=== PATIENT | male | born 1955 | race Caucasian/White ===

== ENCOUNTER 2023-12-23 12:11 | Inpatient (IN) | payer MEDICARE, OTHER ==
--- NOTE | 2023-12-23 12:40 | ED ---
Fall HPI - General Chief Complaint: Fall Stated Complaint: R hip pain Time Seen by Provider: 12/23/23 12:17 Source: patient, EMS, RN notes reviewed, old records reviewed Mode of arrival: EMS Limitations: no limitations - History of Present Illness Initial Comments: This is a 68-year-old male to the ER of a recent fall which what he states resulted in a hip fracture although this patient is very unaware of where the hip fracture was. 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: no Place Fall Occurred: home Loss of Consciousness: none Prolonged Down Time?: no Symptoms Prior to Fall: none Location: pelvis Severity: moderate Severity scale (1-10): 3 Context: tripped/slipped Associated Symptoms: denies - Related Data Home Medications Medication Instructions Recorded Confirmed Cetirizine HCl [Zyrtec] 10 mg PO DAILY PRN 12/23/23 12/23/23 Furosemide [Lasix] 40 mg PO DAILY 12/23/23 12/23/23 Isosorbide Mononitrate ER [Imdur] 120 mg PO DAILY 12/23/23 12/23/23 Metoprolol Tartrate [Lopressor] 50 mg PO BID 12/23/23 12/23/23 Pantoprazole [Protonix] 40 mg PO DAILY 12/23/23 12/23/23 Ranolazine [Ranexa] 1,000 mg PO Q12HR 12/23/23 12/23/23 amLODIPine [Norvasc] 5 mg PO DAILY 12/23/23 12/23/23 Allergies Allergy/AdvReac Type Severity Reaction Status Date / Time No Known Allergies Allergy Verified 12/23/23 13:59 Review of Systems ROS Statement: Those systems with pertinent positive or pertinent negative responses have been documented in the HPI. ROS Other: All systems not noted in ROS Statement are negative. Past Medical History Past Medical History: Coronary Artery Disease (CAD), Chest Pain / Angina, COPD, Hypertension, Myocardial Infarction ([place]), Osteoarthritis (OA) Past Surgical History: Back Surgery, Heart Catheterization With Stent, Prostate Surgery Smoking Status: Current every day smoker Past Alcohol Use History: Daily Past Drug Use History: None Reported General Exam General appearance: alert, in no apparent distress Head exam: Present: atraumatic, normocephalic, normal inspection Eye exam: Present: normal appearance, PERRL, EOMI. Absent: scleral icterus, conjunctival injection, periorbital swelling ENT exam: Present: normal exam, mucous membranes moist Neck exam: Present: normal inspection. Absent: tenderness, meningismus, ly mphadenopathy Respiratory exam: Present: normal lung sounds bilaterally. Absent: respiratory distress, wheezes, rales, rhonchi, stridor Cardiovascular Exam: Present: regular rate, normal rhythm, normal heart sounds. Absent: systolic murmur, diastolic murmur, rubs, gallop, clicks GI/Abdominal exam: Present: soft, normal bowel sounds. Absent: distended, tenderness, guarding, rebound, rigid Extremities exam: Present: normal inspection, full ROM, normal capillary refill. Absent: tenderness, pedal edema, joint swelling, calf tenderness Back exam: Present: normal inspection Neurological exam: Present: alert, oriented X3, CN II-XII intact Psychiatric exam: Present: normal affect, normal mood Skin exam: Present: warm, dry, intact, normal color. Absent: rash Course Vital Signs 12/23/23 12:14 Temperature 97.8 F Pulse Rate 99 Respiratory 18 Rate Blood Pressure 118/71 O2 Sat by Pulse 92 L Oximetry - Reevaluation(s) Reevaluation #1: 12/23/23 14:18 Medical record is reviewed Reevaluation #2: 12/23/23 16:05 Patient symptoms improved Reevaluation #3: 12/23/23 16:05 Patient informed of results and questions answered Reevaluation #4: Was pt. sent in by a medical professional or institution (, PA, ANALYSIS MGR, urgent care, hospital, or [facility]...) When possible be specific @ -no Did you speak to anyone other than the patient for history (EMS, parent, family, police, friend...)? What history was obtained from this source @ -no Did you review nursing and triage notes (agree or disagree)? Why? @ -agree Are old charts reviewed (outside hosp., previous admission, EMS record, old EKG, old radiological studies, urgent care reports/EKG's, [facility] records)? Report findings @ -yes Differential Diagnosis (chest pain, altered mental status, abdominal pain women, abdominal pain men, vaginal bleeding, weakness, fever, dyspnea, syncope, headache, dizziness, GI bleed, back pain, seizure, CVA, palpatations, mental health, musculoskeletal)? @ -prior EKG interpreted by me (3pts min.). @ -yes X-rays interpreted by me (1pt min.). @ -yes negative for acute disease CT interpreted by me (1pt min.). @ -no U/S interpreted by me (1pt. min.). @ -no What testing was considered but not performed or refused? (CT, X-rays, U/S, labs)? Why? @ -none What meds were considered but not given or refused? Why? @ -none Did you discuss the management of the patient with other professionals (professionals i.e. , PA, ANALYSIS MGR, lab, RT, psych nurse, high school social studies teacher, candle making supervisor, teacher, corporation officer, case management rn)? Give summary @ -no Was smoking cessation discussed for >3mins.? @ -no Was critical care preformed (if so, how long)? @ -no Were there social determinants of health that impacted care today? How? (Homelessness, low income, unemployed, alcoholism, drug addiction, transportation, low edu. Level, literacy, decrease access to med. care, usp, rehab)? @ -none Was there de-escalation of care discussed even if they declined (Discuss DNR or withdrawal of care, Hospice)? DNR status @ -no What co-morbidities impacted this encounter? (DM, HTN, Smoking, COPD, CAD, Cancer, CVA, ARF, Chemo, Hep., AIDS, mental health diagnosis, sleep apnea, morbid obesity)? @ -none Was patient admitted / discharged? Hospital course, mention meds given and route, prescriptions, significant lab abnormalities, going to OR and other pertinent info. @ - Undiagnosed new problem with uncertain prognosis? @ -no Drug Therapy requiring intensive monitoring for toxicity (Heparin, Nitro, Insulin, Cardizem)? @ -no Were any procedures done? @ -no Diagnosis/symptom? @ - Acute, or Chronic, or Acute on Chronic? @ -Acute Uncomplicated (without systemic symptoms) or Complicated (systemic symptoms)? @ -Complicated Side effects of treatment? @ -no Exacerbation, Progression, or Severe Exacerbation? @ -exacerbation Poses a threat to life or bodily function? How? (Chest pain, [place], [place], pneumonia, PE, COPD, DKA, ARF, appy, cholecystitis, CVA, Diverticulitis, Homicidal, Suicidal, threat to staff... and all critical care pts) @ -yes Reevaluation #5: Differential Weakness: Hypoglycemia, shock, sepsis, hyponatremia, anemia, infection, [place], ETOH, adverse medicine reaction, overdose, stroke, this is not meant to be an all-inclusive list. - Consultations Consultation #1: Spoke with Dr. Sanchez who agrees to admit this patient Medical Decision Making - Medical Decision Making 68 male to the ER for evaluation patient falls with fracture patient had a fall greater than a week ago coming in with bilateral hip pain persistent bilateral hip pain and states he currently wants surgical evaluation patient is found to have significant electrolyte abnormalities will be admitted for electrolyte r eplacement - Lab Data Result diagrams: 12/23/23 13:31 12/23/23 13:31 Lab Results 12/23/23 12/23/23 12/23/23 Range/Units 13:31 13:31 13:31 WBC 7.1 (3.8-10.6) k/uL RBC 3.15 L (4.30-5.90) m/uL Hgb 11.3 L (13.0-17.5) gm/dL Hct 33.5 L (39.0-53.0) % MCV 106.3 H (80.0-100.0) fL MCH 35.8 H (25.0-35.0) pg MCHC 33.7 (31.0-37.0) g/dL RDW 15.4 (11.5-15.5) % Plt Count 201 (150-450) k/uL MPV 7.5 Neutrophils % 68 % Lymphocytes % 23 % Monocytes % 5 % Eosinophils % 2 % Basophils % 0 % Neutrophils # 4.8 (1.3-7.7) k/uL Lymphocytes # 1.6 (1.0-4.8) k/uL Monocytes # 0.3 (0-1.0) k/uL Eosinophils # 0.2 (0-0.7) k/uL Basophils # 0.0 (0-0.2) k/uL Macrocytosis Moderate PT 10.1 (10.0-12.5) sec INR 0.9 (<1.2) APTT 25.7 (22.0-30.0) sec Sodium 129 L (137-145) mmol/L Potassium 3.7 (3.5-5.1) mmol/L Chloride 97 L (98-107) mmol/L Carbon Dioxide 24 (22-30) mmol/L Anion Gap 8 mmol/L BUN 3 L (9-20) mg/dL Creatinine 0.47 L (0.66-1.25) mg/dL Est GFR (CKD-EPI)AfAm >90 (>60 ml/min/1.73 sqM) Est GFR (CKD-EPI)NonAf >90 (>60 ml/min/1.73 sqM) Glucose 101 H (74-99) mg/dL Plasma Lactic Acid Jair (0.7-2.0) mmol/L Calcium 8.6 (8.4-10.2) mg/dL Phosphorus 4.7 H (2.5-4.5) mg/dL Magnesium 1.3 L (1.6-2.3) mg/dL Total Bilirubin 1.1 (0.2-1.3) mg/dL AST 39 (17-59) U/L ALT 22 (4-49) U/L Alkaline Phosphatase 97 (38-126) U/L Troponin I (0.000-0.034) ng/mL Total Protein 6.5 (6.3-8.2) g/dL Albumin 3.9 (3.5-5.0) g/dL 12/23/23 12/23/23 Range/Units 13:31 13:31 WBC (3.8-10.6) k/uL RBC (4.30-5.90) m/uL Hgb (13.0-17.5) gm/dL Hct (39.0-53.0) % MCV (80.0-100.0) fL MCH (25.0-35.0) pg MCHC (31.0-37.0) g/dL RDW (11.5-15.5) % Plt Count (150-450) k/uL MPV Neutrophils % % Lymphocytes % % Monocytes % % Eosinophils % % Basophils % % Neutrophils # (1.3-7.7) k/uL Lymphocytes # (1.0-4.8) k/uL Monocytes # (0-1.0) k/uL Eosinophils # (0-0.7) k/uL Basophils # (0-0.2) k/uL Macrocytosis PT (10.0-12.5) sec INR (<1.2) APTT (22.0-30.0) sec Sodium (137-145) mmol/L Potassium (3.5-5.1) mmol/L Chloride (98-107) mmol/L Carbon Dioxide (22-30) mmol/L Anion Gap mmol/L BUN (9-20) mg/dL Creatinine (0.66-1.25) mg/dL Est GFR (CKD-EPI)AfAm (>60 ml/min/1.73 sqM) Est GFR (CKD-EPI)NonAf (>60 ml/min/1.73 sqM) Glucose (74-99) mg/dL Plasma Lactic Acid Jair 1.3 (0.7-2.0) mmol/L Calcium (8.4-10.2) mg/dL Phosphorus (2.5-4.5) mg/dL Magnesium (1.6-2.3) mg/dL Total Bilirubin (0.2-1.3) mg/dL AST (17-59) U/L ALT (4-49) U/L Alkaline Phosphatase (38-126) U/L Troponin I <0.012 (0.000-0.034) ng/mL Total Protein (6.3-8.2) g/dL Albumin (3.5-5.0) g/dL - Radiology Data Radiology results: report reviewed (Chest x-ray pelvis x-ray x-ray of bilateral hip and CT scan of the hip shows bilateral greater trochanteric fracture), image reviewed Disposition Clinical Impression: Bilateral hip pain, Fracture of greater trochanter of left femur, Fracture of greater trochanter of right femur Disposition: ADMITTED IP TO THIS HOSP Condition: Fair Is patient prescribed a controlled substance at d/c from ED?: No Referrals: Nonstaff,Physician [Primary Care Provider] - 1-2 days Time of Disposition: 16:00
[2023-12-23] MEDS: SODIUM CHLORIDE 0.9% 1,000 ML IV STA (13:47)
[2023-12-23 13:50] LABS: Basophils % (A) 0 %; Eosinophils # (A) 0.2 k/uL (0-0.7); Eosinophils % (A) 2 %; HCT 33.5 % (39.0-53.0); HGB 11.3 gm/dL (13.0-17.5); Lymphocytes # (A) 1.6 k/uL (1.0-4.8); Lymphocytes % (A) 23 %; MCH 35.8 pg (25.0-35.0); MCHC 33.7 g/dL (31.0-37.0); MCV 106.3 fL (80.0-100.0); Macrocytosis Moderate; Mean Platelet Volume 7.5; Monocytes # (A) 0.3 k/uL (0-1.0); Monocytes % (A) 5 %; Neutrophils # (A) 4.8 k/uL (1.3-7.7); Neutrophils % (A) 68 %; Platelet Count 201 k/uL (150-450); RBC 3.15 m/uL (4.30-5.90); RDW 15.4 % (11.5-15.5); WBC 7.1 k/uL (3.8-10.6)
[2023-12-23 14:08] LABS: INR 0.9 (<1.2); Partial Thromboplastin Time 25.7 sec (22.0-30.0); Prothrombin Time 10.1 sec (10.0-12.5)
[2023-12-23] MEDS: MORPHINE SULFATE 4 MG/ML SYRINGE IVP STA (14:09)
[2023-12-23 14:13] LABS: ALT 22 U/L (4-49); AST 39 U/L (17-59); African American GFR (CKD) >90 (>60 ml/min/1.73 sqM); Albumin 3.9 g/dL (3.5-5.0); Alkaline Phosphatase 97 U/L (38-126); Anion Gap 8 mmol/L; Blood Urea Nitrogen 3 mg/dL (9-20); Calcium 8.6 mg/dL (8.4-10.2); Carbon Dioxide 24 mmol/L (22-30); Chloride 97 mmol/L (98-107); Glucose 101 mg/dL (74-99); Magnesium 1.3 mg/dL (1.6-2.3); Non-African American GFR(CKD) >90 (>60 ml/min/1.73 sqM); Phosphorus 4.7 mg/dL (2.5-4.5); Potassium 3.7 mmol/L (3.5-5.1); Sodium 129 mmol/L (137-145); Total Bilirubin 1.1 mg/dL (0.2-1.3); Total Protein 6.5 g/dL (6.3-8.2)
--- NOTE | 2023-12-23 14:56 | XR ---
EXAMINATION TYPE: XR chest 1V DATE OF EXAM: 12/23/2023 COMPARISON: NONE HISTORY: Pain TECHNIQUE: Single frontal view of the chest is obtained. FINDINGS: There is no focal air space opacity, pleural effusion, or pneumothorax seen. The cardiac silhouette size is within normal limits. The osseous structures are intact. Emphysematous changes. Diffuse osteopenia. Atherosclerotic change aorta. IMPRESSION: No acute process. [facility], , 12/23/2023 1:37 PM
--- NOTE | 2023-12-23 14:56 | XR ---
EXAMINATION TYPE: XR Hip Bilateral and AP pelvis DATE OF EXAM: 12/23/2023 COMPARISON: NONE HISTORY: 18 TECHNIQUE: A single AP view of the pelvis is obtained. Two views of the bilateral hip are obtained. FINDINGS: There is a acute fracture of the greater trochanter of the left hip. Mild hypertrophic hip arthropathy. Mild generalized demineralization. Findings are suspicious for deformity of the greater trochanter of the right hip. Pubic rami are intact. Sclerotic density overlying the right iliac bone. Vascular ivan cifications and degenerative change of the spine. IMPRESSION: 1. CT scan of the pelvis to include bilateral hip recommended to assess for mildly displaced acute fr actures of the greater trochanter bilateral hip.. [facility], , 12/23/2023 1:39 PM
--- NOTE | 2023-12-23 14:59 | CT ---
EXAMINATION TYPE: CT pelvis wo con CT DLP: 242.9 mGycm, Automated exposure control for dose reduction was used. DATE OF EXAM: 12/23/2023 2:42 PM COMPARISON: Bilateral hip radiographs of the same date. CLINICAL INDICATION:Male, 68 years old with history of pain; hip pain, recent falls TECHNIQUE: Standard CT of the pelvis without IV or oral contrast. Lack of IV or oral contrast limit s evaluation of solid and hollow organ viscera. Coronal and sagittal reformats were performed. 3-D re formats of the osseous structures are created and a separate workstation. FINDINGS: BLADDER: Significantly distended. No wall thickening or surrounding inflammatory changes identified. REPRODUCTIVE: Prominent prostate gland measuring 4.8 cm in transverse dimension. BOWEL: No focal bowel wall thickening or surrounding inflammatory changes. No evidence of bowel obstr uction. PERITONEUM: No evidence of pneumoperitoneum or free fluid. VASCULATURE: Moderate atherosclerotic calcifications are present throughout the abdominal aorta and i ts branches. No distal abdominal aortic aneurysm. MUSCULOSKELETAL: Sclerotic appearance involving the medial aspect of the right iliac bone adjacent to the SI joint. Degenerative disease at L5-S1 with bilateral facet arthropathy of the lower lumbar sp ine. No dislocation. Acute comminuted mildly displaced fracture of the left proximal femur extending from the greater trochanteric to near the lesser trochanter. Acute right mildly displaced comminuted fracture involving the greater trochanter of the right proximal femur. No extension through the femor al neck. LYMPH NODES: No gross evidence for lymphadenopathy. SOFT TISSUE/ABDOMINAL WALL: Unremarkable IMPRESSION: 1. Acute comminuted mildly displaced fracture involving the greater trochanter with extension near t he lesser trochanter of the left proximal femur. 2. Acute comminuted mildly displaced fracture involving the greater trochanter of the right proximal femur. 3. Nonspecific sclerotic appearance of the medial aspect of the right iliac bone adjacent SI joint. Could relate to Paget's disease versus postsurgical intervention versus other etiologies. 4. Significantly distended urinary bladder. Consider Cabrera catheter placement if patient cannot urin ate. [facility], , 12/23/2023 2:56 PM
[2023-12-23] MEDS ORDERED: NALOXONE 0.4 MG/ML 1 ML VIAL IV PRN (16:01)
[2023-12-23] MEDS ORDERED: ONDANSETRON 4 MG/2 ML VIAL IVP PRN (16:01)
[2023-12-23] MEDS: POTASSIUM BICARBONATE/CIT AC 20 MEQ TABLET.EFF PO ONE ×2 (17:22→18:43)
[2023-12-23] MEDS: MAGNESIUM OXIDE 400 MG TAB PO STA ×2 (17:22)
[2023-12-23] MEDS: SODIUM CHLORIDE 0.9% 1,000 ML IV SCH (18:42)
[2023-12-23] MEDS: MAGNESIUM SULFATE-D5W PMX 1 GM in DEXTROSE/WATER 1 100ML.BAG IVPB ONE (18:42)
[2023-12-23] MEDS: MORPHINE SULFATE 4 MG/ML SYRINGE IV PRN (18:57)
--- NOTE | 2023-12-23 19:22 | P.CNOR ---
History of Present Illness - [facility] Consult date: 12/23/23 Consult reason: fracture History of present illness: Patient reports that he is a walker/cane ambulator at baseline and has had several falls recently in his home most recently he had several falls earlier today where he landed primarily onto his left side he states he had weakness after the fall and difficulty ambulating currently he notes pain to the left hip he denies any numbness or tingling to the bilateral legs patient does have a cardiac history and recalls having stents placed roughly 6 to 7 years ago he denies currently being on any blood thinning medications pain to his left hip is worse with direct contact to the lateral aspect of the hip he is able to move the hip in bed without significant pain Review of Systems Cardiovascular: Denies edema, Denies leg edema Musculoskeletal: Reports as per HPI Musculoskeletal: bilateral: hip pain Integumentary: Reports wounds Neurological: Reports weakness Psychiatric: Denies confusion Past Medical History Past Medical History: Coronary Artery Disease (CAD), Chest Pain / Angina, COPD, Hypertension, Myocardial Infarction ([place]), Osteoarthritis (OA) Past Surgical History: Back Surgery, Heart Catheterization With Stent, Prostate Surgery Smoking Status: Current every day smoker Past Alcohol Use History: Daily Past Drug Use History: None Reported Medications and Allergies Home Medications Medication Instructions Recorded Confirmed Type Cetirizine HCl [Zyrtec] 10 mg PO DAILY PRN 12/23/23 12/23/23 History Furosemide [Lasix] 40 mg PO DAILY 12/23/23 12/23/23 History Isosorbide Mononitrate ER [Imdur] 120 mg PO DAILY 12/23/23 12/23/23 History Metoprolol Tartrate [Lopressor] 50 mg PO BID 12/23/23 12/23/23 History Pantoprazole [Protonix] 40 mg PO DAILY 12/23/23 12/23/23 History Ranolazine [Ranexa] 1,000 mg PO Q12HR 12/23/23 12/23/23 History amLODIPine [Norvasc] 5 mg PO DAILY 12/23/23 12/23/23 History Allergies Allergy/AdvReac Type Severity Reaction Status Date / Time No Known Allergies Allergy Verified 12/23/23 13:59 Physical Examination - Hip bilateral Tenderness with palpation: greater trochanter (Bilateral) Pain with motion: no internal rotation and hip flexion (Patient is able to tolerate logroll bilaterally), no internal rotation and hip extension Crepitus with motion: No Strength: flexion: 4/5 Strength: abduction: 4/5 Strength: adduction: 4/5 Strength: internal rotation: 4/5 Strength: external rotation: 4/5 Results - Labs Labs: Abnormal Lab Results - Last 24 Hours (Table) 12/23/23 12/23/23 Range/Units 13:31 13:31 RBC 3.15 L (4.30-5.90) m/uL Hgb 11.3 L (13.0-17.5) gm/dL Hct 33.5 L (39.0-53.0) % MCV 106.3 H (80.0-100.0) fL MCH 35.8 H (25.0-35.0) pg Sodium 129 L (137-145) mmol/L Chloride 97 L (98-107) mmol/L BUN 3 L (9-20) mg/dL Creatinine 0.47 L (0.66-1.25) mg/dL Glucose 101 H (74-99) mg/dL Phosphorus 4.7 H (2.5-4.5) mg/dL Magnesium 1.3 L (1.6-2.3) mg/dL H & H 12/23/23 Range/Units 13:31 Hgb 11.3 L (13.0-17.5) gm/dL Hct 33.5 L (39.0-53.0) % Coagulation 12/23/23 Range/Units 13:31 INR 0.9 (<1.2) Result Diagrams: 12/23/23 13:31 12/23/23 13:31 - Diagnostic results Hip x-ray: report reviewed, image reviewed Hip CT: report reviewed, image reviewed (All images reviewed plain films and CT scans demonstrate bilateral greater trochanteric fractures neither shows involvement of the femoral neck however the left side does show some distal propagation of the fracture however this seems to be limited to the posterior aspect of the greater trochanter) Assessment and Plan (1) Bilateral hip pain Current Visit: Yes Status: Acute Code(s): M25.551 - PAIN IN RIGHT HIP; M25.552 - PAIN IN LEFT HIP SNOMED Code(s): 88976702 (2) Fracture of greater trochanter of left femur Current Visit: Yes Status: Acute Priority: High Code(s): S72.112A - DISP FX OF GREATER TROCHANTER OF LEFT FEMUR, INIT SNOMED Code(s): 446755228 (3) Fracture of greater trochanter of right femur Current Visit: Yes Status: Acute Priority: High Code(s): S72.111A - DISP FX OF GREATER TROCHANTER OF RIGHT FEMUR, INIT SNOMED Code(s): 890613324 Plan: At this time we will need to further evaluate the fractures of the greater trochanters and assess there potential to extend further distally and involve t he intertrochanteric and or weightbearing portions of the femoral neck. Urgent MRI orders of the bilateral hips have been entered these will be reviewed upon their completion discussed with the patient that depending on these findings this would determine the need for surgical intervention or not in anticipation of the potential need for surgery we would ask that the medicine team evaluate the patient for preoperative assessment as well as keeping the patient n.p.o. beginning at midnight tonight if potential operative intervention needs to be undertaken. For now patient should remain nonweightbearing to the bilateral lower extremities ice to the affected areas to help with pain recommend SCD to the bilateral legs as well as appropriate DVT prophylaxis.
[2023-12-23] MEDS: RANOLAZINE 500 MG TAB.ER.12H PO SCH (21:28)
[2023-12-23] MEDS: METOPROLOL TARTRATE 50 MG TAB PO SCH (21:28)
[2023-12-23] MEDS: NICOTINE 21MG/24HR PATCH TRANSDERM SCH (21:29)
[2023-12-23] MEDS ORDERED: LORazepam 2 MG/ML INJ IV PRN ×3 (22:58)
--- NOTE | 2023-12-24 01:44 | HP ---
HISTORY AND PHYSICAL Benedict [employer] came in drink a day, alcoholic. He apparently tripped and fell down the stairs. He broke his hip. He is in for hip surgery. He has history of cardiac stents, multiple, which are unable to cardiac clearance for surgery femur smoker. MEDICATIONS: 1. Nicotine 21 mg daily. 2. Protonix 40 daily. 3. Ranexa 1000 b.i.d. 4. Norvasc 5 mg daily. 5. Lasix 40 daily. 6. Imdur 120 mg daily. 7. Claritin 10 mg daily. 8. DuoNeb q.i.d. 9. Lasix 40 a day. 10.Ranexa 1000 q.12 hours. 11.Zofran 4 mg q.6 p.r.n. ASSESSMENT: 1. Femur fracture. 2. Alcoholism, CIWA protocol. 3. Coronary artery disease, history of multiple stents. We will get cardiology clearance prior to surgery medications have been reordered. MMODL / IJN: [id number] /
[2023-12-24] MEDS: IPRATROPIUM-ALBUTEROL 3 ML NEB INHALATION SCH (09:12)
[2023-12-24] MEDS: amLODIPine 5 MG TAB PO SCH (09:15)
[2023-12-24] MEDS: PANTOPRAZOLE 40 MG TABLET PO SCH (09:23)
[2023-12-24] MEDS: ISOSORBIDE MONONITRATE ER 60 MG TAB.ER.24H PO SCH (09:23)
[2023-12-24] MEDS: FUROSEMIDE 40 MG TAB PO SCH (09:23)
--- NOTE | 2023-12-24 09:31 | P.PN ---
Subjective Progress Note Date: 12/24/23 Principal diagnosis: Bilateral hip pain due to bilateral greater anterior fractures No acute events overnight. Spoke with nursing staff and patient is doing well. Patient denies pain while resting in bed, endorses pain with movements of bilateral lower extremities. Patient was getting a breathing treatment while examined today at bedside. Objective - Vital Signs Vital signs: Vital Signs Temp 97.8 F 12/24/23 07:28 Pulse 72 12/24/23 09:24 Resp 16 12/24/23 07:28 BP 94/61 12/24/23 07:28 Pulse Ox 93 L 12/24/23 07:28 FiO2 Intake & Output 12/23/23 12/24/23 12/24/23 18:59 06:59 18:59 Output Total 600 750 Balance -600 -750 Weight 56.699 kg 56.699 kg Output: Urine 600 750 Other: Voiding Method Urinal - Exam Was examined at bedside this morning. Patient was awake alert and able to answer questions. Patient was currently getting a breathing treatment at time of exam. Patient was resting sitting up in bed. On inspection there was no scars or lesions over the anterior and lateral aspect of bilateral hips. Patient's bilateral femoral nerve function was grossly intact. Patient was able to plantarflex and dorsiflex the bilateral ankles and toes. Patient's bilateral feet appear well-perfused with brisk capillary refill. - Labs CBC & Chem 7: 12/23/23 13:31 12/23/23 13:31 Labs: Abnormal Lab Results - Last 24 Hours (Table) 12/23/23 12/23/23 Range/Units 13:31 13:31 RBC 3.15 L (4.30-5.90) m/uL Hgb 11.3 L (13.0-17.5) gm/dL Hct 33.5 L (39.0-53.0) % MCV 106.3 H (80.0-100.0) fL MCH 35.8 H (25.0-35.0) pg Sodium 129 L (137-145) mmol/L Chloride 97 L (98-107) mmol/L BUN 3 L (9-20) mg/dL Creatinine 0.47 L (0.66-1.25) mg/dL Glucose 101 H (74-99) mg/dL Phosphorus 4.7 H (2.5-4.5) mg/dL Magnesium 1.3 L (1.6-2.3) mg/dL Assessment and Plan Assessment: Bilateral hip pain Left greater trochanter fracture Right greater trochanter fracture Plan: Patient is scheduled for MRI at 1515 this afternoon. Patient has been n.p.o. since midnight. Surgical intervention planning will be made after bilateral hip MRI is completed this afternoon by Dr. Tex Pruitt. We would ask that the medicine team evaluate the patient for preoperative assessment as well as keeping the patient n.p.o. For now patient should remain nonweightbearing to the bilateral lower extremities, ice to the affected areas to help with pain recommend SCD to the bilateral legs as well as appropriate DVT prophylaxis.
[2023-12-24 10:16] LABS: Basophils # (A) 0.03 X 10*3/uL (0.00-0.10); Basophils % (A) 0.5 %; Eosinophils # (A) 0.34 X 10*3/uL (0.04-0.35); Eosinophils % (A) 5.6 %; HCT 25.4 % (39.6-50.0); HGB 8.9 g/dL (13.0-17.0); Lymphocytes # (A) 1.75 X 10*3/uL (0.90-5.00); Lymphocytes % (A) 28.8 %; MCH 36.3 pg (27.0-32.0); MCV 103.7 FL (80.0-97.0); Mean Platelet Volume 10.5 FL (9.5-12.2); Monocytes # (A) 0.63 X 10*3/uL (0.20-1.00); Monocytes % (A) 10.4 %; NRBC Per 100 WBC 0 X 10*3/uL (0.00-0.01); Neutrophils # (A) 3.31 X 10*3/uL (1.80-7.70); Neutrophils % (A) 54.4 %; Platelet Count 138 X 10*3/uL (140-440); RBC 2.45 X 10*6/uL (4.40-5.60); RDW 16.3 % (11.5-14.5); WBC 6.08 X 10*3/uL (4.50-10.00)
[2023-12-24 10:52] LABS: ALT 14 U/L (10-49); AST 25 U/L (14-35); Albumin 3.1 g/dL (3.8-4.9); Albumin/Globulin Ratio 1.63 Ratio (1.60-3.17); Alkaline Phosphatase 90 U/L (41-126); BUN/Creat Ratio 9.83 Ratio (12.00-20.00); Blood Urea Nitrogen 5.9 mg/dL (9.0-27.0); Calcium 7.9 mg/dL (8.7-10.3); Carbon Dioxide 24.8 mmol/L (21.6-31.8); Chloride 96 mmol/L (96-109); Globulin 1.9 g/dL (1.6-3.3); Glucose 100 mg/dL (70-110); Magnesium 1.6 mg/dL (1.5-2.4); Phosphorus 3.6 mg/dL (2.4-5.1); Sodium 130 mmol/L (135-145); Total Bilirubin 0.4 mg/dL (0.3-1.2)
--- NOTE | 2023-12-24 12:34 | P.PN ---
Subjective 68-year-old male admitted for bilateral fractures. Patient does have history of coronary disease does not have any chest pain had a cardia catheterization stents in the past cardiology is evaluating for preoperative clearance. Patient does not have any history of congestive heart failure but still on Lasix here. Patient is also getting IV fluids patient is hyponatremic we will discontinue Lasix. Patient on CIWA protocol but not having any withdrawals CIWA protocol will be discontinued as well. Patient is hypotensive amlodipine will be disco ntinued REVIEW OF SYSTEMS: All other systems are negative except those mentioned in the HPI PHYSICAL EXAMINATION: GENERAL: The patient is alert and oriented x3, not in any acute distress. Well developed, well nourished. HEENT: Pupils are round and equally reacting to light. EOMI. No scleral icterus. No conjunctival pallor. Normocephalic, atraumatic. No pharyngeal erythema. No thyromegaly. CARDIOVASCULAR: S1 and S2 present. No murmurs, rubs, or gallops. PULMONARY: Chest is clear to auscultation, no wheezing or crackles. ABDOMEN: Soft, nontender, nondistended, normoactive bowel sounds. No palpable organomegaly. MUSCULOSKELETAL: No joint swelling or deformity. EXTREMITIES: No cyanosis, clubbing, or pedal edema. NEUROLOGICAL: Gross neurological examination did not reveal any focal deficits. SKIN: No rashes. Assessment and plan -Preoperative clearance patient is low operative risk but patient blood pressure is low, will discontinue antihypertensive medications and Lasix at this time continue with IV fluids. His risk factors include active smoking and coronary artery disease -Coronary disease patient presently does not have any chest pain cardiology is evaluating the patient as well continue with his ranolazine patient will also need antiplatelet therapy since cardiology is evaluating early with addition to them. Patient will continue on metoprolol as well -Hypertension patient is presently hypotensive, hold off Norvasc Hyponatremia secondary to Lasix which will be discontinued -COPD without any acute exacerbation at this time DVT prophylaxis: As per primary service Objective - Vital Signs Vital signs: Vital Signs Temp 97.8 F 12/24/23 07:28 Pulse 72 12/24/23 09:24 Resp 16 12/24/23 07:28 BP 94/61 12/24/23 07:28 Pulse Ox 93 L 12/24/23 07:28 FiO2 Intake & Output 1012/24/23 12/24/23 18:59 06:59 18:59 Output Total 600 750 740 Balance -600 750 -740 Weight 56.699 kg 56.699 kg Output: Urine 600 750 740 Other: Voiding Method Urinal - Labs CBC & Chem 7: 12/24/23 03:24 12/24/23 03:24 Labs: Abnormal Lab Results - Last 24 Hours (Table) 12/23/23 12/23/23 12/24/23 Range/Units 13:31 13:31 03:24 RBC 3.15 L 2.45 L (4.30-5.90) m/uL Hgb 11.3 L 8.9 L (13.0-17.5) gm/dL Hct 33.5 L 25.4 L (39.0-53.0) % MCV 106.3 H 103.7 H (80.0-100.0) fL MCH 35.8 H 36.3 H (25.0-35.0) pg RDW 16.3 H (11.5-14.5) % Plt Count 138 L (140-440) X 10*3/uL Sodium 129 L (137-145) mmol/L Chloride 97 L (98-107) mmol/L BUN 3 L (9-20) mg/dL Creatinine 0.47 L (0.66-1.25) mg/dL BUN/Creatinine Ratio (12.00-20.00) Ratio Glucose 101 H (74-99) mg/dL Calcium (8.7-10.3) mg/dL Phosphorus 4.7 H (2.5-4.5) mg/dL Magnesium 1.3 L (1.6-2.3) mg/dL Total Protein (6.2-8.2) g/dL Albumin (3.8-4.9) g/dL 12/24/23 Range/Units 03:24 RBC (4.30-5.90) m/uL Hgb (13.0-17.5) gm/dL Hct (39.0-53.0) % MCV (80.0-100.0) fL MCH (25.0-35.0) pg RDW (11.5-14.5) % Plt Count (140-440) X 10*3/uL Sodium 130 L (137-145) mmol/L Chloride (98-107) mmol/L BUN 5.9 L (9-20) mg/dL Creatinine (0.66-1.25) mg/dL BUN/Creatinine Ratio 9.83 L (12.00-20.00) Ratio Glucose (74-99) mg/dL Calcium 7.9 L (8.7-10.3) mg/dL Phosphorus (2.5-4.5) mg/dL Magnesium (1.6-2.3) mg/dL Total Protein 5.0 L (6.2-8.2) g/dL Albumin 3.1 L (3.8-4.9) g/dL
--- NOTE | 2023-12-24 12:55 | P.CRDCN ---
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 We have been asked to evaluate the patient for surgical clearance. Patient apparently had several falls recently. He complained of left hip pain. Patient was found to have bilateral greater trochanteric fractures. Orthopedic surgery has ordered urgent MRI with plan for surgical intervention later today which would be a bilateral fixation of the hips with IM device. Patient has been started on the CIWA protocol. Patient gives history that he had a fall on the stairs when his foot gave out and it slipped out from under him. Then in the living room he had 2 more falls. He denies having any chest pain, pressure, tightness. No fever or chills. He states he has a chronic cough due to his smoking. He did have an episode of sweating since the last fall but no chest pain. He denies any black or tarry stools. He states he has had weight loss of 40 pounds over the past year and is just not eating very well. Patient was noted and continued to have low blood pressure readings since arrival. This could be due to less requirement for antihypertensive with weight loss. Blood pressure 95/57, heart rate 77, pulse ox 92% on room air. Patient is an active smoker of 1 pack/day. EKG: Sinus rhythm with no acute ST-T wave changes. Chest x-ray: No acute process Laboratory studies: WBC 7.1, hemoglobin 1.3, platelet count 201. Sodium 129, potassium 3.7, BUN 3 and creatinine 0.47. Phosphorus 4.7, magnesium 1.3. Liver function test are normal. Troponin negative x 1. Home cardiac medications: Amlodipine 5 mg daily, Lasix 40 mg daily, Imdur 120 mg daily, Lopressor 50 mg twice daily, Ranexa 1000 mg every 12 hours. Limited echocardiogram performed at [facility] 12/11/2021 revealed EF of 55 to 60%, trivial pericardial effusion. Lexiscan stress test performed at [facility] 07/11/2018 revealed abnormal Lexiscan myocardial perfusion imaging study with evidence of stress-induced reversible perfusion defects involving the inferior wall and left ventricle apex. These findings are suggestive of ischemia. Gated wall motion appears to reveal normal left ventricular wall motion without any regional abnormalities. EF 72%. Cardiac catheterization performed 07/25/2018 at [facility] revealed 3 tandem lesions of 80% stenosis within the moderate caliber inferior branch of the bifurcating moderate to large circumflex. Patent RCA stent, normal left ventricular EF with normal left ventricular end-diastolic pressure. Plan was for medical management. Review Of Systems: At the time of my exam: CONSTITUTIONAL: Denies fever or chills. HEENT: Denies blurred vision, vision changes, or eye pain. Denies hemoptysis CARDIOVASCULAR: Denies chest pain. Denies orthopnea. Denies PND. Denies palpitations RESPIRATORY: Denies shortness of breath. GASTROINTESTINAL: Denies abdominal pain. Denies nausea or vomiting. HEMATOLOGIC: Denies bleeding disorders. GENITOURINARY: Denies any blood in urine. SKIN: Denies puritis. Denies rash. Physical examination: Gen: This is a thin 68-year-old male appears to be in no acute distress VS: reviewed HEENT: Head is atraumatic, normocephalic. Pupils equal, round. Sclerae is anicte reema. NECK: Supple. No JVD. LUNGS: Clear to auscultation. No wheezes or rhonchi. No intercostal re tractions. HEART: Regular rate and rhythm. Systolic murmur. ABDOMEN: Soft No tenderness. EXTREMITIES: No pedal edema. No calf tenderness. NEUROLOGICAL: Patient is awake, alert and oriented x3. Assessment: Bilateral greater trochanteric fractures Multiple falls with initial fall mechanical Sweating episode x 1 since the initial fall of unclear etiology Hypertension Coronary artery disease status post stenting of the RCA in 2016 COPD Active tobacco use and dependence Weight loss of 40 pounds Plan: Resume patient's home cardiac medications with the following exceptions: Discontinue amlodipine and Lasix Patient is at moderate risk for complications during the perioperative time. No absolute contraindications for surgery planned. Further recommendations to follow based upon clinical course Thank you kindly for this consultation. Nurse practitioner note has been reviewed, I agree with documented findings and plan of care. Patient was seen and examined. Past Medical History Past Medical History: Coronary Artery Disease (CAD), Chest Pain / Angina, COPD, Hypertension, Myocardial Infarction ([place]), Osteoarthritis (OA) Last Myocardial Infarction Date:: 12/2023? unconfirmed History of Any Multi-Drug Resistant Organisms: None Reported Past Surgical History: Back Surgery, Heart Catheterization With Stent, Prostate Surgery Past Anesthesia/Blood Transfusion Reactions: No Reported Reaction Date of Last Stent Placement:: 2017 Smoking Status: Current every day smoker Past Alcohol Use History: Daily Past Drug Use History: None Reported Medications and Allergies Home Medications Medication Instructions Recorded Confirmed Type Cetirizine HCl [Zyrtec] 10 mg PO DAILY PRN 12/23/23 12/23/23 History Furosemide [Lasix] 40 mg PO DAILY 12/23/23 12/23/23 History Isosorbide Mononitrate ER [Imdur] 120 mg PO DAILY 12/23/23 12/23/23 History Metoprolol Tartrate [Lopressor] 50 mg PO BID 12/23/23 12/23/23 History Pantoprazole [Protonix] 40 mg PO DAILY 12/23/23 12/23/23 History Ranolazine [Ranexa] 1,000 mg PO Q12HR 12/23/23 12/23/23 History amLODIPine [Norvasc] 5 mg PO DAILY 12/23/23 12/23/23 History Allergies Allergy/AdvReac Type Severity Reaction Status Date / Time No Known Allergies Allergy Verified 12/23/23 13:59 Physical Exam Vitals: Vital Signs Temp Pulse Pulse Resp BP BP Pulse Ox 12/24/23 01:22 98.6 F 77 15 95/57 92 L 12/23/23 18:11 97.7 F 95 17 117/75 97 12/23/23 17:23 97.9 F 95 18 123/76 98 12/23/23 16:42 95 20 115/78 96 12/23/23 12:14 97.8 F 99 18 118/71 92 L Intake and Output 12/23/23 12/24/23 12/24/23 22:59 06:59 14:59 Output Total 600 750 Balance -600 -750 Output: Urine 600 750 Other: Voiding Method Urinal Weight 56.699 kg Results 12/24/23 03:24 12/24/23 03:24 Cardiac Enzymes 12/23/23 12/23/23 Range/Units 13:31 13:31 AST 39 (17-59) U/L Troponin I <0.012 (0.000-0.034) ng/mL Coagulation 12/23/23 Range/Units 13:31 PT 10.1 (10.0-12.5) sec APTT 25.7 (22.0-30.0) sec CBC 12/23/23 Range/Units 13:31 WBC 7.1 (3.8-10.6) k/uL RBC 3.15 L (4.30-5.90) m/uL Hgb 11.3 L (13.0-17.5) gm/dL Hct 33.5 L (39.0-53.0) % Plt Count 201 (150-450) k/uL Comprehensive Metabolic Panel 12/23/23 Range/Units 13:31 Sodium 129 L (137-145) mmol/L Potassium 3.7 (3.5-5.1) mmol/L Chloride 97 L (98-107) mmol/L Carbon Dioxide 24 (22-30) mmol/L BUN 3 L (9-20) mg/dL Creatinine 0.47 L (0.66-1.25) mg/dL Glucose 101 H (74-99) mg/dL Calcium 8.6 (8.4-10.2) mg/dL AST 39 (17-59) U/L ALT 22 (4-49) U/L Alkaline Phosphatase 97 (38-126) U/L Total Protein 6.5 (6.3-8.2) g/dL Albumin 3.9 (3.5-5.0) g/dL Current Medications Generic Name Dose Route Start Last Admin Trade Name Freq PRN Reason Stop Dose Admin Albuterol/Ipratropium 3 ml 12/24/23 08:00 Ipratropium-Albuterol 3 Ml Neb INHALATION RT-QID CATIE Amlodipine Besylate 5 mg 12/24/23 09:00 Amlodipine 5 Mg Tab PO DAILY CATIE Furosemide 40 mg 12/24/23 09:00 Furosemide 40 Mg Tab PO DAILY CATIE Sodium Chloride 1,000 mls @ 75 mls/hr 12/23/23 16:15 12/24/23 04:19 Saline 0.9% IV 75 mls/hr .[id number] CATIE Administration Isosorbide Mononitrate 120 mg 12/24/23 09:00 Isosorbide Mononitrate Er 60 Mg Tab.Er.24h PO DAILY CATIE Loratadine 10 mg 12/23/23 19:51 Loratadine 10 Mg Tab PO DAILY PRN Allergy Symptoms Lorazepam 1 mg 12/23/23 22:58 Lorazepam 2 Mg/Ml Inj IV Q1HR PRN CIWA 10 to 15 Lorazepam 1 mg 12/23/23 22:58 Lorazepam 2 Mg/Ml Inj IV Q2HR PRN CIWA 8 or 9 Lorazepam 2 mg 12/23/23 22:58 Lorazepam 2 Mg/Ml Inj IV 12/25/23 22:58 Q10M PRN CIWA 16 or higher Metoprolol Tartrate 50 mg 12/23/23 21:00 12/23/23 21:28 Metoprolol Tartrate 50 Mg Tab PO 50 mg BID CATIE Administration Morphine Sulfate 4 mg 12/23/23 16:01 12/24/23 04:18 Morphine Sulfate 4 Mg/Ml Syringe IV 4 mg Q4HR PRN Administration Severe Pain (Scale 7 to 10) Naloxone HCl 0.2 mg 12/23/23 16:01 Naloxone 0.4 Mg/Ml 1 Ml Vial IV Q2M PRN Opioid Reversal Nicotine 1 patch 12/23/23 20:00 12/23/23 21:29 Nicotine 21mg/24hr Patch TRANSDERM 1 patch DAILY CATIE Administration Ondansetron HCl 4 mg 12/23/23 16:01 Ondansetron 4 Mg/2 Ml Vial IVP Q8HR PRN Nausea And Vomiting Pantoprazole Sodium 40 mg 12/24/23 09:00 Pantoprazole 40 Mg Tablet PO DAILY CATIE Ranolazine 1,000 mg 12/23/23 21:00 12/23/23 21:28 Ranolazine 500 Mg Tab.Er.12h PO 1,000 mg Q12HR CATIE Administration Intake and Output 12/23/23 12/24/23 12/24/23 22:59 06:59 14:59 Output Total 600 750 Balance -600 -750 Output: Urine 600 750 Other: Voiding Method Urinal Weight 56.699 kg 12/23/23 13:31 12/23/23 13:31
--- NOTE | 2023-12-24 19:15 | P.PN ---
Progress Note - Text Progress Note Date: 12/24/23 Discussed the MRI findings with the patient this evening the MRI shows bilateral greater trochanteric fractures with extension into the intertrochanteric region this is more significant on the left side but on the right side it crosses the midline. We discussed the concern about not fixing the right side and if the patient favors weightbearing on that right side he is at significant risk for causing a worse fracture of that right hip. We discussed the benefits of being able to fix both hips under 1 anesthetic event and the reduction in risk that that affords patient is in agreement with proceeding with bilateral intramedullary fixation of the hips tomorrow morning patient will be n.p.o. at midnight tonight in preparation for the OR tomorrow.
--- NOTE | 2023-12-24 21:53 | MR ---
EXAMINATION TYPE: MR hips BILAT wo con DATE OF EXAM: 12/24/2023 COMPARISON: CT pelvis 1 day earlier HISTORY: Evaluate extension ob bilateral hip fx Standard multiplanar, multisequence MRI departmental protocol Multiplanar, multisequence images of the pelvis focusing on the bilateral hips were acquired without contrast. FINDINGS: Moderate axial joint space loss in both hips is redemonstrated. Persistent displaced fractu res involving the superior aspect of the greater trochanters bilaterally. In addition on MRI there is serpiginous diminished T1 signal extending through the femoral necks bilaterally. Findings more prom inent in the left hip were there is additional heterogeneous increased T2 signal in the intertrochant maryana region extending to the subtrochanteric region. Mild to moderate diffuse subcutaneous edema is n ow present bilaterally along lateral aspects. Femoral head shapes are maintained bilaterally. Symmetr ic small hip joint effusions are seen. Muscle bulk is symmetric and maintained. Mildly distended bladder is noted. Small amount of free flui d in the pelvis is seen on current study. No abnormal bowel dilatation. IMPRESSION: Seen on MRI not as well-seen on CT there are bilateral acute nondisplaced intertrochanter ic fractures of the bilateral hips. Left hip fracture is larger with more prominent surrounding osseo us edema extending inferiorly. [facility], , 12/24/2023 9:51 PM
[2023-12-25 10:31] LABS: BUN/Creat Ratio 10.17 Ratio (12.00-20.00); Blood Urea Nitrogen 6.1 mg/dL (9.0-27.0); Calcium 7.7 mg/dL (8.7-10.3); Carbon Dioxide 23.4 mmol/L (21.6-31.8); Chloride 97 mmol/L (96-109); Glucose 98 mg/dL (70-110); Potassium 4.2 mmol/L (3.5-5.5); Sodium 129 mmol/L (135-145)
[2023-12-25] MEDS ORDERED: ePHEDrine 50 MG/ML 1 ML VIAL ONE (11:22)
[2023-12-25] MEDS ORDERED: GLYCOPYRROLATE 0.2 MG/ML 2 ML VIAL ONE (11:22)
[2023-12-25] MEDS ORDERED: TRANEXAMIC 1,000 MG/100ML-NACL PREMIX BAG ONE (11:22)
[2023-12-25] MEDS ORDERED: PROPOFOL 10 MG/ML 20 ML VIAL IV ONE (11:22)
[2023-12-25] MEDS ORDERED: PHENYLEPHRINE 10 MG/ML VIAL ONE (11:22)
[2023-12-25] MEDS ORDERED: fentaNYL (PF) 50 MCG/ML 2 ML AMP ONE (11:22)
[2023-12-25] MEDS: IV FLUID CONTINUATION 200 ML IV ONE (11:22)
[2023-12-25] MEDS ORDERED: ROCURONIUM 10 MG/ML (5 ML VIAL) IV ONE (11:22)
[2023-12-25] MEDS ORDERED: SUCCINYLCHOLINE CHLORIDE 200 MG/10 ML VIAL IV ONE (11:22)
[2023-12-25] MEDS ORDERED: NEOSTIGMINE 1 MG/ML 10 ML VIAL ONE (11:22)
[2023-12-25] MEDS ORDERED: LIDOCAINE 1% INJ 10MG/ML (20 ML MDV) ONE (11:22)
[2023-12-25] MEDS: IV FLUID CONTINUATION 1,000 ML IV ONE (11:22)
[2023-12-25] MEDS: SODIUM CHLORIDE 0.9% 50 ML with ceFAZolin 1,000 MG IV ONE (11:47)
[2023-12-25] MEDS: LIDOCAINE 2%-EPI 1:100,000 20 ML VIAL SQ ONE (11:51)
[2023-12-25] MEDS: LACTATED RINGERS 1,000 ML IV ONE (13:48)
--- NOTE | 2023-12-25 14:08 | XR ---
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 Total fluoroscopy time: 1 min 51 seconds Total submitted images to PACS: 9 DAP: 5.3522 mGym2 Gycm2 uGym2 cGycm2 or equivalent. FINDINGS: Fluoroscopic images during internal fixation/arthroplasty demonstrate fixation hardware in appropriat e position. Hardware appears intact. No immediate complication identified. IMPRESSION: 1. No evidence for intraoperative complication. 2. Please see the operative/procedural note for further details. [facility], , 12/25/2023 2:06 PM
[2023-12-25] MEDS ORDERED: NALOXONE 0.4 MG/ML 1 ML VIAL IV PRN (14:15)
--- NOTE | 2023-12-25 14:15 | P.OP ---
Date of Procedure: 12/25/23 Preoperative Diagnosis: Bilateral greater trochanteric fractures with extension into the intertrochanteric region Postoperative Diagnosis: Same Procedure(s) Performed: Bilateral intramedullary fixation of hip fracture Implants: Right and left sided short Synthes TFNA Anesthesia: LACI Surgeon: Tex Pruitt Pathology: none sent Indications for Procedure: Bilateral greater trochanteric fractures with extension into the intertrochanteric region as seen on MRI Operative Findings: Mildly displaced greater trochanteric fractures the fracture lines noted on MRI are unable to be appreciated on fluoroscopy Description of Procedure: The patient was brought to the operating room, and after induction of general anesthesia the patient was placed supine on the Rosetta table. The left hip fracture was found to be in anatomic alignment aside from the mildly displaced greater trochanteric fracture and so no additional traction or rotation was performed. The left hip was then prepped and draped in a normal fashion. A standard timeout was performed again confirming the appropriate patient and operative sites. the appropriate starting point on the greater trochanter was initially identified with fluoroscopy, the incision just proximal to the greater trochanter in line with the femur was marked out, 20 cc of lidocaine with epinephrine was then injected to help with hemostasis the incision was carried down through the skin and through the overlying fascia in order to palpate the greater trochanter. a 3.2 mm guidepin was utilized to get the initial starting point for the opening reamer the opening reamer was then placed over the guidepin to open up the proximal aspect of the femur 12.5 mm reamer was then over a guidewire which was exchanged for the initial guidepin in order to adequately open the distal aspect of the canal to allow for ease of nail insertion the Synthes short 11mm femoral nail was then gently inserted into a proper depth for the femoral neck screw the trocar sleeve for the lag screw was then inserted after injecting 20 cc of lidocaine with epinephrine at the incision site to aid in hemostasis the incision was carried down through the skin and overlying fascia and the trocar was placed on the bone. an additional pin was placed through the aiming jig in order to properly estimate the trajectory of the head screw on the lateral image. Position was confirmed on AP and lateral films the guidepin for the head screw was then placed in appropriate position again confirmed with imaging screw was then predrilled drilled and an appropriate sized screw length selected and placed manual compression was then performed to further reduce the fracture the head screw was then locked in place attention was then placed to the distal interlocking screw the triple trocar was inserted and appropriate position confirmed with imaging the cortex was drilled and an appropriate size screw was placed and imaging confirmed once again on fluoroscopy guide was removed and final images demonstrated appropriate fracture reduction and position of the implants the wounds were copiously irrigated with normal saline and the wounds closed with absorbable sutures sterile dressings were then applied tolerated the procedure well and was transported to the PACU in stable condition. The room was then repositioned the right hip was prepped and draped in the standard fashion and the above was performed in the same manner for the right hip. Patient will be weightbearing as tolerated to the bilateral lower extremities Aspirin 81 mg twice daily for DVT prophylaxis for 30 days postoperatively Ice to the surgical site to help with pain and swelling PT and OT will be ordered for mobilization beginning postop day 1 Patient will be seen in our office 2 weeks postoperatively for wound evaluation and updated x-rays
--- NOTE | 2023-12-25 14:38 | P.PN ---
Subjective Progress Note Date: 12/25/23 68-year-old male admitted for bilateral fractures. Patient does have history of coronary disease does not have any chest pain had a cardia catheterization stents in the past cardiology is evaluating for preoperative clearance. Patient does not have any history of congestive heart failure but still on Lasix here. Patient is also getting IV fluids patient is hyponatremic we will discontinue Lasix. Patient on CIWA protocol but not having any withdrawals CIWA protocol will be discontinued as well. Patient is hypotensive amlodipine will be discontinued 12/25/2023 Patient is evaluated today going down for bilateral IM nailing secondary to the bilateral intratrochanteric fractures. Lasix and amlodipine have been on hold secondary to decreased blood pressures. Patient has been continued on IV fluids at this time we will recommend to stop them the sodium went down to 129 after the initiation of IV fluids. Will do a chest x-ray once patient is back from surgery. Review of Systems Constitutional: Denied any fatigue denied any fever. Cardio vascular: denied any chest pain, palpitations Gastrointestinal: denied any nausea, vomiting, diarrhea Pulmonary: Denied any shortness of breath cough Neurologic denied any new focal deficits All inpatient medications were reviewed and appropriate changes in these medications as dictated in the interval history and assessment and plan. PHYSICAL EXAMINATION: GENERAL: The patient is alert and oriented x3, not in any acute distress. Well developed, well nourished. HEENT: Pupils are round and equally reacting to light. EOMI. No scleral icterus. No conjunctival pallor. Normocephalic, atraumatic. No pharyngeal erythema. No thyromegaly. CARDIOVASCULAR: S1 and S2 present. No murmurs, rubs, or gallops. PULMONARY: Chest is clear to auscultation, no wheezing or crackles. ABDOMEN: Soft, nontender, nondistended, normoactive bowel sounds. No palpable organomegaly. MUSCULOSKELETAL: No joint swelling or deformity. EXTREMITIES: No cyanosis, clubbing, or pedal edema. NEUROLOGICAL: Gross neurological examination did not reveal any focal deficits. SKIN: No rashes. Assessment and plan -Multiple falls with initial fall mechanical now with bilateral greater trochanteric fractures -Preoperative clearance patient is low operative risk but patient blood pressure is low. His risk factors include active smoking and coronary artery disease -Coronary disease patient prior cardiac stenting on dual antiplatelet therapy -Hypertension patient is presently hypotensive, hold off Norvasc, blood pressures are significantly better postoperative -Hyponatremia secondary to Lasix which will be discontinued -COPD without any acute exacerbation at this time -Chronic nicotine use -Weight loss DVT prophylaxis: As per primary service The impression and plan of care has been dictated by Kimmy Garcia, Nurse Practitioner as directed. Dr. Romulo MD I have performed a history and physical examination and medical decision making of this patient, discussed the same with the dictator, and agree with the dictators assessment and plan as written, documented as a scribe. Based on total visit time, I have performed more than 50% of this visit. Objective - Vital Signs Vital signs: Vital Signs Temp 97.8 F 12/25/23 07:10 Pulse 80 12/25/23 08:29 Resp 17 12/25/23 08:20 BP 110/68 12/25/23 07:10 Pulse Ox 90 L 12/25/23 07:10 FiO2 Intake & Output 12/24/23 12/25/23 12/25/23 18:59 06:59 18:59 Output Total 1340 250 Balance -1340 -250 Output: Urine 1340 250 Other: Voiding Method Urinal Urinal Urinal # Voids 1 # Bowel Movements 1 - Labs CBC & Chem 7: 12/24/23 03:24 12/25/23 03:23 Labs: Abnormal Lab Results - Last 24 Hours (Table) 12/24/23 Range/Units 03:24 Sodium 130 L (135-145) mmol/L BUN 5.9 L (9.0-27.0) mg/dL BUN/Creatinine Ratio 9.83 L (12.00-20.00) Ratio Calcium 7.9 L (8.7-10.3) mg/dL Total Protein 5.0 L (6.2-8.2) g/dL Albumin 3.1 L (3.8-4.9) g/dL Assessment and Plan Time with Patient: Less than 30
[2023-12-25 15:08] LABS: Basophils % (A) 0 %; Eosinophils # (A) 0.1 k/uL (0-0.7); Eosinophils % (A) 3 %; HCT 27.8 % (39.0-53.0); Hypochromasia Slight; Lymphocytes # (A) 1.5 k/uL (1.0-4.8); Lymphocytes % (A) 32 %; MCH 35.5 pg (25.0-35.0); Macrocytosis Marked; Mean Platelet Volume 10.4; Monocytes # (A) 0.4 k/uL (0-1.0); Monocytes % (A) 8 %; Neutrophils # (A) 2.6 k/uL (1.3-7.7); Neutrophils % (A) 55 %; Platelet Count 152 k/uL (150-450); RBC 2.51 m/uL (4.30-5.90); RDW 15.7 % (11.5-15.5); WBC 4.7 k/uL (3.8-10.6)
[2023-12-25 15:11] LABS: HGB 8.9 gm/dL (13.0-17.5)
--- NOTE | 2023-12-25 15:29 | XR ---
EXAMINATION TYPE: XR chest 1V portable DATE OF EXAM: 12/25/2023 2:58 PM CLINICAL INDICATION: Male, 68 years old with history of postop radiograph COMPARISON: Chest radiographs from 12/23/2023 TECHNIQUE: XR chest 1V portable Frontal view of the chest. FINDINGS: Lungs/Pleura: There is no evidence of pleural effusion, focal consolidation, or pneumothorax. Pulmonary vascularity: Unremarkable. Heart/mediastinum: Cardiomediastinal silhouette is unremarkable. Musculoskeletal: No acute osseous pathology. Other findings: None IMPRESSION: Low lung volumes with Scattered interstitial prominence possibly due to atelectasis. [facility], , 12/25/2023 3:27 PM
[2023-12-26] MEDS: TAMSULOSIN 0.4 MG CAP.ER.24H PO SCH (08:27)
--- NOTE | 2023-12-26 08:52 | P.PN ---
Subjective Progress Note Date: 12/26/23 Principal diagnosis: Bilateral hip pain due to bilateral greater trochanter fractures No acute events overnight. Spoke with nursing staff and patient is doing well. Patient has had to be straight cath for urinary retention. Patient states pain is well-controlled after taking pain medication and has a 3 out of 10 pain in bilateral hips. Patient states they have been up and ambulated to the door with walker and back to bed very well. Objective - Vital Signs Vital signs: Vital Signs Temp 98.0 F 12/26/23 07:18 Pulse 76 12/26/23 08:39 Resp 17 12/26/23 08:30 BP 120/70 12/26/23 07:18 Pulse Ox 93 L 12/26/23 07:18 FiO2 Intake & Output 12/25/23 12/26/23 12/26/23 18:59 06:59 18:59 Intake Total 2075 Output Total 175 3700 Balance 1900 -3700 Intake: IV 2074 Output: Urine 3700 Straight 2450 Estimated Blood Loss 175 Other: Voiding Method Urinal Toilet Urinal # Voids 1 - Exam Patient was examined at bedside this morning. Patient was sitting up in bed eating breakfast. Patient was awake alert and able to answer questions. Inspection of the proximal left surgical dressing over the hip has a mild amount of strikethrough, but it is clean, dry, and intact without any drainage. Inspection of the right surgical dressings are clean, dry, intact, without strikethrough or drainage. Patient's femoral nerve functions are grossly intact bilaterally. Patient is able to plantarflex and dorsiflex the bilateral ankles and toes. Patient's bilateral feet appear well-perfused with brisk capillary refill under 2 seconds. - Labs CBC & Chem 7: 12/25/23 03:23 12/25/23 03:23 Labs: Abnormal Lab Results - Last 24 Hours (Table) 12/25/23 12/25/23 Range/Units 03:23 03:23 RBC 2.51 L (4.30-5.90) m/uL Hgb 8.9 L D (13.0-17.5) gm/dL Hct 27.8 L (39.0-53.0) % MCV 111.0 H (80.0-100.0) fL MCH 35.5 H (25.0-35.0) pg RDW 15.7 H (11.5-15.5) % Macrocytosis Marked A Sodium 129 L (135-145) mmol/L BUN 6.1 L (9.0-27.0) mg/dL BUN/Creatinine Ratio 10.17 L (12.00-20.00) Ratio Calcium 7.7 L (8.7-10.3) mg/dL Assessment and Plan Assessment: Status post bilateral intramedullary fixation of hip fractures for Bilateral greater trochanteric fractures on 12/25/[address] Tex Pruitt Plan: Leave surgical dressings in place. Patient will be weightbearing as tolerated to the bilateral lower extremities Aspirin 81 mg twice daily for DVT prophylaxis for 30 days postoperatively Ice to the surgical site to help with pain and swelling PT and OT will be ordered for mobilization beginning postop day 1 Patient will be seen in our office 2 weeks postoperatively for wound evaluation and updated x-rays. Dispo: Patient will work with physical therapy tomorrow and anticipate being able to discharge home once able to urinate.
[2023-12-26 10:48] LABS: BUN/Creat Ratio 9.25 Ratio (12.00-20.00); Blood Urea Nitrogen 3.7 mg/dL (9.0-27.0); Calcium 7.9 mg/dL (8.7-10.3); Carbon Dioxide 20.1 mmol/L (21.6-31.8); Chloride 94 mmol/L (96-109); Glucose 108 mg/dL (70-110); Potassium 3.7 mmol/L (3.5-5.5); Sodium 126 mmol/L (135-145)
[2023-12-26] MEDS: SODIUM CHLORIDE 0.9% 1,000 ML IV SCH (13:08)
--- NOTE | 2023-12-27 05:49 | P.PN ---
Subjective Progress Note Date: 12/26/23 68-year-old male admitted for bilateral fractures. Patient does have history of coronary disease does not have any chest pain had a cardia catheterization stents in the past cardiology is evaluating for preoperative clearance. Patient does not have any history of congestive heart failure but still on Lasix here. Patient is also getting IV fluids patient is hyponatremic we will discontinue Lasix. Patient on CIWA protocol but not having any withdrawals CIWA protocol will be discontinued as well. Patient is hypotensive amlodipine will be discontinued 12/25/2023 Patient is evaluated today going down for bilateral IM nailing secondary to the bilateral intratrochanteric fractures. Lasix and amlodipine have been on hold secondary to decreased blood pressures. Patient has been continued on IV fluids at this time we will recommend to stop them the sodium went down to 129 after the initiation of IV fluids. Will do a chest x-ray once patient is back from surgery. 12/26/2023 Patient is seen and evaluated in follow-up today with no acute overnight issues noted other than patient having some urinary retention. Patient was straight cathed x 2 and started on Flomax. If patient continues to retain, would recommend indwelling Cabrera catheter and possible urology evaluation. Patient sodium worsened and does appear slightly dehydrated on exam would recommend low- dose fluids and follow-up with repeat labs. Patient denies any shortness of breath or chest pain. Patient is afebrile with no reports of nausea or vomiting. Patient is currently wearing oxygen and reports he does not in the outpatient setting I recommend incentive spirometer use at least 10 times every hour while awake Review of Systems Constitutional: Denied any fatigue denied any fever. Cardio vascular: denied any chest pain, palpitations Gastrointestinal: denied any nausea, vomiting, diarrhea Pulmonary: Denied any shortness of breath cough Neurologic denied any new focal deficits, diffusely weak All inpatient medications were reviewed and appropriate changes in these medications as dictated in the interval history and assessment and plan. PHYSICAL EXAMINATION: GENERAL: The patient is alert and oriented x3, not in any acute distress. Well developed, well nourished. Elderly appearing HEENT: Pupils are round and equally reacting to light. EOMI. No scleral icterus. No conjunctival pallor. Normocephalic, atraumatic. No pharyngeal erythema. No thyromegaly. CARDIOVASCULAR: S1 and S2 present. No murmurs, rubs, or gallops. PULMONARY: Chest is clear to auscultation, no wheezing or crackles. ABDOMEN: Soft, nontender, nondistended, normoactive bowel sounds. No palpable organomegaly. MUSCULOSKELETAL: No joint swelling or deformity. EXTREMITIES: No cyanosis, clubbing, or pedal edema. NEUROLOGICAL: Gross neurological examination did not reveal any focal deficits. Diffusely weak SKIN: No rashes. Assessment and plan -Multiple falls with initial fall mechanical now with bilateral greater trochan teric fractures, status post intramedullary nailing bilaterally -Preoperative clearance patient is low operative risk but patient blood pressure is low. His risk factors include active smoking and coronary artery disease -urinary retention requiring indwelling Cabrera catheter -Coronary disease patient prior cardiac stenting on dual antiplatelet therapy -Hypertension patient is presently hypotensive, hold off Norvasc, blood pressures are significantly better postoperative -Hyponatremia secondary to Lasix which will be discontinued -COPD without any acute exacerbation at this time -Chronic nicotine use -Weight loss DVT prophylaxis: As per primary service The impression and plan of care has been dictated by Odette Smith, Nurse Practitioner as directed. Dr. Romulo MD I have performed a history and physical examination and medical decision making of this patient, discussed the same with the dictator, and agree with the dictators assessment and plan as written, documented as a scribe. Based on total visit time, I have performed more than 50% of this visit. Patient is seen in follow-up today with orthopedics following status post surgical intervention for bilateral Objective - Vital Signs Vital signs: Vital Signs Temp 98.0 F 12/26/23 07:18 Pulse 76 12/26/23 08:39 Resp 17 12/26/23 08:30 BP 120/70 12/26/23 07:18 Pulse Ox 93 L 12/26/23 07:18 FiO2 Intake & Output 12/25/23 12/26/23 12/26/23 18:59 06:59 18:59 Intake Total 2074 Output Total 175 3700 Balance 1900 -3700 Intake: IV 2074 Output: Urine 3700 Straight 2450 Estimated Blood Loss 175 Other: Voiding Method Urinal Toilet Urinal # Voids 1 - Labs CBC & Chem 7: 12/25/23 03:23 12/26/23 02:49 Labs: Abnormal Lab Results - Last 24 Hours (Table) 12/25/23 12/25/23 Range/Units 03:23 03:23 RBC 2.51 L (4.30-5.90) m/uL Hgb 8.9 L D (13.0-17.5) gm/dL Hct 27.8 L (39.0-53.0) % MCV 111.0 H (80.0-100.0) fL MCH 35.5 H (25.0-35.0) pg RDW 15.7 H (11.5-15.5) % Macrocytosis Marked A Sodium 129 L (135-145) mmol/L BUN 6.1 L (9.0-27.0) mg/dL BUN/Creatinine Ratio 10.17 L (12.00-20.00) Ratio Calcium 7.7 L (8.7-10.3) mg/dL
--- NOTE | 2023-12-27 07:14 | P.PN ---
Subjective Progress Note Date: 12/27/23 Principal diagnosis: Bilateral hip pain due to bilateral greater trochanter fractures Patient is seen and evaluated in follow-up today with no acute overnight issues noted other than patient having some urinary retention requiring a Cabrera catheter and was started on Flomax. Patient states he is doing well. Patient states pain is well-controlled after taking pain medication and has a 3 out of 10 pain in bilateral hips. Patient states they have been up and ambulated to the door with walker and back to bed very well. Objective - Vital Signs Vital signs: Vital Signs Temp 98.4 F 12/27/23 01:33 Pulse 84 12/27/23 01:33 Resp 17 12/27/23 01:33 BP 97/47 12/27/23 01:33 Pulse Ox 95 12/27/23 01:33 FiO2 Intake & Output 12/26/23 12/27/23 12/27/23 18:59 06:59 18:59 Output Total 950 Balance -950 Output: Urine 950 Uretheral (Cabrera) 550 Other: Voiding Method Toilet Indwelling Catheter Urinal - Exam Patient was examined at bedside this morning. Patient was sitting up in bed. Patient was awake alert and able to answer questions. Inspection of the proximal left surgical dressing over the hip has a mild amount of strikethrough, but it is clean, dry, and intact without any drainage. Inspection of the right surgical dressings are clean, dry, intact, without strikethrough or drainage. Patient's femoral nerve functions are grossly intact bilaterally. Patient is able to plantarflex and dorsiflex the bilateral ankles and toes. Patient's bilateral feet appear well-perfused with brisk capillary refill under 2 seconds. - Labs CBC & Chem 7: 12/25/23 03:23 12/26/23 02:49 Labs: Abnormal Lab Results - Last 24 Hours (Table) 12/26/23 Range/Units 02:49 Sodium 126 L (135-145) mmol/L Chloride 94 L (96-109) mmol/L Carbon Dioxide 20.1 L (21.6-31.8) mmol/L BUN 3.7 L (9.0-27.0) mg/dL Creatinine 0.4 L (0.6-1.5) mg/dL BUN/Creatinine Ratio 9.25 L (12.00-20.00) Ratio Calcium 7.9 L (8.7-10.3) mg/dL Assessment and Plan Assessment: Status post bilateral intramedullary fixation for Bilateral greater trochanteric fractures on 12/25/[address] Tex Pruitt Plan: Leave surgical dressings in place. Patient will be weightbearing as tolerated to the bilateral lower extremities Aspirin 81 mg twice daily for DVT prophylaxis for 30 days postoperatively Ice to the surgical site to help with pain and swelling Patient will be seen in our office 2 weeks postoperatively for wound evaluation and updated x-rays. Dispo: Patient will work with physical therapy, if patient passes physical therapy to be discharged home, patient is cleared to discharge from an orthopedic standpoint when cleared by medicine for urinary retention and other medical conditions.
[2023-12-27 08:35] LABS: Basophils # (A) 0.02 X 10*3/uL (0.00-0.10); Basophils % (A) 0.4 %; Eosinophils # (A) 0.17 X 10*3/uL (0.04-0.35); Eosinophils % (A) 3.3 %; HCT 21.6 % (39.6-50.0); HGB 7.7 g/dL (13.0-17.0); Lymphocytes # (A) 0.88 X 10*3/uL (0.90-5.00); Lymphocytes % (A) 17.1 %; MCH 35.2 pg (27.0-32.0); MCHC 35.6 g/dL (32.0-37.0); MCV 98.6 FL (80.0-97.0); Mean Platelet Volume 10.2 FL (9.5-12.2); Monocytes # (A) 0.84 X 10*3/uL (0.20-1.00); Monocytes % (A) 16.3 %; NRBC Per 100 WBC 0 X 10*3/uL (0.00-0.01); Neutrophils # (A) 3.24 X 10*3/uL (1.80-7.70); Neutrophils % (A) 62.7 %; Platelet Count 143 X 10*3/uL (140-440); RBC 2.19 X 10*6/uL (4.40-5.60); RDW 15.7 % (11.5-14.5); WBC 5.16 X 10*3/uL (4.50-10.00)
[2023-12-27 08:50] LABS: Magnesium 1.4 mg/dL (1.5-2.4)
[2023-12-27 09:34] LABS: ALT 11 U/L (10-49); AST 30 U/L (14-35); Albumin 2.6 g/dL (3.8-4.9); Albumin/Globulin Ratio 1.73 Ratio (1.60-3.17); Alkaline Phosphatase 74 U/L (41-126); Blood Urea Nitrogen 6.5 mg/dL (9.0-27.0); Calcium 7.4 mg/dL (8.7-10.3); Carbon Dioxide 19.1 mmol/L (21.6-31.8); Chloride 95 mmol/L (96-109); Globulin 1.5 g/dL (1.6-3.3); Glucose 108 mg/dL (70-110); Potassium 3.6 mmol/L (3.5-5.5); Sodium 125 mmol/L (135-145); Total Bilirubin 0.4 mg/dL (0.3-1.2); Total Protein 4.1 g/dL (6.2-8.2)
[2023-12-27 14:02] LABS: Basophils % (A) 0 %; Eosinophils # (A) 0.1 k/uL (0-0.7); Eosinophils % (A) 2 %; HCT 24.5 % (39.0-53.0); HGB 7.9 gm/dL (13.0-17.5); Lymphocytes # (A) 0.8 k/uL (1.0-4.8); Lymphocytes % (A) 14 %; MCH 34.8 pg (25.0-35.0); MCHC 32.2 g/dL (31.0-37.0); MCV 107.9 fL (80.0-100.0); Macrocytosis Marked; Mean Platelet Volume 8.9; Monocytes # (A) 0.5 k/uL (0-1.0); Monocytes % (A) 10 %; Neutrophils # (A) 4.1 k/uL (1.3-7.7); Neutrophils % (A) 72 %; Platelet Count 166 k/uL (150-450); RBC 2.27 m/uL (4.30-5.90); RDW 15.2 % (11.5-15.5); WBC 5.7 k/uL (3.8-10.6)
[2023-12-27] MEDS: MIDODRINE 5 MG TAB PO SCH (14:58)
[2023-12-27] MEDS: ACETAMINOPHEN TAB 500 MG TAB PO PRN (20:46)
--- NOTE | 2023-12-28 00:49 | PN ---
PROGRESS NOTE SUBJECTIVE: A 68-year-old, remains on DuoNeb, Imdur, Lopressor, midodrine for orthostatic hypotension today with a Habitrol patch, Protonix for GERD, Ranexa 1000 q.12, Flomax 0.4 daily. OBJECTIVE: VITAL SIGNS: Temperature 98.8, pulse 78, blood pressure is low 80s to 90s systolic over 40s to 50s, O2 of 93% on room air. ASSESSMENT: He had a hip MRI for severe pain, moderate joint space loss of both hips, displaced fractures greater trochanters bilaterally. Left hip fracture is larger than the right one. We will get orthopedic consult. We will see what they are going to do with these hips. Prognosis guarded. Continue current treatment. Please see further orders. MMODL / IJN: [id number] /
--- NOTE | 2023-12-28 08:25 | CT ---
EXAMINATION TYPE: CT chest wo con DATE OF EXAM: 12/28/2023 COMPARISON: 05/08/2015 HISTORY: COPD CT DLP: 257.[address] of the chest was performed with lung and mediastinal window settings submitted. The la ck of contrast limits evaluation of the vascular, mediastinal and parenchymal structures including th e upper abdomen. LUNGS: Small bilateral pleural effusions with basilar compressive atelectasis. Hyperinflation compati ble with COPD. No pulmonary nodule or mass is detected. No pleural effusion. No CT evidence of inte rstitial lung disease. MEDIASTINUM/PALOMO: Thoracic aorta is of normal caliber with limited evaluation given lack of contrast . The heart is not enlarged. Small pericardial effusion noted. No evidence for mediastinal mass. N o lymph nodes greater than 1cm. UPPER ABDOMEN: No significant abnormality is seen. OTHER: No significant other abnormality. IMPRESSION: 1. Small bilateral pleural effusions with basilar compressive atelectasis. Hyperinflation compatible with COPD. [facility], , 12/28/2023 8:23 AM
[2023-12-28 08:37] LABS: Basophils # (A) 0.02 X 10*3/uL (0.00-0.10); Basophils % (A) 0.4 %; Eosinophils # (A) 0.19 X 10*3/uL (0.04-0.35); HCT 22.6 % (39.6-50.0); HGB 7.9 g/dL (13.0-17.0); Lymphocytes # (A) 1.02 X 10*3/uL (0.90-5.00); Lymphocytes % (A) 21.7 %; MCH 35.1 pg (27.0-32.0); MCV 100.4 FL (80.0-97.0); Mean Platelet Volume 10.3 FL (9.5-12.2); Monocytes # (A) 0.67 X 10*3/uL (0.20-1.00); Monocytes % (A) 14.2 %; NRBC Per 100 WBC 0 X 10*3/uL (0.00-0.01); Neutrophils % (A) 59.5 %; Platelet Count 164 X 10*3/uL (140-440); RBC 2.25 X 10*6/uL (4.40-5.60); RDW 15.6 % (11.5-14.5); WBC 4.71 X 10*3/uL (4.50-10.00)
[2023-12-28] MEDS: LORATADINE 10 MG TAB PO PRN (11:18)
[2023-12-28 11:35] LABS: Blood Urea Nitrogen 6.2 mg/dL (9.0-27.0); Carbon Dioxide 21.4 mmol/L (21.6-31.8); Chloride 95 mmol/L (96-109); Glucose 108 mg/dL (70-110); Potassium 3.3 mmol/L (3.5-5.5); Sodium 127 mmol/L (135-145)
[2023-12-28 11:36] LABS: ALT 12 U/L (10-49); AST 28 U/L (14-35); Albumin 2.6 g/dL (3.8-4.9); Albumin/Globulin Ratio 1.53 Ratio (1.60-3.17); Alkaline Phosphatase 75 U/L (41-126); Calcium 7.5 mg/dL (8.7-10.3); Globulin 1.7 g/dL (1.6-3.3); Total Bilirubin 0.4 mg/dL (0.3-1.2); Total Protein 4.3 g/dL (6.2-8.2)
[2023-12-28] MEDS: POTASSIUM CHLORIDE ER 10 MEQ TAB.ER.PRT PO SCH (12:46)
[2023-12-28] MEDS ORDERED: POTASSIUM CHLORIDE ER 20 MEQ TAB.ER PO SCH (13:00)
[2023-12-29 10:48] LABS: Basophils % (A) 0 %; Eosinophils # (A) 0.1 k/uL (0-0.7); Eosinophils % (A) 3 %; HCT 26.3 % (39.0-53.0); Lymphocytes # (A) 0.8 k/uL (1.0-4.8); Lymphocytes % (A) 17 %; MCH 35.8 pg (25.0-35.0); MCHC 34.2 g/dL (31.0-37.0); MCV 104.6 fL (80.0-100.0); Macrocytosis Moderate; Mean Platelet Volume 8.7; Monocytes # (A) 0.5 k/uL (0-1.0); Monocytes % (A) 10 %; Neutrophils % (A) 66 %; Platelet Count 200 k/uL (150-450); RBC 2.51 m/uL (4.30-5.90); RDW 15.6 % (11.5-15.5); WBC 4.4 k/uL (3.8-10.6)
--- NOTE | 2023-12-29 10:59 | PN ---
PROGRESS NOTE SUBJECTIVE: 68-year-old white male who is admitted. He has bilateral hip surgeries. He is on breathing treatments. Chest CT shows small bilateral pleural effusions with compressive atelectasis and COPD, started him on breathing treatments. Continues to have better control of his pain in his hips. He is probably going to go to rehab soon for rehab. The patient's hemoglobin is stable at 7.9, post sodium is 127, potassium 3.9. We will have to recheck his labs tomorrow. Continues to improve his strength. He is going slowly, might need a rehab placement up somewhere he says. We will try to set this up and get him going. Monitor sodium as well as hemoglobin status post surgery, possible give him some iron infusions. Please see further orders. PROGNOSIS: Guarded. MMODL / IJN: [id number] /
[2023-12-29 11:00] LABS: ALT 13 U/L (4-49); AST 29 U/L (17-59); African American GFR (CKD) >90 (>60 ml/min/1.73 sqM); Albumin 2.2 g/dL (3.5-5.0); Anion Gap 7 mmol/L; Blood Urea Nitrogen 3 mg/dL (9-20); Calcium 7.8 mg/dL (8.4-10.2); Carbon Dioxide 23 mmol/L (22-30); Chloride 97 mmol/L (98-107); Globulin 2.3 g/dL; Glucose 104 mg/dL (74-99); Non-African American GFR(CKD) >90 (>60 ml/min/1.73 sqM); Potassium 3.5 mmol/L (3.5-5.1); Sodium 127 mmol/L (137-145); Total Bilirubin 0.4 mg/dL (0.2-1.3); Total Protein 4.5 g/dL (6.3-8.2)
[2023-12-29 11:01] LABS: Alkaline Phosphatase 68 U/L (38-126)
[2023-12-29] MEDS: SODIUM FERRIC GLUCONAT-SUCROSE 125 MG in SODIUM CHLORIDE 0.9% 100 ML IVPB SCH (12:12)
--- NOTE | 2023-12-30 02:41 | PN ---
PROGRESS NOTE SUBJECTIVE: Benedict Power has bilateral pleural perfusions. He had hip surgery. OBJECTIVE: CARDIOVASCULAR: S1, S2. LUNGS: Transmitted upper sounds. HEMATOLOGY: Negative Homans. PSYCH: Fair mood and affect. Greater trochanteric fractures, surgically corrected, acute on chronic anemia. He is going to be weightbearing, given the physical therapy, and go home in the next day or two. MMODL / IJN: [id number] /
[2023-12-30 08:22] LABS: Basophils # (A) 0.03 X 10*3/uL (0.00-0.10); Basophils % (A) 0.7 %; Eosinophils # (A) 0.31 X 10*3/uL (0.04-0.35); HCT 22.1 % (39.6-50.0); HGB 7.7 g/dL (13.0-17.0); Lymphocytes # (A) 1.41 X 10*3/uL (0.90-5.00); MCH 35.8 pg (27.0-32.0); MCHC 34.8 g/dL (32.0-37.0); MCV 102.8 FL (80.0-97.0); Mean Platelet Volume 9.8 FL (9.5-12.2); Monocytes # (A) 0.57 X 10*3/uL (0.20-1.00); Monocytes % (A) 12.9 %; NRBC Per 100 WBC 0 X 10*3/uL (0.00-0.01); Neutrophils # (A) 2.08 X 10*3/uL (1.80-7.70); Neutrophils % (A) 47.2 %; Platelet Count 198 X 10*3/uL (140-440); RBC 2.15 X 10*6/uL (4.40-5.60); RDW 15.8 % (11.5-14.5); WBC 4.41 X 10*3/uL (4.50-10.00)
[2023-12-30 08:28] VITALS: BP 130/77; PULSE 84; RESP 17; TEMP 98.3
[2023-12-30 08:56] LABS: Blood Urea Nitrogen 4.8 mg/dL (9.0-27.0); Carbon Dioxide 21.9 mmol/L (21.6-31.8); Chloride 99 mmol/L (96-109); Glucose 98 mg/dL (70-110); Potassium 3.6 mmol/L (3.5-5.5); Sodium 130 mmol/L (135-145)
[2023-12-30 08:57] LABS: ALT 11 U/L (10-49); AST 26 U/L (14-35); Albumin 2.6 g/dL (3.8-4.9); Albumin/Globulin Ratio 1.53 Ratio (1.60-3.17); Alkaline Phosphatase 70 U/L (41-126); Calcium 7.9 mg/dL (8.7-10.3); Globulin 1.7 g/dL (1.6-3.3); Total Bilirubin 0.4 mg/dL (0.3-1.2); Total Protein 4.3 g/dL (6.2-8.2)
[2023-12-30 09:57] VITALS: BMI 19.0
--- NOTE | 2023-12-30 13:23 | DS ---
DISCHARGE SUMMARY DISCHARGE MEDICATIONS: 1. DuoNeb q.i.d. 2. Aspirin 81 mg daily. 3. Tramadol 50 q.4 hours p.r.n. 4. Flomax 0.4 mg daily. 5. Senokot daily. 6. Nicotine patch 21 mg daily. 7. Primatene 5 mg before meals 3 times a day for orthostatic hypotension. 8. Zyrtec 10 mg at bedtime. 9. Ranexa 1000 q.12. 10.Protonix 40 daily. 11.Lopressor 50 b.i.d. 12.Imdur 120 mg daily. CONDITION: Stable. PROGNOSIS: Guarded. Ambulate as tolerated with physical therapy. He is status post bilateral hip trochanteric fractures healed with surgery, greater trochanter, left and right femur, status post surgery, COPD, BPH, nicotine addiction, orthostatic hypotension. The patient came in with hip pain bilaterally. He had surgery with Orthopedics, put pins in both legs. He is going to go to physical therapy, was found to have COPD, started on breathing treatments. To continue those long-term. He had orthostatic hypotension, Lasix discontinued and midodrine was given. His blood pressure improved. He will be stable in the snf. Continue on breathing treatments. Prognosis guarded. Ambulate as tolerated. Call for any concerns. Diet as tolerated. KING / CHARAN: [id number] /
== END 2023-12-30 14:04 | DRG 480 ==
LOC: EC 12:11 → 4SSUR 16:02
PROVIDERS: ADMIT Family Medicine; ATTEND Family Medicine
PROC: 0QS636Z Reposition Right Upper Femur with Intramedullary Internal Fixation Device, Percutaneous Approach (ICD-10-PCS; 2023-12-25)
PROC: 0QS736Z Reposition Left Upper Femur with Intramedullary Internal Fixation Device, Percutaneous Approach (ICD-10-PCS; principal; 2023-12-25 09:00)
DX: S72.111A Displaced fracture of greater trochanter of right femur, initial encounter for closed fracture (principal); S72.112A Displaced fracture of greater trochanter of left femur, initial encounter for closed fracture; E87.1 Hypo-osmolality and hyponatremia; J98.11 Atelectasis; F10.20 Alcohol dependence, uncomplicated; I10 Essential (primary) hypertension; I25.10 Atherosclerotic heart disease of native coronary artery without angina pectoris; J44.9 Chronic obstructive pulmonary disease, unspecified; E86.0 Dehydration; I25.82 Chronic total occlusion of coronary artery; I95.1 Orthostatic hypotension; K21.9 Gastro-esophageal reflux disease without esophagitis; E78.5 Hyperlipidemia, unspecified; F17.210 Nicotine dependence, cigarettes, uncomplicated; I25.2 Old myocardial infarction; I34.0 Nonrheumatic mitral (valve) insufficiency; T50.1X5A Adverse effect of loop [high-ceiling] diuretics, initial encounter; R29.6 Repeated falls; R33.9 Retention of urine, unspecified; W10.9XXA Fall (on) (from) unspecified stairs and steps, initial encounter; Z79.899 Other long term (current) drug therapy; Z95.5 Presence of coronary angioplasty implant and graft
CPT/HCPCS: 36415; 71045; 71250; 72192; 73521; 80048; 80053; 83605; 83735; 83880; 84100; 84484; 85025; 85610; 85730; 86850; 86900; 86901; 93005; 94640; 96361; 96374; 99285

== ENCOUNTER 2024-02-12 11:43 | Inpatient (IN) | payer MEDICARE, OTHER ==
--- NOTE | 2024-02-12 12:30 | ED ---
General Adult HPI - General Chief complaint: Weakness Stated complaint: Weakness Time Seen by Provider: 02/12/24 11:46 Source: patient, EMS, RN notes reviewed Mode of arrival: EMS Limitations: no limitations - History of Present Illness Initial comments: Patient is a 68-year-old male present to the emergency department with general weakness. Patient states he is chronically weak, especially over the past 6 months. Patient states he does have frequent falls. Patient hurt his wrist again recently however did break it a while back. He states they tried to set it but it is not normal. Patient no longer has a cast on and only uses a wrap. No head injury or loss of consciousness. No isolated area of weakness. Patient would like an x-ray of his wrist as well as electrolytes checked. Patient states wrist injury was 1 month ago. Patient states he was seen up [place] and had a splint placed. Patient has not seen orthopedics yet. - Related Data Home Medications Medication Instructions Recorded Confirmed Cetirizine HCl [Zyrtec] 10 mg PO DAILY PRN 12/23/23 12/23/23 Isosorbide Mononitrate ER [Imdur] 120 mg PO DAILY 12/23/23 12/23/23 Metoprolol Tartrate [Lopressor] 50 mg PO BID 12/23/23 12/23/23 Pantoprazole [Protonix] 40 mg PO DAILY 12/23/23 12/23/23 Ranolazine [Ranexa] 1,000 mg PO Q12HR 12/23/23 12/23/23 Previous Rx's Medication Instructions Recorded Aspirin 81 mg PO BID #60 tab 12/26/23 Acetaminophen Tab [Tylenol] 1,000 mg PO Q8HR PRN tab 12/30/23 Ipratropium-Albuterol Nebulize 3 ml INHALATION RT-QID each 12/30/23 [Duoneb 0.5 mg-3 mg/3 ml Soln] Midodrine [ProAmatine] 5 mg PO AC-TID tab 12/30/23 Nicotine 21Mg/24Hr Patch [Habitrol] 1 patch TRANSDERM DAILY patch 12/30/23 Sennosides-Docusate Sodium 2 tab PO DAILY #30 tablet 12/30/23 [Senokot-S] Tamsulosin [Flomax] 0.4 mg PO PC-BRKFST cap 12/30/23 traMADol HCl [Ultram] 50 mg PO Q4H PRN #28 tab 12/30/23 Allergies Allergy/AdvReac Type Severity Reaction Status Date / Time No Known Allergies Allergy Verified 12/23/23 13:59 Review of Systems ROS Statement: Those systems with pertinent positive or pertinent negative responses have been documented in the HPI. ROS Other: All systems not noted in ROS Statement are negative. Constitutional: Denies: fever Eyes: Denies: eye pain ENT: Denies: ear pain Respiratory: Denies: cough, dyspnea Musculoskeletal: Reports: as per HPI Neurological: Reports: as per HPI. Denies: headache Past Medical History Past Medical History: Coronary Artery Disease (CAD), Chest Pain / Angina, COPD, Hypertension, Myocardial Infarction ([place]), Osteoarthritis (OA) Last Myocardial Infarction Date:: 12/2023? unconfirmed History of Any Multi-Drug Resistant Organisms: None Reported Past Surgical History: Back Surgery, Heart Catheterization With Stent, Prostate Surgery Past Anesthesia/Blood Transfusion Reactions: No Reported Reaction Date of Last Stent Placement:: 2017 Past Psychological History: No Psychological Hx Reported Smoking Status: Current every day smoker Past Alcohol Use History: Daily Past Drug Use History: None Reported General Exam Limitations: no limitations General appearance: alert, in no apparent distress Head exam: Present: atraumatic, normocephalic Eye exam: Present: normal appearance, PERRL Neck exam: Present: normal inspection. Absent: tenderness Respiratory exam: Present: normal lung sounds bilaterally Cardiovascular Exam: Present: regular rate, normal rhythm GI/Abdominal exam: Present: soft. Absent: tenderness Extremities exam: Present: other (Chronic appearing deformity right wrist without significant tenderness. Mild swelling) Back exam: Present: normal inspection Neurological exam: Present: alert. Absent: motor sensory deficit Psychiatric exam: Present: normal affect, normal mood Skin exam: Present: other (Stage I sacral ulcer) Course Vital Signs 02/12/24 02/12/24 02/12/24 11:45 12:44 13:56 Temperature 98.6 F Pulse Rate 64 63 59 L Respiratory 18 18 18 Rate Blood Pressure 131/80 128/81 120/89 O2 Sat by Pulse 99 100 100 Oximetry EKG Findings - EKG Results: EKG: interpreted by ERMD, sinus rhythm, normal axis, normal QRS, normal ST/T Procedures - Orthopedic Splinting/Casting Injury #1 Side: right Upper Extremity Injury Location: short arm, wrist Upper Extremity Immobilizer: volar splint, thumb spica Medical Decision Making - Medical Decision Making Was pt. sent in by a medical professional or institution (S[employer]OTH Small, ORANGE PICKER MACHINE OPERATOR, urgent care, hospital, or shelter...) When possible be specific @ -[No] Did you speak to anyone other than the patient for history (EMS, parent, family, police, friend...)? What history was obtained from this source @ -[No] Did you review nursing and triage notes (agree or disagree)? Why? @ -[I reviewed and agree with nursing and triage notes] Were old charts reviewed (outside hosp., previous admission, EMS record, old EKG, old radiological studies, urgent care reports/EKG's, shelter records)? Report findings @ -Previous chest x-ray also without acute abnormality Differential Diagnosis (chest pain, altered mental status, abdominal pain women, abdominal pain men, vaginal bleeding, weakness, fever, dyspnea, syncope, headache, dizziness, GI bleed, back pain, seizure, CVA, palpatations, mental health, musculoskeletal)? @ -Differential Weakness: Hypoglycemia, shock, sepsis, hyponatremia, anemia, infection, MN, ETOH, adverse medicine reaction, overdose, stroke, this is not meant to be an all-inclusive list. EKG interpreted by me (3pts min.). @ -[As above] X-rays interpreted by me (1pt min.). @ -Chest x-ray shows no acute process. X-ray right wrist shows distal radius and ulnar fracture. CT interpreted by me (1pt min.). @ -[None done] U/S interpreted by me (1pt. min.). @ -[None done] What testing was considered but not performed or refused? (CT, X-rays, U/S, labs)? Why? @ -[None] What meds were considered but not given or refused? Why? @ -[None] Did you discuss the management of the patient with other professionals (professionals i.e. S[employer]OTH Small, ORANGE PICKER MACHINE OPERATOR, lab, RT, psych nurse, health care social worker, die filer, teacher, president and chief executive officer, case managers)? Give summary @ -Sound physician group who will admit covering hospital call Was smoking cessation discussed for >3mins.? @ -[No] Was critical care preformed (if so, how long)? @ -[No] Were there social determinants of health that impacted care today? How? (Homelessness, low income, unemployed, alcoholism, drug addiction, transportation, low edu. Level, literacy, decrease access to med. care, detention, rehab)? @ -[No] Was there de-escalation of care discussed even if they declined (Discuss DNR or withdrawal of care, Hospice)? DNR status @ -[No] What co-morbidities impacted this encounter? (DM, HTN, Smoking, COPD, CAD, Cancer, CVA, ARF, Chemo, Hep., AIDS, mental health diagnosis, sleep apnea, morbid obesity)? @ -[None] Was patient admitted / discharged? Hospital course, mention meds given and route, prescriptions, significant lab abnormalities, going to OR and other pertinent info. @ -Patient presents with generalized weakness and falls. Patient does have subacute distal radius ulnar fracture. Splint done. Patient is hyponatremic. Patient will be admitted with fluids and further evaluation. Potassium also replaced. Admission orders written. Undiagnosed new problem with uncertain prognosis? @ -[No] Drug Therapy requiring intensive monitoring for toxicity (Heparin, Nitro, Insulin, Cardizem)? @ -[No] Were any procedures done? @ -Splint, see above Diagnosis/symptom? @ -Hyponatremia, weakness, wrist fracture Acute, or Chronic, or Acute on Chronic? @ -Acute, acute, subacute Uncomplicated (without systemic symptoms) or Complicated (systemic symptoms)? @ -Complicated with hypokalemia and generalized weakness and wrist fracture Side effects of treatment? @ -[No] Exacerbation, Progression, or Severe Exacerbation? @ -[No] Poses a threat to life or bodily function? How? (Chest pain, [place], [place], pneumonia, PE, COPD, DKA, ARF, appy, cholecystitis, CVA, Diverticulitis, Homicidal, Nahed cidal, threat to staff... and all critical care pts) @ -Threat to musculoskeletal and electrolyte function - Lab Data Result diagrams: 02/12/24 12:09 02/12/24 12:09 Lab Results 02/12/24 02/12/24 02/12/24 Range/Units 12: 12: 12: WBC 5.0 (3.8-10.6) k/uL RBC 3.18 L (4.30-5.90) m/uL Hgb 11.4 L (13.0-17.5) gm/dL Hct 32.5 L (39.0-53.0) % MCV 102.2 H (80.0-100.0) fL MCH 35.9 H (25.0-35.0) pg MCHC 35.1 (31.0-37.0) g/dL RDW 13.9 (11.5-15.5) % Plt Count 191 (150-450) k/uL MPV 7.2 Neutrophils % 63 % Lymphocytes % 26 % Monocytes % 8 % Eosinophils % 1 % Basophils % 0 % Neutrophils # 3.2 (1.3-7.7) k/uL Lymphocytes # 1.3 (1.0-4.8) k/uL Monocytes # 0.4 (0-1.0) k/uL Eosinophils # 0.0 (0-0.7) k/uL Basophils # 0.0 (0-0.2) k/uL Macrocytosis Slight Sodium 122 L (137-145) mmol/L Potassium 3.2 L (3.5-5.1) mmol/L Chloride 90 L (98-107) mmol/L Carbon Dioxide 26 (22-30) mmol/L Anion Gap 6 mmol/L BUN 5 L (9-20) mg/dL Creatinine 0.47 L (0.66-1.25) mg/dL Est GFR (CKD-EPI)AfAm >90 (>60 ml/min/1.73 sqM) Est GFR (CKD-EPI)NonAf >90 (>60 ml/min/1.73 sqM) Glucose 130 H (74-99) mg/dL Plasma Lactic Acid Jair 1.4 (0.7-2.0) mmol/L Calcium 8.2 L (8.4-10.2) mg/dL Total Bilirubin 0.6 (0.2-1.3) mg/dL AST 56 (17-59) U/L ALT 29 (4-49) U/L Alkaline Phosphatase 101 (38-126) U/L Total Protein 5.6 L (6.3-8.2) g/dL Albumin 3.1 L (3.5-5.0) g/dL Disposition Clinical Impression: Hyponatremia Disposition: ADMITTED IP TO THIS [facility] Condition: Serious Is patient prescribed a controlled substance at d/c from ED?: No Referrals: Nonstaff,Physician [Primary Care Provider] - 1-2 days Time of Disposition: 14:14
[2024-02-12 12:37] LABS: Basophils % (A) 0 %; Eosinophils % (A) 1 %; HCT 32.5 % (39.0-53.0); HGB 11.4 gm/dL (13.0-17.5); Lymphocytes # (A) 1.3 k/uL (1.0-4.8); Lymphocytes % (A) 26 %; MCH 35.9 pg (25.0-35.0); MCHC 35.1 g/dL (31.0-37.0); MCV 102.2 fL (80.0-100.0); Macrocytosis Slight; Mean Platelet Volume 7.2; Monocytes # (A) 0.4 k/uL (0-1.0); Monocytes % (A) 8 %; Neutrophils # (A) 3.2 k/uL (1.3-7.7); Neutrophils % (A) 63 %; Platelet Count 191 k/uL (150-450); RBC 3.18 m/uL (4.30-5.90); RDW 13.9 % (11.5-15.5)
--- NOTE | 2024-02-12 12:44 | XR ---
2 view chest HISTORY: Weakness COMPARISON: 12/25/2023 TECHNIQUE: PA and lateral views chest obtained. FINDINGS: The lungs are clear of consolidative, interstitial or masslike opacity. There is no pleural effusion, pleural thickening or pneumothorax. The heart, pulmonary vasculature, mediastinum and regan are within normal limits. The osseous structures and soft tissues of the thorax are intact. IMPRESSION: No significant abnormality. No acute cardiopulmonary disease. [facility], , 02/12/2024 12:42 PM
[2024-02-12 12:46] LABS: ALT 29 U/L (4-49); AST 56 U/L (17-59); African American GFR (CKD) >90 (>60 ml/min/1.73 sqM); Albumin 3.1 g/dL (3.5-5.0); Alkaline Phosphatase 101 U/L (38-126); Anion Gap 6 mmol/L; Blood Urea Nitrogen 5 mg/dL (9-20); Calcium 8.2 mg/dL (8.4-10.2); Carbon Dioxide 26 mmol/L (22-30); Chloride 90 mmol/L (98-107); Glucose 130 mg/dL (74-99); Non-African American GFR(CKD) >90 (>60 ml/min/1.73 sqM); Potassium 3.2 mmol/L (3.5-5.1); Sodium 122 mmol/L (137-145); Total Bilirubin 0.6 mg/dL (0.2-1.3); Total Protein 5.6 g/dL (6.3-8.2)
--- NOTE | 2024-02-12 12:46 | XR ---
Right wrist HISTORY: Pain following fall. COMPARISON: None TECHNIQUE: 4 views of right wrist are obtained. FINDINGS: There is a comminuted intra-articular fracture of the distal right radius with apex volar a ngulation. There is a markedly displaced fracture of the ulnar styloid as well. There is moderate osteoarthritis of the first carpometacarpal joint. There are no carpal bone fractur es or dislocations. IMPRESSION: Intra-articular comminuted and displaced fractures of the distal right radius and ulna [facility], , 02/12/2024 12:43 PM
[2024-02-12] MEDS: traMADol 50 MG TAB PO STA (12:50)
[2024-02-12] MEDS ORDERED: NALOXONE 0.4 MG/ML 1 ML VIAL IV PRN (14:15)
[2024-02-12] MEDS: SODIUM CHLORIDE 0.9% 1,000 ML IV STA (14:23)
[2024-02-12] MEDS ORDERED: LORazepam 0.5 MG TAB PO PRN (16:35)
[2024-02-12] MEDS ORDERED: LORazepam 1 MG TAB PO PRN ×3 (16:35)
[2024-02-12] MEDS ORDERED: IPRATROPIUM-ALBUTEROL 3 ML NEB INHALATION PRN (16:40)
--- NOTE | 2024-02-12 16:41 | P.HPIM ---
History of Present Illness H&P Date: 02/12/24 68 year old M with PMH of CAD, HTN, HLD, COPD, tobacco abuse, history of bilateral intramedullary fixation of hip fracture on 12/25/23 presents to the ED for generalized weakness. Symptoms ongoing for the past 3-4 months. Patient reports a few falls during this time. He reports a fall one month ago which resulted in a right wrist injury. Now difficult to do is ADL and IADLs, lives alone. No syncopal episode. He reports occasional positional lightheadedness. He reports poor oral intake. Drinks 8 beers every day. Smokes 1 PPD. He denies any headache, lower extremity edema, nausea and vomiting, fever or chills, nausea or vomiting, chest pain, SOB, palpitations, changes in urination or bowel habits. In the ED he underwent extensive evaluation. BP 131/80, HR 64, RR 18, T 98.6F, 99% on RA. CBC, CMP significant for RBC 3.18, Hg 11.4, Hct 32.5, MCV 102.2, Na 122, KK 3.2, Cl 90, BUN 5, Cr 0.47, glu 130, Ca 8.2, total protein 5.6, alb 3.1. Lactic acid 1.4. EKG sinus rhythm. CXR no acute process. Wrist XR intra- articular comminuted and displaced fractures of the distal right radius and ulna. Patient is admitted for further workup and management. General: non toxic, no distress, appears at stated age Derm: warm, dry Head: atraumatic, normocephalic, symmetric Eyes: EOMI, no lid lag, anicteric sclera Mouth: no lip lesion, mucus membranes moist Cardiovascular: S1S2 reg, no murmur Lungs: CTA bilateral, no rhonchi, no rales , no accessory muscle use Ext: no gross muscle atrophy, no edema, no contractures Neuro: no focal neuro deficits Psych: Alert, oriented, appropriate affect Based on my assessment of this patient, this patient meets a high complexity level of care. Generalized weakness likely due to below: Obtain TSH, B12, Folate. Fall precautions. PT and OT consult. Hyponatremia: Dehydration versus beer potomania. Obtain Ana Maria, UOsm, Serum Osm. Trial of NS at 75 cc/hr. Hypokalemia: KCl 20 mg PO BID. Check Mag. Right radial + ulnar fracture: Ortho consult. Macrocytic anemia: Obtain B12 and Folate as above. Alcohol abuse: CIWA protocol with Ativan PRN. Nicotine abuse: Nicotine patch 21 mg QD. CAD: Metoprolol 50 mg PO BID. Ranolazine 1000 mg PO BID. Lipitor 80 mg PO QHS. Add ASA 81 mg PO QD. Outpatient cardiology follow up. HTN: Metoprolol as above. Amodipine 5 mg PO QD> HLD: Lipitor as above. COPD not in acute exacerbation CODE STATUS: FULL CODE DVT Prophylaxis: Eliquis. GI Prophylaxis: Designated medical POA if patient is not able to make medical decisions for them selves: I have reviewed the following business information consultant notes: ED note. I have reviewed the results of the following tests: As above. I have ordered the following tests: As above. I have discussed the care of this patient with the following independent historian: JORGE A. I have independently interpreted the following test below: EKG. I have discussed the management of this patient with the following physician: Past Medical History Past Medical History: Coronary Artery Disease (CAD), Chest Pain / Angina, COPD, Hypertension, Myocardial Infarction ([place]), Osteoarthritis (OA) Last Myocardial Infarction Date:: 12/2023? unconfirmed History of Any Multi-Drug Resistant Organisms: None Reported Past Surgical History: Back Surgery, Heart Catheterization With Stent, Prostate Surgery Past Anesthesia/Blood Transfusion Reactions: No Reported Reaction Date of Last Stent Placement:: 2017 Past Psychological History: No Psychological Hx Reported Smoking Status: Current every day smoker Past Alcohol Use History: Daily Past Drug Use History: None Reported Medications and Allergies Home Medications Medication Instructions Recorded Confirmed Type Metoprolol Tartrate [Lopressor] 50 mg PO BID 12/23/23 02/12/24 History Ranolazine [Ranexa] 1,000 mg PO BID 12/23/23 02/12/24 History Atorvastatin [Lipitor] 80 mg PO HS 02/12/24 02/12/24 History amLODIPine [Norvasc] 5 mg PO DAILY 02/12/24 02/12/24 History Allergies Allergy/AdvReac Type Severity Reaction Status Date / Time No Known Allergies Allergy Verified 02/12/24 15:04 Physical Exam Vitals: Vital Signs Temp Pulse Resp BP Pulse Ox 02/12/24 16:08 97.3 F L 61 18 153/91 100 02/12/24 15:00 64 18 144/93 100 02/12/24 13:56 59 L 18 120/89 100 02/12/24 12:44 63 18 128/81 100 02/12/24 11:45 98.6 F 64 18 131/80 99 Intake and Output 02/12/24 02/12/24 02/12/24 06:59 14:59 22:59 Other: Weight 56.699 kg Results CBC & Chem 7: 02/12/24 12:09 02/12/24 12:09 Labs: Abnormal Lab Results - Last 24 Hours (Table) 02/12/24 02/12/24 Range/Units 12: 12:09 RBC 3.18 L (4.30-5.90) m/uL Hgb 11.4 L (13.0-17.5) gm/dL Hct 32.5 L (39.0-53.0) % MCV 102.2 H (80.0-100.0) fL MCH 35.9 H (25.0-35.0) pg Sodium 122 L (137-145) mmol/L Potassium 3.2 L (3.5-5.1) mmol/L Chloride 90 L (98-107) mmol/L BUN 5 L (9-20) mg/dL Creatinine 0.47 L (0.66-1.25) mg/dL Glucose 130 H (74-99) mg/dL Calcium 8.2 L (8.4-10.2) mg/dL Total Protein 5.6 L (6.3-8.2) g/dL Albumin 3.1 L (3.5-5.0) g/dL
[2024-02-12] MEDS: traMADol 50 MG TAB PO PRN (17:14)
[2024-02-12] MEDS: NICOTINE 21MG/24HR PATCH TRANSDERM SCH (17:14)
[2024-02-12] MEDS ORDERED: Potassium Replacement Protocol 1 EACH MISC MISCELLANE PRN (21:06)
[2024-02-12] MEDS: METOPROLOL TARTRATE 50 MG TAB PO SCH (21:18)
[2024-02-12] MEDS: POTASSIUM CHLORIDE ER 20 MEQ TAB.ER PO SCH (21:18)
[2024-02-12] MEDS: ATORVASTATIN 80 MG TAB PO SCH (21:19)
[2024-02-12] MEDS: RANOLAZINE 500 MG TAB.ER.12H PO SCH (21:19)
[2024-02-12 21:35] LABS: Appearance,Urine Clear (Clear); Bilirubin,Urine Negative (Negative); Blood,Urine Negative (Negative); Color,Urine Yellow; Glucose,Urine (UA) Negative (Negative); Ketones,Urine Negative (Negative); Leukocyte Esterase,Urine Negative (Negative); Nitrite,Urine Negative (Negative); PH, Urine 6.5 (5.0-8.0); Protein,Urine Negative (Negative); Specific Gravity,Urine 1.012 (1.001-1.035); Urobilinogen,Urine <2.0 mg/dL (<2.0)
[2024-02-13] MEDS: POTASSIUM CHLORIDE ER 20 MEQ TAB.ER PO SCH (00:10)
[2024-02-13] MEDS: FOLIC ACID 1 MG TAB PO SCH (09:13)
[2024-02-13] MEDS: THIAMINE 100 MG TAB PO SCH (09:14)
[2024-02-13] MEDS: ASPIRIN 81 MG PO SCH (09:14)
[2024-02-13] MEDS: amLODIPine 5 MG TAB PO SCH (09:14)
[2024-02-13] MEDS: MULTIVITAMINS, THERA 1 EACH TAB PO SCH (09:15)
[2024-02-13 11:16] LABS: ALT 187 U/L (10-49); AST 261 U/L (14-35); Albumin 3.1 g/dL (3.8-4.9); Albumin/Globulin Ratio 1.63 Ratio (1.60-3.17); Alkaline Phosphatase 105 U/L (41-126); Blood Urea Nitrogen 5.8 mg/dL (9.0-27.0); Carbon Dioxide 24.4 mmol/L (21.6-31.8); Chloride 92 mmol/L (96-109); Globulin 1.9 g/dL (1.6-3.3); Glucose 97 mg/dL (70-110); Magnesium 1.2 mg/dL (1.5-2.4); Potassium 3.9 mmol/L (3.5-5.5); Sodium 125 mmol/L (135-145); Total Bilirubin 0.6 mg/dL (0.3-1.2)
--- NOTE | 2024-02-13 11:55 | P.NPCON ---
History of Present Illness - Reason for Consult Consult date: 02/13/24 - Chief Complaint Weakness - History of Present Illness 68 year old male presents to the ED for generalized weakness. Symptoms ongoing for the past 3-4 months. Patient reports a few falls during this time. He reports a fall one month ago which resulted in a right wrist injury. Now difficult to do is ADL and IADLs, lives alone. No syncopal episode. He reports occasional positional lightheadedness. He reports poor oral intake. Drinks 8 beers every day. General: NAD, AAOx3 Cardiovascular: S1S2 reg, no murmur Lungs: CTA bilateral, no rhonchi, no rales , no accessory muscle use Ext: No edema Neuro: no focal neuro deficits Review of Systems Constitutional: Reports as per HPI Past Medical History Past Medical History: Coronary Artery Disease (CAD), Chest Pain / Angina, COPD, Hypertension, Myocardial Infarction ([place]), Osteoarthritis (OA) Last Myocardial Infarction Date:: 12/2023? unconfirmed History of Any Multi-Drug Resistant Organisms: None Reported Past Surgical History: Back Surgery, Heart Catheterization With Stent, Prostate Surgery Past Anesthesia/Blood Transfusion Reactions: No Reported Reaction Date of Last Stent Placement:: 2017 Past Psychological History: No Psychological Hx Reported Smoking Status: Current every day smoker Past Alcohol Use History: Daily Past Drug Use History: None Reported Medications and Allergies Home Medications Medication Instructions Recorded Confirmed Type Metoprolol Tartrate [Lopressor] 50 mg PO BID 12/23/23 02/12/24 History Ranolazine [Ranexa] 1,000 mg PO BID 12/23/23 02/12/24 History Atorvastatin [Lipitor] 80 mg PO HS 02/12/24 02/12/24 History amLODIPine [Norvasc] 5 mg PO DAILY 02/12/24 02/12/24 History Allergies Allergy/AdvReac Type Severity Reaction Status Date / Time No Known Allergies Allergy Verified 02/12/24 15:04 Physical Exam Vitals: Vital Signs Temp Pulse Pulse Resp BP BP Pulse Ox 02/13/24 07:12 66 18 122/76 100 02/13/24 02:00 97.8 F 67 17 105/66 96 02/12/24 20:00 97.6 F 67 16 118/81 98 02/12/24 16:08 97.3 F L 61 18 153/91 100 02/12/24 15:00 64 18 144/93 100 02/12/24 13:56 59 L 18 120/89 100 02/12/24 12:44 63 18 128/81 100 02/12/24 11:45 98.6 F 64 18 131/80 99 Intake and Output 02/12/24 02/13/24 02/13/24 22:59 06:59 14:59 Intake Total 540 525 Output Total 1425 Balance 540 -900 Intake: Intake, IV Titration 525 Amount Sodium Chloride 0.9% 1, 525 000 ml @ 75 mls/hr IV . [id number] STA Rx#:[id number] Oral 540 Output: Urine 1425 Other: Voiding Method Urinal Weight 56.699 kg Results - Lab Results Most recent lab results Calcium 8.2 mg/dL (8.4-10.2) L 02/12/24 12:09 02/12/24 12:09 02/13/24 06:36 Assessment and Plan Assessment: 1. Hyponatremia possibly hypovoelmic vs low solute. Sodium 122 on presentation. Improved to 125 today. 2. Generalized weakness. 3. Alcohol abuse 4. Hypokalemia Plan: Continue with normal saline for now Await urine studies Repeat labs pending Fluid restriction 1.2L daily Goal 130 by 8pm
--- NOTE | 2024-02-13 12:40 | P.PN ---
Subjective Progress Note Date: 02/13/24 68 year old M with PMH of CAD, HTN, HLD, COPD, tobacco abuse, history of bilateral intramedullary fixation of hip fracture on 12/25/23 presents to the ED for generalized weakness. Symptoms ongoing for the past 3-4 months. Patient reports a few falls during this time. He reports a fall one month ago which resulted in a right wrist injury. Now difficult to do is ADL and IADLs, lives alone. No syncopal episode. He reports occasional positional lightheadedness. He reports poor oral intake. Drinks 8 beers every day. Smokes 1 PPD. He denies any headache, lower extremity edema, nausea and vomiting, fever or chills, nausea or vomiting, chest pain, SOB, palpitations, changes in urination or bowel habits. I n the ED he underwent extensive evaluation. BP 131/80, HR 64, RR 18, T 98.6F, 99% on RA. CBC, CMP significant for RBC 3.18, Hg 11.4, Hct 32.5, MCV 102.2, Na 122, KK 3.2, Cl 90, BUN 5, Cr 0.47, glu 130, Ca 8.2, total protein 5.6, alb 3.1. Lactic acid 1.4. EKG sinus rhythm. CXR no acute process. Wrist XR intra- articular comminuted and displaced fractures of the distal right radius and ulna. Patient is admitted for further workup and management. Started on IV hydration and Ortho consulted. 02/12 Patient was seen and examined. CMP shows Na 125, Cl 92, BUN 5.8, Cr 0.4, Ca 8, AST 261, ALT 187, alb 3.1. Mag 1.2. B12 666. Folate 6.6. TSH 1.32. Ana Maria < 20. General: non toxic, no distress, appears at stated age Derm: warm, dry Head: atraumatic, normocephalic, symmetric Eyes: EOMI, no lid lag, anicteric sclera Mouth: no lip lesion, mucus membranes moist Cardiovascular: S1S2 reg, no murmur Lungs: CTA bilateral, no rhonchi, no rales , no accessory muscle use Ext: no gross muscle atrophy, no edema, no contractures Neuro: no focal neuro deficits Psych: Alert, oriented, appropriate affect Based on my assessment of this patient, this patient meets a high complexity level of care. Generalized weakness likely due to below: TSH, B12, Folate as above. Fall precautions. PT and OT consult. Hyponatremia: Dehydration versus beer potomania. Ana Maria < 20. Obtain UOsm, Serum Osm. Trial of NS at 75 cc/hr. HypoMag: Mag sulfate 4g IV x 1. Right radial + ulnar fracture: Ortho consult. Macrocytic anemia: Likely related to EtOH abuse. B12, Folate as above. Alcohol abuse: CIWA protocol with Ativan PRN. Transaminitis likely related to EtOH abuse. Nicotine abuse: Nicotine patch 21 mg QD. CAD: Metoprolol 50 mg PO BID. Ranolazine 1000 mg PO BID. Lipitor 80 mg PO QHS. Add ASA 81 mg PO QD. Outpatient cardiology follow up. HTN: Metoprolol as above. Amodipine 5 mg PO QD. HLD: Lipitor as above. COPD not in acute exacerbation Resolved: HypoK CODE STATUS: FULL CODE DVT Prophylaxis: Eliquis. GI Prophylaxis: Designated medical POA if patient is not able to make medical decisions for themselves: I have reviewed the following hearing aid consultant notes: Nephro. I have reviewed the results of the following tests: CMP, Mag, B12, Folate, TSH, Ana Maria. I have ordered the following tests: S + UOSm pending. Repeat BMP + Mag in the AM. I have discussed the care of this patient with the following independent historian: I have independently interpreted the following test below: I have discussed the management of this patient with the following physician: Objective - Vital Signs Vital signs: Vital Signs Temp 97.8 F 02/13/24 02:00 Pulse 66 02/13/24 07:12 Resp 18 02/13/24 07:12 BP 122/76 02/13/24 07:12 Pulse Ox 100 02/13/24 07:12 FiO2 Intake & Output 02/12/24 02/13/24 02/13/24 18:59 06:59 18:59 Intake Total 1065 Output Total 1425 Balance -360 Weight 56.699 kg Intake: Intake, IV Titration 525 Amount Sodium Chloride 0.9% 1, 525 000 ml @ 75 mls/hr IV . [id number] STA Rx#:[id number] Oral 540 Output: Urine 1425 - Labs CBC & Chem 7: 02/12/24 12:09 12/08/24 06:36 Labs: Abnormal Lab Results - Last 24 Hours (Table) 02/12/24 02/12/24 02/12/24 Range/Units 12:09 12:09 20:05 RBC 3.18 L (4.30-5.90) m/uL Hgb 11.4 L (13.0-17.5) gm/dL Hct 32.5 L (39.0-53.0) % MCV 102.2 H (80.0-100.0) fL MCH 35.9 H (25.0-35.0) pg Sodium 122 L 122 L (137-145) mmol/L Potassium 3.2 L 3.0 L (3.5-5.1) mmol/L Chloride 90 L 89 L (98-107) mmol/L BUN 5 L (9-20) mg/dL Creatinine 0.47 L (0.66-1.25) mg/dL Glucose 130 H (74-99) mg/dL Calcium 8.2 L (8.4-10.2) mg/dL Total Protein 5.6 L (6.3-8.2) g/dL Albumin 3.1 L (3.5-5.0) g/dL
[2024-02-13 12:55] LABS: Basophils # (A) 0.03 X 10*3/uL (0.00-0.10); Basophils % (A) 0.5 %; Eosinophils # (A) 0.13 X 10*3/uL (0.04-0.35); Eosinophils % (A) 2.4 %; HCT 30.5 % (39.6-50.0); HGB 10.9 g/dL (13.0-17.0); Lymphocytes # (A) 1.25 X 10*3/uL (0.90-5.00); Lymphocytes % (A) 22.8 %; MCH 34.8 pg (27.0-32.0); MCHC 35.7 g/dL (32.0-37.0); MCV 97.4 FL (80.0-97.0); Mean Platelet Volume 9.8 FL (9.5-12.2); Monocytes % (A) 7.3 %; NRBC Per 100 WBC 0 X 10*3/uL (0.00-0.01); Neutrophils # (A) 3.66 X 10*3/uL (1.80-7.70); Neutrophils % (A) 66.6 %; Platelet Count 176 X 10*3/uL (140-440); RBC 3.13 X 10*6/uL (4.40-5.60); RDW 13.9 % (11.5-14.5); WBC 5.49 X 10*3/uL (4.50-10.00)
[2024-02-13] MEDS: MAGNESIUM SULFATE-D5W PMX 1 GM in DEXTROSE/WATER 1 100ML.BAG IVPB SCH (12:55)
[2024-02-14 03:46] LABS: African American GFR (CKD) >90 (>60 ml/min/1.73 sqM); Anion Gap 1 mmol/L; Blood Urea Nitrogen 8 mg/dL (9-20); Calcium 7.5 mg/dL (8.4-10.2); Carbon Dioxide 23 mmol/L (22-30); Chloride 96 mmol/L (98-107); Glucose 96 mg/dL (74-99); Magnesium 1.9 mg/dL (1.6-2.3); Non-African American GFR(CKD) >90 (>60 ml/min/1.73 sqM); Potassium 4.4 mmol/L (3.5-5.1); Sodium 120 mmol/L (137-145)
[2024-02-14] MEDS: SODIUM CHLORIDE 0.9% 1,000 ML IV SCH (04:42)
--- NOTE | 2024-02-14 10:25 | P.CNOR ---
History of Present Illness - [facility] Consult date: 02/14/24 Consult reason: fracture History of present illness: Patient has had several falls recently, he has a noted history of frequent alcohol use estimates are 8 beers per day, he has had nutritional issues that resulted in previous falls requiring bilateral hip fixation for bilateral hip fractures. He notes he was seen in a hospital in [place] and reportedly had a reduction attempt of the right wrist and was placed in a splint that he has since removed and has been wearing an Erich bandage for the past 2 weeks.His pain has been improving but he still has some moderate pain to the right wrist, he denies any numbness or tingling to the right hand, he has been using a walker since the wrist injury. He denies any current issues with his bilateral hips. Review of Systems Constitutional: Reports as per [facility] Past Medical History Past Medical History: Coronary Artery Disease (CAD), Chest Pain / Angina, COPD, Hypertension, Myocardial Infarction ([place]), Osteoarthritis (OA) Last Myocardial Infarction Date:: 12/2023? unconfirmed History of Any Multi-Drug Resistant Organisms: None Reported Past Surgical History: Back Surgery, Heart Catheterization With Stent, Prostate Surgery Past Anesthesia/Blood Transfusion Reactions: No Reported Reaction Date of Last Stent Placement:: 2017 Past Psychological History: No Psychological Hx Reported Smoking Status: Current every day smoker Past Alcohol Use History: Daily Past Drug Use History: None Reported Medications and Allergies Home Medications Medication Instructions Recorded Confirmed Type Metoprolol Tartrate [Lopressor] 50 mg PO BID 12/23/23 02/12/24 History Ranolazine [Ranexa] 1,000 mg PO BID 12/23/23 02/12/24 History Atorvastatin [Lipitor] 80 mg PO HS 02/12/24 02/12/24 History amLODIPine [Norvasc] 5 mg PO DAILY 02/12/24 02/12/24 History Allergies Allergy/AdvReac Type Severity Reaction Status Date / Time No Known Allergies Allergy Verified 02/12/24 15:04 Physical Examination On exam of the right wrist the skin is intact he has mild swelling there is a radial deviation deformity noted there is prominence of the ulnar head he has moderate tenderness to palpation at the distal radius, range of motion to fle xion is about 45 degrees extension is roughly 30 degrees, he is able to make a composite fist and he is seen using the hand for eating and drinking, he has intact sensation throughout the hand and brisk capillary refill throughout the hand. Bilateral hips Incisions are well-healed he has no tenderness to palpation around the hips no pain with passive motion of the hips he is able to actively flex the bilateral hips he has intact sensation throughout the bilateral lower extremities. He does have generalized weakness but strength is still able to move the limbs against moderate resistance Results - Labs Labs: Abnormal Lab Results - Last 24 Hours (Table) 02/12/24 02/12/24 02/12/24 Range/Units 20:05 21:16 21:16 RBC (4.40-5.60) X 10*6/uL Hgb (13.0-17.0) g/dL Hct (39.6-50.0) % MCV (80.0-97.0) FL MCH (27.0-32.0) pg Sodium (135-145) mmol/L Chloride (96-109) mmol/L BUN (9.0-27.0) mg/dL Creatinine (0.6-1.5) mg/dL Osmolality 258 L (275-295) mOsm/kg Calcium (8.7-10.3) mg/dL Magnesium (1.5-2.4) mg/dL AST (14-35) U/L ALT (10-49) U/L Total Protein (6.2-8.2) g/dL Albumin (3.8-4.9) g/dL Urine Osmolality 269 L (400-1100) mOsm/kg Ur Random Sodium <20 L (40-220) mmol/L 02/13/24 02/13/24 02/14/24 Range/Units 06:36 06:36 02:32 RBC 3.13 L (4.40-5.60) X 10*6/uL Hgb 10.9 L (13.0-17.0) g/dL Hct 30.5 L (39.6-50.0) % MCV 97.4 H (80.0-97.0) FL MCH 34.8 H (27.0-32.0) pg Sodium 125 L 120 L (135-145) mmol/L Chloride 92 L 96 L (96-109) mmol/L BUN 5.8 L 8 L (9.0-27.0) mg/dL Creatinine 0.4 L 0.42 L (0.6-1.5) mg/dL Osmolality (275-295) mOsm/kg Calcium 8.0 L 7.5 L (8.7-10.3) mg/dL Magnesium 1.2 L (1.5-2.4) mg/dL AST 261 H (14-35) U/L ALT 187 H (10-49) U/L Total Protein 5.0 L (6.2-8.2) g/dL Albumin 3.1 L (3.8-4.9) g/dL Urine Osmolality (400-1100) mOsm/kg Ur Random Sodium (40-220) mmol/L H & H 24 02/13/24 Range/Units 12:09 06:36 Hgb 11.4 L 10.9 L (13.0-17.5) gm/dL Hct 32.5 L 30.5 L (39.0-53.0) % Result Diagrams: 02/13/24 06:36 02/14/24 02:32 - Diagnostic results Wrist/Hand x-ray: image reviewed (Imaging shows a partially healed significantly dorsally angulated distal radius fracture and ulnar styloid fracture there is moderate callus noted to the volar and dorsal cortices he has significant radial deviation as well as prominence of the ulnar head) Assessment and Plan (1) Right wrist fracture Current Visit: Yes Status: Acute Code(s): S62.101A - FRACTURE OF UNSP CARPAL BONE, RIGHT WRIST, INIT FOR CLOS FX SNOMED Code(s): 973097036 (2) Fracture of greater trochanter of left femur Current Visit: No Status: Acute Priority: High Code(s): S72.112A - DISP FX OF GREATER TROCHANTER OF LEFT FEMUR, INIT SNOMED Code(s): 009632473 (3) Fracture of greater trochanter of right femur Current Visit: No Status: Acute Priority: High Code(s): S72.111A - DISP FX OF GREATER TROCHANTER OF RIGHT FEMUR, INIT SNOMED Code(s): 224685553 Plan: For the right wrist we discussed that given the chronicity of his injury as well as his baseline poor bone quality performing surgical correction at this stage would likely yield a poor result as his bone would be unlikely to support the level of correction that we would need to do surgically. We also discussed that this injury is very different than his hip fractures and that once his fracture heals he may note that he has good function of the wrist despite the deformity. Patient currently needs to be medically optimized as he has significant electrolyte abnormalities and weakness in the setting of his baseline alcohol use issues that would ultimately make him a relatively poor surgical candidate for this type of semielective procedure. I would recommend that we allow the fracture to continue to heal and solidify this will allow the patient to assess if his level of function is acceptable with the current position of the wrist, should he be medically optimized and should he desire corrective surgery we could discuss doing this on an outpatient basis when the fracture is 3 months out as I believe this will have allowed adequate healing and solidification of the distal radius to support a significant corrective osteotomy. Given his current use of the wrist for ambulation I will prescribe him a wrist brace for added support but he can continue to use the wrist as tolerated as I do not feel he will significantly alter the position of the wrist with these activities at this point Weightbearing as tolerated to the right wrist in his wrist brace He should continue to use the wrist brace for at least the next 2 weeks and then as needed after that point [id number] pain medications as needed for pain relief Patient can be provided with our clinic information for him to follow-up should he wish to pursue further treatment for the right wrist as well as ongoing follow-up for the bilateral hips For the bilateral hips Remain weightbearing as tolerated Given the patient's limited means to follow-up on an outpatient basis I would like to get bilateral hip x-rays to assess the position of his hip implants tawanda warren he is being evaluated PT and OT to assist with ambulation Please reach out to the [facility] team with any questions
[2024-02-14] MEDS: SODIUM CHLORIDE TAB 1 GM TAB PO SCH (12:05)
--- NOTE | 2024-02-14 13:22 | P.PN ---
Subjective patient is seen for follow-up for hyponatremia. He was maintained on normal saline which was discontinued as serum sodium dropped from 125 to 120. Repeat sodium from this morning is still pending. Patient denies any significant complaints. Blood pressure has been low. No complaints of nausea or vomiting.no shortness of breath. Objective - Vital Signs Vital signs: Vital Signs Temp 97 F L 02/14/24 07:13 Pulse 60 02/14/24 07:13 Resp 20 02/14/24 08:00 BP 109/72 02/14/24 07:13 Pulse Ox 98 02/14/24 07:13 FiO2 Intake & Output 02/13/24 02/14/24 02/14/24 18:59 06:59 18:59 Intake Total 240 590 Output Total 400 500 Balance -400 -260 590 Intake: Oral 590 Other 240 Output: Urine 400 500 Other: Voiding Method Urinal Urinal Urinal - Exam patient is awake, comfortable, no acute distress. Examination of the heart S1 and S2 Examination of the lungs bilateral breath sounds are heard Abdomen is soft nontender Examination of lower extremity shows no significant edema. - Labs CBC & Chem 7: 02/13/24 06:36 02/14/24 02:32 Labs: Abnormal Lab Results - Last 24 Hours (Table) 02/12/24 02/12/24 02/14/24 Range/Units 20:05 21:16 02:32 Sodium 120 L (137-145) mmol/L Chloride 96 L (98-107) mmol/L BUN 8 L (9-20) mg/dL Creatinine 0.42 L (0.66-1.25) mg/dL Osmolality 258 L (275-295) mOsm/kg Calcium 7.5 L (8.4-10.2) mg/dL Urine Osmolality 269 L (400-1100) mOsm/kg Assessment and Plan Assessment: 1. Hyponatremia, initially thought to be hypovolemic and improved slightly with normal saline. Serum sodium then worsened this morning and saline was discontinued. repeat sodium from this morning is still pending. Urine osmolality was 269 and random urine sodium was less than 20. 2. EtOH abuse 3. Hypokalemia associated with EtOH abuse and decreased oral intake Plan: add sodium chloride tabs. Repeat serum sodium now Repeat serum sodium this afternoon Encouraged to increase oral intake particularly protein. SUE Rowe
[2024-02-14 14:50] VITALS: BMI 18.4
[2024-02-14 15:06] LABS: Blood Urea Nitrogen 8.3 mg/dL (9.0-27.0); Calcium 7.5 mg/dL (8.7-10.3); Carbon Dioxide 21.9 mmol/L (21.6-31.8); Chloride 95 mmol/L (96-109); Glucose 98 mg/dL (70-110); Potassium 4.6 mmol/L (3.5-5.5); Sodium 125 mmol/L (135-145)
--- NOTE | 2024-02-14 15:24 | XR ---
EXAMINATION TYPE: XR Hip Bilateral and AP pelvis DATE OF EXAM: 02/14/2024 2:10 PM COMPARISON: 12/23/2023 CLINICAL INDICATION: Male, 68 years old with history of post op bilateral hip nails; PHH, pain TECHNIQUE: XR Hip Bilateral and AP pelvis; hip was examined in the frontal and lateral projections an d a AP pelvis. FINDINGS: No evidence for acute process, joint dislocation or significant soft tissue swelling. Osteo phyte formation of the superior acetabulum of the hip. There is mild joint space narrowing. Bilateral fixation changes hips appear intact. IMPRESSION: 1. Bilateral femoral fixation changes appear intact. No evidence for acute process. 2. Mild hip osteoarthrosis. [facility], , 02/14/2024 3:22 PM
--- NOTE | 2024-02-14 16:56 | P.PN ---
Subjective Progress Note Date: 02/14/24 68 year old M with PMH of CAD, HTN, HLD, COPD, tobacco abuse, history of bilateral intramedullary fixation of hip fracture on 12/25/23 presents to the ED for generalized weakness. Symptoms ongoing for the past 3-4 months. Patient reports a few falls during this time. He reports a fall one month ago which resulted in a right wrist injury. Now difficult to do is ADL and IADLs, lives alone. No syncopal episode. He reports occasional positional lightheadedness. He reports poor oral intake. Drinks 8 beers every day. Smokes 1 PPD. He denies any headache, lower extremity edema, nausea and vomiting, fever or chills, nausea or vomiting, chest pain, SOB, palpitations, changes in urination or bowel habits. I n the ED he underwent extensive evaluation. BP 131/80, HR 64, RR 18, T 98.6F, 99% on RA. CBC, CMP significant for RBC 3.18, Hg 11.4, Hct 32.5, MCV 102.2, Na 122, KK 3.2, Cl 90, BUN 5, Cr 0.47, glu 130, Ca 8.2, total protein 5.6, alb 3.1. Lactic acid 1.4. EKG sinus rhythm. CXR no acute process. Wrist XR intra- articular comminuted and displaced fractures of the distal right radius and ulna. Patient is admitted for further workup and management. Started on IV hydration and Ortho consulted. 02/12 Patient was seen and examined. CMP shows Na 125, Cl 92, BUN 5.8, Cr 0.4, Ca 8, AST 261, ALT 187, alb 3.1. Mag 1.2. B12 666. Folate 6.6. TSH 1.32. Ana Maria < 20. 02/13. Patient seen and examined at bedside. CMP today shows sodium 120, potassium 4.4, chloride 96, CO2 23, BUN 8, creatinine 0.42, calcium 7.5, magnesium 1.9. No complaints today. General: non toxic, no distress, appears stated age Derm: warm, dry Head: atraumatic, normocephalic, symmetric Eyes: EOMI, no lid lag, anicteric sclera Mouth: no lip lesion, mucus membranes moist Cardiovascular: S1S2 reg, no murmur Lungs: CTA bilateral, no rhonchi, no rales, no accessory muscle use Ext: no gross muscle atrophy, no edema, no contractures Neuro: no focal neuro deficits Psych: Alert, oriented, appropriate affect Based on my assessment of this patient, this patient meets a high complexity level of care. Generalized weakness likely due to below: TSH, B12, Folate as above. Fall precautions. PT and OT consult. Hyponatremia: Dehydration versus beer potomania. Ana Maria < 20. Fluid restriction of 1 L. Right radial + ulnar fracture: Ortho consulted-no surgical intervention at this time. Hypoproteinemia: Add Ensure to diet. Macrocytic anemia: Likely related to EtOH abuse. B12, Folate as above. Alcohol abuse: CIWA protocol with Ativan PRN. Transaminitis likely related to EtOH abuse. Nicotine abuse: Nicotine patch 21 mg QD. CAD: Metoprolol 50 mg PO BID. Ranolazine 1000 mg PO BID. Lipitor 80 mg PO QHS. Add ASA 81 mg PO QD. Outpatient cardiology follow up. HTN: Metoprolol as above. Amodipine 5 mg PO QD. HLD: Lipitor as above. COPD not in acute exacerbation Resolved: Hypokalemia, hypomagnesemia CODE STATUS: FULL CODE DVT Prophylaxis: Eliquis. GI Prophylaxis: Designated medical POA if patient is not able to make medical decisions for themselves: I have reviewed the following design and sales consultant notes: Nephro. I have reviewed the results of the following tests: CMP, Mag, B12, Folate, TSH, Ana Maria. I have ordered the following tests: S + UOSm pending. Repeat BMP + Mag in the AM. I have discussed the care of this patient with the following independent historian: I have independently interpreted the following test below: I have discussed the management of this patient with the following physician: I saw and evaluated the patient during the mckeon and critical portions of this encounter, and discussed the case in detail with the resident author of this note, I agree with the Assessment and Plan, and my changes, if any, are noted below. Patient feeling weak. UOsm + SOsm low. Ana Maria low. Likely low solute. Ensure TID added to diet. NS is discontinued and patient started on 1L fluid restriction. Nephrology added salt tabs. Ortho recommends no surgical intervention. PT and OT on board. Possible SNF on discharge, discussed with case management. Objective - Vital Signs Vital signs: Vital Signs Temp 97 F L 02/14/24 07:13 Pulse 60 02/14/24 07:13 Resp 20 02/14/24 07:13 BP 109/72 02/14/24 07:13 Pulse Ox 98 02/14/24 07:13 FiO2 Intake & Output 02/13/24 02/14/24 02/14/24 18:59 06:59 18:59 Intake Total 240 Output Total 400 500 Balance -400 -260 Intake: Other 240 Output: Urine 400 500 Other: Voiding Method Urinal Urinal - Labs CBC & Chem 7: 02/13/24 06:36 02/14/24 13:43 Labs: Abnormal Lab Results - Last 24 Hours (Table) 02/12/24 02/12/24 02/12/24 Range/Units 20:05 21:16 21:16 RBC (4.40-5.60) X 10*6/uL Hgb (13.0-17.0) g/dL Hct (39.6-50.0) % MCV (80.0-97.0) FL MCH (27.0-32.0) pg Sodium (135-145) mmol/L Chloride (96-109) mmol/L BUN (9.0-27.0) mg/dL Creatinine (0.6-1.5) mg/dL Osmolality 258 L (275-295) mOsm/kg Calcium (8.7-10.3) mg/dL Magnesium (1.5-2.4) mg/dL AST (14-35) U/L ALT (10-49) U/L Total Protein (6.2-8.2) g/dL Albumin (3.8-4.9) g/dL Urine Osmolality 269 L (400-1100) mOsm/kg Ur Random Sodium <20 L (40-220) mmol/L 02/13/24 02/13/24 02/14/24 Range/Units 06:36 06:36 02:32 RBC 3.13 L (4.40-5.60) X 10*6/uL Hgb 10.9 L (13.0-17.0) g/dL Hct 30.5 L (39.6-50.0) % MCV 97.4 H (80.0-97.0) FL MCH 34.8 H (27.0-32.0) pg Sodium 125 L 120 L (135-145) mmol/L Chloride 92 L 96 L (96-109) mmol/L BUN 5.8 L 8 L (9.0-27.0) mg/dL Creatinine 0.4 L 0.42 L (0.6-1.5) mg/dL Osmolality (275-295) mOsm/kg Calcium 8.0 L 7.5 L (8.7-10.3) mg/dL Magnesium 1.2 L (1.5-2.4) mg/dL AST 261 H (14-35) U/L ALT 187 H (10-49) U/L Total Protein 5.0 L (6.2-8.2) g/dL Albumin 3.1 L (3.8-4.9) g/dL Urine Osmolality (400-1100) mOsm/kg Ur Random Sodium (40-220) mmol/L
[2024-02-14] MEDS ORDERED: METOPROLOL TARTRATE 25 MG TAB PO SCH (21:00)
[2024-02-15 08:54] VITALS: RESP 17
[2024-02-15 09:19] LABS: African American GFR (CKD) >90 (>60 ml/min/1.73 sqM); Anion Gap 1 mmol/L; Blood Urea Nitrogen 9 mg/dL (9-20); Calcium 7.8 mg/dL (8.4-10.2); Carbon Dioxide 26 mmol/L (22-30); Chloride 97 mmol/L (98-107); Glucose 101 mg/dL (74-99); Magnesium 1.6 mg/dL (1.6-2.3); Non-African American GFR(CKD) >90 (>60 ml/min/1.73 sqM); Potassium 4.5 mmol/L (3.5-5.1); Sodium 124 mmol/L (137-145)
[2024-02-15] MEDS: SODIUM CHLORIDE TAB 1 GM TAB PO STA (11:19)
--- NOTE | 2024-02-15 11:31 | P.PN ---
Subjective Progress Note Date: 02/15/24 68 year old M with PMH of CAD, HTN, HLD, COPD, tobacco abuse, history of bilateral intramedullary fixation of hip fracture on 12/25/23 presents to the ED for generalized weakness. Symptoms ongoing for the past 3-4 months. Patient reports a few falls during this time. He reports a fall one month ago which resulted in a right wrist injury. Now difficult to do is ADL and IADLs, lives alone. No syncopal episode. He reports occasional positional lightheadedness. He reports poor oral intake. Drinks 8 beers every day. Smokes 1 PPD. He denies any headache, lower extremity edema, nausea and vomiting, fever or chills, nausea or vomiting, chest pain, SOB, palpitations, changes in urination or bowel habits. I n the ED he underwent extensive evaluation. BP 131/80, HR 64, RR 18, T 98.6F, 99% on RA. CBC, CMP significant for RBC 3.18, Hg 11.4, Hct 32.5, MCV 102.2, Na 122, KK 3.2, Cl 90, BUN 5, Cr 0.47, glu 130, Ca 8.2, total protein 5.6, alb 3.1. Lactic acid 1.4. EKG sinus rhythm. CXR no acute process. Wrist XR intra- articular comminuted and displaced fractures of the distal right radius and ulna. Patient is admitted for further workup and management. Started on IV hydration and Ortho consulted. Sodium went as low as 120. Serum Osm, UOsm and Ana Maria were all low. Hyponatremia likely related to low solute and protein. Started on Ensure, fluid restriction, salt tabs and NS discontinued. Nephrology following. Ortho recommended no surgical intervention. He is pending insurance auth for SNF. 02/14 Patient was seen and examined. Reports weakness. BMP shows Na 124, Cl 97, Cr 0.5, Ca 7.8. Mag is 1.6. Maintained on 1L fluid restriction and salt tabs. General: non toxic, no distress, appears at stated age Derm: warm, dry Head: atraumatic, normocephalic, symmetric Eyes: EOMI, no lid lag, anicteric sclera Mouth: no lip lesion, mucus membranes moist Cardiovascular: S1S2 reg, no murmur Lungs: CTA bilateral, no rhonchi, no rales , no accessory muscle use Ext: no gross muscle atrophy, no edema, no contractures Neuro: no focal neuro deficits Psych: Alert, oriented, appropriate affect Based on my assessment of this patient, this patient meets a high complexity level of care. Generalized weakness likely due to below: TSH, B12, Folate as above. Fall precautions. PT and OT consult. Hyponatremia: Likely beer potomania. Ana Maria < 20. UOsm 269, Serum Osm 258. Discontinue NS and start 1L fluid restriction and NaCl 1g PO BID. Nephrology following. HypoMag: Mag sulfate 2g IV x 1. Right radial + ulnar fracture: Ortho recommends no surgical intervention. Macrocytic anemia: Likely related to EtOH abuse. B12, Folate as above. Alcohol abuse: CIWA protocol with Ativan PRN. Transaminitis likely related to EtOH abuse. Nicotine abuse: Nicotine patch 21 mg QD. CAD: Ranolazine 1000 mg PO BID. Lipitor 80 mg PO QHS. Add ASA 81 mg PO QD. Outpatient cardiology follow up. HTN: Borderline hypotensive at this time. Metoprolol and Amlodipine discontinued. HLD: Lipitor as above. COPD not in acute exacerbation Resolved: HypoK CODE STATUS: FULL CODE DVT Prophylaxis: Eliquis. GI Prophylaxis: Designated medical POA if patient is not able to make medical decisions for themselves: I have reviewed the following surgical product sales consultant notes: Nephro. I have reviewed the results of the following tests: BMP. Mag. I have ordered the following tests: BMP and Mag in the AM. I have discussed the care of this patient with the following independent historian: RN. artist's manager. I have independently interpreted the following test below: I have discussed the management of this patient with the following physician: Objective - Vital Signs Vital signs: Vital Signs Temp 97.6 F 02/15/24 06:55 Pulse 89 02/15/24 06:55 Resp 17 02/15/24 06:55 BP 127/73 02/15/24 06:55 Pulse Ox 97 02/15/24 06:55 FiO2 Intake & Output 02/14/24 02/15/24 02/15/24 18:59 06:59 18:59 Intake Total 965 200 Output Total 1100 Balance 965 -1100 200 Weight 56.699 kg Intake: Intake, IV Titration 375 Amount Sodium Chloride 0.9% 1, 375 000 ml @ 75 mls/hr IV . [id number] CATIE Rx#:[id number] Oral 590 200 Output: Urine 1100 Other: Voiding Method Urinal Urinal - Labs CBC & Chem 7: 02/13/24 06:36 02/15/24 08:48 Labs: Abnormal Lab Results - Last 24 Hours (Table) 02/14/24 02/14/24 02/15/24 Range/Units 09:02 13:43 08:48 Sodium 125 L 126 L 124 L (135-145) mmol/L Chloride 95 L 97 L (96-109) mmol/L BUN 8.3 L (9.0-27.0) mg/dL Creatinine 0.5 L 0.50 L (0.6-1.5) mg/dL Glucose 101 H (74-99) mg/dL Calcium 7.5 L 7.8 L (8.7-10.3) mg/dL
[2024-02-15] MEDS: MAGNESIUM SULFATE-D5W PMX 1 GM in DEXTROSE/WATER 1 100ML.BAG IVPB SCH (11:53)
--- NOTE | 2024-02-15 15:38 | P.DS ---
Providers Date of admission: 02/12/24 14:16 Expected date of discharge: 02/15/24 Attending physician: Kadie Deluca MD Consults: 02/12/24 14:15 Consult Physician Routine Consulting Provider: Chapin Dueñas Consult Reason/Comments: hyponatremia Do you want consulting provider notified?: Yes Consult Physician Urgent Consulting Provider: Tex Pruitt Consult Reason/Comments: wrist fx Do you want consulting provider notified?: Yes Primary care physician: Physician Nonstaff Hospital Course: 68 year old M with PMH of CAD, HTN, HLD, COPD, tobacco abuse, history of bilateral intramedullary fixation of hip fracture on 12/25/23 presents to the ED for generalized weakness. Symptoms ongoing for the past 3-4 months. Patient reports a few falls during this time. He reports a fall one month ago which resulted in a right wrist injury. Now difficult to do is ADL and IADLs, lives alone. No syncopal episode. He reports occasional positional lightheadedness. He reports poor oral intake. Drinks 8 beers every day. Smokes 1 PPD. He denies any headache, lower extremity edema, nausea and vomiting, fever or chills, nausea or vomiting, chest pain, SOB, palpitations, changes in urination or bowel habits. In the ED he underwent extensive evaluation. BP 131/80, HR 64, RR 18, T 98.6F, 99% on RA. CBC, CMP significant for RBC 3.18, Hg 11.4, Hct 32.5, MCV 102.2, Na 122, KK 3.2, Cl 90, BUN 5, Cr 0.47, glu 130, Ca 8.2, total protein 5.6, alb 3.1. Lactic acid 1.4. EKG sinus rhythm. CXR no acute process. Wrist XR intra- articular comminuted and displaced fractures of the distal right radius and ulna. Patient is admitted for further workup and management. Started on IV hydration and Ortho consulted. Sodium went as low as 120. Serum Osm, UOsm and [place] were all low. Hyponatremia likely related to low solute and protein. Started on Ensure, fluid restriction, salt tabs and NS discontinued. Nephrology following. Ortho recommended no surgical intervention. He is pending insurance auth for SNF. 02/14 Patient was seen and examined. Reports weakness. BMP shows Na 124, Cl 97, Cr 0.5, Ca 7.8. Mag is 1.6. Maintained on 1L fluid restriction and salt tabs. Discussed with IVAN Mathew for discharge if repeat Na improved at 3PM. Repeat Na was 126. Continue 1L fluid restriction and salt tabs. Repeat BMP in 3 days to be followed up with PCP at [facility]. Follow up with Orthopedic surgery within 1 week of discharge. General: non toxic, no distress, appears at stated age Derm: warm, dry Head: atraumatic, normocephalic, symmetric Eyes: EOMI, no lid lag, anicteric sclera Mouth: no lip lesion, mucus membranes moist Cardiovascular: S1S2 reg, no murmur Lungs: CTA bilateral, no rhonchi, no rales , no accessory muscle use Ext: no gross muscle atrophy, no edema, no contractures Neuro: no focal neuro deficits Psych: Alert, oriented, appropriate affect Discharge Diagnosis: Generalized weakness likely due to below Hyponatremia HypoMag Right radial + ulnar fracture Macrocytic anemia Alcohol abuse Transaminitis likely related to EtOH abuse. Nicotine abuse CAD HTN HLD COPD not in acute exacerbation Resolved: HypoK This complex discharge took 35 minutes to complete. Patient Condition at Discharge: Stable Plan - Discharge Summary Discharge Rx Participant: No New Discharge Prescriptions: New Aspirin 81 mg PO DAILY tab Ipratropium-Albuterol Nebulize [Duoneb 0.5 mg-3 mg/3 ml Soln] 3 ml INHALATION RT-QID PRN each PRN Reason: Shortness Of Breath Or Wheezing Multivitamins, Thera [Multivitamin (formulary)] 1 each PO DAILY tab Metoprolol Succinate (ER) [Toprol XL] 12.5 mg PO DAILY #30 tab traMADol HCl [Ultram] 50 mg PO Q6H PRN #12 tab PRN Reason: Moderate Pain (Scale 4 To 6) Thiamine [Vitamin B-1] 100 mg PO DAILY tab Folic Acid 1 mg PO DAILY tab Nicotine 21Mg/24Hr Patch [Habitrol] 1 patch TRANSDERM DAILY patch Sodium Chloride Tab 1 gm PO BID tab Continue Ranolazine [Ranexa] 1,000 mg PO BID Atorvastatin [Lipitor] 80 mg PO HS Discontinued Metoprolol Tartrate [Lopressor] 50 mg PO BID amLODIPine [Norvasc] 5 mg PO DAILY Discharge Medication List Ranolazine [Ranexa] 1,000 mg PO BID 12/23/23 [History] Atorvastatin [Lipitor] 80 mg PO HS 02/12/24 [History] Aspirin 81 mg PO DAILY tab 02/15/24 [Rx] Folic Acid 1 mg PO DAILY tab 02/15/24 [Rx] Ipratropium-Albuterol Nebulize [Duoneb 0.5 mg-3 mg/3 ml Soln] 3 ml INHALATION RT-QID PRN each 02/15/24 [Rx] Metoprolol Succinate (ER) [Toprol XL] 12.5 mg PO DAILY #30 tab 02/15/24 [Rx] Multivitamins, Thera [Multivitamin (formulary)] 1 each PO DAILY tab 02/15/24 [Rx] Nicotine 21Mg/24Hr Patch [Habitrol] 1 patch TRANSDERM DAILY patch 02/15/24 [Rx] Sodium Chloride Tab 1 gm PO BID tab 02/15/24 [Rx] Thiamine [Vitamin B-1] 100 mg PO DAILY tab 02/15/24 [Rx] traMADol HCl [Ultram] 50 mg PO Q6H PRN #12 tab 02/15/24 [Rx] Follow up Appointment(s)/Referral(s): Ginette Sosa, [NON-STAFF] - As Needed Tex Pruitt MD [STAFF PHYSICIAN] - 1 Week Nonstaff,Physician [Primary Care Provider] - 1-2 days Stephenie Montoya [NON-STAFF] - As Needed (right wrist brace) Activity/Diet/Wound Care/Special Instructions: Diet: 1L fluid restriction for one week. Repeat BMP in 3 days to be followed up with PCP at rehab. Refrain from drinking alcohol. Discharge Disposition: TRANSFER TO SNF/ECF
[2024-02-15 15:50] VITALS: BP 98/59; PULSE 62; TEMP 98.5
[2024-02-15] MEDS: ZINC OXIDE PASTE (Z-GUARD) 1 APPLIC TOPICAL PRN (16:20)
--- NOTE | 2024-02-15 22:38 | P.PN ---
Subjective patient is seen for follow-up for hyponatremia. Saline was discontinued as serum sodium had dropped and patient is maintained on sodium chloride tabs. Serum sodium staying at 124-1 26 Patient denies any significant complaints. Blood pressure has been low. No complaints of nausea or vomiting.no shortness of breath. Objective - Vital Signs Vital signs: Vital Signs Temp 98.5 F 02/15/24 14:00 Pulse 62 02/15/24 14:00 Resp 17 02/15/24 14:00 BP 98/59 02/15/24 14:00 Pulse Ox 99 02/15/24 14:00 FiO2 Intake & Output 02/15/24 02/15/24 02/16/24 06:59 18:59 06:59 Intake Total 320 Output Total 1100 350 Balance -1099 -30 Intake: Oral 320 Output: Urine 1100 350 Other: Voiding Method Urinal - Exam patient is awake, comfortable, no acute distress. Examination of the heart S1 and S2 Examination of the lungs bilateral breath sounds are heard Abdomen is soft nontender Examination of lower extremity shows no significant edema. - Labs CBC & Chem 7: 02/13/24 06:36 02/15/24 14:30 Labs: Abnormal Lab Results - Last 24 Hours (Table) 02/15/24 02/15/24 Range/Units 08:48 14:30 Sodium 124 L 126 L (137-145) mmol/L Chloride 97 L (98-107) mmol/L Creatinine 0.50 L (0.66-1.25) mg/dL Glucose 101 H (74-99) mg/dL Calcium 7.8 L (8.4-10.2) mg/dL Assessment and Plan Assessment: 1. Hyponatremia, initially thought to be hypovolemic and improved slightly with normal saline. Serum sodium then worsened and saline was discontinued. repeat sodium staying at 1 24-1 26. Urine osmolality was 269 and random urine sodium was less than 20. 2. EtOH abuse 3. Hypokalemia associated with EtOH abuse and decreased oral intake Plan: Continue sodium chloride tabs. Repeat serum sodium this afternoon Possible discharge today if sodium not further decreased.
== END 2024-02-15 16:34 | DRG 641 ==
LOC: EC 11:43 → 4SSUR 14:16
PROVIDERS: ADMIT Family Medicine; ATTEND Family Medicine
DX: E87.1 Hypo-osmolality and hyponatremia (principal); S52.501A Unspecified fracture of the lower end of right radius, initial encounter for closed fracture; S52.601A Unspecified fracture of lower end of right ulna, initial encounter for closed fracture; D53.9 Nutritional anemia, unspecified; E77.8 Other disorders of glycoprotein metabolism; E78.5 Hyperlipidemia, unspecified; E83.42 Hypomagnesemia; E87.6 Hypokalemia; F10.10 Alcohol abuse, uncomplicated; F17.210 Nicotine dependence, cigarettes, uncomplicated; I10 Essential (primary) hypertension; I25.10 Atherosclerotic heart disease of native coronary artery without angina pectoris; J44.9 Chronic obstructive pulmonary disease, unspecified; R29.6 Repeated falls; R74.01 Elevation of levels of liver transaminase levels; I25.2 Old myocardial infarction; Z79.82 Long term (current) use of aspirin; Z79.899 Other long term (current) drug therapy
CPT/HCPCS: 29125; 36415; 71046; 73521; 80048; 80051; 80053; 81003; 82607; 82746; 83605; 83735; 83930; 83935; 84295; 84300; 84443; 85025; 93005; 96360; 96361; 99285

== ENCOUNTER 2024-02-16 20:30 | Observation (INO) | payer MEDICARE, OTHER ==
[2024-02-16 22:30] LABS: Basophils % (A) 0 %; Eosinophils # (A) 0.2 k/uL (0-0.7); Eosinophils % (A) 3 %; HGB 11.7 gm/dL (13.0-17.5); Lymphocytes # (A) 1.9 k/uL (1.0-4.8); Lymphocytes % (A) 25 %; MCH 35.7 pg (25.0-35.0); MCHC 34.2 g/dL (31.0-37.0); MCV 104.2 fL (80.0-100.0); Macrocytosis Slight; Mean Platelet Volume 7.6; Monocytes # (A) 0.6 k/uL (0-1.0); Monocytes % (A) 9 %; Neutrophils # (A) 4.6 k/uL (1.3-7.7); Neutrophils % (A) 61 %; Platelet Count 242 k/uL (150-450); RBC 3.27 m/uL (4.30-5.90); RDW 14.3 % (11.5-15.5); WBC 7.5 k/uL (3.8-10.6)
[2024-02-16 22:49] LABS: ALT 125 U/L (4-49); AST 105 U/L (17-59); African American GFR (CKD) >90 (>60 ml/min/1.73 sqM); Albumin 2.9 g/dL (3.5-5.0); Alcohol <10 mg/dL; Alkaline Phosphatase 116 U/L (38-126); Anion Gap 3 mmol/L; Blood Urea Nitrogen 9 mg/dL (9-20); Calcium 8.5 mg/dL (8.4-10.2); Carbon Dioxide 24 mmol/L (22-30); Chloride 97 mmol/L (98-107); Glucose 92 mg/dL (74-99); Magnesium 1.7 mg/dL (1.6-2.3); Non-African American GFR(CKD) >90 (>60 ml/min/1.73 sqM); Potassium 4.5 mmol/L (3.5-5.1); Sodium 124 mmol/L (137-145); Total Bilirubin 0.5 mg/dL (0.2-1.3); Total Protein 5.4 g/dL (6.3-8.2)
[2024-02-16] MEDS ORDERED: NALOXONE 0.4 MG/ML 1 ML VIAL IV PRN (23:45)
--- NOTE | 2024-02-16 23:45 | ED ---
General Adult HPI - General Chief complaint: Psychiatric Symptoms Stated complaint: low Sodium,SI Time Seen by Provider: 02/16/24 21:13 Source: patient, EMS, RN notes reviewed, old records reviewed Mode of arrival: EMS - History of Present Illness Initial comments: Patient is a 68-year-old male who presents emergency department for psychiatric evaluation and medical admission. Patient was recently admitted to our facility and discharged to a rehab facility. While there, apparently patient took his IV line and wrapped around his neck stating he was having suicidal ideations. He has a history of chronic hyponatremia. Was transferred here as they could not find a direct psychiatric facility for admission for the patient. Transferred from [place]. Was hyponatremic there which is chronic for the patient. Presents for further evaluation at this time. He has no acute complaints. Does endorse the suicidal statements made at his rehab facility and states he wants to go home. Denies any homicidal ideations, times complaints. Denies any hallucinations. Has a history of chronic alcohol abuse however last drink was multiple weeks ago. - Related Data Home Medications Medication Instructions Recorded Confirmed Ranolazine [Ranexa] 1,000 mg PO BID 12/23/23 02/12/24 Atorvastatin [Lipitor] 80 mg PO HS 02/12/24 02/12/24 Previous Rx's Medication Instructions Recorded Aspirin 81 mg PO DAILY tab 02/15/24 Folic Acid 1 mg PO DAILY tab 02/15/24 Ipratropium-Albuterol Nebulize 3 ml INHALATION RT-QID PRN each 02/15/24 [Duoneb 0.5 mg-3 mg/3 ml Soln] Metoprolol Succinate (ER) [Toprol 12.5 mg PO DAILY #30 tab 02/15/24 XL] Multivitamins, Thera [Multivitamin 1 each PO DAILY tab 02/15/24 (formulary)] Nicotine 21Mg/24Hr Patch [Habitrol] 1 patch TRANSDERM DAILY patch 02/15/24 Sodium Chloride Tab 1 gm PO BID tab 02/15/24 Thiamine [Vitamin B-1] 100 mg PO DAILY tab 02/15/24 traMADol HCl [Ultram] 50 mg PO Q6H PRN #12 tab 02/15/24 Allergies Allergy/AdvReac Type Severity Reaction Status Date / Time No Known Allergies Allergy Verified 02/16/24 20:43 Review of Systems ROS Statement: Those systems with pertinent positive or pertinent negative responses have been documented in the HPI. Review of Systems: CONST: Denies fever EYES: Denies blurry vision ENT: Denies nasal congestion C/V: Denies Chest pain RESP: Denies shortness of breath GI: Denies abdominal pain : Denies dysuria SKIN: Denies rash. MSK: Denies joint pain. NEURO: Denies headache ROS Other: All systems not noted in ROS Statement are negative. Past Medical History Past Medical History: Coronary Artery Disease (CAD), Chest Pain / Angina, COPD, Hypertension, Myocardial Infarction (PR), Osteoarthritis (OA) Last Myocardial Infarction Date:: 12/2023? unconfirmed History of Any Multi-Drug Resistant Organisms: None Reported Past Surgical History: Back Surgery, Heart Catheterization With Stent, Prostate Surgery Past Anesthesia/Blood Transfusion Reactions: No Reported Reaction Date of Last Stent Placement:: 2017 Past Psychological History: No Psychological Hx Reported Smoking Status: Current every day smoker Past Alcohol Use History: Daily Past Drug Use History: None Reported General Exam - General Exam Comments Initial Comments: General: Appears in no acute distress. HEAD: Normal with no signs of head trauma. EYES: PERRLA, EOMI, conjunctiva normal, no discharge. ENT: Hearing grossly intact, normal oropharynx. RESPIRATORY: Clear breath sounds bilaterally. No wheezes, rales, or rhonchi. C/V: Regular rate and rhythm. S1 and S2 auscultated, no edema, peripheral pulses 2+ and intact throughout ABD: Abd is soft, nontender, nondistended EXT: Normal range of motion, no obvious deformity SKIN: No rashes or lesions observed on exposed skin. NEURO: Alert and oriented x 4. Course Vital Signs 02/16/24 20:35 Temperature 98.4 F Pulse Rate 70 Respiratory 18 Rate Blood Pressure 162/80 O2 Sat by Pulse 98 Oximetry Medical Decision Making - Medical Decision Making Was pt. sent in by a medical professional or institution (, PA, [facility], urgent care, hospital, or fci...) When possible be specific @ -No Did you speak to anyone other than the patient for history (EMS, parent, family, police, friend...)? What history was obtained from this source @ -Spoke with transferring physician from [facility] regarding the patient. Patient was clinically certed and petitioned. Did you review nursing and triage notes (agree or disagree)? Why? @ -Yes, agree Were old charts reviewed (outside hosp., previous admission, EMS record, old EKG, old radiological studies, urgent care reports/EKG's, fci records)? Report findings @ -Reviewed transfer paperwork from [facility] as well as the clinical CERT and petition. Differential Diagnosis (chest pain, altered mental status, abdominal pain women, abdominal pain men, vaginal bleeding, weakness, fever, dyspnea, syncope, headache, dizziness, GI bleed, back pain, seizure, CVA, palpatations, mental health, musculoskeletal)? @ -Differential Mental Health Depression, anxiety, bipolar, psychosis, schizophrenia, borderline personality, situational depression, adjustment disorder, behavioral disorder, brain tumor, malingering, substance abuse, encephalopathy, medication reaction, dementia, hypothyroidism, degenerative neurologic disorder, lupus.... This is not meant to be all-inclusive list EKG interpreted by me (3pts min.). @ -As above X-rays interpreted by me (1pt min.). @ -None done CT interpreted by me (1pt min.). @ -None done U/S interpreted by me (1pt. min.). @ -None done What testing was considered but not performed or refused? (CT, X-rays, U/S, labs)? Why? @ -None What meds were considered but not given or refused? Why? @ -None Did you discuss the management of the patient with other professionals (professionals i.e. , PA, [facility], lab, RT, psych nurse, social media coordinator, cracking machine operator, teacher, chief contract officer, case finisher)? Give summary @ -Discussed with the admitting provider, Dr. Lehman who accepted the admission. Consult placed to psychiatry. Was smoking cessation discussed for >3mins.? @ -No Was critical care preformed (if so, how long)? @ -No Were there social determinants of health that impacted care today? How? (Homelessness, low income, unemployed, alcoholism, drug addiction, transportation, low edu. Level, literacy, decrease access to med. care, residential, rehab)? @ -No Was there de-escalation of care discussed even if they declined (Discuss DNR or withdrawal of care, Hospice)? DNR status @ -No What co-morbidities impacted this encounter? (DM, HTN, Smoking, COPD, CAD, Cancer, CVA, ARF, Chemo, Hep., AIDS, mental health diagnosis, sleep apnea, morbid obesity)? @ -Hyponatremia Was patient admitted / discharged? Hospital course, mention meds given and route, prescriptions, significant lab abnormalities, going to OR and other pert nent info. @ -Patient transferred to our facility for medical admission with psychiatric evaluation for suicidal ideations in the setting of chronic hyponatremia. Attempts made to place the patient directly into psychiatric care however these were unsuccessful and therefore was transferred here from [facility] for medical admission. Patient is chronically hyponatremic. We will repeat labs. Vitals within acceptable limits. He has no acute complaints. Sitter ordered. Suicide precautions ordered. Clinical certificate as well as petition completed by outside facility. Vital signs are within acceptable limits. EKG shows no signs of acute ischemia. Patient has a hyponatremia of 124 which is chronic. Alcohol level is 0. Remainder the workup unremarkable. At this time, patient is medically cleared however due to the hyponatremia, I discussed with EPS Harriet who recommended medical admission and they will see her on an inpatient basis. Spoke with Dr. Lehman who accepted the admission. Undiagnosed new problem with uncertain prognosis? @ -No Drug Therapy requiring intensive monitoring for toxicity (Heparin, Nitro, Insulin, Cardizem)? @ -No Were any procedures done? @ -No Diagnosis/symptom? @ -Hyponatremia Acute, or Chronic, or Acute on Chronic? @ -Chronic Uncomplicated (without systemic symptoms) or Complicated (systemic symptoms)? @ -Uncomplicated Side effects of treatment? @ -No Exacerbation, Progression, or Severe Exacerbation? @ -No Poses a threat to life or bodily function? How? (Chest pain, [place], PR, pneumonia, PE, COPD, DKA, ARF, appy, cholecystitis, CVA, Diverticulitis, Homicidal, Suicidal, threat to staff... and all critical care pts) @ -Unlikely at this time Diagnosis/symptom? @ -Suicidal ideations Acute, or Chronic, or Acute on Chronic? @ -Acute Uncomplicated (without systemic symptoms) or Complicated (systemic symptoms)? @ -Complicated Side effects of treatment? @ -None Exacerbation, Progression, or Severe Exacerbation] @ -No Poses a threat to life or bodily function? @ -Potentially, yes - Lab Data Result diagrams: 02/16/24 22:09 02/16/24 22:09 Lab Results 02/16/24 02/16/24 Range/Units 22:09 22:09 WBC 7.5 (3.8-10.6) k/uL RBC 3.27 L (4.30-5.90) m/uL Hgb 11.7 L (13.0-17.5) gm/dL Hct 34.0 L (39.0-53.0) % MCV 104.2 H (80.0-100.0) fL MCH 35.7 H (25.0-35.0) pg MCHC 34.2 (31.0-37.0) g/dL RDW 14.3 (11.5-15.5) % Plt Count 242 (150-450) k/uL MPV 7.6 Neutrophils % 61 % Lymphocytes % 25 % Monocytes % 9 % Eosinophils % 3 % Basophils % 0 % Neutrophils # 4.6 (1.3-7.7) k/uL Lymphocytes # 1.9 (1.0-4.8) k/uL Monocytes # 0.6 (0-1.0) k/uL Eosinophils # 0.2 (0-0.7) k/uL Basophils # 0.0 (0-0.2) k/uL Macrocytosis Slight Sodium 124 L (137-145) mmol/L Potassium 4.5 (3.5-5.1) mmol/L Chloride 97 L (98-107) mmol/L Carbon Dioxide 24 (22-30) mmol/L Anion Gap 3 mmol/L BUN 9 (9-20) mg/dL Creatinine 0.64 L (0.66-1.25) mg/dL Est GFR (CKD-EPI)AfAm >90 (>60 ml/min/1.73 sqM) Est GFR (CKD-EPI)NonAf >90 (>60 ml/min/1.73 sqM) Glucose 92 (74-99) mg/dL Calcium 8.5 (8.4-10.2) mg/dL Magnesium 1.7 (1.6-2.3) mg/dL Total Bilirubin 0.5 (0.2-1.3) mg/dL AST 105 H (17-59) U/L ALT 125 H (4-49) U/L Alkaline Phosphatase 116 (38-126) U/L Total Protein 5.4 L (6.3-8.2) g/dL Albumin 2.9 L (3.5-5.0) g/dL Serum Alcohol <10 mg/dL - EKG Data -: EKG Interpreted by Me EKG Comments: 12-lead Electrocardiogram Interpretation Note EKG was reviewed and interpreted by myself. 12-lead ECG performed at 2105 is interpreted by me as revealing normal sinus rhythm at a rate of 69 beats per minute. [place] is normal. NV interval is 155 ms, QRS duration is 86 ms, QTc is 401 ms.. There were no ST or T wave abnormalities to suggest myocardial ischemia or injury. R wave progression across the precordium was satisfactory. By my interpretation this EKG is non-diagnostic for acute ischemia. Disposition Clinical Impression: Hyponatremia, Suicidal ideation Disposition: ADMITTED IP TO THIS HOSP Condition: Stable Referrals: None,Stated [Primary Care Provider] - 1-2 days Time of Disposition: 23:40
[2024-02-16] MEDS ORDERED: IPRATROPIUM-ALBUTEROL 3 ML NEB INHALATION PRN (23:46)
[2024-02-17 00:26] LABS: Amphetamine Screen,Urine Not Detected (NotDetected); Barbiturate Screen,Urine Not Detected (NotDetected); Benzodiazepines Screen,Urine Not Detected (NotDetected); Cocaine Screen,Urine Not Detected (NotDetected); Methadone Screen, Urine Not Detected (NotDetected); Opiate Screen,Urine Not Detected (NotDetected); Oxycodone Screen, Urine Not Detected (NotDetected); Phencyclidine Screen,Urine Not Detected (NotDetected); Tricyclic Antidepressant,Urine Not Detected (NotDetected); Urn Cannabinoid Scrn Not Detected (NotDetected)
[2024-02-17] MEDS: ACETAMINOPHEN TAB 325 MG TAB PO PRN (03:58)
--- NOTE | 2024-02-17 06:10 | P.HPIM ---
History of Present Illness H&P Date: 02/17/24 Chief Complaint: Suicidal ideation Patient is a 68 year old male with CAD, heart catheterization with stent placement, hypertension, COPD, tobacco abuse, alcohol abuse, recent admission for generalized weakness due to electrolyte imbalances presented to the ED from rehab facility for psychiatric evaluation for suicidal ideation. The patient was recently admitted at our facility a week ago generalized weakness due to electrolyte imbalances. He was discharged yesterday. He was sent to a rehab facility where he apparently took his IV line and wrapped around his neck in an attempt to suicide. He was then transferred here at our facility as they were not able to find a direct psychiatric facility to admit him. Patient does report having suicidal ideation. He mentions having such thoughts for a long time. Denies any recent changes in his life that have provoked him to attempt suicide. He endorses pain on his right arm due to the recent fracture. He states sustaini ng frequent falls and hitting his head but denies getting a medical evaluation. Currently patient is wanting to go home. Denies fever, chills, shortness of breath, cough, chest pain, palpitations, a bdominal pain, nausea, vomiting, hematuria, dysuria, hematochezia, melena, headache, slurred speech, numbness, tingling. ED documentation reviewed. Vitals on admission T 98.4 F, MI 70, RR 18, BP 162/80, O2 sat 98% on room air EKG independently interpreted as sinus rhythm, rate 69 bpm, QTc 401 ms Labs on admission show WBC 7.5, hemoglobin 11.7, MCV 104.2, sodium 124, creatinine 0.64, AST 105, ALT 125 Serum alcohol <10 Urine toxicology is negative Review of systems: Pertinent positives and negatives as discussed in HPI, a complete review of systems was performed and all other systems are negative. Social history: Tobacco: Current everyday smoker Alcohol: Daily Recreational drugs: Denies use Travel: No recent travel history Sick contacts: None Physical examination: Vital signs reviewed General: nontoxic, no distress, appears at stated age Derm: warm, dry, intact Head: atraumatic, normocephalic, symmetric Eyes: EOMI, anicteric sclera Mouth: no lip lesion, mucus membranes moist Cardiovascular: S1 S2 reg, no murmur Lungs: CTA bilateral, no rhonchi, no rales, no accessory muscle use Abdominal: soft, non-tender to palpation Extremities: No cyanosis, clubbing, or pedal edema. Neuro: Alert, Oriented, Gross neurological examination did not reveal any focal deficits. Psych: well appearing, appropriate affect Assessment/Plan: Patient is a 68-year-old male with CAD, heart catheterization with stent placement, hypertension, COPD, tobacco abuse, alcohol abuse, recent admission for generalized weakness due to electrolyte imbalances presented to the ED from rehab facility for suicidal ideation. He has been admitted for further p sychiatric evaluation. Active: #. Suicidal ideation Sitter at bedside Suicide precautions Consult psych Continue telemetry monitoring #. Recent right radial and ulnar fracture Per Orthopedic surgeon, on previous admission, Continue wrist brace and consider surgery on outpatient basis when the fracture is 3 months out Continue tramadol 50 mg PO Q6HR PRN for pain management #. Tobacco dependence Nicotine 21 mg/24 patch transdermal daily Chronic: #. Chronic hyponatremia 0.9 normal saline at 75ml/hr Monitor BMP #. History of CAD, heart catheterisation and stent placement #. Hyperlipidemia #. Hypertension Continue home meds Atorvastatin 80 mg PO HS, Aspirin 81 mg PO daily, metoprolol 12.5 mg PO daily, Ranolazine 1000mg PO BID #. COPD, not in acute exacerbation Continue home med DuoNeb 3 mL inhalation 4 times daily as needed #. History of Alcohol abuse #. Elevated transaminases #. Macrocytic Anemia, secondary to alcohol abuse Continue home meds folic acid 1 mg p.o. daily, thiamine 100 mg p.o. daily, multivitamins 1 each PO daily Monitor CBC F: 0.9 normal saline at 75 ml/hr E: Replete as required N: Heart healthy diet DVT prophylaxis: Lovenox 40 mg SQ daily and SCD GI prophylaxis: Pantoprazole 40 mg PO daily The patient is admitted with an anticipated more than 2 midnight stay for psychiatric evaluation CODE STATUS: FULL CODE Discussed with: Patient Anticipated discharge place: Home I have seen and evaluated the patient today. I Discussed the case with the resident and agree with the resident's findings I edited the assessment and plan as necessary as documented in the resident's note. Past Medical History Past Medical History: Coronary Artery Disease (CAD), Chest Pain / Angina, COPD, Hypertension, Myocardial Infarction ([place]), Osteoarthritis (OA) Last Myocardial Infarction Date:: 12/2023? unconfirmed History of Any Multi-Drug Resistant Organisms: None Reported Past Surgical History: Back Surgery, Heart Catheterization With Stent, Prostate Surgery Past Anesthesia/Blood Transfusion Reactions: No Reported Reaction Date of Last Stent Placement:: 2017 Past Psychological History: No Psychological Hx Reported Smoking Status: Current every day smoker Past Alcohol Use History: Daily Past Drug Use History: None Reported Medications and Allergies Home Medications Medication Instructions Recorded Confirmed Type Ranolazine [Ranexa] 1,000 mg PO BID 12/23/23 02/12/24 History Atorvastatin [Lipitor] 80 mg PO HS 02/12/24 02/12/24 History Aspirin 81 mg PO DAILY tab 02/15/24 Rx Folic Acid 1 mg PO DAILY tab 02/15/24 Rx Ipratropium-Albuterol Nebulize 3 ml INHALATION RT-QID PRN each 02/15/24 Rx [Duoneb 0.5 mg-3 mg/3 ml Soln] Metoprolol Succinate (ER) [Toprol 12.5 mg PO DAILY #30 tab 02/15/24 Rx XL] Multivitamins, Thera [Multivitamin 1 each PO DAILY tab 02/15/24 Rx (formulary)] Nicotine 21Mg/24Hr Patch [Habitrol] 1 patch TRANSDERM DAILY patch 02/15/24 Rx Sodium Chloride Tab 1 gm PO BID tab 02/15/24 Rx Thiamine [Vitamin B-1] 100 mg PO DAILY tab 02/15/24 Rx traMADol HCl [Ultram] 50 mg PO Q6H PRN #12 tab 02/15/24 Rx Allergies Allergy/AdvReac Type Severity Reaction Status Date / Time No Known Allergies Allergy Verified 02/16/24 20:43 Physical Exam Vitals: Vital Signs Temp Pulse Resp BP Pulse Ox 02/16/24 20:35 98.4 F 70 18 162/80 98 Intake and Output 02/16/24 02/16/24 02/17/24 14:59 22:59 06:59 Other: Weight 56.699 kg Results CBC & Chem 7: 02/16/24 22:09 02/16/24 22:09 Labs: Abnormal Lab Results - Last 24 Hours (Table) 02/16/24 02/16/24 Range/Units 22:09 22:09 RBC 3.27 L (4.30-5.90) m/uL Hgb 11.7 L (13.0-17.5) gm/dL Hct 34.0 L (39.0-53.0) % MCV 104.2 H (80.0-100.0) fL MCH 35.7 H (25.0-35.0) pg Sodium 124 L (137-145) mmol/L Chloride 97 L (98-107) mmol/L Creatinine 0.64 L (0.66-1.25) mg/dL AST 105 H (17-59) U/L ALT 125 H (4-49) U/L Total Protein 5.4 L (6.3-8.2) g/dL Albumin 2.9 L (3.5-5.0) g/dL
[2024-02-17] MEDS: SODIUM CHLORIDE 0.9% 1,000 ML IV STA (06:53)
[2024-02-17 07:17] LABS: Basophils % (A) 0 %; Eosinophils # (A) 0.2 k/uL (0-0.7); Eosinophils % (A) 2 %; HCT 31.7 % (39.0-53.0); HGB 10.6 gm/dL (13.0-17.5); Lymphocytes # (A) 1.4 k/uL (1.0-4.8); Lymphocytes % (A) 18 %; MCH 35.1 pg (25.0-35.0); MCHC 33.3 g/dL (31.0-37.0); MCV 105.2 fL (80.0-100.0); Macrocytosis Moderate; Mean Platelet Volume 7.8; Monocytes # (A) 0.6 k/uL (0-1.0); Monocytes % (A) 8 %; Neutrophils # (A) 5.6 k/uL (1.3-7.7); Neutrophils % (A) 70 %; Platelet Count 238 k/uL (150-450); RBC 3.01 m/uL (4.30-5.90); RDW 14.5 % (11.5-15.5); WBC 7.9 k/uL (3.8-10.6)
[2024-02-17 07:47] LABS: ALT 103 U/L (4-49); AST 87 U/L (17-59); African American GFR (CKD) >90 (>60 ml/min/1.73 sqM); Albumin 2.7 g/dL (3.5-5.0); Alkaline Phosphatase 121 U/L (38-126); Anion Gap 4 mmol/L; Blood Urea Nitrogen 11 mg/dL (9-20); Calcium 8.1 mg/dL (8.4-10.2); Carbon Dioxide 23 mmol/L (22-30); Chloride 97 mmol/L (98-107); Glucose 101 mg/dL (74-99); Non-African American GFR(CKD) >90 (>60 ml/min/1.73 sqM); Potassium 4.4 mmol/L (3.5-5.1); Sodium 124 mmol/L (137-145); Total Bilirubin 0.4 mg/dL (0.2-1.3)
[2024-02-17] MEDS: ASPIRIN 81 MG PO SCH (09:48)
[2024-02-17] MEDS: PANTOPRAZOLE 40 MG TABLET PO SCH (09:48)
[2024-02-17] MEDS: MULTIVITAMINS, THERA 1 EACH TAB PO SCH (09:49)
[2024-02-17] MEDS: FOLIC ACID 1 MG TAB PO SCH (09:49)
[2024-02-17] MEDS: SODIUM CHLORIDE TAB 1 GM TAB PO SCH (09:49)
[2024-02-17] MEDS: METOPROLOL SUCCINATE (ER) 25 MG TAB.ER.24H PO SCH (09:49)
[2024-02-17] MEDS: ENOXAPARIN 40 MG/0.4 ML SYRINGE SQ SCH (09:49)
[2024-02-17] MEDS: RANOLAZINE 500 MG TAB.ER.12H PO SCH (09:50)
[2024-02-17] MEDS: THIAMINE 100 MG TAB PO SCH (09:50)
[2024-02-17] MEDS: SERTRALINE 50 MG TAB PO SCH (13:32)
[2024-02-17] MEDS: NICOTINE 21MG/24HR PATCH TRANSDERM SCH (13:33)
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
[2024-02-17] MEDS ORDERED: NICOTINE GUM (POLACRILEX) 2 MG GUM BUCCAL PRN (15:05)
[2024-02-17 15:35] VITALS: BMI 18.4
[2024-02-17] MEDS: diphenhydrAMINE 2% CREAM 28.4 GM TUBE TOPICAL SCH (17:34)
[2024-02-17] MEDS: traMADol 50 MG TAB PO PRN (20:21)
[2024-02-17] MEDS: ATORVASTATIN 80 MG TAB PO SCH (20:21)
[2024-02-18 08:17] VITALS: RESP 14
--- NOTE | 2024-02-18 13:01 | P.PN ---
Progress Note - Text Progress Note Date: 02/18/24 IDENTIFYING DATA: Patient is a 68-year-old male, living alone REASON FOR CONSULT: SI INTERVAL HISTORY: Patient seen and evaluated. Sitter at bedside. Patient reports an improvement in mood today however does report poor sleep overnight described as issues falling asleep. Patient declined medications to help with falling asleep such as melatonin. He reports some nausea with Zoloft but otherwise and that is tolerating this medication well today. He vehemently denied any suicidal thoughts today. Patient's affect was bright, reactive and he was goal oriented. He states he has no cravings for alcohol however he wishes to return home not to rehab. He was encouraged to continue taking his medications daily once discharged and to follow-up with outpatient for further management. MENTAL STATUS EXAM: General Appearance: Patient appears to be stated age. Patient appears to have fair hygiene and grooming wearing hospital gown with good eye contact. Behavior: Patient is calmly lying in bed without any agitated behavior. Speech: Speech is normal rate, rhythm and volume Mood/Affect: Mood is described as "good" and affect is congruent, full range, reactive Suicidality/Homicidality: Patient denies any suicidal or homicidal ideations Perceptions: There are no perceptual abnormalities Though content/process: There is no evidence of delusional thoughts and thoughts overall are linear and logical Judgment and insight: Mildly improving IMPRESSIONS: Alcohol use disorder, severe Depression, unspecified Nicotine dependence PLAN: -At this time patient DOES NOT meet criteria for inpatient psychiatric admission. -Would recommend the following medication changes/additions: Continue Zoloft 50 mg daily for depression. Negative CERT completed and placed in chart. -Can discontinue 1:1 sitter at this time as patient is not currently an imminent threat to themselves -asphalt plant worker to provide patient with outpatient mental health/psychiatry resources for appropriate follow up upon discharge -Patient Registration Representative spoke with patient about substance abuse and the harmful effects on medical and mental health, patient verbally understood and agreed. -asphalt plant worker to provide patient substance use treatment resources including AA/NA meetings in the community. -Communicated plan to patient's nurse -Psychiatry will sign off at this time -Please contact with any questions.
--- NOTE | 2024-02-18 13:35 | P.DS ---
Providers Date of admission: 02/16/24 23:46 Attending physician: Alanis Lehman MD Consults: 02/16/24 23:45 Consult Physician Routine Consulting Provider: Artemio Clarke Consult Reason/Comments: SI Do you want consulting provider notified?: Yes Primary care physician: Stated None Hospital Course: Discharge Diagnosis: Suicidal idealization Recent right radial and ulnar fracture Tobacco dependence Hospital Course: Patient is a 68 year old male with CAD, heart catheterization with stent placement, hypertension, COPD, tobacco abuse, alcohol abuse, recent admission for generalized weakness due to electrolyte imbalances presented to the ED from rehab facility for psychiatric evaluation for suicidal ideation. The patient was recently admitted at our facility a week ago generalized weakness due to electrolyte imbalances. He was discharged yesterday. He was sent to a rehab facility where he apparently took his IV line and wrapped around his neck in an attempt to suicide. He was then transferred here at our facility as they were not able to find a direct psychiatric facility to admit him. Patient was admitted to the medical floor. Patient was seen by a psychiatrist who started the patient on Zoloft 50 mg daily. Patient was then monitored overnight. Patient was reevaluated by psychiatry who then deemed patient stable for discharge and that patient does not need to go to an inpatient psychiatric unit. Of note on previous admission patient's sodium was stable between 124 and 126. Patient seen and examined at bedside.[] Vital signs reviewed and stable. General examination - Alert and Oriented 3 in NAD Heart - + S1S2 no murmurs Lungs - Clear to auscultation Abdomen soft NT ND +ve BS Extremities - No edema, right wrist in splint [employer] - Moving all 4 extremities spontaneously Psych - Calm and cooperative A total of [33] minutes of time were spent preparing this complex discharge summary . Patient discharged on [02/18/2024] Patient Condition at Discharge: Stable Plan - Discharge Summary Discharge Rx Participant: Yes New Discharge Prescriptions: New Sertraline [Zoloft] 50 mg PO DAILY 30 Days #30 tab Continue Aspirin 81 mg PO DAILY tab Ipratropium-Albuterol Nebulize [Duoneb 0.5 mg-3 mg/3 ml Soln] 3 ml INHALATION RT-QID PRN each PRN Reason: Shortness Of Breath Or Wheezing Metoprolol Succinate (ER) [Toprol XL] 12.5 mg PO DAILY #30 tab traMADol HCl [Ultram] 50 mg PO Q6H PRN #12 tab PRN Reason: Moderate Pain (Scale 4 To 6) Thiamine [Vitamin B-1] 100 mg PO DAILY tab Multivitamins, Thera [Multivitamin (formulary)] 1 tab PO DAILY Ranolazine [Ranexa] 1,000 mg PO BID Atorvastatin [Lipitor] 80 mg PO HS Folic Acid 1 mg PO DAILY tab Nicotine 21Mg/24Hr Patch [Habitrol] 1 patch TRANSDERM DAILY patch Sodium Chloride Tab 1 gm PO BID 30 Days #60 tab Discharge Medication List Ranolazine [Ranexa] 1,000 mg PO BID 12/23/23 [History] Atorvastatin [Lipitor] 80 mg PO HS 02/12/24 [History] Aspirin 81 mg PO DAILY tab 02/15/24 [Rx] Folic Acid 1 mg PO DAILY tab 02/15/24 [Rx] Ipratropium-Albuterol Nebulize [Duoneb 0.5 mg-3 mg/3 ml Soln] 3 ml INHALATION RT-QID PRN each 02/15/24 [Rx] Metoprolol Succinate (ER) [Toprol XL] 12.5 mg PO DAILY #30 tab 02/15/24 [Rx] Nicotine 21Mg/24Hr Patch [Habitrol] 1 patch TRANSDERM DAILY patch 02/15/24 [Rx] Thiamine [Vitamin B-1] 100 mg PO DAILY tab 02/15/24 [Rx] traMADol HCl [Ultram] 50 mg PO Q6H PRN #12 tab 02/15/24 [Rx] Multivitamins, Thera [Multivitamin (formulary)] 1 tab PO DAILY 02/17/24 [History] Sertraline [Zoloft] 50 mg PO DAILY 30 Days #30 tab 02/18/24 [Rx] Sodium Chloride Tab 1 gm PO BID 30 Days #60 tab 02/18/24 [Rx] Follow up Appointment(s)/Referral(s): None,Stated [Primary Care Provider] - 1-2 days Discharge/Stand Alone Forms: AA Meetings [place], [facility] Resources, Outpatient Counseling, Outpatient Therapy List
[2024-02-18 13:51] VITALS: BP 134/77; PULSE 64; TEMP 98.3
== END 2024-02-18 14:42 | disposition home or self-care (01) ==
LOC: EC 20:30 → 5NMEDONC 23:46 → INTOOBSV 23:46 → 5NMEDONC 02-17 05:57
PROVIDERS: ADMIT Internal Medicine; ATTEND Internal Medicine
DX: R45.851 Suicidal ideations (principal); E87.1 Hypo-osmolality and hyponatremia; F32.A Depression, unspecified; F10.20 Alcohol dependence, uncomplicated; I25.10 Atherosclerotic heart disease of native coronary artery without angina pectoris; J44.9 Chronic obstructive pulmonary disease, unspecified; I10 Essential (primary) hypertension; E78.5 Hyperlipidemia, unspecified; R29.6 Repeated falls; R74.01 Elevation of levels of liver transaminase levels; D53.9 Nutritional anemia, unspecified; I25.2 Old myocardial infarction; F17.210 Nicotine dependence, cigarettes, uncomplicated; Y90.0 Blood alcohol level of less than 20 mg/100 ml; Z87.81 Personal history of (healed) traumatic fracture; Z95.5 Presence of coronary angioplasty implant and graft; Z79.82 Long term (current) use of aspirin; Z79.899 Other long term (current) drug therapy
CPT/HCPCS: 96372 ×2; 82075; 99285; 36415; 93005; 80053 ×2; 83735; 85025 ×2; 80306; G0378 ×3; G0480; S4990; J1650 ×2; 80320

== ENCOUNTER 2024-02-19 14:27 | Inpatient (IN) | payer MEDICARE, OTHER ==
[2024-02-19 14:33] LABS: Glucose,Whole Blood 128 mg/dL (70-110)
[2024-02-19] MEDS: DIPH,PERTUS(ACELL)TETVAC-LF 0.5 ML VIAL IM ONE (14:40)
[2024-02-19 14:46] LABS: Basophils # (A) 0.1 k/uL (0-0.2); Basophils % (A) 0 %; Eosinophils # (A) 0.1 k/uL (0-0.7); Eosinophils % (A) 0 %; HCT 41.5 % (39.0-53.0); Lymphocytes # (A) 1.4 k/uL (1.0-4.8); Lymphocytes % (A) 9 %; MCH 34.9 pg (25.0-35.0); MCHC 33.3 g/dL (31.0-37.0); MCV 104.6 fL (80.0-100.0); Macrocytosis Slight; Mean Platelet Volume 7.2; Monocytes # (A) 0.8 k/uL (0-1.0); Monocytes % (A) 5 %; Neutrophils % (A) 84 %; Platelet Count 291 k/uL (150-450); RBC 3.97 m/uL (4.30-5.90); RDW 14.2 % (11.5-15.5); WBC 15.5 k/uL (3.8-10.6)
[2024-02-19 14:53] LABS: HGB 13.8 gm/dL (13.0-17.5)
[2024-02-19 14:57] LABS: ALT 66 U/L (4-49); AST 47 U/L (17-59); African American GFR (CKD) >90 (>60 ml/min/1.73 sqM); Albumin 3.6 g/dL (3.5-5.0); Alcohol 41 mg/dL; Alkaline Phosphatase 110 U/L (38-126); Anion Gap 12 mmol/L; Blood Urea Nitrogen 6 mg/dL (9-20); Calcium 8.5 mg/dL (8.4-10.2); Carbon Dioxide 12 mmol/L (22-30); Chloride 91 mmol/L (98-107); Glucose 118 mg/dL (74-99); INR 0.9 (<1.2); Non-African American GFR(CKD) >90 (>60 ml/min/1.73 sqM); Partial Thromboplastin Time 24.4 sec (22.0-30.0); Potassium 4.2 mmol/L (3.5-5.1); Prothrombin Time 10.5 sec (10.0-12.5); Total Bilirubin 0.7 mg/dL (0.2-1.3); Total Protein 6.3 g/dL (6.3-8.2)
[2024-02-19] MEDS: RX INFO: IV CONTRAST WAS GIVEN 1 EACH MISC MISCELLANE PRN (15:00)
[2024-02-19 15:08] LABS: Sodium 115 mmol/L (137-145)
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
[2024-02-19] MEDS: SODIUM CHLORIDE 0.9% 1,000 ML IV ONE ×2 (15:25→17:50)
[2024-02-19] MEDS: ONDANSETRON 4 MG/2 ML VIAL IVP STA (15:26)
[2024-02-19] MEDS: HYDROmorphone 0.5 MG/0.5 ML SYRINGE IVP STA (15:27)
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
[2024-02-19] MEDS: TOPICAL SKIN ADHESIVE 1 EACH AMP TOPICAL ONE (15:51)
--- NOTE | 2024-02-19 15:59 | ED ---
General Adult HPI - General Chief complaint: Trauma Stated complaint: Mental Health, Trauma Time Seen by Provider: 02/19/24 14:27 Source: patient, EMS, RN notes reviewed, old records reviewed Mode of arrival: EMS Limitations: no limitations - History of Present Illness Initial comments: Is a 68-year-old male who presents to the emergency department after having cut himself in multiple places and attempt to kill himself. Patient has a multiple lacerations to his neck bilateral wrist and 1 on his abdomen. 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 Patient denies any difficulty breathing patient denies chest pain patient has abdominal pain patient has nausea vomiting diarrhea. Patient states he was recently in the hospital for suicidal attempt. - Related Data Home Medications Medication Instructions Recorded Confirmed Ranolazine [Ranexa] 1,000 mg PO BID 12/23/23 02/19/24 Atorvastatin [Lipitor] 80 mg PO HS 02/12/24 02/19/24 Multivitamins, Thera [Multivitamin 1 tab PO DAILY 02/17/24 02/19/24 (formulary)] Previous Rx's Medication Instructions Recorded Aspirin 81 mg PO DAILY tab 02/15/24 Folic Acid 1 mg PO DAILY tab 02/15/24 Ipratropium-Albuterol Nebulize 3 ml INHALATION RT-QID PRN each 02/15/24 [Duoneb 0.5 mg-3 mg/3 ml Soln] Metoprolol Succinate (ER) [Toprol 12.5 mg PO DAILY #30 tab 02/15/24 XL] Nicotine 21Mg/24Hr Patch [Habitrol] 1 patch TRANSDERM DAILY patch 02/15/24 Thiamine [Vitamin B-1] 100 mg PO DAILY tab 02/15/24 traMADol HCl [Ultram] 50 mg PO Q6H PRN #12 tab 02/15/24 Sertraline [Zoloft] 50 mg PO DAILY 30 Days #30 tab 02/18/24 Sodium Chloride Tab 1 gm PO BID 30 Days #60 tab 02/18/24 Allergies Allergy/AdvReac Type Severity Reaction Status Date / Time No Known Allergies Allergy Verified 02/19/24 16:00 Review of Systems ROS Statement: Those systems with pertinent positive or pertinent negative responses have been documented in the HPI. ROS Other: All systems not noted in ROS Statement are negative. Past Medical History Past Medical History: Coronary Artery Disease (CAD), Chest Pain / Angina, COPD, Hypertension, Myocardial Infarction ([place]), Osteoarthritis (OA) Additional Past Medical History / Comment(s): suicidal Last Myocardial Infarction Date:: 12/2023? unconfirmed History of Any Multi-Drug Resistant Organisms: None Reported Past Surgical History: Back Surgery, Heart Catheterization With Stent, Orthopedic Surgery, Prostate Surgery Additional Past Surgical History / Comment(s): wrist and bilateral hip surgery. Past Anesthesia/Blood Transfusion Reactions: No Reported Reaction Date of Last Stent Placement:: 2017 Past Psychological History: No Psychological Hx Reported Smoking Status: Current every day smoker Past Alcohol Use History: Abuse, Daily, Heavy Past Drug Use History: None Reported General Exam - General Exam Comments Initial Comments: GENERAL: Patient is well-developed and well-nourished. Patient is nontoxic and well- hydrated and is in no acute distress. ENT: Neck is soft and supple. No significant lymphadenopathy is noted. Oropharynx is clear. Moist mucous membranes. Neck has full range of motion without e liciting any pain. EYES: The sclera were anicteric and conjunctiva were pink and moist. Extraocular movements were intact and pupils were equal round and reactive to light. Eyelids were unremarkable. PULMONARY: Unlabored respirations. Good breath sounds bilaterally. No audible rales rhonchi or wheezing was noted. CARDIOVASCULAR: There is a regular rate and rhythm without any murmurs gallops or rubs. ABDOMEN: Soft and nontender with normal bowel sounds. No palpable organomegaly was no matias. There is no palpable pulsatile mass. SKIN: Patient has superficial laceration measuring about 3 cm on the left side of his neck threes superficial lacerations on the right side of his neck and 1 in the right posterior side of his neck. Patient also has superficial laceration to his abdomen measuring about 10 cm. Patient also has multiple superficial lacerations to both wrists. Patient also has a small puncture wound to the mid chest just above the sternum. NEUROLOGIC: Patient is alert and oriented x3. Cranial nerves II through XII are grossly intact. Motor and sensory are also intact. Normal speech, volume and content. Symmetrical smile. Cerebellar exam grossly intact. MUSCULOSKELETAL: Normal extremities with adequate strength and full range of motion. LYMPHATICS: No significant lymphadenopathy is noted PSYCHIATRIC: Normal psychiatric evaluation. Limitations: no limitations Course Vital Signs 02/19/24 14:30 Temperature 98.6 F Pulse Rate 100 Respiratory 22 Rate Blood Pressure 152/100 O2 Sat by Pulse 99 Oximetry Procedures - Laceration Laceration #1 Consent Obtained: verbal consent Indication: laceration Site: neck Description: linear Size of Sutures: other (Dermabond) Complications: bleeding Patient Tolerated Procedure: well Laceration #2 Consent Obtained: verbal consent Indication: laceration Site: neck Size of Sutures: other (Dermabond) Technique: simple, interrupted Patient Tolerated Procedure: well Medical Decision Making - Medical Decision Making EKG is interpreted by myself. EKG shows sinus tachycardia with occasional PAC 801 bpm WA was 144 QRS is 85 QT interval 335 QTc is 393. Patient's EKG shows no ST segment elevation or depression was pt. sent in by a medical professional or institution ([facility] [employer], [employer], urgent care, hospital, or custodial...) When possible be specific @ -Yes Did you speak to anyone other than the patient for history (EMS, parent, family, police, friend...)? What history was obtained from this source @ -No Did you review nursing and triage notes (agree or disagree)? Why? @ -I reviewed and agree with nursing and triage notes Were old charts reviewed (outside hosp., previous admission, EMS record, old EKG, old radiological studies, urgent care reports/EKG's, custodial records)? Report findings @ -No old charts were reviewed Differential Diagnosis? @ -Lacerations to the neck bilaterally lacerations to bilateral wrists and laceration to the abdomen, suicide attempt, alcohol intoxication, overdose EKG interpreted by me (3pts min.). @ -As above X-rays interpreted by me (1pt min.). @ -X-ray of the chest showed no acute abnormality, x-ray of the pelvis showed no acute normality CT interpreted by me (1pt min.). @ -CT angiogram of the neck showed no acute normality. CT of the chest showed no acute abnormality. U/S interpreted by me (1pt. min.). @ -None done What testing was considered but not performed or refused? (CT, X-rays, U/S, labs)? Why? @ -None What meds were considered but not given or refused? Why? @ -None Did you discuss the management of the patient with other professionals (professionals i.e. DrKat, PA, [employer], lab, RT, psych nurse, social studies department chair, court clerk, teacher, control systems drafting officer, gearcase assembler)? Give summary @ -This was called a democrat [address] Maldonado showed up to see the patient he evaluated the patient in the emergency department. Patient will be admitted to Dr. Maldonado with a consult to medicine and psychiatry Was smoking cessation discussed for >3mins.? @ -No Was critical care preformed (if so, how long)? @ -35 minutes Were there social determinants of health that impacted care today? How? (Homelessness, low income, unemployed, alcoholism, drug addiction, transportation, low edu. Level, literacy, decrease access to med. care, shelter, rehab)? @ -No Was there de-escalation of care discussed even if they declined (Discuss DNR or withdrawal of care, Hospice)? DNR status @ -No What co-morbidities impacted this encounter? (DM, HTN, Smoking, COPD, CAD, Cancer, CVA, ARF, Chemo, Hep., AIDS, mental health diagnosis, sleep apnea, morb id obesity)? @ -None Was patient admitted / discharged? Hospital course, mention meds given and rout e, prescriptions, significant lab abnormalities, going to OR and other pertinent info. @ -Patient had superficial lacerations the lacerations on the neck that had a little more depth were closed with Dermabond. Received a tetanus shot and antibiotics through the IV. Lacerations are about the neck that were a little deeper or closed with Dermabond Undiagnosed new problem with uncertain prognosis? @ -No Drug Therapy requiring intensive monitoring for toxicity (Heparin, Nitro, Insulin, Cardizem)? @ -No Were any procedures done? @ -No Diagnosis/symptom? @ -Suicide attempt Acute, or Chronic, or Acute on Chronic? @ -Acute Uncomplicated (without systemic symptoms) or Complicated (systemic symptoms)? @ -Complicated Side effects of treatment? @ -Located Exacerbation, Progression, or Severe Exacerbation? @ -No Poses a threat to life or bodily function? How? (Chest pain, [place], [place], pneumonia, PE, COPD, DKA, ARF, appy, cholecystitis, CVA, Diverticulitis, Homicidal, Suicidal, threat to staff... and all critical care pts) @ -Yes this could lead to Diagnosis/symptom? @ -Multiple superficial lacerations Acute, or Chronic, or Acute on Chronic? @ -Acute Uncomplicated (without systemic symptoms) or Complicated (systemic symptoms)? @ -Uncomplicated Side effects of treatment? @ -None Exacerbation, Progression, or Severe Exacerbation] @ -No Poses a threat to life or bodily function? @ -No Diagnosis/symptom? @ -Hyponatremia Acute, or Chronic, or Acute on Chronic? @ -Acute Uncomplicated (without systemic symptoms) or Complicated (systemic symptoms)? @ -Complicated Side effects of treatment? @ -None Exacerbation, Progression, or Severe Exacerbation] @ -No Poses a threat to life or bodily function? @ -No Diagnosis/symptom? @ -Overdose Acute, or Chronic, or Acute on Chronic? @ -Acute Uncomplicated (without systemic symptoms) or Complicated (systemic symptoms)? @ -Complicated Side effects of treatment? @ -None Exacerbation, Progression, or Severe Exacerbation] @ -No Poses a threat to life or bodily function? @ -No - Lab Data Result diagrams: 02/19/24 14:30 02/19/24 14:30 Lab Results 02/19/24 02/19/24 02/19/24 Range/Units 14:30 14:30 14:30 WBC 15.5 H (3.8-10.6) k/uL RBC 3.97 L (4.30-5.90) m/uL Hgb 13.8 D (13.0-17.5) gm/dL Hct 41.5 (39.0-53.0) % MCV 104.6 H (80.0-100.0) fL MCH 34.9 (25.0-35.0) pg MCHC 33.3 (31.0-37.0) g/dL RDW 14.2 (11.5-15.5) % Plt Count 291 (150-450) k/uL MPV 7.2 Neutrophils % 84 % Lymphocytes % 9 % Monocytes % 5 % Eosinophils % 0 % Basophils % 0 % Neutrophils # 13.0 H (1.3-7.7) k/uL Lymphocytes # 1.4 (1.0-4.8) k/uL Monocytes # 0.8 (0-1.0) k/uL Eosinophils # 0.1 (0-0.7) k/uL Basophils # 0.1 (0-0.2) k/uL Macrocytosis Slight PT 10.5 (10.0-12.5) sec INR 0.9 (<1.2) APTT 24.4 (22.0-30.0) sec Sodium 115 L* (137-145) mmol/L Potassium 4.2 (3.5-5.1) mmol/L Chloride 91 L (98-107) mmol/L Carbon Dioxide 12 L (22-30) mmol/L Anion Gap 12 mmol/L BUN 6 L (9-20) mg/dL Creatinine 0.48 L (0.66-1.25) mg/dL Est GFR (CKD-EPI)AfAm >90 (>60 ml/min/1.73 sqM) Est GFR (CKD-EPI)NonAf >90 (>60 ml/min/1.73 sqM) Glucose 118 H (74-99) mg/dL POC Glucose (mg/dL) (70-110) mg/dL POC Glu Jewel Gauger ID Plasma Lactic Acid Jair (0.7-2.0) mmol/L Calcium 8.5 (8.4-10.2) mg/dL Total Bilirubin 0.7 (0.2-1.3) mg/dL AST 47 (17-59) U/L ALT 66 H (4-49) U/L Alkaline Phosphatase 110 (38-126) U/L Troponin I (0.000-0.034) ng/mL Total Protein 6.3 (6.3-8.2) g/dL Albumin 3.6 (3.5-5.0) g/dL Serum Alcohol 41 mg/dL Blood Type Blood Type Recheck Bld Type Recheck Status Antibody Screen Spec Expiration Date 02/19/24 02/19/24 02/19/24 Range/Units 14:30 14:30 14:30 WBC (3.8-10.6) k/uL RBC (4.30-5.90) m/uL Hgb (13.0-17.5) gm/dL Hct (39.0-53.0) % MCV (80.0-100.0) fL MCH (25.0-35.0) pg MCHC (31.0-37.0) g/dL RDW (11.5-15.5) % Plt Count (150-450) k/uL MPV Neutrophils % % Lymphocytes % % Monocytes % % Eosinophils % % Basophils % % Neutrophils # (1.3-7.7) k/uL Lymphocytes # (1.0-4.8) k/uL Monocytes # (0-1.0) k/uL Eosinophils # (0-0.7) k/uL Basophils # (0-0.2) k/uL Macrocytosis PT (10.0-12.5) sec INR (<1.2) APTT (22.0-30.0) sec Sodium (137-145) mmol/L Potassium (3.5-5.1) mmol/L Chloride (98-107) mmol/L Carbon Dioxide (22-30) mmol/L Anion Gap mmol/L BUN (9-20) mg/dL Creatinine (0.66-1.25) mg/dL Est GFR (CKD-EPI)AfAm (>60 ml/min/1.73 sqM) Est GFR (CKD-EPI)NonAf (>60 ml/min/1.73 sqM) Glucose (74-99) mg/dL POC Glucose (mg/dL) (70-110) mg/dL POC Glu Jewel Gauger ID Plasma Lactic Acid Jair 1.9 (0.7-2.0) mmol/L Calcium (8.4-10.2) mg/dL Total Bilirubin (0.2-1.3) mg/dL AST (17-59) U/L ALT (4-49) U/L Alkaline Phosphatase (38-126) U/L Troponin I <0.012 (0.000-0.034) ng/mL Total Protein (6.3-8.2) g/dL Albumin (3.5-5.0) g/dL Serum Alcohol mg/dL Blood Type O Positive Blood Type Recheck O Pos Bld Type Recheck Status No Antibody Screen NEGATIVE Spec Expiration Date 02/22/2024 - 232902/19/24 Range/Units 14:31 WBC (3.8-10.6) k/uL RBC (4.30-5.90) m/uL Hgb (13.0-17.5) gm/dL Hct (39.0-53.0) % MCV (80.0-100.0) fL MCH (25.0-35.0) pg MCHC (31.0-37.0) g/dL RDW (11.5-15.5) % Plt Count (150-450) k/uL MPV Neutrophils % % Lymphocytes % % Monocytes % % Eosinophils % % Basophils % % Neutrophils # (1.3-7.7) k/uL Lymphocytes # (1.0-4.8) k/uL Monocytes # (0-1.0) k/uL Eosinophils # (0-0.7) k/uL Basophils # (0-0.2) k/uL Macrocytosis PT (10.0-12.5) sec INR (<1.2) APTT (22.0-30.0) sec Sodium (137-145) mmol/L Potassium (3.5-5.1) mmol/L Chloride (98-107) mmol/L Carbon Dioxide (22-30) mmol/L Anion Gap mmol/L BUN (9-20) mg/dL Creatinine (0.66-1.25) mg/dL Est GFR (CKD-EPI)AfAm (>60 ml/min/1.73 sqM) Est GFR (CKD-EPI)NonAf (>60 ml/min/1.73 sqM) Glucose (74-99) mg/dL POC Glucose (mg/dL) 128 H (70-110) mg/dL POC Glu Jewel Gauger ID Altimore Jovanna Plasma Lactic Acid Jair (0.7-2.0) mmol/L Calcium (8.4-10.2) mg/dL Total Bilirubin (0.2-1.3) mg/dL AST (17-59) U/L ALT (4-49) U/L Alkaline Phosphatase (38-126) U/L Troponin I (0.000-0.034) ng/mL Total Protein (6.3-8.2) g/dL Albumin (3.5-5.0) g/dL Serum Alcohol mg/dL Blood Type Blood Type Recheck Bld Type Recheck Status Antibody Screen Spec Expiration Date Critical Care Time Critical Care Time: Yes Total Critical Care Time: 35 Disposition Clinical Impression: Suicidal ideations, Superficial laceration, Hyponatremia, Overdose Disposition: ADMITTED IP TO THIS [facility] Referrals: None,Stated [Primary Care Provider] - 1-2 days Time of Disposition: 16:25
[2024-02-19] MEDS ORDERED: LORazepam 2 MG/ML INJ IV PRN ×3 (16:27)
[2024-02-19] MEDS ORDERED: LORazepam 1 MG TAB PO PRN (16:27)
[2024-02-19] MEDS: TRANEXAMIC ACID 1,000 MG/10 ML VIAL IRRIGATION ONE (17:16)
[2024-02-19 22:04] LABS: Cocaine Screen,Urine Not Detected (NotDetected); Opiate Screen,Urine Detected (NotDetected); Phencyclidine Screen,Urine Not Detected (NotDetected)
[2024-02-19 22:05] LABS: Amphetamine Screen,Urine Not Detected (NotDetected); Barbiturate Screen,Urine Not Detected (NotDetected); Benzodiazepines Screen,Urine Not Detected (NotDetected); Methadone Screen, Urine Not Detected (NotDetected); Oxycodone Screen, Urine Not Detected (NotDetected); Tricyclic Antidepressant,Urine Not Detected (NotDetected); Urn Cannabinoid Scrn Not Detected (NotDetected)
[2024-02-19 22:29] LABS: African American GFR (CKD) >90 (>60 ml/min/1.73 sqM); Anion Gap 6 mmol/L; Blood Urea Nitrogen 11 mg/dL (9-20); Calcium 8.3 mg/dL (8.4-10.2); Carbon Dioxide 10 mmol/L (22-30); Chloride 100 mmol/L (98-107); Glucose 104 mg/dL (74-99); Non-African American GFR(CKD) >90 (>60 ml/min/1.73 sqM); Potassium 4.5 mmol/L (3.5-5.1)
[2024-02-19 22:34] LABS: Sodium 116 mmol/L (137-145)
--- NOTE | 2024-02-20 00:14 | P.GSHP ---
History of Present Illness Is a 68-year-old male who presents to the emergency department after having cut himself in multiple places and attempt to kill himself. Patient has a multiple lacerations to his neck bilateral wrist and 1 on his abdomen. 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 Patient denies any difficulty breathing patient denies chest pain patient has abdominal pain patient has nausea vomiting diarrhea. Patient states he was recently in the hospital for suicidal attempt. - Constitutional Constitutional: Reports as per HPI Past Medical History Past Medical History: Coronary Artery Disease (CAD), Chest Pain / Angina, COPD, Hypertension, Myocardial Infarction ([place]), Osteoarthritis (OA) Additional Past Medical History / Comment(s): suicidal Last Myocardial Infarction Date:: 12/2023? unconfirmed History of Any Multi-Drug Resistant Organisms: None Reported Past Surgical History: Back Surgery, Heart Catheterization With Stent, Orthopedic Surgery, Prostate Surgery Additional Past Surgical History / Comment(s): wrist and bilateral hip surgery. Past Anesthesia/Blood Transfusion Reactions: No Reported Reaction Date of Last Stent Placement:: 2017 Past Psychological History: No Psychological Hx Reported Smoking Status: Current every day smoker Past Alcohol Use History: Abuse, Daily, Heavy Past Drug Use History: None Reported Medications and Allergies Home Medications Medication Instructions Recorded Confirmed Type Ranolazine [Ranexa] 1,000 mg PO BID 12/23/23 02/19/24 History Atorvastatin [Lipitor] 80 mg PO HS 02/12/24 02/19/24 History Aspirin 81 mg PO DAILY tab 02/15/24 02/19/24 Rx Folic Acid 1 mg PO DAILY tab 02/15/24 02/19/24 Rx Ipratropium-Albuterol Nebulize 3 ml INHALATION RT-QID PRN each 02/15/24 02/19/24 Rx [Duoneb 0.5 mg-3 mg/3 ml Soln] Metoprolol Succinate (ER) [Toprol 12.5 mg PO DAILY #30 tab 02/15/24 02/19/24 Rx XL] Nicotine 21Mg/24Hr Patch [Habitrol] 1 patch TRANSDERM DAILY patch 02/15/24 02/19/24 Rx Thiamine [Vitamin B-1] 100 mg PO DAILY tab 02/15/24 02/19/24 Rx traMADol HCl [Ultram] 50 mg PO Q6H PRN #12 tab 02/15/24 02/19/24 Rx Multivitamins, Thera [Multivitamin 1 tab PO DAILY 02/17/24 02/19/24 History (formulary)] Sertraline [Zoloft] 50 mg PO DAILY 30 Days #30 tab 02/18/24 02/19/24 Rx Sodium Chloride Tab 1 gm PO BID 30 Days #60 tab 02/18/24 02/19/24 Rx Allergies Allergy/AdvReac Type Severity Reaction Status Date / Time No Known Allergies Allergy Verified 02/19/24 16:00 Surgical - Exam Osteopathic Statement: *. No significant issues noted on an osteopathic structural exam other than those noted in the History and Physical/Consult. Vital Signs Temp Pulse Resp BP Pulse Ox 98.6 F 100 22 152/100 99 02/19/24 14:30 02/19/24 14:30 02/19/24 14:30 02/19/24 14:30 02/19/24 14:30 - General gen: nad, ao x 4, calm heent: b/l linear lacerations appearing superficial of the b/l neck cv: rrr pul: non labored breathing thoracic: punctate stab wound just left to the sternum w/ 5mm depth abd: linear right lower quadrant stab wound appears to be superficial measuring 10-15cm ext: b/l upper extremity wrist lacerations, left apperas to be old Results - Labs 02/19/24 14:30 02/19/24 21:57 Abnormal Lab Results - Last 24 Hours (Table) 02/19/24 02/19/24 02/19/24 Range/Units 14:30 14:30 14:31 WBC 15.5 H (3.8-10.6) k/uL RBC 3.97 L (4.30-5.90) m/uL MCV 104.6 H (80.0-100.0) fL Neutrophils # 13.0 H (1.3-7.7) k/uL Sodium 115 L* (137-145) mmol/L Chloride 91 L (98-107) mmol/L Carbon Dioxide 12 L (22-30) mmol/L BUN 6 L (9-20) mg/dL Creatinine 0.48 L (0.66-1.25) mg/dL Glucose 118 H (74-99) mg/dL POC Glucose (mg/dL) 128 H (70-110) mg/dL Calcium (8.4-10.2) mg/dL ALT 66 H (4-49) U/L Urine Opiates Screen (NotDetected) 02/19/24 02/19/24 Range/Units 20:30 21:57 WBC (3.8-10.6) k/uL RBC (4.30-5.90) m/uL MCV (80.0-100.0) fL Neutrophils # (1.3-7.7) k/uL Sodium 116 L* (137-145) mmol/L Chloride (98-107) mmol/L Carbon Dioxide 10 L (22-30) mmol/L BUN (9-20) mg/dL Creatinine 0.40 L (0.66-1.25) mg/dL Glucose 104 H (74-99) mg/dL POC Glucose (mg/dL) (70-110) mg/dL Calcium 8.3 L (8.4-10.2) mg/dL ALT (4-49) U/L Urine Opiates Screen Detected H (NotDetected) Diabetes panel 02/19/24 02/19/24 Range/Units 14:30 21:57 Sodium 115 L* 116 L* (137-145) mmol/L Potassium 4.2 4.5 (3.5-5.1) mmol/L Chloride 91 L 100 (98-107) mmol/L Carbon Dioxide 12 L 10 L (22-30) mmol/L BUN 6 L 11 (9-20) mg/dL Creatinine 0.48 L 0.40 L (0.66-1.25) mg/dL Glucose 118 H 104 H (74-99) mg/dL Calcium 8.5 8.3 L (8.4-10.2) mg/dL AST 47 (17-59) U/L ALT 66 H (4-49) U/L Alkaline Phosphatase 110 (38-126) U/L Total Protein 6.3 (6.3-8.2) g/dL Albumin 3.6 (3.5-5.0) g/dL Calcium panel 02/19/24 02/19/24 Range/Units 14:30 21:57 Calcium 8.5 8.3 L (8.4-10.2) mg/dL Albumin 3.6 (3.5-5.0) g/dL Pituitary panel 02/19/24 02/19/24 Range/Units 14:30 21:57 Sodium 115 L* 116 L* (137-145) mmol/L Potassium 4.2 4.5 (3.5-5.1) mmol/L Chloride 91 L 100 (98-107) mmol/L Carbon Dioxide 12 L 10 L (22-30) mmol/L BUN 6 L 11 (9-20) mg/dL Creatinine 0.48 L 0.40 L (0.66-1.25) mg/dL Glucose 118 H 104 H (74-99) mg/dL Calcium 8.5 8.3 L (8.4-10.2) mg/dL Adrenal panel 02/19/24 02/19/24 Range/Units 14:30 21:57 Sodium 115 L* 116 L* (137-145) mmol/L Potassium 4.2 4.5 (3.5-5.1) mmol/L Chloride 91 L 100 (98-107) mmol/L Carbon Dioxide 12 L 10 L (22-30) mmol/L BUN 6 L 11 (9-20) mg/dL Creatinine 0.48 L 0.40 L (0.66-1.25) mg/dL Glucose 118 H 104 H (74-99) mg/dL Calcium 8.5 8.3 L (8.4-10.2) mg/dL Total Bilirubin 0.7 (0.2-1.3) mg/dL AST 47 (17-59) U/L ALT 66 H (4-49) U/L Alkaline Phosphatase 110 (38-126) U/L Total Protein 6.3 (6.3-8.2) g/dL Albumin 3.6 (3.5-5.0) g/dL Assessment and Plan Assessment: 68 yo m w/ multiple lacerations that are self inflicted fast exam negative chest/pelvis xray negative for acute process cta neck/chest reviewed, no life-threatening injuries identified recommend psych consult for hold consult IM monitor for abdominal pain npo for now Time with Patient: Greater than 30
[2024-02-20] MEDS: SODIUM CHLORIDE 0.9% 1,000 ML IV SCH (04:12)
[2024-02-20 05:17] LABS: Basophils % (A) 0 %; Eosinophils % (A) 0 %; HCT 31.8 % (39.0-53.0); HGB 10.9 gm/dL (13.0-17.5); Lymphocytes # (A) 0.9 k/uL (1.0-4.8); Lymphocytes % (A) 9 %; MCH 35.6 pg (25.0-35.0); MCHC 34.3 g/dL (31.0-37.0); MCV 103.7 fL (80.0-100.0); Macrocytosis Slight; Mean Platelet Volume 7.4; Monocytes # (A) 0.6 k/uL (0-1.0); Monocytes % (A) 6 %; Neutrophils # (A) 7.8 k/uL (1.3-7.7); Neutrophils % (A) 83 %; Platelet Count 234 k/uL (150-450); RBC 3.06 m/uL (4.30-5.90); RDW 14.2 % (11.5-15.5); WBC 9.5 k/uL (3.8-10.6)
[2024-02-20 05:41] LABS: ALT 45 U/L (4-49); AST 33 U/L (17-59); African American GFR (CKD) >90 (>60 ml/min/1.73 sqM); Albumin 2.8 g/dL (3.5-5.0); Alkaline Phosphatase 86 U/L (38-126); Anion Gap 5 mmol/L; Blood Urea Nitrogen 10 mg/dL (9-20); Calcium 8.3 mg/dL (8.4-10.2); Carbon Dioxide 13 mmol/L (22-30); Chloride 99 mmol/L (98-107); Glucose 92 mg/dL (74-99); Non-African American GFR(CKD) >90 (>60 ml/min/1.73 sqM); Potassium 4.4 mmol/L (3.5-5.1); Total Bilirubin 0.6 mg/dL (0.2-1.3); Total Protein 5.2 g/dL (6.3-8.2)
[2024-02-20 05:49] LABS: Sodium 117 mmol/L (137-145)
[2024-02-20] MEDS ORDERED: IPRATROPIUM-ALBUTEROL 3 ML NEB INHALATION PRN (12:08)
--- NOTE | 2024-02-20 12:11 | P.CONS ---
History of Present Illness - Reason for Consult Consult date: 02/20/24 Medical management - History of Present Illness History of present illness; patient is a 68-year-old gentleman with past medical history significant for hyperlipidemia, depression who presented to the ER for suicidal attempt. Patient was brought to the ER after trying to kill himself by cutting himself in multiple places. Patient had cut himself on the neck wrist as well as abdomen. Patient also admitted to overdosing on his Zoloft medication with intent to kill himself. Patient denies any auditory or visual hallucinations. Denies any chest pain or shortness of breath. Because of this suicidal attempt, patient brought to the ER Initial lab work done in the ER showed WBC 15.5, hemoglobin 13.8, sodium 115, potassium 4.2, BUN 6, creatinine 0.48, glucose 128 Urine drug screen positive for opiates serum alcohol level 41. EKG done in the ER showed heart rate of 101, no ST segment elevation or depression seen, no T-wave inversions seen. Chest x-ray done in the ER showed no acute cardiopulmonary process X-ray pelvis done showed no acute osseous pathology CTA neck done showed no evidence of contrast extravasation to suggest active bleeding or vascular trauma. CT chest done showed no evidence of active bleeding or traumatic abnormality in the chest Patient admitted to internal medicine service REVIEW OF SYSTEMS: CONSTITUTIONAL: No fever, no malaise, no fatigue. HEENT: No recent visual problems or hearing problems. Denied any sore throat. CARDIOVASCULAR: No chest pain, orthopnea, PND, no palpitations, no syncope. PULMONARY: No shortness of breath, no cough, no hemoptysis. GASTROINTESTINAL: No diarrhea, no nausea, no vomiting, no abdominal pain. NEUROLOGICAL: No headaches, no weakness, no numbness. HEMATOLOGICAL: Denies any bleeding or petechiae. GENITOURINARY: Denies any burning micturition, frequency, or urgency. MUSCULOSKELETAL/RHEUMATOLOGICAL: Denies any joint pain, swelling, or any muscle pain. ENDOCRINE: Denies any polyuria or polydipsia. The rest of the 14-point review of systems is negative. PHYSICAL EXAMINATION: GENERAL: The patient is alert and oriented x3, ill looking HEENT: Pupils are round and equally reacting to light. EOMI. No scleral icterus. No conjunctival pallor. Normocephalic, atraumatic. No pharyngeal erythema. No thyromegaly. CARDIOVASCULAR: S1 and S2 present. No murmurs, rubs, or gallops. PULMONARY: Chest is clear to auscultation, no wheezing or crackles. ABDOMEN: Soft, nontender, nondistended, normoactive bowel sounds. No palpable organomegaly. MUSCULOSKELETAL: No joint swelling or deformity. EXTREMITIES: No cyanosis, clubbing, or pedal edema. NEUROLOGICAL: Gross neurological examination did not reveal any focal deficits. SKIN: Laceration seen on neck, wrist and abdomen Assessment and plan Suicidal attempt Intentional cutting with lacerations on neck, wrist and abdomen Intentional overdose on Zoloft Alcohol abuse Hyponatremia Monitor vital signs Monitor CBC Monitor CMP Continue telemetry monitoring Elopement precaution Suicide precautions Strict I's and O's, daily weights Ordered urine lites Ordered serum osmolality Continue IV fluids CIWA protocol Ordered thiamine and folic acid Psychiatry consulted Nephrology consulted Labs and medication were reviewed.. Continue same treatment. Continue with symptomatic treatment. Resume home medication. Monitor labs and vitals. DVT and GI prophylaxis. Further recommendations as per clinical course of the patient Dictation was produced using Gema dictation software. please excuse any grammatical, word or spelling errors. Past Medical History Past Medical History: Coronary Artery Disease (CAD), Chest Pain / Angina, COPD, Hypertension, Myocardial Infarction ([place]), Osteoarthritis (OA) Additional Past Medical History / Comment(s): suicidal Last Myocardial Infarction Date:: 12/2023? unconfirmed History of Any Multi-Drug Resistant Organisms: None Reported Past Surgical History: Back Surgery, Heart Catheterization With Stent, Or thopedic Surgery, Prostate Surgery Additional Past Surgical History / Comment(s): wrist and bilateral hip surgery. Past Anesthesia/Blood Transfusion Reactions: No Reported Reaction Date of Last Stent Placement:: 2017 Past Psychological History: No Psychological Hx Reported Smoking Status: Current every day smoker Past Alcohol Use History: Abuse, Daily, Heavy Past Drug Use History: None Reported Medications and Allergies Home Medications Medication Instructions Recorded Confirmed Type Ranolazine [Ranexa] 1,000 mg PO BID 12/23/23 02/19/24 History Atorvastatin [Lipitor] 80 mg PO HS 02/12/24 02/19/24 History Aspirin 81 mg PO DAILY tab 02/15/24 02/19/24 Rx Folic Acid 1 mg PO DAILY tab 02/15/24 02/19/24 Rx Ipratropium-Albuterol Nebulize 3 ml INHALATION RT-QID PRN each 02/15/24 02/19/24 Rx [Duoneb 0.5 mg-3 mg/3 ml Soln] Metoprolol Succinate (ER) [Toprol 12.5 mg PO DAILY #30 tab 02/15/24 02/19/24 Rx XL] Nicotine 21Mg/24Hr Patch [Habitrol] 1 patch TRANSDERM DAILY patch 02/15/24 02/19/24 Rx Thiamine [Vitamin B-1] 100 mg PO DAILY tab 02/15/24 02/19/24 Rx traMADol HCl [Ultram] 50 mg PO Q6H PRN #12 tab 02/15/24 02/19/24 Rx Multivitamins, Thera [Multivitamin 1 tab PO DAILY 02/17/24 02/19/24 History (formulary)] Sertraline [Zoloft] 50 mg PO DAILY 30 Days #30 tab 02/18/24 02/19/24 Rx Sodium Chloride Tab 1 gm PO BID 30 Days #60 tab 02/18/24 02/19/24 Rx Allergies Allergy/AdvReac Type Severity Reaction Status Date / Time No Known Allergies Allergy Verified 02/19/24 16:00 Physical Exam Vitals: Vital Signs Temp Pulse Resp BP BP Pulse Ox 02/20/24 11:06 97 02/20/24 09:58 101 H 18 136/98 97 02/20/24 08:22 105 H 136/77 02/20/24 07:38 105 H 14 101/67 97 02/20/24 06:00 102 H 15 116/68 98 02/20/24 04:00 100 14 121/85 98 02/20/24 02:13 101 H 18 121/85 98 02/19/24 23:00 101 H 18 117/76 98 02/19/24 22:00 106 H 16 113/70 99 02/19/24 21:00 96 18 133/85 97 02/19/24 20:00 98 16 133/82 97 02/19/24 19:00 97 16 133/89 98 02/19/24 18:07 98.8 F 106 H 17 127/93 96 02/19/24 17:52 18 143/96 96 02/19/24 14:30 98.6 F 100 22 152/100 99 Results CBC & Chem 7: 02/20/24 04:20 02/20/24 04:20 Labs: Abnormal Lab Results - Last 24 Hours (Table) 02/19/24 02/19/24 02/19/24 Range/Units 14:30 14:30 14:31 WBC 15.5 H (3.8-10.6) k/uL RBC 3.97 L (4.30-5.90) m/uL Hgb (13.0-17.5) gm/dL Hct (39.0-53.0) % MCV 104.6 H (80.0-100.0) fL MCH (25.0-35.0) pg Neutrophils # 13.0 H (1.3-7.7) k/uL Lymphocytes # (1.0-4.8) k/uL Sodium 115 L* (137-145) mmol/L Chloride 91 L (98-107) mmol/L Carbon Dioxide 12 L (22-30) mmol/L BUN 6 L (9-20) mg/dL Creatinine 0.48 L (0.66-1.25) mg/dL Glucose 118 H (74-99) mg/dL POC Glucose (mg/dL) 128 H (70-110) mg/dL Calcium (8.4-10.2) mg/dL ALT 66 H (4-49) U/L Total Protein (6.3-8.2) g/dL Albumin (3.5-5.0) g/dL Urine Opiates Screen (NotDetected) 02/19/24 02/19/24 02/20/24 Range/Units 20:30 21:57 04:20 WBC (3.8-10.6) k/uL RBC 3.06 L (4.30-5.90) m/uL Hgb 10.9 L (13.0-17.5) gm/dL Hct 31.8 L (39.0-53.0) % MCV 103.7 H (80.0-100.0) fL MCH 35.6 H (25.0-35.0) pg Neutrophils # 7.8 H (1.3-7.7) k/uL Lymphocytes # 0.9 L (1.0-4.8) k/uL Sodium 116 L* (137-145) mmol/L Chloride (98-107) mmol/L Carbon Dioxide 10 L (22-30) mmol/L BUN (9-20) mg/dL Creatinine 0.40 L (0.66-1.25) mg/dL Glucose 104 H (74-99) mg/dL POC Glucose (mg/dL) (70-110) mg/dL Calcium 8.3 L (8.4-10.2) mg/dL ALT (4-49) U/L Total Protein (6.3-8.2) g/dL Albumin (3.5-5.0) g/dL Urine Opiates Screen Detected H (NotDetected) 02/20/24 Range/Units 04:20 WBC (3.8-10.6) k/uL RBC (4.30-5.90) m/uL Hgb (13.0-17.5) gm/dL Hct (39.0-53.0) % MCV (80.0-100.0) fL MCH (25.0-35.0) pg Neutrophils # (1.3-7.7) k/uL Lymphocytes # (1.0-4.8) k/uL Sodium 117 L* (137-145) mmol/L Chloride (98-107) mmol/L Carbon Dioxide 13 L (22-30) mmol/L BUN (9-20) mg/dL Creatinine 0.40 L (0.66-1.25) mg/dL Glucose (74-99) mg/dL POC Glucose (mg/dL) (70-110) mg/dL Calcium 8.3 L (8.4-10.2) mg/dL ALT (4-49) U/L Total Protein 5.2 L (6.3-8.2) g/dL Albumin 2.8 L (3.5-5.0) g/dL Urine Opiates Screen (NotDetected)
--- NOTE | 2024-02-20 12:42 | P.PN ---
Subjective patient seen and evaluated bedside. Patient denies neck pain arm pain or superficial abdominal pain. Currently denies throat soreness fevers chills, nausea or vomiting Objective - Vital Signs Vital signs: Vital Signs Temp 98.8 F 02/19/24 18:07 Pulse 97 02/20/24 11:06 Resp 18 02/20/24 09:58 BP 136/98 02/20/24 09:58 Pulse Ox 97 02/20/24 09:58 FiO2 Intake & Output 02/19/24 02/20/24 02/20/24 18:59 06:59 18:59 Weight 56.699 kg - Exam general no acute distress alert and oriented 3 HEENT demonstrates bilateral superficial lacerations with no stigmata of active bleeding, or mucosa seen moist and no scarring visualized Cardiovascular regular rate and rhythm pulmonary nonlabored breathing Abdomen soft, nondistended, minimal tenderness to palpation in the periumbilical area no guarding or rebound tenderness right lower quadrant 12 centimeter laceration superficial with no stigmata of bleeding - Labs CBC & Chem 7: 02/20/24 04:20 02/20/24 04:20 Labs: Abnormal Lab Results - Last 24 Hours (Table) 02/19/24 02/19/24 02/19/24 Range/Units 14:30 14:30 14:31 WBC 15.5 H (3.8-10.6) k/uL RBC 3.97 L (4.30-5.90) m/uL Hgb (13.0-17.5) gm/dL Hct (39.0-53.0) % MCV 104.6 H (80.0-100.0) fL MCH (25.0-35.0) pg Neutrophils # 13.0 H (1.3-7.7) k/uL Lymphocytes # (1.0-4.8) k/uL Sodium 115 L* (137-145) mmol/L Chloride 91 L (98-107) mmol/L Carbon Dioxide 12 L (22-30) mmol/L BUN 6 L (9-20) mg/dL Creatinine 0.48 L (0.66-1.25) mg/dL Glucose 118 H (74-99) mg/dL POC Glucose (mg/dL) 128 H (70-110) mg/dL Calcium (8.4-10.2) mg/dL ALT 66 H (4-49) U/L Total Protein (6.3-8.2) g/dL Albumin (3.5-5.0) g/dL Urine Opiates Screen (NotDetected) 02/19/24 02/19/24 02/20/24 Range/Units 20:30 21:57 04:20 WBC (3.8-10.6) k/uL RBC 3.06 L (4.30-5.90) m/uL Hgb 10.9 L (13.0-17.5) gm/dL Hct 31.8 L (39.0-53.0) % MCV 103.7 H (80.0-100.0) fL MCH 35.6 H (25.0-35.0) pg Neutrophils # 7.8 H (1.3-7.7) k/uL Lymphocytes # 0.9 L (1.0-4.8) k/uL Sodium 116 L* (137-145) mmol/L Chloride (98-107) mmol/L Carbon Dioxide 10 L (22-30) mmol/L BUN (9-20) mg/dL Creatinine 0.40 L (0.66-1.25) mg/dL Glucose 104 H (74-99) mg/dL POC Glucose (mg/dL) (70-110) mg/dL Calcium 8.3 L (8.4-10.2) mg/dL ALT (4-49) U/L Total Protein (6.3-8.2) g/dL Albumin (3.5-5.0) g/dL Urine Opiates Screen Detected H (NotDetected) 02/20/24 Range/Units 04:20 WBC (3.8-10.6) k/uL RBC (4.30-5.90) m/uL Hgb (13.0-17.5) gm/dL Hct (39.0-53.0) % MCV (80.0-100.0) fL MCH (25.0-35.0) pg Neutrophils # (1.3-7.7) k/uL Lymphocytes # (1.0-4.8) k/uL Sodium 117 L* (137-145) mmol/L Chloride (98-107) mmol/L Carbon Dioxide 13 L (22-30) mmol/L BUN (9-20) mg/dL Creatinine 0.40 L (0.66-1.25) mg/dL Glucose (74-99) mg/dL POC Glucose (mg/dL) (70-110) mg/dL Calcium 8.3 L (8.4-10.2) mg/dL ALT (4-49) U/L Total Protein 5.2 L (6.3-8.2) g/dL Albumin 2.8 L (3.5-5.0) g/dL Urine Opiates Screen (NotDetected) Assessment and Plan Assessment: 68 yo m w/ multiple lacerations that are self inflicted chest/pelvis xray negative for acute process cta neck/chest reviewed, no life-threatening injuries identified recommend psych consult for hold abdominal pain is still the same, okay for clear liquid diet until surgical intervention will transfer to primary service Time with Patient: Less than 30
[2024-02-20 12:48] LABS: African American GFR (CKD) >90 (>60 ml/min/1.73 sqM); Anion Gap 4 mmol/L; Blood Urea Nitrogen 8 mg/dL (9-20); Calcium 8.1 mg/dL (8.4-10.2); Carbon Dioxide 18 mmol/L (22-30); Chloride 97 mmol/L (98-107); Glucose 93 mg/dL (74-99); Non-African American GFR(CKD) >90 (>60 ml/min/1.73 sqM); Potassium 4.2 mmol/L (3.5-5.1)
[2024-02-20] MEDS: SODIUM CHLORIDE 0.45% 1,000 ML with SODIUM BICARB (1 MEQ/ML) 100 ML IV SCH (12:56)
[2024-02-20] MEDS: METOPROLOL SUCCINATE (ER) 25 MG TAB.ER.24H PO SCH (12:57)
[2024-02-20 13:11] LABS: Sodium 119 mmol/L (137-145)
[2024-02-20 13:14] LABS: Appearance,Urine Clear (Clear); Bilirubin,Urine Negative (Negative); Blood,Urine Negative (Negative); Color,Urine Light Yellow; Glucose,Urine (UA) Negative (Negative); Ketones,Urine 1+ (Negative); Leukocyte Esterase,Urine Negative (Negative); Nitrite,Urine Negative (Negative); PH, Urine 5.5 (5.0-8.0); Protein,Urine Trace (Negative); Specific Gravity,Urine 1.034 (1.001-1.035); Urobilinogen,Urine <2.0 mg/dL (<2.0)
--- NOTE | 2024-02-20 13:34 | P.NPCON ---
History of Present Illness - Reason for Consult metabolic acidosis - History of Present Illness Patient is a 68-year-old male with history of alcohol abuse, chronic hyponatremia, depression and hypertension. Patient is admitted to the hospital with history of suicidal attempts and cutting himself with a knife on the wrists as well as left neck area. Patient also took multiple tablets of Zoloft and he also admits to drinking a small amount of toilet bowl venetian blind cleaner. No complaints of shortness of breath. Mentation has been baseline Urine drug screen was positive for opiates Alcohol level elevated at 41 Hemodynamically stable with no hypotension noted. Labs showed significant metabolic acidosis with CO2 10. Sodium was low at 115 and now improved to 117 Past Medical History Past Medical History: Coronary Artery Disease (CAD), Chest Pain / Angina, COPD, Hypertension, Myocardial Infarction ([place]), Osteoarthritis (OA) Additional Past Medical History / Comment(s): suicidal Last Myocardial Infarction Date:: 12/2023? unconfirmed History of Any Multi-Drug Resistant Organisms: None Reported Past Surgical History: Back Surgery, Heart Catheterization With Stent, Orthopedic Surgery, Prostate Surgery Additional Past Surgical History / Comment(s): wrist and bilateral hip surgery. Past Anesthesia/Blood Transfusion Reactions: No Reported Reaction Date of Last Stent Placement:: 2017 Past Psychological History: No Psychological Hx Reported Smoking Status: Current every day smoker Past Alcohol Use History: Abuse, Daily, Heavy Past Drug Use History: None Reported Medications and Allergies Home Medications Medication Instructions Recorded Confirmed Type Ranolazine [Ranexa] 1,000 mg PO BID 12/23/23 02/19/24 History Atorvastatin [Lipitor] 80 mg PO HS 02/12/24 02/19/24 History Aspirin 81 mg PO DAILY tab 02/15/24 02/19/24 Rx Folic Acid 1 mg PO DAILY tab 02/15/24 02/19/24 Rx Ipratropium-Albuterol Nebulize 3 ml INHALATION RT-QID PRN each 02/15/24 02/19/24 Rx [Duoneb 0.5 mg-3 mg/3 ml Soln] Metoprolol Succinate (ER) [Toprol 12.5 mg PO DAILY #30 tab 02/15/24 02/19/24 Rx XL] Nicotine 21Mg/24Hr Patch [Habitrol] 1 patch TRANSDERM DAILY patch 02/15/24 02/19/24 Rx Thiamine [Vitamin B-1] 100 mg PO DAILY tab 02/15/24 02/19/24 Rx traMADol HCl [Ultram] 50 mg PO Q6H PRN #12 tab 02/15/24 02/19/24 Rx Multivitamins, Thera [Multivitamin 1 tab PO DAILY 02/17/24 02/19/24 History (formulary)] Sertraline [Zoloft] 50 mg PO DAILY 30 Days #30 tab 02/18/24 02/19/24 Rx Sodium Chloride Tab 1 gm PO BID 30 Days #60 tab 02/18/24 02/19/24 Rx Allergies Allergy/AdvReac Type Severity Reaction Status Date / Time No Known Allergies Allergy Verified 02/19/24 16:00 Physical Exam Vitals: Vital Signs Temp Pulse Resp BP BP Pulse Ox 02/20/24 12:58 98 18 129/79 99 02/20/24 11:06 97 02/20/24 09:58 101 H 18 136/98 97 02/20/24 08:22 105 H 136/77 02/20/24 07:38 105 H 14 101/67 97 02/20/24 06:00 102 H 15 116/68 98 02/20/24 04:00 100 14 121/85 98 02/20/24 02:13 101 H 18 121/85 98 02/19/24 23:00 101 H 18 117/76 98 02/19/24 22:00 106 H 16 113/70 99 02/19/24 21:00 96 18 133/85 97 02/19/24 20:00 98 16 133/82 97 02/19/24 19:00 97 16 133/89 98 02/19/24 18:07 98.8 F 106 H 17 127/93 96 02/19/24 17:52 18 143/96 96 02/19/24 14:30 98.6 F 100 22 152/100 99 Patient is awake, comfortable, no acute distress Examination of the heart S1 and S2 Examination of the lungs bilateral breath sounds are heard Abdomen is soft nontender Examination of lower extremities shows no edema multiple superficial cuts noted in the wrist area as well as in the left neck Moving all 4 extremities Results - Lab Results Most recent lab results Calcium 8.1 mg/dL (8.4-10.2) L 02/20/24 11:43 02/20/24 04:20 02/20/24 11:43 Assessment and Plan Assessment: 1. Hyponatremia associated with EtOH abuse and volume depletion, currently improving with normal saline. IV fluids will be discontinued once patient is euvolemic. 2. Metabolic acidosis associated with alcohol intake and ketosis. Alcohol level was 41 3. History of ingestion of toilet bowl venetian blind cleaner which usually contains isopropyl alcohol. Serum osmolality will be ordered to calculate osmolar gap. Check urine ketones. Renal function is preserved. 4. Suicidal attempt 5. History of EtOH abuse Plan: Change IV fluids to IV bicarb based in half-normal saline. Check serum osmolality to calculate osmolar gap Check UA and urine ketones Supportive care Psych consult Repeat sodium DC Zoloft Check magnesium Thank you for the consultation. We will continue to follow the patient with you during his hospitalization
--- NOTE | 2024-02-20 14:25 | P.CN ---
Psychiatric Consult - . Consult date: 02/20/24 Consult:: 02/20/24 13:38 IDENTIFYING DATA: This patient is a retired 68 year old male who is residing alone REASON FOR REFERRAL: Psychiatry was consulted for suicidal ideation HISTORY OF PRESENT ILLNESS: The patient presented to the hospital on 02/19/2024 with multiple lacerations on his neck and 1 laceration on his abdomen. he reported having drank alcohol, overdosed with Zoloft, and drink toilet bowl carbon lamp cleaner in a suicide attempt. Of note, patient was most recently seen by our service 02/17/2024 due to suicidal ideation and wrapping IV cord around his neck. At the time, he was found to be future oriented and denied suicidal ideation. Patient states that after leaving the hospital on 02/18/24, he drinks 6-8 beers and drink toilet bowl carbon lamp cleaner to "eat my stomach up ". He also says he took numerous pills of Zoloft so that "I wouldn't feel so bad". Patient admits that he cut himself, drank toilet bowl carbon lamp cleaner and overdosed on Zoloft in a suicide attempt. patient does not state any reasons to live. He is not future oriented. When asked about his suicide attempt, patient does not express any concern about his actions and states that he simply feels "dazed and confused ". Patient also admits to anhedonia, thoughts of worthlessness, having low energy, low concentration, low appetite and reports feeling depressed particularly because he feels uncared for by his children. He states that his children "will not even help me with get some meals". He also reports feeling down about his socioeconomic status. He denies access to guns or firearms. Patient denies symptoms consistent with otoniel. He denies anxiety. At this time patient denies any suicidal or homicidal ideation. Patient denies any auditory, visual hallucinations and denies any paranoia or delusions. PAST PSYCHIATRIC HISTORY: Patient has a a history of alcohol use disorder. Patient denies being on any psychiatric medications. Patient reports 1 remote inpatient psych hospitalization. Patient denies any psychiatric outpatient fo llow-up. Patient denies any history of suicide attempts in the past. PAST MEDICAL HISTORY: Coronary Artery Disease (CAD), Chest Pain / Angina, COPD, Hypertension, Myocardial Infarction ([place]), Osteoarthritis (OA). ALLERGIES: as per EMR. CHEMICAL DEPENDENCY HISTORY: as per HPI. Smokes 1ppd. Denies other substance use FAMILY PSYCHIATRIC/SUBSTANCE USE HISTORY: Patient states his sister suffers from mental illness. SOCIAL HISTORY: Patient single and says he has 5 children. He is retired and living alone in an apartment. Completed 12th grade in school. he reports having been twice and is currently . He collects Social Security income. MENTAL STATUS EXAM: General Appearance: Patient appears to be stated age is alert, pleasant, and cooperative. Patient appears to have poor hygiene and grooming wearing hospital gown with good eye contact. Behavior: Patient is calmly lying in bed without any agitated behavior. Speech: Patient's speech is fluent and nonpressured. Mood/Affect: Patient reports their mood is "depressed", affect is congruent Suicidality/Homicidality: Patient denies having any suicidal or homicidal ideation intent or plan. However recent suicide attempt Perceptions: Patient denies any visual hallucinations and denies any auditory hallucinations Though content/process: There is no evidence of any delusional thought content and thought process is linear and goal-directed. Memory and concentration: Grossly oriented but pt is slightly confused at times Judgment and insight: poor and impulsive IMPRESSIONS: Major depressive disorder, recurrent, severe, without psychotic features s/p SA via laceration & Zoloft OD & carbon lamp cleaner ingestion PLAN: -At this time patient DOES meet criteria for inpatient psychiatric admission. -Delirium precautions recommended with patient including - avoiding use of narcotics and ELEVATOR WORKER sedatives, limit anticholinergic medications when possible, frequent re-orientation, minimize use of restraints, open window shades during the day and close them at night -No psychotropic medications recommended at this time. Hold Zoloft due to current hyponatremia -CIWA protocol in place- per primary team. Given pt was hospitalized just immediately prior to admission, may not need to be continued for long if scoring low -Continue 1:1 sitter for safety -Cannot leave AMA at this time. Patient will need an active petition and active certificate to be completed by primary team -When medically stable, patient is eligible for transfer to a psych bed when available. Due to patient's reports of trouble with unsteady gait and hx of falls, will need PT/OT eval prior to being considered for psych bed placement -Communicated plan to patient's nurse -Psychiatry will sign off at this time -Please contact with any questions. 02/20/24 14:09
[2024-02-20] MEDS: traMADol 50 MG TAB PO PRN (18:33)
[2024-02-20] MEDS: LORazepam 0.5 MG TAB PO PRN (18:34)
[2024-02-20] MEDS: RANOLAZINE 500 MG TAB.ER.12H PO SCH (22:11)
[2024-02-20] MEDS: ATORVASTATIN 80 MG TAB PO SCH (22:12)
[2024-02-21 00:09] LABS: Potassium 3.5 mmol/L (3.5-5.1)
[2024-02-21 07:23] LABS: African American GFR (CKD) >90 (>60 ml/min/1.73 sqM); Anion Gap 2 mmol/L; Blood Urea Nitrogen 6 mg/dL (9-20); Calcium 7.8 mg/dL (8.4-10.2); Carbon Dioxide 28 mmol/L (22-30); Chloride 91 mmol/L (98-107); Glucose 90 mg/dL (74-99); Magnesium 1.6 mg/dL (1.6-2.3); Non-African American GFR(CKD) >90 (>60 ml/min/1.73 sqM); Potassium 3.3 mmol/L (3.5-5.1); Sodium 121 mmol/L (137-145)
[2024-02-21] MEDS: TRANEXAMIC ACID 1,000 MG/10 ML VIAL IRRIGATION ONE (07:39)
[2024-02-21] MEDS: MULTIVITAMINS, THERA 1 EACH TAB PO SCH (08:45)
[2024-02-21] MEDS: FOLIC ACID 1 MG TAB PO SCH (08:45)
[2024-02-21] MEDS: ASPIRIN 81 MG PO SCH (08:45)
--- NOTE | 2024-02-21 08:45 | P.PN ---
Subjective Patient is seen in follow-up for hyponatremia. Sodium level initially improved with IV fluids and now stable at 121. Acidosis improved with bicarb drip. Has been voiding. No active complaints. Vital signs are stable. General: No acute distress. HEENT: Head exam is unremarkable. LUNGS: L no audible rhonchi or wheezes. HEART: Rate and Rhythm are regular. ABDOMEN: Nontender. EXTREMITITES: No edema. Objective - Vital Signs Vital signs: Vital Signs Temp 98.9 F 02/20/24 21:38 Pulse 77 02/21/24 04:00 Resp 16 02/21/24 04:00 BP 102/71 02/21/24 04:00 Pulse Ox 95 02/21/24 04:00 FiO2 Intake & Output 02/20/24 02/21/24 02/21/24 18:59 06:59 18:59 Output Total 400 350 Balance -400 -350 Output: Urine 400 350 Other: # Voids 2 - Labs CBC & Chem 7: 02/20/24 04:20 02/21/24 06:45 Labs: Abnormal Lab Results - Last 24 Hours (Table) 02/20/24 02/20/24 02/20/24 Range/Units 11:43 11:43 13:00 Sodium 119 L* (137-145) mmol/L Potassium (3.5-5.1) mmol/L Chloride 97 L (98-107) mmol/L Carbon Dioxide 18 L (22-30) mmol/L BUN 8 L (9-20) mg/dL Creatinine 0.43 L (0.66-1.25) mg/dL Osmolality 251 L (275-295) mOsm/kg Calcium 8.1 L (8.4-10.2) mg/dL Urine Protein Trace H (Negative) Urine Ketones 1+ H (Negative) 02/20/24 02/21/24 Range/Units 18:04 06:45 Sodium 121 L 121 L (137-145) mmol/L Potassium 3.3 L (3.5-5.1) mmol/L Chloride 97 L 91 L (98-107) mmol/L Carbon Dioxide 21 L (22-30) mmol/L BUN 6 L (9-20) mg/dL Creatinine 0.41 L (0.66-1.25) mg/dL Osmolality (275-295) mOsm/kg Calcium 7.8 L (8.4-10.2) mg/dL Urine Protein (Negative) Urine Ketones (Negative) Assessment and Plan Plan: Assessment: 1. Hyponatremia. Initially hypovolemic and improved with IV fluids. Now euvolemic. Urine osmolality 505. 2. Major depressive disorder being followed by psychiatry. 3. Benign hypertension. Controlled. 4. Hypokalemia from intracellular shifting from IV bicarb. Plan: Stop bicarb drip. Replace potassium. Add 1500 cc fluid restriction. Add sodium chloride tabs 1 g twice daily. Check TSH. Repeat sodium level this afternoon.
[2024-02-21] MEDS ORDERED: SERTRALINE 50 MG TAB PO SCH (09:00)
[2024-02-21] MEDS: POTASSIUM CHLORIDE ER 20 MEQ TAB.ER PO STA (09:03)
[2024-02-21] MEDS: SODIUM CHLORIDE TAB 1 GM TAB PO SCH (09:10)
--- NOTE | 2024-02-21 10:55 | P.PN ---
Subjective Progress Note Date: 02/21/24 SURGICAL PROGRESS NOTE CHIEF COMPLAINT: Suicidal with self-inflicted lacerations HISTORY OF PRESENT ILLNESS: Patient continues to be in the ER. He is lying in bed comfortably. He has no new complaints. His sodium remains low at 121. Nephrology following and is added oral sodium tabs. Patient has been seen by psychiatry they are recommending inpatient psych when medically stable. Afebrile. Patient did tolerate breakfast. Afebrile. Sodium 121 potassium is 3.3 creatinine 0.41 PHYSICAL EXAM: VITAL SIGNS: Reviewed. GENERAL: Well-developed in no acute distress. HEENT: No sclera icterus. Extraocular movements grossly intact. Moist buccal mucosa. Head is atraumatic, normocephalic. Superficial lacerations on the right side of his neck with no active bleeding. ABDOMEN: Soft. Nondistended. Nontender. Right lower quadrant 12 cm superficial laceration. Area is scabbed. No bleeding. NEUROLOGIC: Alert and oriented. Cranial nerves II through XII grossly intact. Skin: Extremities patient has small lacerations on both wrists no active bleeding. no erythema ASSESSMENT: 68 yo m w/ multiple lacerations that are self inflicted chest/pelvis xray negative for acute process cta neck/chest reviewed, no life-threatening injuries identified PLAN: -Nephrology correcting hyponatremia and hypokalemia -Psychiatry recommending inpatient psych -Agree with regular diet -No surgical intervention planned -Will discuss with medicine service about transferring primary service to them Physician [employer] note has been reviewed by physician. Signing provider agrees with the documented findings, assessment, and plan of care. Attestation Patient seen and examined at bedside. Multiple lacerations from self-inflicted injuries. All imaging reviewed with no obvious life-threatening injuries. No surgical intervention planned at this time. Recommend psych evaluation for suicidal ideation. Medicine evaluation and nephrology evaluation secondary to hyponatremia and hypokalemia. Plan to transfer to medicine service. Michael Quick DO Objective - Vital Signs Vital signs: Vital Signs Temp 98 F 02/21/24 08:00 Pulse 82 02/21/24 08:00 Resp 18 02/21/24 08:00 BP 131/84 02/21/24 08:00 Pulse Ox 98 02/21/24 08:00 FiO2 Intake & Output 02/20/24 02/21/24 02/21/24 18:59 06:59 18:59 Output Total 400 350 Balance -400 -350 Output: Urine 400 350 Other: # Voids 2 - Labs CBC & Chem 7: 02/20/24 04:20 02/21/24 14:49 Labs: Abnormal Lab Results - Last 24 Hours (Table) 02/20/24 02/20/24 02/20/24 Range/Units 11:43 11:43 13:00 Sodium 119 L* (137-145) mmol/L Potassium (3.5-5.1) mmol/L Chloride 97 L (98-107) mmol/L Carbon Dioxide 18 L (22-30) mmol/L BUN 8 L (9-20) mg/dL Creatinine 0.43 L (0.66-1.25) mg/dL Osmolality 251 L (275-295) mOsm/kg Calcium 8.1 L (8.4-10.2) mg/dL Urine Protein Trace H (Negative) Urine Ketones 1+ H (Negative) 02/20/24 02/21/24 Range/Units 18:04 06:45 Sodium 121 L 121 L (137-145) mmol/L Potassium 3.3 L (3.5-5.1) mmol/L Chloride 97 L 91 L (98-107) mmol/L Carbon Dioxide 21 L (22-30) mmol/L BUN 6 L (9-20) mg/dL Creatinine 0.41 L (0.66-1.25) mg/dL Osmolality (275-295) mOsm/kg Calcium 7.8 L (8.4-10.2) mg/dL Urine Protein (Negative) Urine Ketones (Negative)
[2024-02-21 15:23] LABS: African American GFR (CKD) >90 (>60 ml/min/1.73 sqM); Anion Gap -1 mmol/L; Blood Urea Nitrogen 7 mg/dL (9-20); Calcium 7.8 mg/dL (8.4-10.2); Carbon Dioxide 29 mmol/L (22-30); Chloride 94 mmol/L (98-107); Glucose 90 mg/dL (74-99); Non-African American GFR(CKD) >90 (>60 ml/min/1.73 sqM); Potassium 3.6 mmol/L (3.5-5.1); Sodium 122 mmol/L (137-145)
[2024-02-22 08:14] LABS: African American GFR (CKD) >90 (>60 ml/min/1.73 sqM); Anion Gap 0 mmol/L; Blood Urea Nitrogen 7 mg/dL (9-20); Calcium 7.8 mg/dL (8.4-10.2); Carbon Dioxide 28 mmol/L (22-30); Chloride 93 mmol/L (98-107); Glucose 94 mg/dL (74-99); Magnesium 1.5 mg/dL (1.6-2.3); Non-African American GFR(CKD) >90 (>60 ml/min/1.73 sqM); Potassium 3.5 mmol/L (3.5-5.1); Sodium 121 mmol/L (137-145)
--- NOTE | 2024-02-22 10:12 | P.PN ---
Subjective Patient is seen in follow-up for hyponatremia. Sodium level initially improved with IV fluids and is now off IV fluids. Sodium level 121 today. Oral intake poor. Vital signs are stable. General: No acute distress. HEENT: Head exam is unremarkable. LUNGS: L no audible rhonchi or wheezes. HEART: Rate and Rhythm are regular. ABDOMEN: Nontender. EXTREMITITES: No edema. Objective - Vital Signs Vital signs: Vital Signs Temp 97.8 F 02/22/24 08:47 Pulse 68 02/22/24 08:47 Resp 18 02/22/24 08:47 BP 117/60 02/22/24 08:47 Pulse Ox 97 02/22/24 08:47 FiO2 Intake & Output 02/21/24 02/22/24 02/22/24 18:59 06:59 18:59 Intake Total 700 Output Total 125 200 Balance -125 500 Weight 56.699 kg 54.54 kg Intake: Oral 700 Output: Urine 125 200 Other: Voiding Method Toilet Urinal - Labs CBC & Chem 7: 02/20/24 04:20 02/22/24 07:21 Labs: Abnormal Lab Results - Last 24 Hours (Table) 02/21/24 02/22/24 Range/Units 14:49 07:21 Sodium 122 L 121 L (137-145) mmol/L Chloride 94 L 93 L (98-107) mmol/L BUN 7 L 7 L (9-20) mg/dL Creatinine 0.40 L 0.46 L (0.66-1.25) mg/dL Calcium 7.8 L 7.8 L (8.4-10.2) mg/dL Magnesium 1.5 L (1.6-2.3) mg/dL Assessment and Plan Plan: Assessment: 1. Hyponatremia. Initially hypovolemic and improved with IV fluids. Now euvolemic. Urine osmolality 505. Sodium level 121 this morning. TSH normal. 2. Major depressive disorder being followed by psychiatry. 3. Benign hypertension. Controlled. 4. Hypokalemia from intracellular shifting from IV bicarb. Replaced. Better. 5. Hypomagnesemia from poor intake. Plan: Maintain 1500 cc fluid restriction. Maintain sodium chloride tabs 1 g twice daily. Samsca 7.5 mg once today. Encouraged oral intake. Repeat sodium level this afternoon. Check bladder scan to rule out urinary retention. Replace potassium and magnesium.
--- NOTE | 2024-02-22 10:50 | P.PN ---
Subjective Progress Note Date: 02/21/24 History of present illness; patient is a 68-year-old gentleman with past medical history significant for hyperlipidemia, depression who presented to the ER for suicidal attempt. Patient was brought to the ER after trying to kill himself by cutting himself in multiple places. Patient had cut himself on the neck wrist as well as abdomen. Patient also admitted to overdosing on his Zoloft medication with intent to kill himself. Patient denies any auditory or visual hallucinations. Denies any chest pain or shortness of breath. Because of this suicidal attempt, patient brought to the ER Initial lab work done in the ER showed WBC 15.5, hemoglobin 13.8, sodium 115, potassium 4.2, BUN 6, creatinine 0.48, glucose 128 Urine drug screen positive for opiates serum alcohol level 41. EKG done in the ER showed heart rate of 101, no ST segment elevation or depression seen, no T-wave inversions seen. Chest x-ray done in the ER showed no acute cardiopulmonary process X-ray pelvis done showed no acute osseous pathology CTA neck done showed no evidence of contrast extravasation to suggest active bleeding or vascular trauma. CT chest done showed no evidence of active bleeding or traumatic abnormality in the chest Patient admitted to internal medicine service 02/21/2024 Patient is in the ER. Lying in the bed comfortably. Denied any complaints of chest pain or shortness of breath. No cough or sputum production. Patient is able to tolerate oral diet. Psychiatry recommends inpatient psych unit transfer once medically stable. Otherwise laboratory data showed sodium 121 potassium 3.3 chloride 91 bicarb is 28 BUN 16 creatinine 0.41 and magnesium 1.6. Psychiatric and nephrology is on board. REVIEW OF SYSTEMS: CONSTITUTIONAL: No fever, no malaise, no fatigue. HEENT: No recent visual problems or hearing problems. Denied any sore throat. CARDIOVASCULAR: No chest pain, orthopnea, PND, no palpitations, no syncope. PULMONARY: No shortness of breath, no cough, no hemoptysis. GASTROINTESTINAL: No diarrhea, no nausea, no vomiting, no abdominal pain. NEUROLOGICAL: No headaches, no weakness, no numbness. HEMATOLOGICAL: Denies any bleeding or petechiae. GENITOURINARY: Denies any burning micturition, frequency, or urgency. MUSCULOSKELETAL/RHEUMATOLOGICAL: Denies any joint pain, swelling, or any muscle pain. ENDOCRINE: Denies any polyuria or polydipsia. The rest of the 14-point review of systems is negative. PHYSICAL EXAMINATION: GENERAL: The patient is alert and oriented x3, ill looking HEENT: Pupils are round and equally reacting to light. EOMI. No scleral icterus. No conjunctival pallor. Normocephalic, atraumatic. No pharyngeal erythema. No thyromegaly. CARDIOVASCULAR: S1 and S2 present. No murmurs, rubs, or gallops. PULMONARY: Chest is clear to auscultation, no wheezing or crackles. ABDOMEN: Soft, nontender, nondistended, normoactive bowel sounds. No palpable o rganomegaly. MUSCULOSKELETAL: No joint swelling or deformity. EXTREMITIES: No cyanosis, clubbing, or pedal edema. NEUROLOGICAL: Gross neurological examination did not reveal any focal deficits. SKIN: Laceration seen on neck, wrist and abdomen Assessment and plan Suicidal attempt Intentional cutting with lacerations on neck, wrist and abdomen Intentional overdose on Zoloft Alcohol abuse Hyponatremia Monitor vital signs Monitor CBC Monitor CMP Continue telemetry monitoring Elopement precaution Suicide precautions Strict I's and O's, daily weights Ordered urine lites Ordered serum osmolality Continue IV fluids CIWA protocol Ordered thiamine and folic acid Patient was started on sodium chloride tablets as per nephrology recommendations. Nephrology and psychiatry is on board. Labs and medication were reviewed.. Continue with symptomatic treatment. Monitor labs and vitals. DVT and GI prophylaxis. Dictation was produced using [employer] dictation software. please excuse any grammatical, word or spelling errors. Objective - Vital Signs Vital signs: Vital Signs Temp 98 F 02/21/24 08:00 Pulse 82 02/21/24 08:00 Resp 18 02/21/24 08:00 BP 131/84 02/21/24 08:00 Pulse Ox 98 02/21/24 08:00 FiO2 Intake & Output 02/20/24 02/21/24 02/21/24 18:59 06:59 18:59 Output Total 400 350 Balance -400 -350 Output: Urine 400 350 Other: # Voids 2 - Labs CBC & Chem 7: 02/20/24 04:20 02/22/24 07:21 Labs: Abnormal Lab Results - Last 24 Hours (Table) 02/20/24 02/20/24 02/20/24 Range/Units 11:43 11:43 13:00 Sodium 119 L* (137-145) mmol/L Potassium (3.5-5.1) mmol/L Chloride 97 L (98-107) mmol/L Carbon Dioxide 18 L (22-30) mmol/L BUN 8 L (9-20) mg/dL Creatinine 0.43 L (0.66-1.25) mg/dL Osmolality 251 L (275-295) mOsm/kg Calcium 8.1 L (8.4-10.2) mg/dL Urine Protein Trace H (Negative) Urine Ketones 1+ H (Negative) 02/20/24 02/21/24 Range/Units 18:04 06:45 Sodium 121 L 121 L (137-145) mmol/L Potassium 3.3 L (3.5-5.1) mmol/L Chloride 97 L 91 L (98-107) mmol/L Carbon Dioxide 21 L (22-30) mmol/L BUN 6 L (9-20) mg/dL Creatinine 0.41 L (0.66-1.25) mg/dL Osmolality (275-295) mOsm/kg Calcium 7.8 L (8.4-10.2) mg/dL Urine Protein (Negative) Urine Ketones (Negative)
[2024-02-22] MEDS: POTASSIUM CHLORIDE ER 20 MEQ TAB.ER PO STA (11:43)
[2024-02-22] MEDS: TOLVAPTAN 15 MG TABLET PO ONE (11:43)
[2024-02-22] MEDS: MAGNESIUM SULFATE-D5W PMX 1 GM in DEXTROSE/WATER 1 100ML.BAG IVPB SCH (11:43)
--- NOTE | 2024-02-22 12:39 | P.PN ---
Subjective Progress Note Date: 02/22/24 SURGICAL PROGRESS NOTE CHIEF COMPLAINT: Suicidal with self-inflicted lacerations HISTORY OF PRESENT ILLNESS: Patient on regular medical floor with a bedside sitter. He has no new complaints. Afebrile. Sodium 121 potassium 3.5. PHYSICAL EXAM: VITAL SIGNS: Reviewed. GENERAL: Well-developed in no acute distress. HEENT: Superficial lacerations on the right side of his neck with no active bleeding. No erythema ABDOMEN: Soft. Nondistended. Nontender. Right lower quadrant 12 cm superficial laceration. Area is scabbed. No bleeding. No erythema NEUROLOGIC: Alert and oriented. Cranial nerves II through XII grossly intact. Skin: Extremities patient has small lacerations on both wrists no active bleeding. no erythema ASSESSMENT: 68 yo m w/ multiple lacerations that are self inflicted chest/pelvis xray negative for acute process cta neck/chest reviewed, no life-threatening injuries identified PLAN: -Nephrology correcting hyponatremia -Psychiatry recommending inpatient psych -Agree with regular diet -No surgical intervention planned -Patient has been transferred to medicine service. Surgical service will sign off. Please call with any questions or concerns Physician Milk [employer] note has been reviewed by physician. Signing provider agrees with the documented findings, assessment, and plan of care. Objective - Vital Signs Vital signs: Vital Signs Temp 97.8 F 02/22/24 08:47 Pulse 68 02/22/24 08:47 Resp 18 02/22/24 08:47 BP 117/60 02/22/24 08:47 Pulse Ox 97 02/22/24 08:47 FiO2 Intake & Output 02/21/24 02/22/24 02/22/24 18:59 06:59 18:59 Intake Total 700 Output Total 125 200 Balance -125 500 Weight 56.699 kg 54.54 kg Intake: Oral 700 Output: Urine 125 200 Other: Voiding Method Toilet Urinal - Labs CBC & Chem 7: 02/20/24 04:20 02/22/24 15:47 Labs: Abnormal Lab Results - Last 24 Hours (Table) 02/21/24 02/22/24 Range/Units 14:49 07:21 Sodium 122 L 121 L (137-145) mmol/L Chloride 94 L 93 L (98-107) mmol/L BUN 7 L 7 L (9-20) mg/dL Creatinine 0.40 L 0.46 L (0.66-1.25) mg/dL Calcium 7.8 L 7.8 L (8.4-10.2) mg/dL Magnesium 1.5 L (1.6-2.3) mg/dL Assessment and Plan Assessment: No further intervention from a trauma standpoint, we'll sign off Time with Patient: Less than 30
[2024-02-23 09:11] LABS: African American GFR (CKD) >90 (>60 ml/min/1.73 sqM); Anion Gap 7 mmol/L; Blood Urea Nitrogen 6 mg/dL (9-20); Calcium 8.4 mg/dL (8.4-10.2); Carbon Dioxide 24 mmol/L (22-30); Chloride 102 mmol/L (98-107); Glucose 133 mg/dL (74-99); Magnesium 2.1 mg/dL (1.6-2.3); Non-African American GFR(CKD) >90 (>60 ml/min/1.73 sqM); Potassium 3.8 mmol/L (3.5-5.1); Sodium 133 mmol/L (137-145)
[2024-02-23] MEDS: DEXTROSE 5% IN WATER 1,000 ML IV ONE (11:30)
--- NOTE | 2024-02-23 11:36 | P.PN ---
Subjective Patient is seen in follow-up for hyponatremia. 133 today. Oral intake is improved. Vital signs are stable. General: No acute distress. HEENT: Head exam is unremarkable. LUNGS: L no audible rhonchi or wheezes. HEART: Rate and Rhythm are regular. ABDOMEN: Nontender. EXTREMITITES: No edema. Objective - Vital Signs Vital signs: Vital Signs Temp 98.1 F 02/23/24 08:00 Pulse 70 02/23/24 08:00 Resp 18 02/23/24 08:00 BP 113/73 02/23/24 08:00 Pulse Ox 100 02/23/24 08:00 FiO2 Intake & Output 02/22/24 02/23/24 02/23/24 18:59 06:59 18:59 Intake Total 1420 240 118 Output Total 1801 650 650 Balance -381 -410 -532 Weight 51.8 kg Intake: Oral 1180 240 118 Tube Feeding 240 Output: Urine 1801 650 650 Other: Voiding Method Toilet Toilet Toilet Urinal Urinal Urinal # Voids 1 - Labs CBC & Chem 7: 02/20/24 04:20 02/23/24 08:32 Labs: Abnormal Lab Results - Last 24 Hours (Table) 02/22/24 02/23/24 Range/Units 15:47 08:32 Sodium 127 L 133 L (137-145) mmol/L BUN 6 L (9-20) mg/dL Creatinine 0.55 L (0.66-1.25) mg/dL Glucose 133 H (74-99) mg/dL Assessment and Plan Plan: Assessment: 1. Hyponatremia. Initially hypovolemic and improved with IV fluids. Now euvolemic. Urine osmolality 505. Sodium level 133 this morning. TSH normal. 2. Major depressive disorder being followed by psychiatry. 3. Benign hypertension. Controlled. 4. Hypokalemia from intracellular shifting from IV bicarb. Replaced. Better. 5. Hypomagnesemia from poor intake. Replaced. Better. Plan: Status post sodium chloride tabs and Samsca given February 22, 2024. Remove fluid restriction for now. Start D5W at 100 cc an hour. Repeat sodium level in 3 hours. Encouraged oral intake.
--- NOTE | 2024-02-23 23:19 | P.PN ---
Subjective Progress Note Date: 02/22/24 History of present illness; patient is a 68-year-old gentleman with past medical history significant for hyperlipidemia, depression who presented to the ER for suicidal attempt. Patient was brought to the ER after trying to kill himself by cutting himself in multiple places. Patient had cut himself on the neck wrist as well as abdomen. Patient also admitted to overdosing on his Zoloft medication with intent to kill himself. Patient denies any auditory or visual hallucinations. Denies any chest pain or shortness of breath. Because of this suicidal attempt, patient brought to the ER Initial lab work done in the ER showed WBC 15.5, hemoglobin 13.8, sodium 115, potassium 4.2, BUN 6, creatinine 0.48, glucose 128 Urine drug screen positive for opiates serum alcohol level 41. EKG done in the ER showed heart rate of 101, no ST segment elevation or depression seen, no T-wave inversions seen. Chest x-ray done in the ER showed no acute cardiopulmonary process X-ray pelvis done showed no acute osseous pathology CTA neck done showed no evidence of contrast extravasation to suggest active bleeding or vascular trauma. CT chest done showed no evidence of active bleeding or traumatic abnormality in the chest Patient admitted to internal medicine service 02/21/2024 Patient is in the ER. Lying in the bed comfortably. Denied any complaints of chest pain or shortness of breath. No cough or sputum production. Patient is able to tolerate oral diet. Psychiatry recommends inpatient psych unit transfer once medically stable. Otherwise laboratory data showed sodium 121 potassium 3.3 chloride 91 bicarb is 28 BUN 16 creatinine 0.41 and magnesium 1.6. Psychiatric and nephrology is on board. 02/22/2024 Patient is resting in the bed. Awake alert and oriented. Denied any complaints of chest pain or shortness of breath. Bedside sitter is present. Sodium level this morning was 121. Continued on free water restriction and sodium chloride tablets. Magnesium level 1.5. Repeat sodium level went up to 127. Nephrology and general surgery is on board. Psychiatry recommends inpatient psychiatric admission. Current medications reviewed. PHYSICAL EXAMINATION: GENERAL: The patient is alert and oriented x3, ill looking HEENT: Pupils are round and equally reacting to light. EOMI. No scleral icterus. No conjunctival pallor. Normocephalic, atraumatic. No pharyngeal erythema. No thyromegaly. CARDIOVASCULAR: S1 and S2 present. No murmurs, rubs, or gallops. PULMONARY: Chest is clear to auscultation, no wheezing or crackles. ABDOMEN: Soft, nontender, nondistended, normoactive bowel sounds. No palpable organomegaly. MUSCULOSKELETAL: No joint swelling or deformity. EXTREMITIES: No cyanosis, clubbing, or pedal edema. NEUROLOGICAL: Gross neurological examination did not reveal any focal deficits. SKIN: Laceration seen on neck, wrist and abdomen Assessment and plan Suicidal attempt Intentional cutting with lacerations on neck, wrist and abdomen Intentional overdose on Zoloft Alcohol abuse Hyponatremia. Hypoosmolar with decreased solute intake. Hypomagnesemia Hypokalemia replaced Monitor vital signs Monitor CBC Monitor CMP Continue telemetry monitoring Elopement precaution Suicide precautions Strict I's and O's, daily weights Serum osmolality 251. Continue free water restriction. Encourage oral intake. [facility] protocol Ordered thiamine and folic acid Patient was started on sodium chloride tablets as per nephrology recommendations. Nephrology and psychiatry is on board. Labs and medication were reviewed.. Continue with symptomatic treatment. Monitor labs and vitals. DVT and GI prophylaxis. Dictation was produced using [employer] dictation software. please excuse any grammatical, word or spelling errors. Objective - Vital Signs Vital signs: Vital Signs Temp 98.1 F 02/22/24 16:48 Pulse 66 02/22/24 16:48 Resp 18 02/22/24 16:48 BP 105/55 02/22/24 16:48 Pulse Ox 98 02/22/24 11:42 FiO2 Intake & Output 02/22/24 02/22/24 02/23/24 06:59 18:59 06:59 Intake Total 1420 Output Total 125 1801 475 Balance -125 -362 -438 Weight 54.54 kg Intake: Oral 1180 Tube Feeding 240 Output: Urine 125 1801 475 Other: Voiding Method Toilet Toilet Urinal Urinal # Voids 2 - Labs CBC & Chem 7: 02/20/24 04:20 02/23/24 16:02 Labs: Abnormal Lab Results - Last 24 Hours (Table) 02/22/24 02/22/24 Range/Units 07:21 15:47 Sodium 121 L 127 L (137-145) mmol/L Chloride 93 L (98-107) mmol/L BUN 7 L (9-20) mg/dL Creatinine 0.46 L (0.66-1.25) mg/dL Calcium 7.8 L (8.4-10.2) mg/dL Magnesium 1.5 L (1.6-2.3) mg/dL
[2024-02-24 08:18] LABS: African American GFR (CKD) >90 (>60 ml/min/1.73 sqM); Anion Gap 2 mmol/L; Blood Urea Nitrogen 6 mg/dL (9-20); Calcium 8.2 mg/dL (8.4-10.2); Carbon Dioxide 28 mmol/L (22-30); Chloride 96 mmol/L (98-107); Glucose 94 mg/dL (74-99); Magnesium 1.8 mg/dL (1.6-2.3); Non-African American GFR(CKD) >90 (>60 ml/min/1.73 sqM); Sodium 126 mmol/L (137-145)
--- NOTE | 2024-02-24 12:02 | P.PN ---
Subjective Patient is seen in follow-up for hyponatremia. Sodium level 126 today. Feels that his bladder is distended. Oral intake is fair. Vital signs are stable. General: No acute distress. HEENT: Head exam is unremarkable. LUNGS: L no audible rhonchi or wheezes. HEART: Rate and Rhythm are regular. ABDOMEN: Nontender. EXTREMITITES: No edema. Objective - Vital Signs Vital signs: Vital Signs Temp 97.8 F 02/24/24 08:00 Pulse 72 02/24/24 08:00 Resp 18 02/24/24 08:00 BP 128/63 02/24/24 08:00 Pulse Ox 98 02/24/24 08:00 FiO2 Intake & Output 02/23/24 02/24/24 02/24/24 18:59 06:59 18:59 Intake Total 898 20 240 Output Total 1125 150 Balance -227 -130 240 Weight 52 kg Intake: IV 20 Invasive Line 2 10 Invasive Line 3 10 Oral 898 240 Output: Urine 1125 150 Other: Voiding Method Toilet Toilet Toilet Urinal Urinal Urinal - Labs CBC & Chem 7: 02/20/24 04:20 02/24/24 07:02 Labs: Abnormal Lab Results - Last 24 Hours (Table) 02/23/24 02/23/24 02/24/24 Range/Units 14:23 16:02 07:02 Sodium 119 L* 129 L 126 L (137-145) mmol/L Chloride 96 L (98-107) mmol/L BUN 6 L (9-20) mg/dL Creatinine 0.47 L (0.66-1.25) mg/dL Calcium 8.2 L (8.4-10.2) mg/dL Assessment and Plan Plan: Assessment: 1. Hyponatremia. Initially hypovolemic and improved with IV fluids. Now euvolemic. Urine osmolality 505. Sodium level 126 this morning. TSH normal. 2. Major depressive disorder being followed by psychiatry. 3. Benign hypertension. Controlled. 4. Hypokalemia from intracellular shifting from IV bicarb. Replaced. Better. 5. Hypomagnesemia from poor intake. Replaced. Better. Plan: Check bladder scan to rule out urinary retention. Sodium chloride tab once today. Add 1500 cc fluid restriction. Encouraged oral intake. Repeat labs in the morning.
--- NOTE | 2024-02-24 12:26 | P.GSCN ---
History of Present Illness Consult date: 02/24/24 History of present illness: 68-year-old male in the hospital psychiatric difficulties. He is gone in urine retention and we are asked see the patient. The patient is at the bedside in the interview is taken from the patient. He is oriented and cooperative. He states for the last several weeks he has been having problems urinating. He was catheterized for 375 mL during this hospitalization. He states that he has had several episodes of urine retention over the last year. He has not been placed on Flomax. He has had a TURP some 15 years ago. He is not seen a urologist in an extended period of time. He denies neuropathy. He denies major bowel issues. He denies hematuria incontinence or infections. Review of Systems All systems: negative - Constitutional Denies fever, Denies weight loss - EENT Eyes: denies blurred vision Ears, nose, mouth and throat: Denies dysphagia - Cardiovascular Denies chest pain, Denies shortness of breath - Respiratory Denies cough, Denies 7 - Gastrointestinal Reports as per HPI - Genitourinary Denies dysuria, Denies hematuria - Integumentary Denies rash, Denies unusual bruising - Neurological Denies headaches, Denies syncope - Hematologic/Lymphatic Denies easy bleeding, Denies easy bruising Past Medical History Past Medical History: Coronary Artery Disease (CAD), Chest Pain / Angina, COPD, Hypertension, Myocardial Infarction (ID), Osteoarthritis (OA) Additional Past Medical History / Comment(s): suicidal Last Myocardial Infarction Date:: 12/2023? unconfirmed History of Any Multi-Drug Resistant Organisms: None Reported Past Surgical History: Back Surgery, Heart Catheterization With Stent, Orthopedic Surgery, Prostate Surgery Additional Past Surgical History / Comment(s): wrist and bilateral hip surgery. Past Anesthesia/Blood Transfusion Reactions: No Reported Reaction Date of Last Stent Placement:: 2017 Past Psychological History: No Psychological Hx Reported Smoking Status: Current every day smoker Past Alcohol Use History: Abuse, Daily, Heavy Past Drug Use History: None Reported Medications and Allergies Home Medications Medication Instructions Recorded Confirmed Type Ranolazine [Ranexa] 1,000 mg PO BID 12/23/23 02/19/24 History Atorvastatin [Lipitor] 80 mg PO HS 02/12/24 02/19/24 History Aspirin 81 mg PO DAILY tab 02/15/24 02/19/24 Rx Folic Acid 1 mg PO DAILY tab 02/15/24 02/19/24 Rx Ipratropium-Albuterol Nebulize 3 ml INHALATION RT-QID PRN each 02/15/24 02/19/24 Rx [Duoneb 0.5 mg-3 mg/3 ml Soln] Metoprolol Succinate (ER) [Toprol 12.5 mg PO DAILY #30 tab 02/15/24 02/19/24 Rx XL] Nicotine 21Mg/24Hr Patch [Habitrol] 1 patch TRANSDERM DAILY patch 02/15/24 02/19/24 Rx Thiamine [Vitamin B-1] 100 mg PO DAILY tab 02/15/24 02/19/24 Rx traMADol HCl [Ultram] 50 mg PO Q6H PRN #12 tab 02/15/24 02/19/24 Rx Multivitamins, Thera [Multivitamin 1 tab PO DAILY 02/17/24 02/19/24 History (formulary)] Sertraline [Zoloft] 50 mg PO DAILY 30 Days #30 tab 02/18/24 02/19/24 Rx Sodium Chloride Tab 1 gm PO BID 30 Days #60 tab 02/18/24 02/19/24 Rx Allergies Allergy/AdvReac Type Severity Reaction Status Date / Time No Known Allergies Allergy Verified 02/19/24 16:00 Surgical - Exam Vital Signs Temp Pulse Resp BP Pulse Ox 98.6 F 100 22 152/100 99 02/19/24 14:30 02/19/24 14:30 02/19/24 14:30 02/19/24 14:30 02/19/24 14:30 - General well developed, well nourished, no distress - Eyes normal ocular movement, no icteric - ENT no hearing loss, no congestion - Neck no masses, trachea midline - Respiratory normal respiratory effort, clear to auscultation - Abdomen Abdomen: soft, non tender, no guarding, no rigid, no rebound - Genitourinary indwelling catheter with 20-30 g benign feeling prostate. Clear urine - Integumentary no rash, no abnormal pigmentation - Neurologic no disoriented, no combative - Psychiatric oriented to time, oriented to person, oriented to place, speech is normal, memory intact Results - Labs 02/20/24 04:20 02/24/24 07:02 Abnormal Lab Results - Last 24 Hours (Table) 02/23/24 02/23/24 02/24/24 Range/Units 14:23 16:02 07:02 Sodium 119 L* 129 L 126 L (137-145) mmol/L Chloride 96 L (98-107) mmol/L BUN 6 L (9-20) mg/dL Creatinine 0.47 L (0.66-1.25) mg/dL Calcium 8.2 L (8.4-10.2) mg/dL Diabetes panel 02/23/24 02/23/24 02/24/24 Range/Units 14:23 16:02 07:02 Sodium 119 L* 129 L 126 L (137-145) mmol/L Potassium 4.0 (3.5-5.1) mmol/L Chloride 96 L (98-107) mmol/L Carbon Dioxide 28 (22-30) mmol/L BUN 6 L (9-20) mg/dL Creatinine 0.47 L (0.66-1.25) mg/dL Glucose 94 (74-99) mg/dL Calcium 8.2 L (8.4-10.2) mg/dL Calcium panel 02/24/24 Range/Units 07:02 Calcium 8.2 L (8.4-10.2) mg/dL Pituitary panel 02/23/24 02/23/24 02/24/24 Range/Units 14:23 16:02 07:02 Sodium 119 L* 129 L 126 L (137-145) mmol/L Potassium 4.0 (3.5-5.1) mmol/L Chloride 96 L (98-107) mmol/L Carbon Dioxide 28 (22-30) mmol/L BUN 6 L (9-20) mg/dL Creatinine 0.47 L (0.66-1.25) mg/dL Glucose 94 (74-99) mg/dL Calcium 8.2 L (8.4-10.2) mg/dL Adrenal panel 02/23/24 02/23/24 02/24/24 Range/Units 14:23 16:02 07:02 Sodium 119 L* 129 L 126 L (137-145) mmol/L Potassium 4.0 (3.5-5.1) mmol/L Chloride 96 L (98-107) mmol/L Carbon Dioxide 28 (22-30) mmol/L BUN 6 L (9-20) mg/dL Creatinine 0.47 L (0.66-1.25) mg/dL Glucose 94 (74-99) mg/dL Calcium 8.2 L (8.4-10.2) mg/dL Assessment and Plan Assessment: impression: Psychiatric issues as noted in H&P. Urinary retention possibly related to the BpH, possibly aggravated by the psychiatric issues. Recommendations:I will begin the patient on Flomax 0.4 daily. He should have the catheter removed prior to discharge for a voiding trial. If he is unable to urinate then we'll have to assess further down the road for potential surgical intervention. Time with Patient: Greater than 30
[2024-02-24] MEDS: SODIUM CHLORIDE TAB 1 GM TAB PO STA (13:32)
[2024-02-24] MEDS: TAMSULOSIN 0.4 MG CAP.ER.24H PO SCH (17:57)
[2024-02-25 09:45] LABS: African American GFR (CKD) >90 (>60 ml/min/1.73 sqM); Anion Gap 5 mmol/L; Blood Urea Nitrogen 6 mg/dL (9-20); Calcium 8.2 mg/dL (8.4-10.2); Carbon Dioxide 24 mmol/L (22-30); Chloride 95 mmol/L (98-107); Glucose 93 mg/dL (74-99); Magnesium 1.7 mg/dL (1.6-2.3); Non-African American GFR(CKD) >90 (>60 ml/min/1.73 sqM); Potassium 4.1 mmol/L (3.5-5.1); Sodium 124 mmol/L (137-145)
--- NOTE | 2024-02-25 11:45 | P.PN ---
Subjective Patient is seen in follow-up for hyponatremia. Sodium level 124 today. Cabrera catheter inserted for urinary retention. Nonoliguric. Vital signs are stable. General: No acute distress. HEENT: Head exam is unremarkable. LUNGS: L no audible rhonchi or wheezes. HEART: Rate and Rhythm are regular. ABDOMEN: Nontender. EXTREMITITES: No edema. Objective - Vital Signs Vital signs: Vital Signs Temp 98.1 F 02/25/24 08:00 Pulse 69 02/25/24 08:00 Resp 16 02/25/24 08:00 BP 123/69 02/25/24 08:00 Pulse Ox 98 02/25/24 08:00 FiO2 Intake & Output 02/24/24 02/25/24 02/25/24 18:59 06:59 18:59 Intake Total 358 1080 Output Total 525 1200 Balance -167 -120 Weight 136.9 kg Intake: Oral 358 1080 Output: Urine 375 1200 Male - External 375 Post Void Residual 150 Other: Voiding Method Toilet Indwelling Catheter Indwelling Catheter Urinal - Labs CBC & Chem 7: 02/20/24 04:20 02/25/24 08:29 Labs: Abnormal Lab Results - Last 24 Hours (Table) 02/25/24 Range/Units 08:29 Sodium 124 L (137-145) mmol/L Chloride 95 L (98-107) mmol/L BUN 6 L (9-20) mg/dL Creatinine 0.47 L (0.66-1.25) mg/dL Calcium 8.2 L (8.4-10.2) mg/dL Assessment and Plan Plan: Assessment: 1. Hyponatremia. Initially hypovolemic and improved with IV fluids. Now euvolemic. Component of urinary retention. Urine osmolality 505. Sodium level 124 this morning. TSH normal. 2. Major depressive disorder being followed by psychiatry. 3. Benign hypertension. Controlled. 4. Hypokalemia from intracellular shifting from IV bicarb. Replaced. Better. 5. Hypomagnesemia from poor intake. Replaced. Better. 6. Urinary retention. Has Cabrera catheter. On Flomax. Urology following. Plan: Add sodium chloride tabs. Maintain 1500 cc fluid restriction. Encouraged oral intake. Repeat labs in the morning.
[2024-02-25] MEDS: SODIUM CHLORIDE TAB 1 GM TAB PO SCH (15:20)
--- NOTE | 2024-02-26 00:26 | P.PN ---
Subjective Progress Note Date: 02/23/24 History of present illness; patient is a 68-year-old gentleman with past medical history significant for hyperlipidemia, depression who presented to the ER for suicidal attempt. Patient was brought to the ER after trying to kill himself by cutting himself in multiple places. Patient had cut himself on the neck wrist as well as abdomen. Patient also admitted to overdosing on his Zoloft medication with intent to kill himself. Patient denies any auditory or visual hallucinations. Denies any chest pain or shortness of breath. Because of this suicidal attempt, patient brought to the ER Initial lab work done in the ER showed WBC 15.5, hemoglobin 13.8, sodium 115, potassium 4.2, BUN 6, creatinine 0.48, glucose 128 Urine drug screen positive for opiates serum alcohol level 41. EKG done in the ER showed heart rate of 101, no ST segment elevation or depression seen, no T-wave inversions seen. Chest x-ray done in the ER showed no acute cardiopulmonary process X-ray pelvis done showed no acute osseous pathology CTA neck done showed no evidence of contrast extravasation to suggest active bleeding or vascular trauma. CT chest done showed no evidence of active bleeding or traumatic abnormality in the chest Patient admitted to internal medicine service 02/21/2024 Patient is in the ER. Lying in the bed comfortably. Denied any complaints of chest pain or shortness of breath. No cough or sputum production. Patient is able to tolerate oral diet. Psychiatry recommends inpatient psych unit transfer once medically stable. Otherwise laboratory data showed sodium 121 potassium 3.3 chloride 91 bicarb is 28 BUN 16 creatinine 0.41 and magnesium 1.6. Psychiatric and nephrology is on board. 02/22/2024 Patient is resting in the bed. Awake alert and oriented. Denied any complaints of chest pain or shortness of breath. Bedside sitter is present. Sodium level this morning was 121. Continued on free water restriction and sodium chloride tablets. Magnesium level 1.5. Repeat sodium level went up to 127. Nephrology and general surgery is on board. Psychiatry recommends inpatient psychiatric admission. 02/23/2024 Patient is resting in bed. Awake alert and oriented x 3. Able to tolerate oral diet. Sodium level improved to 133 today. No other acute overnight issues. Current medications reviewed. PHYSICAL EXAMINATION: GENERAL: The patient is alert and oriented x3, ill looking HEENT: Pupils are round and equally reacting to light. EOMI. No scleral icterus. No conjunctival pallor. Normocephalic, atraumatic. No pharyngeal erythema. No thyromegaly. CARDIOVASCULAR: S1 and S2 present. No murmurs, rubs, or gallops. PULMONARY: Chest is clear to auscultation, no wheezing or crackles. ABDOMEN: Soft, nontender, nondistended, normoactive bowel sounds. No palpable organomegaly. MUSCULOSKELETAL: No joint swelling or deformity. EXTREMITIES: No cyanosis, clubbing, or pedal edema. NEUROLOGICAL: Gross neurological examination did not reveal any focal deficits. SKIN: Laceration seen on neck, wrist and abdomen Assessment and plan Suicidal attempt Intentional cutting with lacerations on neck, wrist and abdomen Intentional overdose on Zoloft Alcohol abuse Hyponatremia. Hypoosmolar with decreased solute intake. Hypomagnesemia Hypokalemia replaced Monitor vital signs Monitor CBC Monitor CMP Continue telemetry monitoring Elopement precaution Suicide precautions Strict I's and O's, daily weights Serum osmolality 251. Continue free water restriction. Encourage oral intake. [facility] protocol Ordered thiamine and folic acid Patient was started on sodium chloride tablets as per nephrology recommendations. Continue to monitor sodium level. Nephrology is on board. Patient psychiatric transfer once cleared medically. Labs and medication were reviewed.. Continue with symptomatic treatment. Monitor labs and vitals. DVT and GI prophylaxis. Dictation was produced using [employer] dictation software. please excuse any grammatical, word or spelling errors. Objective - Vital Signs Vital signs: Vital Signs Temp 98.3 F 02/23/24 19:42 Pulse 66 02/23/24 19:42 Resp 16 02/23/24 19:42 BP 153/82 02/23/24 19:42 Pulse Ox 100 02/23/24 19:42 FiO2 Intake & Output 02/23/24 02/23/24 02/24/24 06:59 18:59 06:59 Intake Total 240 898 10 Output Total 650 1125 Balance -410 -227 10 Weight 51.8 kg Intake: IV 10 Invasive Line 2 10 Oral 240 898 Output: Urine 650 1125 Other: Voiding Method Toilet Toilet Toilet Urinal Urinal Urinal # Voids 1 - Labs CBC & Chem 7: 02/20/24 04:20 02/25/24 08:29 Labs: Abnormal Lab Results - Last 24 Hours (Table) 02/23/24 02/23/24 02/23/24 Range/Units 08:32 14:23 16:02 Sodium 133 L 119 L* 129 L (137-145) mmol/L BUN 6 L (9-20) mg/dL Creatinine 0.55 L (0.66-1.25) mg/dL Glucose 133 H (74-99) mg/dL
--- NOTE | 2024-02-26 00:28 | P.PN ---
Subjective Progress Note Date: 02/24/24 History of present illness; patient is a 68-year-old gentleman with past medical history significant for hyperlipidemia, depression who presented to the ER for suicidal attempt. Patient was brought to the ER after trying to kill himself by cutting himself in multiple places. Patient had cut himself on the neck wrist as well as abdomen. Patient also admitted to overdosing on his Zoloft medication with intent to kill himself. Patient denies any auditory or visual hallucinations. Denies any chest pain or shortness of breath. Because of this suicidal attempt, patient brought to the ER Initial lab work done in the ER showed WBC 15.5, hemoglobin 13.8, sodium 115, potassium 4.2, BUN 6, creatinine 0.48, glucose 128 Urine drug screen positive for opiates serum alcohol level 41. EKG done in the ER showed heart rate of 101, no ST segment elevation or depression seen, no T-wave inversions seen. Chest x-ray done in the ER showed no acute cardiopulmonary process X-ray pelvis done showed no acute osseous pathology CTA neck done showed no evidence of contrast extravasation to suggest active bleeding or vascular trauma. CT chest done showed no evidence of active bleeding or traumatic abnormality in the chest Patient admitted to internal medicine service 02/21/2024 Patient is in the ER. Lying in the bed comfortably. Denied any complaints of chest pain or shortness of breath. No cough or sputum production. Patient is able to tolerate oral diet. Psychiatry recommends inpatient psych unit transfer once medically stable. Otherwise laboratory data showed sodium 121 potassium 3.3 chloride 91 bicarb is 28 BUN 16 creatinine 0.41 and magnesium 1.6. Psychiatric and nephrology is on board. 02/22/2024 Patient is resting in the bed. Awake alert and oriented. Denied any complaints of chest pain or shortness of breath. Bedside sitter is present. Sodium level this morning was 121. Continued on free water restriction and sodium chloride tablets. Magnesium level 1.5. Repeat sodium level went up to 127. Nephrology and general surgery is on board. Psychiatry recommends inpatient psychiatric admission. 02/23/2024 Patient is resting in bed. Awake alert and oriented x 3. Able to tolerate oral diet. Sodium level improved to 133 today. No other acute overnight issues. 02/24/2024 Patient is lying in the bed. Awake alert. On room air. Bladder scan showed greater than 50 cc/h. Cabrera catheter was placed due to urinary retention. Otherwise sodium level 126 today. Current medications reviewed. PHYSICAL EXAMINATION: GENERAL: The patient is alert and oriented x3, ill looking HEENT: Pupils are round and equally reacting to light. EOMI. No scleral icterus. No conjunctival pallor. Normocephalic, atraumatic. No pharyngeal erythema. No thyromegaly. CARDIOVASCULAR: S1 and S2 present. No murmurs, rubs, or gallops. PULMONARY: Chest is clear to auscultation, no wheezing or crackles. ABDOMEN: Soft, nontender, nondistended, normoactive bowel sounds. No palpable organomegaly. MUSCULOSKELETAL: No joint swelling or deformity. EXTREMITIES: No cyanosis, clubbing, or pedal edema. NEUROLOGICAL: Gross neurological examination did not reveal any focal deficits. SKIN: Laceration seen on neck, wrist and abdomen Assessment and plan Suicidal attempt Intentional cutting with lacerations on neck, wrist and abdomen Intentional overdose on Zoloft Alcohol abuse Hyponatremia. Hypoosmolar with decreased solute intake. Acute urinary retention likely due to BPH worsened by psychiatric condition. Status post Cabrera catheter placement. Hypomagnesemia Hypokalemia replaced Monitor vital signs Monitor CBC Monitor CMP Continue telemetry monitoring Elopement precaution Suicide precautions Strict I's and O's, daily weights Serum osmolality 251. Continue free water restriction. Encourage oral intake. [facility] protocol Ordered thiamine and folic acid Patient was started on sodium chloride tablets as per nephrology recommendations. Continue to monitor sodium level. Cabrera catheter was placed due to urinary retention. Trial of void prior to discharge. Started on Flomax 0.4 mg daily. Seen by urology. Nephrology is on board. Patient psychiatric transfer once cleared medically. Labs and medication were reviewed.. Continue with symptomatic treatment. Monitor labs and vitals. DVT and GI prophylaxis. Dictation was produced using [employer] dictation software. please excuse any grammatical, word or spelling errors. Objective - Vital Signs Vital signs: Vital Signs Temp 98.3 F 02/24/24 16:00 Pulse 66 02/24/24 16:00 Resp 18 02/24/24 16:00 BP 130/65 02/24/24 16:00 Pulse Ox 98 02/24/24 16:00 FiO2 Intake & Output 02/24/24 02/24/24 02/25/24 06:59 18:59 06:59 Intake Total 20 358 Output Total 150 525 Balance -130 -167 Weight 52 kg Intake: IV 20 Invasive Line 2 10 Invasive Line 3 10 Oral 358 Output: Urine 150 375 Male - External 375 Post Void Residual 150 Other: Voiding Method Toilet Toilet Urinal Urinal - Labs CBC & Chem 7: 02/20/24 04:20 02/25/24 08:29 Labs: Abnormal Lab Results - Last 24 Hours (Table) 02/24/24 Range/Units 07:02 Sodium 126 L (137-145) mmol/L Chloride 96 L (98-107) mmol/L BUN 6 L (9-20) mg/dL Creatinine 0.47 L (0.66-1.25) mg/dL Calcium 8.2 L (8.4-10.2) mg/dL
--- NOTE | 2024-02-26 00:30 | P.PN ---
Subjective Progress Note Date: 02/25/24 History of present illness; patient is a 68-year-old gentleman with past medical history significant for hyperlipidemia, depression who presented to the ER for suicidal attempt. Patient was brought to the ER after trying to kill himself by cutting himself in multiple places. Patient had cut himself on the neck wrist as well as abdomen. Patient also admitted to overdosing on his Zoloft medication with intent to kill himself. Patient denies any auditory or visual hallucinations. Denies any chest pain or shortness of breath. Because of this suicidal attempt, patient brought to the ER Initial lab work done in the ER showed WBC 15.5, hemoglobin 13.8, sodium 115, potassium 4.2, BUN 6, creatinine 0.48, glucose 128 Urine drug screen positive for opiates serum alcohol level 41. EKG done in the ER showed heart rate of 101, no ST segment elevation or depression seen, no T-wave inversions seen. Chest x-ray done in the ER showed no acute cardiopulmonary process X-ray pelvis done showed no acute osseous pathology CTA neck done showed no evidence of contrast extravasation to suggest active bleeding or vascular trauma. CT chest done showed no evidence of active bleeding or traumatic abnormality in the chest Patient admitted to internal medicine service 02/21/2024 Patient is in the ER. Lying in the bed comfortably. Denied any complaints of chest pain or shortness of breath. No cough or sputum production. Patient is able to tolerate oral diet. Psychiatry recommends inpatient psych unit transfer once medically stable. Otherwise laboratory data showed sodium 121 potassium 3.3 chloride 91 bicarb is 28 BUN 16 creatinine 0.41 and magnesium 1.6. Psychiatric and nephrology is on board. 02/22/2024 Patient is resting in the bed. Awake alert and oriented. Denied any complaints of chest pain or shortness of breath. Bedside sitter is present. Sodium level this morning was 121. Continued on free water restriction and sodium chloride tablets. Magnesium level 1.5. Repeat sodium level went up to 127. Nephrology and general surgery is on board. Psychiatry recommends inpatient psychiatric admission. 02/23/2024 Patient is resting in bed. Awake alert and oriented x 3. Able to tolerate oral diet. Sodium level improved to 133 today. No other acute overnight issues. 02/24/2024 Patient is lying in the bed. Awake alert. On room air. Bladder scan showed greater than 50 cc/h. Cabrera catheter was placed due to urinary retention. Otherwise sodium level 126 today. 02/25/2024 Patient is lying in the bed. Awake alert and oriented. Continued on Cabrera catheter. Denied any complaints of abdominal pain. Tolerating oral diet. Sodium level 124 today. Tolerating oral diet. No nausea vomiting or diarrhea. Current medications reviewed. PHYSICAL EXAMINATION: GENERAL: The patient is alert and oriented x3, ill looking HEENT: Pupils are round and equally reacting to light. EOMI. No scleral icterus. No conjunctival pallor. Normocephalic, atraumatic. No pharyngeal erythema. No thyromegaly. CARDIOVASCULAR: S1 and S2 present. No murmurs, rubs, or gallops. PULMONARY: Chest is clear to auscultation, no wheezing or crackles. ABDOMEN: Soft, nontender, nondistended, normoactive bowel sounds. No palpable organomegaly. MUSCULOSKELETAL: No joint swelling or deformity. EXTREMITIES: No cyanosis, clubbing, or pedal edema. NEUROLOGICAL: Gross neurological examination did not reveal any focal deficits. SKIN: Laceration seen on neck, wrist and abdomen Assessment and plan Suicidal attempt Intentional cutting with lacerations on neck, wrist and abdomen Intentional overdose on Zoloft Alcohol abuse Hyponatremia. Hypoosmolar with decreased solute intake. Acute urinary retention likely due to BPH worsened by psychiatric condition. Status post Cabrera catheter placement. Hypomagnesemia Hypokalemia replaced Monitor vital signs Monitor CBC Monitor CMP Continue telemetry monitoring Elopement precaution Suicide precautions Strict I's and O's, daily weights Serum osmolality 251. Continue free water restriction at 1.5 L. Encourage oral intake. [facility] protocol Ordered thiamine and folic acid Patient was started on sodium chloride tablets as per nephrology recommendatio ns. Continue to monitor sodium level. Cabrera catheter was placed due to urinary retention. Trial of void prior to discharge. Started on Flomax 0.4 mg daily. Seen by urology. Nephrology is on board. Patient psychiatric transfer once cleared medically. Labs and medication were reviewed.. Continue with symptomatic treatment. Monitor labs and vitals. DVT and GI prophylaxis. Dictation was produced using [employer] software. please excuse any grammatical, word or spelling errors. Objective - Vital Signs Vital signs: Vital Signs Temp 97.9 F 02/25/24 16:00 Pulse 74 02/25/24 16:00 Resp 18 02/25/24 16:00 BP 134/71 02/25/24 16:00 Pulse Ox 97 02/25/24 16:00 FiO2 Intake & Output 02/25/24 02/25/24 02/26/24 06:59 18:59 06:59 Intake Total 1080 540 Output Total 1200 1250 Balance -120 -710 Weight 136.9 kg Intake: Oral 1080 540 Output: Urine 1200 1250 Other: Voiding Method Indwelling Catheter Indwelling Catheter - Labs CBC & Chem 7: 02/20/24 04:20 02/25/24 08:29 Labs: Abnormal Lab Results - Last 24 Hours (Table) 02/25/24 Range/Units 08:29 Sodium 124 L (137-145) mmol/L Chloride 95 L (98-107) mmol/L BUN 6 L (9-20) mg/dL Creatinine 0.47 L (0.66-1.25) mg/dL Calcium 8.2 L (8.4-10.2) mg/dL
--- NOTE | 2024-02-26 09:54 | P.PN ---
Subjective Patient is seen in follow-up for hyponatremia. Sodium level 124 yesterday. Has Cabrera catheter for urinary retention. Oral intake fair. Feels nauseated at times. Vital signs are stable. General: No acute distress. HEENT: Head exam is unremarkable. LUNGS: L no audible rhonchi or wheezes. HEART: Rate and Rhythm are regular. ABDOMEN: Nontender. EXTREMITITES: No edema. Objective - Vital Signs Vital signs: Vital Signs Temp 98.1 F 02/26/24 08:52 Pulse 77 02/26/24 08:52 Resp 16 02/26/24 08:52 BP 106/58 02/26/24 08:52 Pulse Ox 94 L 02/26/24 08:52 FiO2 Intake & Output 02/25/24 02/26/24 02/26/24 18:59 06:59 18:59 Intake Total 540 540 240 Output Total 1250 550 325 Balance -710 -10 -85 Weight 134.8 kg Intake: Oral 540 540 240 Output: Urine 1250 550 325 Other: Voiding Method Indwelling Catheter Indwelling Catheter - Labs CBC & Chem 7: 02/20/24 04:20 02/25/24 08:29 Assessment and Plan Plan: Assessment: 1. Hyponatremia. Initially hypovolemic and improved with IV fluids. Now euvolemic. Component of urinary retention. Urine osmolality 505. Sodium level 124 yesterday. TSH normal. 2. Major depressive disorder being followed by psychiatry. 3. Benign hypertension. Controlled. 4. Hypokalemia from intracellular shifting from IV bicarb. Replaced. Better. 5. Hypomagnesemia from poor intake. Replaced. Better. 6. Urinary retention. Has Cabrera catheter. On Flomax. Urology following. Plan: Maintain sodium chloride tabs. Maintain 1500 cc fluid restriction. Encouraged oral intake. Morning labs pending.
[2024-02-26 10:15] LABS: African American GFR (CKD) >90 (>60 ml/min/1.73 sqM); Anion Gap 8 mmol/L; Blood Urea Nitrogen 9 mg/dL (9-20); Calcium 8.3 mg/dL (8.4-10.2); Carbon Dioxide 21 mmol/L (22-30); Chloride 95 mmol/L (98-107); Glucose 129 mg/dL (74-99); Magnesium 1.6 mg/dL (1.6-2.3); Non-African American GFR(CKD) >90 (>60 ml/min/1.73 sqM); Potassium 3.6 mmol/L (3.5-5.1); Sodium 124 mmol/L (137-145)
[2024-02-26] MEDS: TOLVAPTAN 15 MG TABLET PO ONE (11:20)
[2024-02-26] MEDS: MAGNESIUM OXIDE 400 MG TAB PO SCH (11:21)
[2024-02-26] MEDS: POTASSIUM CHLORIDE ER 20 MEQ TAB.ER PO STA (11:21)
--- NOTE | 2024-02-26 22:38 | P.PN ---
Subjective Progress Note Date: 02/26/24 History of present illness; patient is a 68-year-old gentleman with past medical history significant for hyperlipidemia, depression who presented to the ER for suicidal attempt. Patient was brought to the ER after trying to kill himself by cutting himself in multiple places. Patient had cut himself on the neck wrist as well as abdomen. Patient also admitted to overdosing on his Zoloft medication with intent to kill himself. Patient denies any auditory or visual hallucinations. Denies any chest pain or shortness of breath. Because of this suicidal attempt, patient brought to the ER Initial lab work done in the ER showed WBC 15.5, hemoglobin 13.8, sodium 115, potassium 4.2, BUN 6, creatinine 0.48, glucose 128 Urine drug screen positive for opiates serum alcohol level 41. EKG done in the ER showed heart rate of 101, no ST segment elevation or depression seen, no T-wave inversions seen. Chest x-ray done in the ER showed no acute cardiopulmonary process X-ray pelvis done showed no acute osseous pathology CTA neck done showed no evidence of contrast extravasation to suggest active bleeding or vascular trauma. CT chest done showed no evidence of active bleeding or traumatic abnormality in the chest Patient admitted to internal medicine service 02/21/2024 Patient is in the ER. Lying in the bed comfortably. Denied any complaints of chest pain or shortness of breath. No cough or sputum production. Patient is able to tolerate oral diet. Psychiatry recommends inpatient psych unit transfer once medically stable. Otherwise laboratory data showed sodium 121 potassium 3.3 chloride 91 bicarb is 28 BUN 16 creatinine 0.41 and magnesium 1.6. Psychiatric and nephrology is on board. 02/22/2024 Patient is resting in the bed. Awake alert and oriented. Denied any complaints of chest pain or shortness of breath. Bedside sitter is present. Sodium level this morning was 121. Continued on free water restriction and sodium chloride tablets. Magnesium level 1.5. Repeat sodium level went up to 127. Nephrology and general surgery is on board. Psychiatry recommends inpatient psychiatric admission. 02/23/2024 Patient is resting in bed. Awake alert and oriented x 3. Able to tolerate oral diet. Sodium level improved to 133 today. No other acute overnight issues. 02/24/2024 Patient is lying in the bed. Awake alert. On room air. Bladder scan showed greater than 50 cc/h. Cabrera catheter was placed due to urinary retention. Otherwise sodium level 126 today. 02/25/2024 Patient is lying in the bed. Awake alert and oriented. Continued on Cabrera catheter. Denied any complaints of abdominal pain. Tolerating oral diet. Sodium level 124 today. Tolerating oral diet. No nausea vomiting or diarrhea. 02/26/2024 Patient is resting in the bed. Awake alert and oriented x 3. Complains of right chest pain today. Patient does have history of right wrist fracture, x-ray on 02/12/2024 showed intra-articular comminuted and displaced fractures of the distal right radius and ulna. Patient was seen by orthopedic surgery at that time and recommended to follow-up as an outpatient with continued pain management. Patient would like to see orthopedic surgery during this admission. He is also complaining of increasing pain. Otherwise patient is tolerating oral diet. Sodium level is at 124 today. Potassium 3.6 BUN 9 and creatinine 0.49 and magnesium 1.6. Current medications reviewed. PHYSICAL EXAMINATION: GENERAL: The patient is alert and oriented x3, ill looking HEENT: Pupils are round and equally reacting to light. EOMI. No scleral icterus. No conjunctival pallor. Normocephalic, atraumatic. No pharyngeal erythema. No thyromegaly. CARDIOVASCULAR: S1 and S2 present. No murmurs, rubs, or gallops. PULMONARY: Chest is clear to auscultation, no wheezing or crackles. ABDOMEN: Soft, nontender, nondistended, normoactive bowel sounds. No palpable organomegaly. MUSCULOSKELETAL: No joint swelling or deformity. EXTREMITIES: No cyanosis, clubbing, or pedal edema. NEUROLOGICAL: Gross neurological examination did not reveal any focal deficits. SKIN: Laceration seen on neck, wrist and abdomen Assessment and plan Suicidal attempt Intentional cutting with lacerations on neck, wrist and abdomen Intentional overdose on Zoloft Alcohol abuse Hyponatremia. Hypoosmolar with decreased solute intake. Acute urinary retention likely due to BPH worsened by psychiatric condition. Status post Cabrera catheter placement. Hypomagnesemia Hypokalemia replaced Right wrist pain. History of right wrist intra-articular fractures of the distal right radius and ulna. Monitor vital signs Monitor CBC Monitor CMP Continue telemetry monitoring Elopement precaution Suicide precautions Strict I's and O's, daily weights Serum osmolality 251. Continue free water restriction at 1.5 L. Encourage oral intake. [facility] protocol Ordered thiamine and folic acid Patient was started on sodium chloride tablets as per nephrology recommendations. Continue to monitor sodium level. Cabrera catheter was placed due to urinary retention. Trial of void prior to discharge. Started on Flomax 0.4 mg daily. Seen by urology. Nephrology is on board. Orthopedic surgery was consulted for evaluation of wrist pain. Inpatient psychiatric transfer once cleared medically. Labs and medication were reviewed.. Continue with symptomatic treatment. Monitor labs and vitals. DVT and GI prophylaxis. Dictation was produced using [employer] dictation software. please excuse any grammatical, word or spelling errors. Objective - Vital Signs Vital signs: Vital Signs Temp 97.9 F 02/26/24 15:29 Pulse 71 02/26/24 15:29 Resp 16 02/26/24 15:29 BP 104/55 02/26/24 15:29 Pulse Ox 98 02/26/24 15:29 FiO2 Intake & Output 02/25/24 02/26/24 02/26/24 18:59 06:59 18:59 Intake Total 540 540 480 Output Total 0905 470 7542 Balance -502 -89 -5763 Weight 134.8 kg Intake: Oral 540 540 480 Output: Urine 2977 447 0348 Other: Voiding Method Indwelling Catheter Indwelling Catheter Indwelling Catheter - Labs CBC & Chem 7: 02/20/24 04:20 02/26/24 09:19 Labs: Abnormal Lab Results - Last 24 Hours (Table) 02/26/24 Range/Units 09:19 Sodium 124 L (137-145) mmol/L Chloride 95 L (98-107) mmol/L Carbon Dioxide 21 L (22-30) mmol/L Creatinine 0.49 L (0.66-1.25) mg/dL Glucose 129 H (74-99) mg/dL Calcium 8.3 L (8.4-10.2) mg/dL
[2024-02-27 08:01] LABS: African American GFR (CKD) >90 (>60 ml/min/1.73 sqM); Anion Gap 7 mmol/L; Blood Urea Nitrogen 8 mg/dL (9-20); Calcium 8.4 mg/dL (8.4-10.2); Carbon Dioxide 23 mmol/L (22-30); Chloride 101 mmol/L (98-107); Glucose 94 mg/dL (74-99); Magnesium 1.9 mg/dL (1.6-2.3); Non-African American GFR(CKD) >90 (>60 ml/min/1.73 sqM); Potassium 4.5 mmol/L (3.5-5.1); Sodium 131 mmol/L (137-145)
--- NOTE | 2024-02-27 09:41 | P.PN ---
Subjective Patient is seen in follow-up for hyponatremia. Sodium level 131 today. Has Cabrera catheter for urinary retention. Oral intake improved. Fell this morning in the bathroom. Vital signs are stable. General: No acute distress. HEENT: Head exam is unremarkable. LUNGS: L no audible rhonchi or wheezes. HEART: Rate and Rhythm are regular. ABDOMEN: Nontender. EXTREMITITES: No edema. Objective - Vital Signs Vital signs: Vital Signs Temp 98.1 F 02/26/24 20:00 Pulse 81 02/27/24 07:42 Resp 16 02/27/24 07:42 BP 128/71 02/27/24 07:42 Pulse Ox 98 02/27/24 07:42 FiO2 Intake & Output 02/26/24 02/27/24 02/27/24 18:59 06:59 18:59 Intake Total 1560 240 240 Output Total 2575 1550 Balance -1015 -1310 240 Weight 50.2 kg Intake: Oral 1560 240 240 Output: Urine 2575 1550 Other: Voiding Method Indwelling Catheter Indwelling Catheter - Labs CBC & Chem 7: 02/20/24 04:20 02/27/24 07:15 Labs: Abnormal Lab Results - Last 24 Hours (Table) 02/26/24 02/27/24 Range/Units 09:19 07:15 Sodium 124 L 131 L (137-145) mmol/L Chloride 95 L (98-107) mmol/L Carbon Dioxide 21 L (22-30) mmol/L BUN 8 L (9-20) mg/dL Creatinine 0.49 L 0.54 L (0.66-1.25) mg/dL Glucose 129 H (74-99) mg/dL Calcium 8.3 L (8.4-10.2) mg/dL Assessment and Plan Plan: Assessment: 1. Hyponatremia. Initially hypovolemic and improved with IV fluids. Now euvolemic. Component of urinary retention. Urine osmolality 505. Sodium level 131 today. TSH normal. 2. Major depressive disorder being followed by psychiatry. 3. Benign hypertension. Controlled. 4. Hypokalemia from intracellular shifting from IV bicarb. Replaced. Better. 5. Hypomagnesemia from poor intake. Replaced. Better. 6. Urinary retention. Has Cabrera catheter. On Flomax. Urology following. Plan: Maintain sodium chloride tabs. Maintain 1500 cc fluid restriction. Encouraged oral intake. [place] [facility] [place] [place].
[2024-02-27] MEDS: ONDANSETRON 4 MG/2 ML VIAL IVP PRN (20:53)
--- NOTE | 2024-02-27 22:40 | P.PN ---
Subjective Progress Note Date: 02/27/24 History of present illness; patient is a 68-year-old gentleman with past medical history significant for hyperlipidemia, depression who presented to the ER for suicidal attempt. Patient was brought to the ER after trying to kill himself by cutting himself in multiple places. Patient had cut himself on the neck wrist as well as abdomen. Patient also admitted to overdosing on his Zoloft medication with intent to kill himself. Patient denies any auditory or visual hallucinations. Denies any chest pain or shortness of breath. Because of this suicidal attempt, patient brought to the ER Initial lab work done in the ER showed WBC 15.5, hemoglobin 13.8, sodium 115, potassium 4.2, BUN 6, creatinine 0.48, glucose 128 Urine drug screen positive for opiates serum alcohol level 41. EKG done in the ER showed heart rate of 101, no ST segment elevation or depression seen, no T-wave inversions seen. Chest x-ray done in the ER showed no acute cardiopulmonary process X-ray pelvis done showed no acute osseous pathology CTA neck done showed no evidence of contrast extravasation to suggest active bleeding or vascular trauma. CT chest done showed no evidence of active bleeding or traumatic abnormality in the chest Patient admitted to internal medicine service 02/21/2024 Patient is in the ER. Lying in the bed comfortably. Denied any complaints of chest pain or shortness of breath. No cough or sputum production. Patient is able to tolerate oral diet. Psychiatry recommends inpatient psych unit transfer once medically stable. Otherwise laboratory data showed sodium 121 potassium 3.3 chloride 91 bicarb is 28 BUN 16 creatinine 0.41 and magnesium 1.6. Psychiatric and nephrology is on board. 02/22/2024 Patient is resting in the bed. Awake alert and oriented. Denied any complaints of chest pain or shortness of breath. Bedside sitter is present. Sodium level this morning was 121. Continued on free water restriction and sodium chloride tablets. Magnesium level 1.5. Repeat sodium level went up to 127. Nephrology and general surgery is on board. Psychiatry recommends inpatient psychiatric admission. 02/23/2024 Patient is resting in bed. Awake alert and oriented x 3. Able to tolerate oral diet. Sodium level improved to 133 today. No other acute overnight issues. 02/24/2024 Patient is lying in the bed. Awake alert. On room air. Bladder scan showed greater than 50 cc/h. Cabrera catheter was placed due to urinary retention. Otherwise sodium level 126 today. 02/25/2024 Patient is lying in the bed. Awake alert and oriented. Continued on Cabrera catheter. Denied any complaints of abdominal pain. Tolerating oral diet. Sodium level 124 today. Tolerating oral diet. No nausea vomiting or diarrhea. 02/26/2024 Patient is resting in the bed. Awake alert and oriented x 3. Complains of right chest pain today. Patient does have history of right wrist fracture, x-ray on 02/12/2024 showed intra-articular comminuted and displaced fractures of the distal right radius and ulna. Patient was seen by orthopedic surgery at that time and recommended to follow-up as an outpatient with continued pain management. Patient would like to see orthopedic surgery during this admission. He is also complaining of increasing pain. Otherwise patient is tolerating oral diet. Sodium level is at 124 today. Potassium 3.6 BUN 9 and creatinine 0.49 and magnesium 1.6. 02/27/2024 Patient is lying in the bed. Awake alert and oriented. Denies any complaints of chest pain or shortness of breath. Continued on Cabrera catheter due to urinary retention. Able to tolerate oral diet. Sodium level improved to 131. Continued on fluid restriction. Patient was given a dose of Samsca on 02/26/2024. Nephrology is on board. Laboratory data showed sodium 131 potassium 4.5 chloride 101 bicarb is 23 BUN 18 creatinine 0.54 and blood sugar 94. Magnesium 1.9. Current medications reviewed. PHYSICAL EXAMINATION: GENERAL: The patient is alert and oriented x3, ill looking HEENT: Pupils are round and equally reacting to light. EOMI. No scleral icterus. No conjunctival pallor. Normocephalic, atraumatic. No pharyngeal erythema. No thyromegaly. CARDIOVASCULAR: S1 and S2 present. No murmurs, rubs, or gallops. PULMONARY: Chest is clear to auscultation, no wheezing or crackles. ABDOMEN: Soft, nontender, nondistended, normoactive bowel sounds. No palpable organomegaly. MUSCULOSKELETAL: No joint swelling or deformity. EXTREMITIES: No cyanosis, clubbing, or pedal edema. NEUROLOGICAL: Gross neurological examination did not reveal any focal deficits. SKIN: Laceration seen on neck, wrist and abdomen Assessment and plan Suicidal attempt Intentional cutting with lacerations on neck, wrist and abdomen Intentional overdose on Zoloft Alcohol abuse Hyponatremia. Hypoosmolar with decreased solute intake. Acute urinary retention likely due to BPH worsened by psychiatric condition. Status post Cabrera catheter placement. Hypomagnesemia Hypokalemia replaced Right wrist pain. History of right wrist intra-articular fractures of the distal right radius and ulna. Monitor vital signs Monitor CBC Monitor CMP Continue telemetry monitoring Elopement precaution Suicide precautions Strict I's and O's, daily weights Serum osmolality 251. Continue free water restriction at 1.5 L. Encourage oral intake. [facility] protocol Ordered thiamine and folic acid Patient was started on sodium chloride tablets as per nephrology recommendations. Continue to monitor sodium level. Cabrera catheter was placed due to urinary retention. Trial of void prior to discharge. Started on Flomax 0.4 mg daily. Seen by urology. Nephrology is on board. Orthopedic surgery was consulted for evaluation of wrist pain. Inpatient psychiatric transfer once cleared medically. Labs and medication were reviewed.. Continue with symptomatic treatment. Monitor labs and vitals. DVT and GI prophylaxis. Dictation was produced using [employer] dictation software. please excuse any grammatical, word or spelling errors. Objective - Vital Signs Vital signs: Vital Signs Temp 98.1 F 02/26/24 20:00 Pulse 73 02/27/24 12:36 Resp 16 02/27/24 12:36 BP 117/70 02/27/24 12:36 Pulse Ox 99 02/27/24 12:36 FiO2 Intake & Output 02/26/24 02/27/24 02/27/24 18:59 06:59 18:59 Intake Total 1560 240 780 Output Total 2575 1550 Balance -1015 -1310 780 Weight 50.2 kg Intake: Oral 1560 240 780 Output: Urine 2575 1550 Other: Voiding Method Indwelling Catheter Indwelling Catheter Indwelling Catheter - Labs CBC & Chem 7: 02/20/24 04:20 02/27/24 07:15 Labs: Abnormal Lab Results - Last 24 Hours (Table) 02/27/24 Range/Units 07:15 Sodium 131 L (137-145) mmol/L BUN 8 L (9-20) mg/dL Creatinine 0.54 L (0.66-1.25) mg/dL
--- NOTE | 2024-02-28 07:36 | P.PN ---
Subjective History of present illness; patient is a 68-year-old gentleman with past medical history significant for hyperlipidemia, depression who presented to the ER for suicidal attempt. Patient was brought to the ER after trying to kill himself by cutting himself in multiple places. Patient had cut himself on the neck wrist as well as abdomen. Patient also admitted to overdosing on his Zoloft medication with intent to kill himself. Patient denies any auditory or visual hallucinations. Denies any chest pain or shortness of breath. Because of this suicidal attempt, patient brought to the ER Initial lab work done in the ER showed WBC 15.5, hemoglobin 13.8, sodium 115, potassium 4.2, BUN 6, creatinine 0.48, glucose 128 Urine drug screen positive for opiates serum alcohol level 41. EKG done in the ER showed heart rate of 101, no ST segment elevation or depression seen, no T-wave inversions seen. Chest x-ray done in the ER showed no acute cardiopulmonary process X-ray pelvis done showed no acute osseous pathology CTA neck done showed no evidence of contrast extravasation to suggest active bleeding or vascular trauma. CT chest done showed no evidence of active bleeding or traumatic abnormality in the chest Patient admitted to internal medicine service 02/21/2024 Patient is in the ER. Lying in the bed comfortably. Denied any complaints of chest pain or shortness of breath. No cough or sputum production. Patient is able to tolerate oral diet. Psychiatry recommends inpatient psych unit transfer once medically stable. Otherwise laboratory data showed sodium 121 potassium 3.3 chloride 91 bicarb is 28 BUN 16 creatinine 0.41 and magnesium 1.6. Psychiatric and nephrology is on board. 02/22/2024 Patient is resting in the bed. Awake alert and oriented. Denied any complaints of chest pain or shortness of breath. Bedside sitter is present. Sodium level this morning was 121. Continued on free water restriction and sodium chloride tablets. Magnesium level 1.5. Repeat sodium level went up to 127. Nephrology and general surgery is on board. Psychiatry recommends inpatient psychiatric admission. 02/23/2024 Patient is resting in bed. Awake alert and oriented x 3. Able to tolerate oral diet. Sodium level improved to 133 today. No other acute overnight issues. 02/24/2024 Patient is lying in the bed. Awake alert. On room air. Bladder scan showed greater than 50 cc/h. Cabrera catheter was placed due to urinary retention. Otherwise sodium level 126 today. 02/25/2024 Patient is lying in the bed. Awake alert and oriented. Continued on Cabrera catheter. Denied any complaints of abdominal pain. Tolerating oral diet. Sodium level 124 today. Tolerating oral diet. No nausea vomiting or diarrhea. 02/26/2024 Patient is resting in the bed. Awake alert and oriented x 3. Complains of right chest pain today. Patient does have history of right wrist fracture, x- ray on 02/12/2024 showed intra-articular comminuted and displaced fractures of the distal right radius and ulna. Patient was seen by orthopedic surgery at that time and recommended to follow-up as an outpatient with continued pain management. Patient would like to see orthopedic surgery during this admission. He is also complaining of increasing pain. Otherwise patient is tolerating oral diet. Sodium level is at 124 today. Potassium 3.6 BUN 9 and creatinine 0.49 and magnesium 1.6. 02/27/2024 Patient is lying in the bed. Awake alert and oriented. Denies any complaints of chest pain or shortness of breath. Continued on Cabrera catheter due to urinary retention. Able to tolerate oral diet. Sodium level improved to 131. Continued on fluid restriction. Patient was given a dose of Samsca on 02/26/2024. Nephrology is on board. Laboratory data showed sodium 131 potassium 4.5 chloride 101 bicarb is 23 BUN 18 creatinine 0.54 and blood sugar 94. Magnesium 1.9. 02/27 Lying in bed comfortable, denies any specific complaint No chest pain or dyspnea. Denies laceration problem He has pain in his right wrist with some deformity with prominent bones on the lateral side. He states this happened after she fell about 2 weeks ago. His pain about 8/10 in severity, he has good handgrip. Other than that he has a Cabrera catheter in place and admission because of acute urinary retention, urologist recommended to discontinue Cabrera prior to discharge, I discussed with patient and he agrees to take it out and we will do every shift bladder scan, discussed with the staff Objective - Vital Signs Vital signs: Vital Signs Temp 98.1 F 02/28/24 00:00 Pulse 75 02/28/24 04:00 Resp 15 02/28/24 04:00 BP 105/63 02/28/24 04:00 Pulse Ox 99 02/28/24 04:00 FiO2 Intake & Output 02/27/24 02/28/24 02/28/24 18:59 06:59 18:59 Intake Total 1002 10 Output Total 850 Balance 1002 -840 Weight 33.5 kg Intake: IV 10 Invasive Line 3 10 Oral 1002 Output: Urine 850 Other: Voiding Method Indwelling Catheter Indwelling Catheter - Exam GENERAL: The patient is alert and oriented x3, not in any acute distress. Well developed, well nourished. HEENT: Pupils are round and equally reacting to light. EOMI. No scleral icterus. No conjunctival pallor. Normocephalic, atraumatic. No pharyngeal erythema. No thyromegaly. CARDIOVASCULAR: S1 and S2 present. No murmurs, rubs, or gallops. PULMONARY: Chest is clear to auscultation, no wheezing , no crackles. ABDOMEN: Soft, nontender, nondistended, normoactive bowel sounds. No palpable organomegaly. MUSCULOSKELETAL: No joint swelling or deformity. EXTREMITIES: No cyanosis, clubbing, or pedal edema. -Mild prominent bone on the lateral side of the right wrist. No cellulitis, no open wound, no discharge NEUROLOGICAL: Gross neurological examination did not reveal any focal deficits. SKIN: No rashes. no petechiae. - Labs CBC & Chem 7: 02/20/24 04:20 02/27/24 07:15 Labs: Abnormal Lab Results - Last 24 Hours (Table) 02/27/24 Range/Units 07:15 Sodium 131 L (137-145) mmol/L BUN 8 L (9-20) mg/dL Creatinine 0.54 L (0.66-1.25) mg/dL Assessment and Plan Assessment: Suicidal attempt Intentional cutting with lacerations on neck, wrist and abdomen Intentional overdose on Zoloft Alcohol abuse Hyponatremia. Hypoosmolar with decreased solute intake. Acute urinary retention likely due to BPH worsened by psychiatric condition. Status post Cabrera catheter placement. Hypomagnesemia Hypokalemia replaced Right wrist pain. History of right wrist intra-articular fractures of the distal right radius and ulna. Plan: Continue with sitter at bedside Patient to be transferred to [facility]. once he is medically stable Sodium level is improving with nephrology following urology evaluated the patient for his urinary retention. He is kept on Flomax. He agrees to discontinue Cabrera catheter and check a bladder scan every shift, if he is retaining patient agrees to reinserted. Labs and medication were reviewed.. Continue same treatment. Continue with symptomatic treatment. Resume home medication. Monitor labs and vitals. DVT and GI prophylaxis. Further recommendations as per clinical course of the patient DVT prophylaxis: Subcutaneous heparin GI Prophylaxis: Pepcid Prognosis is guarded
[2024-02-28 07:58] LABS: African American GFR (CKD) >90 (>60 ml/min/1.73 sqM); Anion Gap 5 mmol/L; Blood Urea Nitrogen 11 mg/dL (9-20); Calcium 8.3 mg/dL (8.4-10.2); Carbon Dioxide 21 mmol/L (22-30); Chloride 101 mmol/L (98-107); Glucose 91 mg/dL (74-99); Non-African American GFR(CKD) >90 (>60 ml/min/1.73 sqM); Potassium 4.6 mmol/L (3.5-5.1); Sodium 127 mmol/L (137-145)
[2024-02-28] MEDS: HEPARIN SODIUM,PORCINE 5,000 UNIT/ML 1 ML VIAL SQ SCH (08:42)
[2024-02-28] MEDS: FAMOTIDINE 20 MG/2 ML VIAL IV SCH (08:43)
--- NOTE | 2024-02-28 10:17 | P.PN ---
Subjective Patient is seen in follow-up for hyponatremia. Sodium level 127 today. Cabrera catheter removed this morning. Oral intake improved. Vital signs are stable. General: No acute distress. HEENT: Head exam is unremarkable. LUNGS: L no audible rhonchi or wheezes. HEART: Rate and Rhythm are regular. ABDOMEN: Nontender. EXTREMITITES: No edema. Objective - Vital Signs Vital signs: Vital Signs Temp 97.6 F 02/28/24 08:35 Pulse 80 02/28/24 08:35 Resp 15 02/28/24 08:35 BP 109/68 02/28/24 08:35 Pulse Ox 100 02/28/24 08:35 FiO2 Intake & Output 02/27/24 02/28/24 02/28/24 18:59 06:59 18:59 Intake Total 1002 10 180 Output Total 850 400 Balance 1002 -840 -220 Weight 33.5 kg Intake: IV 10 Invasive Line 3 10 Oral 1002 180 Output: Urine 850 400 Other: Voiding Method Indwelling Catheter Indwelling Catheter Urinal # Bowel Movements 1 - Labs CBC & Chem 7: 02/20/24 04:20 02/28/24 06:46 Labs: Abnormal Lab Results - Last 24 Hours (Table) 02/28/24 Range/Units 06:46 Sodium 127 L (137-145) mmol/L Carbon Dioxide 21 L (22-30) mmol/L Creatinine 0.47 L (0.66-1.25) mg/dL Calcium 8.3 L (8.4-10.2) mg/dL Assessment and Plan Plan: Assessment: 1. Hyponatremia. Initially hypovolemic and improved with IV fluids. Now euvolemic. Component of urinary retention. Urine osmolality 505. Sodium level 127 today. TSH normal. 2. Major depressive disorder being followed by psychiatry. 3. Benign hypertension. Controlled. 4. Hypokalemia from intracellular shifting from IV bicarb. Replaced. Better. 5. Hypomagnesemia from poor intake. Replaced. Better. 6. Urinary retention. Cabrera catheter removed. On Flomax. Urology following. Plan: Maintain sodium chloride tabs. Maintain 1500 cc fluid restriction. Encouraged oral intake. Status post Samsca this admission. Repeat Samsca today. Check PTH related peptide. Monitor bladder scans closely to make sure no urinary retention.
[2024-02-28] MEDS: TOLVAPTAN 15 MG TABLET PO ONE (10:56)
[2024-02-29 07:21] LABS: African American GFR (CKD) >90 (>60 ml/min/1.73 sqM); Anion Gap 2 mmol/L; Blood Urea Nitrogen 15 mg/dL (9-20); Calcium 8.6 mg/dL (8.4-10.2); Carbon Dioxide 25 mmol/L (22-30); Chloride 105 mmol/L (98-107); Glucose 86 mg/dL (74-99); Non-African American GFR(CKD) >90 (>60 ml/min/1.73 sqM); Potassium 4.8 mmol/L (3.5-5.1); Sodium 132 mmol/L (137-145)
--- NOTE | 2024-02-29 10:41 | P.PN ---
Subjective Patient is seen in follow-up for hyponatremia. Sodium level 132 today. Cabrera catheter inserted for persistent urinary retention. Complains of discomfort in his right arm. Vital signs are stable. General: No acute distress. HEENT: Head exam is unremarkable. LUNGS: L no audible rhonchi or wheezes. HEART: Rate and Rhythm are regular. ABDOMEN: Nontender. EXTREMITITES: No edema. Objective - Vital Signs Vital signs: Vital Signs Temp 97.4 F L 02/29/24 08:37 Pulse 74 02/29/24 08:37 Resp 17 02/29/24 08:37 BP 126/74 02/29/24 08:37 Pulse Ox 99 02/29/24 08:37 FiO2 Intake & Output 02/28/24 02/29/24 02/29/24 18:59 06:59 18:59 Intake Total 1372 20 128 Output Total 800 725 Balance 572 -705 128 Weight 33.5 kg 53 kg Intake: IV 10 20 10 Invasive Line 4 10 20 10 Oral 1362 118 Output: Urine 800 725 Other: Voiding Method Urinal Indwelling Catheter Indwelling Catheter # Bowel Movements 1 - Labs CBC & Chem 7: 02/20/24 04:20 02/29/24 05:53 Labs: Abnormal Lab Results - Last 24 Hours (Table) 02/29/24 Range/Units 05:53 Sodium 132 L (137-145) mmol/L Creatinine 0.64 L (0.66-1.25) mg/dL Assessment and Plan Plan: Assessment: 1. Hyponatremia. Initially hypovolemic and improved with IV fluids. Now euvolemic. Component of urinary retention. Urine osmolality 505. Sodium level 132 today. TSH normal. 2. Major depressive disorder being followed by psychiatry. 3. Benign hypertension. Controlled. 4. Hypokalemia from intracellular shifting from IV bicarb. Replaced. Better. 5. Hypomagnesemia from poor intake. Replaced. Better. 6. Urinary retention. Cabrera catheter reinserted. On Flomax. Urology following. Plan: Maintain sodium chloride tabs. Maintain 1500 cc fluid restriction. Encouraged oral intake. Status post [facility] this admission. Last given February 28, 2024. Follow-up PTH related peptide.
--- NOTE | 2024-02-29 11:23 | P.PN ---
Subjective History of present illness; patient is a 68-year-old gentleman with past medical history significant for hyperlipidemia, depression who presented to the ER for suicidal attempt. Patient was brought to the ER after trying to kill himself by cutting himself in multiple places. Patient had cut himself on the neck wrist as well as abdomen. Patient also admitted to overdosing on his Zoloft medication with intent to kill himself. Patient denies any auditory or visual hallucinations. Denies any chest pain or shortness of breath. Because of this suicidal attempt, patient brought to the ER Initial lab work done in the ER showed WBC 15.5, hemoglobin 13.8, sodium 115, potassium 4.2, BUN 6, creatinine 0.48, glucose 128 Urine drug screen positive for opiates serum alcohol level 41. EKG done in the ER showed heart rate of 101, no ST segment elevation or depression seen, no T-wave inversions seen. Chest x-ray done in the ER showed no acute cardiopulmonary process X-ray pelvis done showed no acute osseous pathology CTA neck done showed no evidence of contrast extravasation to suggest active bleeding or vascular trauma. CT chest done showed no evidence of active bleeding or traumatic abnormality in the chest Patient admitted to internal medicine service 02/21/2024 Patient is in the ER. Lying in the bed comfortably. Denied any complaints of chest pain or shortness of breath. No cough or sputum production. Patient is able to tolerate oral diet. Psychiatry recommends inpatient psych unit transfer once medically stable. Otherwise laboratory data showed sodium 121 potassium 3.3 chloride 91 bicarb is 28 BUN 16 creatinine 0.41 and magnesium 1.6. Psychiatric and nephrology is on board. 02/22/2024 Patient is resting in the bed. Awake alert and oriented. Denied any complaints of chest pain or shortness of breath. Bedside sitter is present. Sodium level this morning was 121. Continued on free water restriction and sodium chloride tablets. Magnesium level 1.5. Repeat sodium level went up to 127. Nephrology and general surgery is on board. Psychiatry recommends inpatient psychiatric admission. 02/23/2024 Patient is resting in bed. Awake alert and oriented x 3. Able to tolerate oral diet. Sodium level improved to 133 today. No other acute overnight issues. 02/24/2024 Patient is lying in the bed. Awake alert. On room air. Bladder scan showed greater than 50 cc/h. Cabrera catheter was placed due to urinary retention. Otherwise sodium level 126 today. 02/25/2024 Patient is lying in the bed. Awake alert and oriented. Continued on Cabrera catheter. Denied any complaints of abdominal pain. Tolerating oral diet. Sodium level 124 today. Tolerating oral diet. No nausea vomiting or diarrhea. 02/26/2024 Patient is resting in the bed. Awake alert and oriented x 3. Complains of right chest pain today. Patient does have history of right wrist fracture, x- ray on 02/12/2024 showed intra-articular comminuted and displaced fractures of the distal right radius and ulna. Patient was seen by orthopedic surgery at that time and recommended to follow-up as an outpatient with continued pain management. Patient would like to see orthopedic surgery during this admission. He is also complaining of increasing pain. Otherwise patient is tolerating oral diet. Sodium level is at 124 today. Potassium 3.6 BUN 9 and creatinine 0.49 and magnesium 1.6. 02/27/2024 Patient is lying in the bed. Awake alert and oriented. Denies any complaints of chest pain or shortness of breath. Continued on Cabrera catheter due to urinary retention. Able to tolerate oral diet. Sodium level improved to 131. Continued on fluid restriction. Patient was given a dose of Samsca on 02/26/2024. Nephrology is on board. Laboratory data showed sodium 131 potassium 4.5 chloride 101 bicarb is 23 BUN 18 creatinine 0.54 and blood sugar 94. Magnesium 1.9. 02/27 Lying in bed comfortable, denies any specific complaint No chest pain or dyspnea. Denies laceration problem He has pain in his right wrist with some deformity with prominent bones on the lateral side. He states this happened after she fell about 2 weeks ago. His pain about 8/10 in severity, he has good handgrip. Other than that he has a Cabrera catheter in place and admission because of acute urinary retention, urologist recommended to discontinue Cabrera prior to discharge, I discussed with patient and he agrees to take it out and we will do every shift bladder scan, discussed with the staff 02/28 Patient awake alert, looks little tired Sitter at bedside His sodium improved today 132 status post Samsca x 1 yesterday Denies any other complaints He tolerates diet well Patient can be downgraded to general medical floor with telemetry for now patient still pending to be placed in psych geriatric unit Objective - Vital Signs Vital signs: Vital Signs Temp 97.8 F 02/29/24 11:12 Pulse 68 02/29/24 11:12 Resp 17 02/29/24 11:12 BP 122/74 02/29/24 11:12 Pulse Ox 100 02/29/24 11:12 FiO2 Intake & Output 02/28/24 02/29/24 02/29/24 18:59 06:59 18:59 Intake Total 1372 20 844 Output Total 800 725 Balance 572 -705 844 Weight 33.5 kg 53 kg Intake: IV 10 20 10 Invasive Line 4 10 20 10 Oral 1362 834 Output: Urine 800 725 Other: Voiding Method Urinal Indwelling Catheter Indwelling Catheter # Bowel Movements 1 - Exam GENERAL: The patient is alert and oriented x3, not in any acute distress. Well developed, well nourished. HEENT: Pupils are round and equally reacting to light. EOMI. No scleral icterus. No conjunctival pallor. Normocephalic, atraumatic. No pharyngeal erythema. No thyromegaly. CARDIOVASCULAR: S1 and S2 present. No murmurs, rubs, or gallops. PULMONARY: Chest is clear to auscultation, no wheezing , no crackles. ABDOMEN: Soft, nontender, nondistended, normoactive bowel sounds. No palpable organomegaly. MUSCULOSKELETAL: No joint swelling or deformity. EXTREMITIES: No cyanosis, clubbing, or pedal edema. -Mild prominent bone on the lateral side of the right wrist. No cellulitis, no open wound, no discharge NEUROLOGICAL: Gross neurological examination did not reveal any focal deficits. SKIN: No rashes. no petechiae. - Labs CBC & Chem 7: 02/20/24 04:20 02/29/24 05:53 Labs: Abnormal Lab Results - Last 24 Hours (Table) 02/29/24 Range/Units 05:53 Sodium 132 L (137-145) mmol/L Creatinine 0.64 L (0.66-1.25) mg/dL Assessment and Plan Assessment: Suicidal attempt Intentional cutting with lacerations on neck, wrist and abdomen Intentional overdose on Zoloft Alcohol abuse Hyponatremia. Hypoosmolar with decreased solute intake. Acute urinary retention likely due to BPH worsened by psychiatric condition. Status post Cabrera catheter placement. Hypomagnesemia Hypokalemia replaced Right wrist pain. History of right wrist intra-articular fractures of the distal right radius and ulna. Plan: Continue with sitter at bedside Patient to be transferred to 3 [address]. once he is medically stable Sodium level is improving with nephrology following urology evaluated the patient for his urinary retention. He is kept on Flomax. He agrees to discontinue Cabrera catheter and check a bladder scan every shift, if he is retaining patient agrees to reinserted. Labs and medication were reviewed.. Continue same treatment. Continue with symptomatic treatment. Resume home medication. Monitor labs and vitals. DVT and GI prophylaxis. Further recommendations as per clinical course of the patient DVT prophylaxis: Subcutaneous heparin GI Prophylaxis: Pepcid Prognosis is guarded
[2024-03-01 06:22] LABS: African American GFR (CKD) >90 (>60 ml/min/1.73 sqM); Anion Gap 3 mmol/L; Blood Urea Nitrogen 14 mg/dL (9-20); Calcium 8.7 mg/dL (8.4-10.2); Carbon Dioxide 22 mmol/L (22-30); Chloride 105 mmol/L (98-107); Glucose 89 mg/dL (74-99); Magnesium 1.8 mg/dL (1.6-2.3); Non-African American GFR(CKD) >90 (>60 ml/min/1.73 sqM); Potassium 4.4 mmol/L (3.5-5.1); Sodium 130 mmol/L (137-145)
--- NOTE | 2024-03-01 10:21 | P.CNOR ---
History of Present Illness - [facility] Consult date: 02/29/24 Requesting physician: Odette Smith Consult reason: other (right wrist pain) History of present illness: Patient has a known history of right displaced distal radius fracture that was sustained several weeks ago after a fall, he was initially evaluated and splinted however he discontinued his splints. He was evaluated for this issue and given the chronicity of the fracture I discussed with him that if surgical intervention was possible given his other medical conditions I would recommend an osteotomy to correct his deformity once the bone had an opportunity to solidify at least 3 months after his injury. He is currently admitted for suicidal ideation after multiple cutting incidents to his neck and extremities. we are consulted for right wrist pain. since his last admission he denies any new injuries to the wrist apart, he has been compliant with the use of his wrist brace that he was provided at the last visit while at home however he was unable to bring this with him after the events that led to this current admission. He notes persistent pain to the right wrist however is minimally painful at rest but he does have pain with active use of the wrist. He has continued to be able to use his walker especially when he does use the wrist brace. He notes some diminished sensation to the median nerve distribution primarily in the radial digits of the hand. However he is still able to utilize the hand for many of his daily needs. Review of Systems Musculoskeletal: Reports arm numbness/tingling, Reports frequent falls Musculoskeletal: right: wrist pain Integumentary: Reports wounds Psychiatric: Reports depression, Reports suicidal ideation Past Medical History Past Medical History: Coronary Artery Disease (CAD), Chest Pain / Angina, COPD, Hypertension, Myocardial Infarction ([place]), Osteoarthritis (OA) Additional Past Medical History / Comment(s): suicidal Last Myocardial Infarction Date:: 12/2023? unconfirmed History of Any Multi-Drug Resistant Organisms: None Reported Past Surgical History: Back Surgery, Heart Catheterization With Stent, Orthopedic Surgery, Prostate Surgery Additional Past Surgical History / Comment(s): wrist and bilateral hip surgery. Past Anesthesia/Blood Transfusion Reactions: No Reported Reaction Date of Last Stent Placement:: 2017 Past Psychological History: No Psychological Hx Reported Smoking Status: Current every day smoker Past Alcohol Use History: Abuse, Daily, Heavy Past Drug Use History: None Reported Medications and Allergies Home Medications Medication Instructions Recorded Confirmed Type Ranolazine [Ranexa] 1,000 mg PO BID 12/23/23 02/19/24 History Atorvastatin [Lipitor] 80 mg PO HS 02/12/24 02/19/24 History Aspirin 81 mg PO DAILY tab 02/15/24 02/19/24 Rx Folic Acid 1 mg PO DAILY tab 02/15/24 02/19/24 Rx Ipratropium-Albuterol Nebulize 3 ml INHALATION RT-QID PRN each 02/15/24 02/19/24 Rx [Duoneb 0.5 mg-3 mg/3 ml Soln] Metoprolol Succinate (ER) [Toprol 12.5 mg PO DAILY #30 tab 02/15/24 02/19/24 Rx XL] Nicotine 21Mg/24Hr Patch [Habitrol] 1 patch TRANSDERM DAILY patch 02/15/24 02/19/24 Rx Thiamine [Vitamin B-1] 100 mg PO DAILY tab 02/15/24 02/19/24 Rx traMADol HCl [Ultram] 50 mg PO Q6H PRN #12 tab 02/15/24 02/19/24 Rx Multivitamins, Thera [Multivitamin 1 tab PO DAILY 02/17/24 02/19/24 History (formulary)] Sertraline [Zoloft] 50 mg PO DAILY 30 Days #30 tab 02/18/24 02/19/24 Rx Sodium Chloride Tab 1 gm PO BID 30 Days #60 tab 02/18/24 02/19/24 Rx Allergies Allergy/AdvReac Type Severity Reaction Status Date / Time No Known Allergies Allergy Verified 02/19/24 16:00 Physical Examination Right wrist Similar exam to his previous evaluation at his last hospitalization He has noticeable deformity to the right wrist mainly with increased radial deviation and extension of the wrist His skin is intact around the wrist other than some mild ecchymosis He has minimal tenderness to palpation to the right wrist He is able to achieve roughly a 50% flexion and extension arc of the wrist with active and passive motion He is able to make a composite fist He has some mild diminished sensation to the median nerve distribution of the hand to light touch He has intact radial pulses and brisk capillary refill to all digits of the hand Bilateral hips Incisions are well-healed and well-appearing He has no tenderness around the hips He has no pain with active or passive motion of the hips He has intact motor and sensation throughout the bilateral lower extremities He has brisk capillary refill to the bilateral feet Results - Labs Labs: Abnormal Lab Results - Last 24 Hours (Table) 02/29/24 Range/Units 05:53 Sodium 132 L (137-145) mmol/L Creatinine 0.64 L (0.66-1.25) mg/dL H & H 02/19/24 02/20/24 Range/Units 14:30 04:20 Hgb 13.8 D 10.9 L (13.0-17.5) gm/dL Hct 41.5 31.8 L (39.0-53.0) % Coagulation 02/19/24 Range/Units 14:30 INR 0.9 (<1.2) Result Diagrams: 02/20/24 04:20 03/01/24 04:43 Assessment and Plan (1) Fracture of greater trochanter of left femur Current Visit: No Status: Resolved Priority: High Code(s): S72.112A - DISP FX OF GREATER TROCHANTER OF LEFT FEMUR, INIT SNOMED Code(s): 780078464 (2) Fracture of greater trochanter of right femur Current Visit: No Status: Resolved Priority: High Code(s): S72.111A - DISP FX OF GREATER TROCHANTER OF RIGHT FEMUR, INIT SNOMED Code(s): 037698797 (3) Right wrist fracture Current Visit: No Status: Chronic Code(s): S62.101A - FRACTURE OF UNSP CARPAL BONE, RIGHT WRIST, INIT FOR CLOS FX SNOMED Code(s): 976694513 Plan: Regarding his right wrist fracture the plan will be similar tofd what was discussed at his last admission, given the subacute nature of the presentation early surgical intervention would not be recommended due to his overall poor bone quality and the further compromised bone quality and the midterm healing phase. As I discussed with him during his last admission I would recommend delaying surgical intervention until roughly 3 months after his injury in order to allow the bone to properly solidify in order to discuss proceeding with a more involved procedure in the form of a corrective osteotomy of the distal radius which would require adequate bone stock in order to properly support the amount of correction that would be needed. A wrist brace has been ordered for him to wear given that he does not have the one that was previously provided, he should wear this when active with the right wrist and may remove it for sleeping and hygiene. He can perform activities as tolerated and weightbearing as tolerated to the right wrist. I will also obtain updated images of the right wrist to rule out any additional injury and assess for current bony alignment should eventual surgical intervention be planned down the road. We also discussed that his overall health is very much an issue with proceeding with surgical intervention to the right wrist and he would need to be properly medically optimized before we would discuss proceeding with this surgery as this is much different than the hip fractures he had done several months ago and this is a semielective procedure to the right wrist. He has been functioning well overall and especially when he wears his wrist braces he is able to complete a good amount of his activities and is able to function overall well with the right wrist and so I would not proceed with surgical intervention if his medical issues including his chronic electrolyte abnormalities, his alcohol abuse, and now his mental health concerns are not properly addressed. Regarding his bilateral hips we will obtain updated imaging and as long as the fractures and hardware are stable he should not require any further follow-up r egarding his hips at this point. He can continue to be weightbearing as tolerated to the bilateral hips he has no restrictions to his lower extremities. Please reach out to the orthopedic team with any further concerns, there are no plans for any further acute surgical intervention for the right wrist during this admission. Should the pain to his right wrist not be adequately controlled with wrist brace and oral medications, and assuming the fracture is in a stable position we could consider a steroid injection to the right wrist in order to help with pain control however this would further push surgical intervention back until 3 months after his injection but is something that we could discuss with the patient if it is solely pain and not functional deficits that are his biggest problem.
--- NOTE | 2024-03-01 10:23 | P.PN ---
Subjective Patient is seen in follow-up for hyponatremia. Sodium level 130 today. Cabrera catheter inserted for persistent urinary retention. Resting in bed. Oral intake has been fair. No active complaints. Sitter at bedside. Vital signs are stable. General: No acute distress. HEENT: Head exam is unremarkable. LUNGS: No audible rhonchi or wheezes. HEART: Rate and Rhythm are regular. ABDOMEN: Nontender. EXTREMITITES: No edema. Objective - Vital Signs Vital signs: Vital Signs Temp 98.0 F 03/01/24 08:00 Pulse 78 03/01/24 08:00 Resp 18 03/01/24 08:00 BP 135/79 03/01/24 08:00 Pulse Ox 99 03/01/24 08:00 FiO2 Intake & Output 02/29/24 03/01/24 03/01/24 18:59 06:59 18:59 Intake Total 1294 10 Output Total 450 500 Balance 844 -490 Weight 125 kg Intake: IV 20 10 Invasive Line 4 20 10 Oral 1274 Output: Urine 450 500 Other: Voiding Method Indwelling Catheter Indwelling Catheter Indwelling Catheter # Bowel Movements 2 - Labs CBC & Chem 7: 02/20/24 04:20 03/01/24 04:43 Labs: Abnormal Lab Results - Last 24 Hours (Table) 03/01/24 Range/Units 04:43 Sodium 130 L (137-145) mmol/L Creatinine 0.59 L (0.66-1.25) mg/dL Assessment and Plan Plan: Assessment: 1. Hyponatremia. Initially hypovolemic and improved with IV fluids. Now euvolemic. Component of urinary retention. Urine osmolality 505. Sodium level 130 today. TSH normal. 2. Major depressive disorder being followed by psychiatry. 3. Benign hypertension. Controlled. 4. Hypokalemia from intracellular shifting from IV bicarb. Replaced. Better. 5. Hypomagnesemia from poor intake. Replaced. Better. 6. Urinary retention. Cabrera catheter reinserted. On Flomax. Urology followi ng. Plan: Maintain sodium chloride tabs. Maintain 1500 cc fluid restriction. Encouraged oral intake. Status post [facility] this admission. Last given February 28, 2024. Follow-up PTH related peptide. Check a.m. cortisol level.
--- NOTE | 2024-03-01 10:27 | P.PN ---
Subjective History of present illness; patient is a 68-year-old gentleman with past medical history significant for hyperlipidemia, depression who presented to the ER for suicidal attempt. Patient was brought to the ER after trying to kill himself by cutting himself in multiple places. Patient had cut himself on the neck wrist as well as abdomen. Patient also admitted to overdosing on his Zoloft medication with intent to kill himself. Patient denies any auditory or visual hallucinations. Denies any chest pain or shortness of breath. Because of this suicidal attempt, patient brought to the ER Initial lab work done in the ER showed WBC 15.5, hemoglobin 13.8, sodium 115, potassium 4.2, BUN 6, creatinine 0.48, glucose 128 Urine drug screen positive for opiates serum alcohol level 41. EKG done in the ER showed heart rate of 101, no ST segment elevation or depression seen, no T-wave inversions seen. Chest x-ray done in the ER showed no acute cardiopulmonary process X-ray pelvis done showed no acute osseous pathology CTA neck done showed no evidence of contrast extravasation to suggest active bleeding or vascular trauma. CT chest done showed no evidence of active bleeding or traumatic abnormality in the chest Patient admitted to internal medicine service 02/21/2024 Patient is in the ER. Lying in the bed comfortably. Denied any complaints of chest pain or shortness of breath. No cough or sputum production. Patient is able to tolerate oral diet. Psychiatry recommends inpatient psych unit transfer once medically stable. Otherwise laboratory data showed sodium 121 potassium 3.3 chloride 91 bicarb is 28 BUN 16 creatinine 0.41 and magnesium 1.6. Psychiatric and nephrology is on board. 02/22/2024 Patient is resting in the bed. Awake alert and oriented. Denied any complaints of chest pain or shortness of breath. Bedside sitter is present. Sodium level this morning was 121. Continued on free water restriction and sodium chloride tablets. Magnesium level 1.5. Repeat sodium level went up to 127. Nephrology and general surgery is on board. Psychiatry recommends inpatient psychiatric admission. 02/23/2024 Patient is resting in bed. Awake alert and oriented x 3. Able to tolerate oral diet. Sodium level improved to 133 today. No other acute overnight issues. 02/24/2024 Patient is lying in the bed. Awake alert. On room air. Bladder scan showed greater than 50 cc/h. Cabrera catheter was placed due to urinary retention. Otherwise sodium level 126 today. 02/25/2024 Patient is lying in the bed. Awake alert and oriented. Continued on Cabrera catheter. Denied any complaints of abdominal pain. Tolerating oral diet. Sodium level 124 today. Tolerating oral diet. No nausea vomiting or diarrhea. 02/26/2024 Patient is resting in the bed. Awake alert and oriented x 3. Complains of right chest pain today. Patient does have history of right wrist fracture, x- ray on 02/12/2024 showed intra-articular comminuted and displaced fractures of the distal right radius and ulna. Patient was seen by orthopedic surgery at that time and recommended to follow-up as an outpatient with continued pain management. Patient would like to see orthopedic surgery during this admission. He is also complaining of increasing pain. Otherwise patient is tolerating oral diet. Sodium level is at 124 today. Potassium 3.6 BUN 9 and creatinine 0.49 and magnesium 1.6. 02/27/2024 Patient is lying in the bed. Awake alert and oriented. Denies any complaints of chest pain or shortness of breath. Continued on Cabrera catheter due to urinary retention. Able to tolerate oral diet. Sodium level improved to 131. Continued on fluid restriction. Patient was given a dose of Samsca on 02/26/2024. Nephrology is on board. Laboratory data showed sodium 131 potassium 4.5 chloride 101 bicarb is 23 BUN 18 creatinine 0.54 and blood sugar 94. Magnesium 1.9. 02/27 Lying in bed comfortable, denies any specific complaint No chest pain or dyspnea. Denies laceration problem He has pain in his right wrist with some deformity with prominent bones on the lateral side. He states this happened after she fell about 2 weeks ago. His pain about 8/10 in severity, he has good handgrip. Other than that he has a Cabrera catheter in place and admission because of acute urinary retention, urologist recommended to discontinue Cabrera prior to discharge, I discussed with patient and he agrees to take it out and we will do every shift bladder scan, discussed with the staff 02/28 Patient awake alert, looks little tired Sitter at bedside His sodium improved today 132 status post Samsca x 1 yesterday Denies any other complaints He tolerates diet well Patient can be downgraded to general medical floor with telemetry for now patient still pending to be placed in psych geriatric unit 02/09 lying in bed comfortable no new complaint siter at bed side sodium 130 pending placement to psych geriatric unit Objective - Vital Signs Vital signs: Vital Signs Temp 98.0 F 03/01/24 08:00 Pulse 78 03/01/24 08:00 Resp 18 03/01/24 08:00 BP 135/79 03/01/24 08:00 Pulse Ox 99 03/01/24 08:00 FiO2 Intake & Output 02/29/24 03/01/24 03/01/24 18:59 06:59 18:59 Intake Total 1294 10 Output Total 450 500 Balance 844 -490 Weight 125 kg Intake: IV 20 10 Invasive Line 4 20 10 Oral 1274 Output: Urine 450 500 Other: Voiding Method Indwelling Catheter Indwelling Catheter Indwelling Catheter # Bowel Movements 2 - Exam GENERAL: The patient is alert and oriented x3, not in any acute distress. Well developed, well nourished. HEENT: Pupils are round and equally reacting to light. EOMI. No scleral icterus. No conjunctival pallor. Normocephalic, atraumatic. No pharyngeal erythema. No thyromegaly. CARDIOVASCULAR: S1 and S2 present. No murmurs, rubs, or gallops. PULMONARY: Chest is clear to auscultation, no wheezing , no crackles. ABDOMEN: Soft, nontender, nondistended, normoactive bowel sounds. No palpable organomegaly. MUSCULOSKELETAL: No joint swelling or deformity. EXTREMITIES: No cyanosis, clubbing, or pedal edema. -Mild prominent bone on the lateral side of the right wrist. No cellulitis, no open wound, no discharge NEUROLOGICAL: Gross neurological examination did not reveal any focal deficits. SKIN: No rashes. no petechiae. - Labs CBC & Chem 7: 02/20/24 04:20 03/01/24 04:43 Labs: Abnormal Lab Results - Last 24 Hours (Table) 03/01/24 Range/Units 04:43 Sodium 130 L (137-145) mmol/L Creatinine 0.59 L (0.66-1.25) mg/dL Assessment and Plan Assessment: Suicidal attempt Intentional cutting with lacerations on neck, wrist and abdomen Intentional overdose on Zoloft Alcohol abuse Hyponatremia. Hypoosmolar with decreased solute intake. Acute urinary retention likely due to BPH worsened by psychiatric condition. Status post Cabrera catheter placement. Hypomagnesemia Hypokalemia replaced Right wrist pain. History of right wrist intra-articular fractures of the distal right radius and ulna. Plan: Continue with sitter at bedside Patient to be transferred to 3 W. once he is medically stable Sodium level is improving with nephrology following urology evaluated the patient for his urinary retention. He is kept on Flomax. He agrees to discontinue Cabrera catheter and check a bladder scan every shift, if he is retaining patient agrees to reinserted. Labs and medication were reviewed.. Continue same treatment. Continue with symptomatic treatment. Resume home medication. Monitor labs and vitals. DVT and GI prophylaxis. Further recommendations as per clinical course of the patient DVT prophylaxis: Subcutaneous heparin GI Prophylaxis: Pepcid Prognosis is guarded
--- NOTE | 2024-03-01 11:12 | XR ---
EXAMINATION TYPE: XR Hip Bilateral and AP pelvis DATE OF EXAM: 03/01/2024 11:04 AM CLINICAL INDICATION:Male, 68 years old with history of post op bilateral hip nails; H COMPARISON: Pelvis radiograph 02/19/2024. TECHNIQUE: XR Hip Bilateral and AP pelvis; hip was examined in the frontal and lateral projections an d a AP pelvis. FINDINGS: Bilateral proximal femur intramedullary ruben with gamma nail fixation redemonstrated. There is no acut e surgical hardware abnormalities. No significant soft tissue abnormality appreciated. Degenerative c hanges of the bony pelvis and bilateral hips with no acute fractures or dislocation. Nonspecific nono bstructive bowel gas pattern is noted. IMPRESSION: Postsurgical changes with no acute osseous process. [facility], , 03/01/2024 11:10 AM
--- NOTE | 2024-03-01 11:18 | XR ---
EXAMINATION TYPE: XR wrist complete RT DATE OF EXAM: 03/01/2024 11:04 AM CLINICAL INDICATION:Male, 68 years old with history of assess fracture healing; [facility] COMPARISON: Right wrist radiograph 02/12/2024 TECHNIQUE: XR wrist complete RT; examined in the Frontal, navicular, lateral, and oblique. FINDINGS: Redemonstrated intra-articular comminuted and displaced fracture involving the distal right radius an d the ulna not significantly changed from the radiograph in reference. Similar soft tissue swelling. No radiopaque foreign bodies. The remainder of the visualized osseous structures appear intact. IMPRESSION: Redemonstrated fracture involving the distal radius and ulna with no new acute osseous abnormality si milar to radiograph in reference. Similar soft tissue swelling. [facility], , 03/01/2024 11:15 AM
--- NOTE | 2024-03-02 09:51 | P.PN ---
Subjective Patient is seen in follow-up for hyponatremia. Sodium level 130 yesterday. Has Cabrera catheter for persistent urinary retention. Resting in bed. Oral intake has been fair. Complains of sore wrist. Sitter present at bedside. Vital signs are stable. General: No acute distress. HEENT: Head exam is unremarkable. LUNGS: No audible rhonchi or wheezes. HEART: Rate and Rhythm are regular. ABDOMEN: Nontender. EXTREMITITES: No edema. Objective - Vital Signs Vital signs: Vital Signs Temp 98.3 F 03/02/24 07:04 Pulse 66 03/02/24 07:04 Resp 18 03/02/24 07:04 BP 156/74 03/02/24 07:04 Pulse Ox 98 03/02/24 07:04 FiO2 Intake & Output 03/01/24 03/02/24 03/02/24 18:59 06:59 18:59 Output Total 1100 1500 Balance -1100 -1500 Weight 58.5 kg Output: Urine 1100 1500 Other: Voiding Method Indwelling Catheter Indwelling Catheter - Labs CBC & Chem 7: 02/20/24 04:20 03/01/24 04:43 Assessment and Plan Plan: Assessment: 1. Hyponatremia. Initially hypovolemic and improved with IV fluids. Now euvolemic. Component of urinary retention and SIADH from pain. Urine osmolality 505. Sodium level 130 yesterday. TSH normal. 2. Major depressive disorder being followed by psychiatry. 3. Benign hypertension. 4. Hypokalemia from intracellular shifting from IV bicarb. Replaced. Better. 5. Hypomagnesemia from poor intake. Replaced. On oral magnesium oxide. 6. Urinary retention. Cabrera catheter reinserted. On Flomax. Urology following. Plan: Maintain sodium chloride tabs. Decrease frequency to once daily. Maintain 1500 cc fluid restriction. Encouraged oral intake. Status post [facility] this admission. Last given February 28, 2024. Follow-up PTH related peptide. Follow-up a.m. cortisol level.
[2024-03-02 10:35] LABS: Blood Urea Nitrogen 9.6 mg/dL (9.0-27.0); Calcium 8.4 mg/dL (8.7-10.3); Carbon Dioxide 22.7 mmol/L (21.6-31.8); Chloride 100 mmol/L (96-109); Glucose 109 mg/dL (70-110); Magnesium 1.7 mg/dL (1.5-2.4); Potassium 4.2 mmol/L (3.5-5.5); Sodium 131 mmol/L (135-145)
--- NOTE | 2024-03-02 12:30 | P.PN ---
Subjective History of present illness; patient is a 68-year-old gentleman with past medical history significant for hyperlipidemia, depression who presented to the ER for suicidal attempt. Patient was brought to the ER after trying to kill himself by cutting himself in multiple places. Patient had cut himself on the neck wrist as well as abdomen. Patient also admitted to overdosing on his Zoloft medication with intent to kill himself. Patient denies any auditory or visual hallucinations. Denies any chest pain or shortness of breath. Because of this suicidal attempt, patient brought to the ER Initial lab work done in the ER showed WBC 15.5, hemoglobin 13.8, sodium 115, potassium 4.2, BUN 6, creatinine 0.48, glucose 128 Urine drug screen positive for opiates serum alcohol level 41. EKG done in the ER showed heart rate of 101, no ST segment elevation or depression seen, no T-wave inversions seen. Chest x-ray done in the ER showed no acute cardiopulmonary process X-ray pelvis done showed no acute osseous pathology CTA neck done showed no evidence of contrast extravasation to suggest active bleeding or vascular trauma. CT chest done showed no evidence of active bleeding or traumatic abnormality in the chest Patient admitted to internal medicine service 02/21/2024 Patient is in the ER. Lying in the bed comfortably. Denied any complaints of chest pain or shortness of breath. No cough or sputum production. Patient is able to tolerate oral diet. Psychiatry recommends inpatient psych unit transfer once medically stable. Otherwise laboratory data showed sodium 121 potassium 3.3 chloride 91 bicarb is 28 BUN 16 creatinine 0.41 and magnesium 1.6. Psychiatric and nephrology is on board. 02/22/2024 Patient is resting in the bed. Awake alert and oriented. Denied any complaints of chest pain or shortness of breath. Bedside sitter is present. Sodium level this morning was 121. Continued on free water restriction and sodium chloride tablets. Magnesium level 1.5. Repeat sodium level went up to 127. Nephrology and general surgery is on board. Psychiatry recommends inpatient psychiatric admission. 02/23/2024 Patient is resting in bed. Awake alert and oriented x 3. Able to tolerate oral diet. Sodium level improved to 133 today. No other acute overnight issues. 02/24/2024 Patient is lying in the bed. Awake alert. On room air. Bladder scan showed greater than 50 cc/h. Cabrera catheter was placed due to urinary retention. Otherwise sodium level 126 today. 02/25/2024 Patient is lying in the bed. Awake alert and oriented. Continued on Cabrera catheter. Denied any complaints of abdominal pain. Tolerating oral diet. Sodium level 124 today. Tolerating oral diet. No nausea vomiting or diarrhea. 02/26/2024 Patient is resting in the bed. Awake alert and oriented x 3. Complains of right chest pain today. Patient does have history of right wrist fracture, x- ray on 02/12/2024 showed intra-articular comminuted and displaced fractures of the distal right radius and ulna. Patient was seen by orthopedic surgery at that time and recommended to follow-up as an outpatient with continued pain management. Patient would like to see orthopedic surgery during this admission. He is also complaining of increasing pain. Otherwise patient is tolerating oral diet. Sodium level is at 124 today. Potassium 3.6 BUN 9 and creatinine 0.49 and magnesium 1.6. 02/27/2024 Patient is lying in the bed. Awake alert and oriented. Denies any complaints of chest pain or shortness of breath. Continued on Cabrera catheter due to urinary retention. Able to tolerate oral diet. Sodium level improved to 131. Continued on fluid restriction. Patient was given a dose of Samsca on 02/26/2024. Nephrology is on board. Laboratory data showed sodium 131 potassium 4.5 chloride 101 bicarb is 23 BUN 18 creatinine 0.54 and blood sugar 94. Magnesium 1.9. 02/27 Lying in bed comfortable, denies any specific complaint No chest pain or dyspnea. Denies laceration problem He has pain in his right wrist with some deformity with prominent bones on the lateral side. He states this happened after she fell about 2 weeks ago. His pain about 8/10 in severity, he has good handgrip. Other than that he has a Cabrera catheter in place and admission because of acute urinary retention, urologist recommended to discontinue Cabrera prior to discharge, I discussed with patient and he agrees to take it out and we will do every shift bladder scan, discussed with the staff 02/28 Patient awake alert, looks little tired Sitter at bedside His sodium improved today 132 status post Samsca x 1 yesterday Denies any other complaints He tolerates diet well Patient can be downgraded to general medical floor with telemetry for now patient still pending to be placed in psych geriatric unit 02/09 lying in bed comfortable no new complaint siter at bed side sodium 130 pending placement to psych geriatric unit 02/10 Patient is doing well overall No new complaint Sitter at bedside Pending placement to geriatric psych unit Objective - Vital Signs Vital signs: Vital Signs Temp 98.3 F 03/02/24 07:04 Pulse 70 03/02/24 08:00 Resp 18 03/02/24 08:00 BP 156/74 03/02/24 07:04 Pulse Ox 98 03/02/24 07:04 FiO2 Intake & Output 03/01/24 03/02/24 03/02/24 18:59 06:59 18:59 Output Total 1100 1500 Balance -1100 -1500 Weight 58.5 kg Output: Urine 1100 1500 Other: Voiding Method Indwelling Catheter Indwelling Catheter Indwelling Catheter - Exam GENERAL: The patient is alert and oriented x3, not in any acute distress. Well developed, well nourished. HEENT: Pupils are round and equally reacting to light. EOMI. No scleral icterus. No conjunctival pallor. Normocephalic, atraumatic. No pharyngeal erythema. No thyromegaly. CARDIOVASCULAR: S1 and S2 present. No murmurs, rubs, or gallops. PULMONARY: Chest is clear to auscultation, no wheezing , no crackles. ABDOMEN: Soft, nontender, nondistended, normoactive bowel sounds. No palpable organomegaly. MUSCULOSKELETAL: No joint swelling or deformity. EXTREMITIES: No cyanosis, clubbing, or pedal edema. -Mild prominent bone on the lateral side of the right wrist. No cellulitis, no open wound, no discharge NEUROLOGICAL: Gross neurological examination did not reveal any focal deficits. SKIN: No rashes. no petechiae. - Labs CBC & Chem 7: 02/20/24 04:20 03/02/24 03:51 Labs: Abnormal Lab Results - Last 24 Hours (Table) 03/02/24 Range/Units 03:51 Sodium 131 L (135-145) mmol/L Creatinine 0.5 L (0.6-1.5) mg/dL Calcium 8.4 L (8.7-10.3) mg/dL Assessment and Plan Assessment: Suicidal attempt Intentional cutting with lacerations on neck, wrist and abdomen Intentional overdose on Zoloft Alcohol abuse Hyponatremia. Hypoosmolar with decreased solute intake. Acute urinary retention likely due to BPH worsened by psychiatric condition. Status post Cabrera catheter placement. Hypomagnesemia Hypokalemia replaced Right wrist pain. History of right wrist intra-articular fractures of the distal right radius and ulna. Plan: Continue with sitter at bedside Patient to be transferred to 3 . once he is medically stable Sodium level is improving with nephrology following urology evaluated the patient for his urinary retention. He is kept on Flomax. He agrees to discontinue Cabrera catheter and check a bladder scan every shift, if he is retaining patient agrees to reinserted. Labs and medication were reviewed.. Continue same treatment. Continue with sy mptomatic treatment. Resume home medication. Monitor labs and vitals. DVT and GI prophylaxis. Further recommendations as per clinical course of the patient DVT prophylaxis: Subcutaneous heparin GI Prophylaxis: Pepcid Prognosis is guarded
[2024-03-02] MEDS: FAMOTIDINE 20 MG TAB PO SCH (19:32)
[2024-03-02] MEDS: SIMETHICONE 40 MG/0.6 ML DROPS 2,000 MG/30 ML BOTTLE PO SCH (20:29)
[2024-03-02] MEDS ORDERED: SIMETHICONE 40 MG/0.6 ML DROPS 2,000 MG/30 ML BOTTLE PO SCH (22:00)
[2024-03-03 08:28] LABS: Blood Urea Nitrogen 10.4 mg/dL (9.0-27.0); Calcium 8.5 mg/dL (8.7-10.3); Carbon Dioxide 23.1 mmol/L (21.6-31.8); Chloride 96 mmol/L (96-109); Glucose 94 mg/dL (70-110); Magnesium 1.8 mg/dL (1.5-2.4); Potassium 4.7 mmol/L (3.5-5.5); Sodium 128 mmol/L (135-145)
[2024-03-03] MEDS: SODIUM CHLORIDE TAB 1 GM TAB PO SCH (09:18)
--- NOTE | 2024-03-03 10:00 | P.PN ---
Subjective Patient is seen in follow-up for hyponatremia. Sodium level 128 today. Has Cabrera catheter for persistent urinary retention. Resting in bed. Oral intake has been fair. Complains of nausea. Vital signs are stable. General: No acute distress. HEENT: Head exam is unremarkable. LUNGS: No audible rhonchi or wheezes. HEART: Rate and Rhythm are regular. ABDOMEN: Nontender. EXTREMITITES: No edema. Objective - Vital Signs Vital signs: Vital Signs Temp 98 F 03/03/24 07:06 Pulse 68 03/03/24 07:06 Resp 20 03/03/24 07:06 BP 151/74 03/03/24 07:06 Pulse Ox 98 03/03/24 07:06 FiO2 Intake & Output 03/02/24 03/03/24 03/03/24 18:59 06:59 18:59 Intake Total 1080 1080 Output Total 950 1680 Balance 130 -600 Weight 60 kg Intake: Oral 1080 1080 Output: Urine 950 1680 Uretheral (Cabrera) 200 Other: Voiding Method Indwelling Catheter Indwelling Catheter - Labs CBC & Chem 7: 02/20/24 04:20 03/03/24 03:11 Labs: Abnormal Lab Results - Last 24 Hours (Table) 03/02/24 03/03/24 Range/Units 03:51 03:11 Sodium 131 L 128 L (135-145) mmol/L Creatinine 0.5 L 0.5 L (0.6-1.5) mg/dL BUN/Creatinine Ratio 20.80 H (12.00-20.00) Ratio Calcium 8.4 L 8.5 L (8.7-10.3) mg/dL Assessment and Plan Plan: Assessment: 1. Hyponatremia. Initially hypovolemic and improved with IV fluids. Now euvolemic. Component of urinary retention and SIADH from pain. Urine osm olality 505. Sodium level 128. TSH normal. Cortisol level 9.9. 2. Major depressive disorder being followed by psychiatry. 3. Benign hypertension. 4. Hypokalemia from intracellular shifting from IV bicarb. Replaced. Better. 5. Hypomagnesemia from poor intake. Replaced. On oral magnesium oxide. 6. Urinary retention. Cabrera catheter reinserted. On Flomax. Urology following. Plan: Stop sodium chloride tab as blood pressure is on the higher side. Add urea. Maintain 1500 cc fluid restriction. Encouraged oral intake. Status post Samsca this admission. Last given February 28, 2024. Follow-up PTH related peptide. Repeat labs in the morning. If sodium level lower, will repeat Samsca. Consider surgery reevaluation if nausea not improved. Discussed with JORGE A
[2024-03-03] MEDS: UREA 15 GM POWD.PACK PO SCH (11:05)
--- NOTE | 2024-03-03 11:08 | P.PN ---
Subjective History of present illness; patient is a 68-year-old gentleman with past medical history significant for hyperlipidemia, depression who presented to the ER for suicidal attempt. Patient was brought to the ER after trying to kill himself by cutting himself in multiple places. Patient had cut himself on the neck wrist as well as abdomen. Patient also admitted to overdosing on his Zoloft medication with intent to kill himself. Patient denies any auditory or visual hallucinations. Denies any chest pain or shortness of breath. Because of this suicidal attempt, patient brought to the ER Initial lab work done in the ER showed WBC 15.5, hemoglobin 13.8, sodium 115, potassium 4.2, BUN 6, creatinine 0.48, glucose 128 Urine drug screen positive for opiates serum alcohol level 41. EKG done in the ER showed heart rate of 101, no ST segment elevation or depression seen, no T-wave inversions seen. Chest x-ray done in the ER showed no acute cardiopulmonary process X-ray pelvis done showed no acute osseous pathology CTA neck done showed no evidence of contrast extravasation to suggest active bleeding or vascular trauma. CT chest done showed no evidence of active bleeding or traumatic abnormality in the chest Patient admitted to internal medicine service 02/21/2024 Patient is in the ER. Lying in the bed comfortably. Denied any complaints of chest pain or shortness of breath. No cough or sputum production. Patient is able to tolerate oral diet. Psychiatry recommends inpatient psych unit transfer once medically stable. Otherwise laboratory data showed sodium 121 potassium 3.3 chloride 91 bicarb is 28 BUN 16 creatinine 0.41 and magnesium 1.6. Psychiatric and nephrology is on board. 02/22/2024 Patient is resting in the bed. Awake alert and oriented. Denied any complaints of chest pain or shortness of breath. Bedside sitter is present. Sodium level this morning was 121. Continued on free water restriction and sodium chloride tablets. Magnesium level 1.5. Repeat sodium level went up to 127. Nephrology and general surgery is on board. Psychiatry recommends inpatient psychiatric admission. 02/23/2024 Patient is resting in bed. Awake alert and oriented x 3. Able to tolerate oral diet. Sodium level improved to 133 today. No other acute overnight issues. 02/24/2024 Patient is lying in the bed. Awake alert. On room air. Bladder scan showed greater than 50 cc/h. Cabrera catheter was placed due to urinary retention. Otherwise sodium level 126 today. 02/25/2024 Patient is lying in the bed. Awake alert and oriented. Continued on Cabrera catheter. Denied any complaints of abdominal pain. Tolerating oral diet. Sodium level 124 today. Tolerating oral diet. No nausea vomiting or diarrhea. 02/26/2024 Patient is resting in the bed. Awake alert and oriented x 3. Complains of right chest pain today. Patient does have history of right wrist fracture, x- ray on 02/12/2024 showed intra-articular comminuted and displaced fractures of the distal right radius and ulna. Patient was seen by orthopedic surgery at that time and recommended to follow-up as an outpatient with continued pain management. Patient would like to see orthopedic surgery during this admission. He is also complaining of increasing pain. Otherwise patient is tolerating oral diet. Sodium level is at 124 today. Potassium 3.6 BUN 9 and creatinine 0.49 and magnesium 1.6. 02/27/2024 Patient is lying in the bed. Awake alert and oriented. Denies any complaints of chest pain or shortness of breath. Continued on Cabrera catheter due to urinary retention. Able to tolerate oral diet. Sodium level improved to 131. Continued on fluid restriction. Patient was given a dose of Samsca on 02/26/2024. Nephrology is on board. Laboratory data showed sodium 131 potassium 4.5 chloride 101 bicarb is 23 BUN 18 creatinine 0.54 and blood sugar 94. Magnesium 1.9. 02/27 Lying in bed comfortable, denies any specific complaint No chest pain or dyspnea. Denies laceration problem He has pain in his right wrist with some deformity with prominent bones on the lateral side. He states this happened after she fell about 2 weeks ago. His pain about 8/10 in severity, he has good handgrip. Other than that he has a Cabrera catheter in place and admission because of acute urinary retention, urologist recommended to discontinue Cabrera prior to discharge, I discussed with patient and he agrees to take it out and we will do every shift bladder scan, discussed with the staff 02/28 Patient awake alert, looks little tired Sitter at bedside His sodium improved today 132 status post Samsca x 1 yesterday Denies any other complaints He tolerates diet well Patient can be downgraded to general medical floor with telemetry for now patient still pending to be placed in psych geriatric unit 03/01 lying in bed comfortable no new complaint siter at bed side sodium 130 pending placement to psych geriatric unit 03/02 Patient is doing well overall No new complaint Sitter at bedside Pending placement to geriatric psych unit 03/03 Patient lying comfortably in bed No abdominal pain or tenderness, no vomiting no diarrhea Sodium today 125 and sodium tablets was stopped and placed on urea Objective - Vital Signs Vital signs: Vital Signs Temp 98 F 03/03/24 07:06 Pulse 68 03/03/24 07:06 Resp 20 03/03/24 07:06 BP 151/74 03/03/24 07:06 Pulse Ox 98 03/03/24 07:06 FiO2 Intake & Output 03/02/24 03/03/24 03/03/24 18:59 06:59 18:59 Intake Total 1080 1080 Output Total 950 1680 Balance 130 -600 Weight 60 kg Intake: Oral 1080 1080 Output: Urine 950 1680 Uretheral (Cabrera) 200 Other: Voiding Method Indwelling Catheter Indwelling Catheter - Exam GENERAL: The patient is alert and oriented x3, not in any acute distress. Well developed, well nourished. HEENT: Pupils are round and equally reacting to light. EOMI. No scleral icterus. No conjunctival pallor. Normocephalic, atraumatic. No pharyngeal erythema. No thyromegaly. CARDIOVASCULAR: S1 and S2 present. No murmurs, rubs, or gallops. PULMONARY: Chest is clear to auscultation, no wheezing , no crackles. ABDOMEN: Soft, nontender, nondistended, normoactive bowel sounds. No palpable organomegaly. MUSCULOSKELETAL: No joint swelling or deformity. EXTREMITIES: No cyanosis, clubbing, or pedal edema. -Mild prominent bone on the lateral side of the right wrist. No cellulitis, no open wound, no discharge NEUROLOGICAL: Gross neurological examination did not reveal any focal deficits. SKIN: No rashes. no petechiae. - Labs CBC & Chem 7: 02/20/24 04:20 03/03/24 03:11 Labs: Abnormal Lab Results - Last 24 Hours (Table) 03/03/24 Range/Units 03:11 Sodium 128 L (135-145) mmol/L Creatinine 0.5 L (0.6-1.5) mg/dL BUN/Creatinine Ratio 20.80 H (12.00-20.00) Ratio Calcium 8.5 L (8.7-10.3) mg/dL Assessment and Plan Assessment: Suicidal attempt Intentional cutting with lacerations on neck, wrist and abdomen Intentional overdose on Zoloft Alcohol abuse Hyponatremia. Hypoosmolar with decreased solute intake. Acute urinary retention likely due to BPH worsened by psychiatric condition. Status post Cabrera catheter placement. Hypomagnesemia Hypokalemia replaced Right wrist pain. History of right wrist intra-articular fractures of the distal right radius and ulna. Plan: Continue with sitter at bedside Patient to be transferred to [facility]. once he is medically stable Sodium level is improving with nephrology following. Keep monitoring sodium level after adding urea urology evaluated the patient for his urinary retention. He is kept on Flomax. Status post Cabrera catheter Labs and medication were reviewed.. Continue same treatment. Continue with symptomatic treatment. Resume home medication. Monitor labs and vitals. DVT and GI prophylaxis. Further recommendations as per clinical course of the patient DVT prophylaxis: Subcutaneous heparin GI Prophylaxis: Pepcid Prognosis is guarded
[2024-03-03] MEDS: FAMOTIDINE 20 MG/2 ML VIAL IV SCH (20:44)
[2024-03-04 09:43] LABS: Blood Urea Nitrogen 14.2 mg/dL (9.0-27.0); Calcium 8.4 mg/dL (8.7-10.3); Carbon Dioxide 20.7 mmol/L (21.6-31.8); Chloride 96 mmol/L (96-109); Glucose 88 mg/dL (70-110); Potassium 4.7 mmol/L (3.5-5.5); Sodium 126 mmol/L (135-145)
[2024-03-04] MEDS: FAMOTIDINE 20 MG TAB PO SCH (10:37)
[2024-03-04] MEDS: TOLVAPTAN 15 MG TABLET PO ONE (13:34)
--- NOTE | 2024-03-04 14:40 | P.PN ---
Subjective Progress Note Date: 03/04/24 Patient is seen in follow-up for hyponatremia. Sodium level 126 today. Has Cabrera catheter for persistent urinary retention. Resting in bed. Feels bloated after eating. Vital signs are stable. General: No acute distress. HEENT: Head exam is unremarkable. LUNGS: No audible rhonchi or wheezes. HEART: Rate and Rhythm are regular. ABDOMEN: Nontender. EXTREMITITES: No edema. Objective - Vital Signs Vital signs: Vital Signs Temp 98.0 F 03/04/24 07:03 Pulse 60 03/04/24 11:52 Resp 16 03/04/24 11:52 BP 131/71 03/04/24 07:03 Pulse Ox 97 03/04/24 07:03 FiO2 Intake & Output 03/03/24 03/04/24 03/04/24 18:59 06:59 18:59 Intake Total 1620 300 Output Total 1500 1300 Balance -1500 320 300 Weight 62.5 kg Intake: Oral 1620 300 Output: Urine 1500 1300 Other: Voiding Method Indwelling Catheter Indwelling Catheter Indwelling Catheter - Labs CBC & Chem 7: 02/20/24 04:20 03/04/24 02:49 Labs: Abnormal Lab Results - Last 24 Hours (Table) 03/04/24 Range/Units 02:49 Sodium 126 L (135-145) mmol/L Carbon Dioxide 20.7 L (21.6-31.8) mmol/L Creatinine 0.5 L (0.6-1.5) mg/dL BUN/Creatinine Ratio 28.40 H (12.00-20.00) Ratio Calcium 8.4 L (8.7-10.3) mg/dL Assessment and Plan Assessment: 1. Hyponatremia. Initially hypovolemic and improved with IV fluids. Now euvolemic. Component of urinary retention and SIADH from pain. Urine osmolality 505. Sodium level 128. TSH normal. Cortisol level 9.9. 2. Major depressive disorder being followed by psychiatry. 3. Benign hypertension. 4. Hypokalemia from intracellular shifting from IV bicarb. Replaced. Better. 5. Hypomagnesemia from poor intake. Replaced. On oral magnesium oxide. 6. Urinary retention. Cabrera catheter reinserted. On Flomax. Urology following. Plan: Off sodium chloride tab, on urea. Maintain 1500 cc fluid restriction. Encouraged oral intake. Give Tolvaptan 7.5mg once today
--- NOTE | 2024-03-04 16:44 | P.PN ---
Subjective Progress Note Date: 03/04/24 Interval History: History of present illness; patient is a 68-year-old gentleman with past medical history significant for hyperlipidemia, depression who presented to the ER for suicidal attempt. Patient was brought to the ER after trying to kill himself by cutting himself in multiple places. Patient had cut himself on the neck wrist as well as abdomen. Patient also admitted to overdosing on his Zoloft medication with intent to kill himself. Patient denies any auditory or visual hallucinations. Denies any chest pain or shortness of breath. Because of this suicidal attempt, patient brought to the ER Initial lab work done in the ER showed WBC 15.5, hemoglobin 13.8, sodium 115, potassium 4.2, BUN 6, creatinine 0.48, glucose 128 Urine drug screen positive for opiates serum alcohol level 41. EKG done in the ER showed heart rate of 101, no ST segment elevation or depression seen, no T-wave inversions seen. Chest x-ray done in the ER showed no acute cardiopulmonary process X-ray pelvis done showed no acute osseous pathology CTA neck done showed no evidence of contrast extravasation to suggest active bleeding or vascular trauma. CT chest done showed no evidence of active bleeding or traumatic abnormality in the chest Patient admitted to internal medicine service 02/21/2024 Patient is in the ER. Lying in the bed comfortably. Denied any complaints of chest pain or shortness of breath. No cough or sputum production. Patient is able to tolerate oral diet. Psychiatry recommends inpatient psych unit transfer once medically stable. Otherwise laboratory data showed sodium 121 potassium 3.3 chloride 91 bicarb is 28 BUN 16 creatinine 0.41 and magnesium 1.6. Psychiatric and nephrology is on board. 02/22/2024 Patient is resting in the bed. Awake alert and oriented. Denied any complaints of chest pain or shortness of breath. Bedside sitter is present. Sodium level this morning was 121. Continued on free water restriction and sodium chloride tablets. Magnesium level 1.5. Repeat sodium level went up to 127. Nephrology and general surgery is on board. Psychiatry recommends inpatient psychiatric admission. 02/23/2024 Patient is resting in bed. Awake alert and oriented x 3. Able to tolerate oral diet. Sodium level improved to 133 today. No other acute overnight issues. 02/24/2024 Patient is lying in the bed. Awake alert. On room air. Bladder scan showed greater than 50 cc/h. Cabrera catheter was placed due to urinary retention. Otherwise sodium level 126 today. 02/25/2024 Patient is lying in the bed. Awake alert and oriented. Continued on Cabrera catheter. Denied any complaints of abdominal pain. Tolerating oral diet. Sodium level 124 today. Tolerating oral diet. No nausea vomiting or diarrhea. 02/26/2024 Patient is resting in the bed. Awake alert and oriented x 3. Complains of right chest pain today. Patient does have history of right wrist fracture, x- ray on 02/12/2024 showed intra-articular comminuted and displaced fractures of the distal right radius and ulna. Patient was seen by orthopedic surgery at that time and recommended to follow-up as an outpatient with continued pain management. Patient would like to see orthopedic surgery during this admission. He is also complaining of increasing pain. Otherwise patient is tolerating oral diet. Sodium level is at 124 today. Potassium 3.6 BUN 9 and creatinine 0.49 and magnesium 1.6. 02/27/2024 Patient is lying in the bed. Awake alert and oriented. Denies any complaints of chest pain or shortness of breath. Continued on Cabrera catheter due to urinary retention. Able to tolerate oral diet. Sodium level improved to 131. Continued on fluid restriction. Patient was given a dose of Samsca on 02/26/2024. Nephrology is on board. Laboratory data showed sodium 131 potassium 4.5 chloride 101 bicarb is 23 BUN 18 creatinine 0.54 and blood sugar 94. Magnesium 1.9. 02/27 Lying in bed comfortable, denies any specific complaint No chest pain or dyspnea. Denies laceration problem He has pain in his right wrist with some deformity with prominent bones on the lateral side. He states this happened after she fell about 2 weeks ago. His pain about 8/10 in severity, he has good handgrip. Other than that he has a Cabrera catheter in place and admission because of acute urinary retention, urologist recommended to discontinue Cabrera prior to discharge, I discussed with patient and he agrees to take it out and we will do every shift bladder scan, discussed with the staff 02/28 Patient awake alert, looks little tired Sitter at bedside His sodium improved today 132 status post Samsca x 1 yesterday Denies any other complaints He tolerates diet well Patient can be downgraded to general medical floor with telemetry for now patient still pending to be placed in psych geriatric unit 03/01 lying in bed comfortable no new complaint siter at bed side sodium 130 pending placement to psych geriatric unit 03/02 Patient is doing well overall No new complaint Sitter at bedside Pending placement to geriatric psych unit 03/03 Patient lying comfortably in bed No abdominal pain or tenderness, no vomiting no diarrhea Sodium today 125 and sodium tablets was stopped and placed on urea 03/04patient resting comfortably in bed. No issues overnight. Certification done. Vitals are stable, afebrile. BMP showed sodium 126, nephrology following, continue fluid restriction, urea tablets, Samsca 7.5 mg today. Assessment and plan: Suicidal attempt Intentional cutting with lacerations on neck, wrist and abdomen Intentional overdose on Zoloft Alcohol abuse Hyponatremia. Hypoosmolar with decreased solute intake. Acute urinary retention likely due to BPH worsened by psychiatric condition. Status post Cabrera catheter placement. Hypomagnesemia Hypokalemia replaced Right wrist pain. History of right wrist intra-articular fractures of the distal right radius and ulna. Plan: Continue sitter at bedside, suicide precautions Psychiatry consultedrecommended inpatient psychiatric hospitalization once medically stable Sodium level still low, received Samsca, was on sodium tablets, now on urea tablets, fluid restriction, tolvaptan repeat today. Nephrology following Urology evaluate the patient for urine retention, on Flomax, status post Cabrera's catheter Orthopedic consulted Consults: Urology, psychiatry, orthopedic, nephrology. Prognosis is guarded DVT prophylaxis: Subcutaneous heparin Disposition: Inpatient psychiatric hospitalization once medically stable. Monitor vital signs and labs Labs and medication were reviewed. Continue same treatment. Further recommendations as per clinical course of the patient PHYSICAL EXAMINATION: GENERAL: The patient is A&O x3, NAD HEENT: EOMI, Sclerae anicteric, Moist Mucous membranes Neck: Supple, Non tender, No JVD PULMONARY: Equal breath souds B/L, No wheezing, No crackles. CARDIOVASCULAR: S1, S2 present. No murmurs, rubs, or gallops. ABDOMEN: Soft, nontender, nondistended, normoactive bowel sounds. No guarding or rebound tenderness. MUSCULOSKELETAL: No edema, No cyanosis. No clubbing. Normal ROM. Intact peripheral pulses. NEUROLOGICAL: CN 2-12 grossly intact. No FND Skin: No Rash REVIEW OF SYSTEMS: CONSTITUTIONAL: No fever or chills. CARDIOVASCULAR: No chest pain, palpitations or syncope. PULMONARY: No shortness of breath, no cough, sore throat. GASTROINTESTINAL: No nausea, vomiting, diarrhea, abdominal pain. : No Dysuria, urgency, frequency. Extremities: No edema. NEUROLOGICAL: No headaches, no weakness, or numbness Dictation was produced using [employer] dictation software. please excuse any grammatical, word or spelling errors. Objective - Vital Signs Vital signs: Vital Signs Temp 97.9 F 03/04/24 13:43 Pulse 65 03/04/24 13:43 Resp 16 03/04/24 13:43 BP 105/65 03/04/24 13:43 Pulse Ox 98 03/04/24 13:43 FiO2 Intake & Output 03/03/24 03/04/24 03/04/24 18:59 06:59 18:59 Intake Total 1620 840 Output Total 1500 1300 Balance -1500 320 840 Weight 62.5 kg Intake: Oral 1620 840 Output: Urine 1500 1300 Other: Voiding Method Indwelling Catheter Indwelling Catheter Indwelling Catheter # Bowel Movements 1 - Labs CBC & Chem 7: 02/20/24 04:20 03/04/24 02:49 Labs: Abnormal Lab Results - Last 24 Hours (Table) 03/04/24 Range/Units 02:49 Sodium 126 L (135-145) mmol/L Carbon Dioxide 20.7 L (21.6-31.8) mmol/L Creatinine 0.5 L (0.6-1.5) mg/dL BUN/Creatinine Ratio 28.40 H (12.00-20.00) Ratio Calcium 8.4 L (8.7-10.3) mg/dL
[2024-03-05 09:59] LABS: Blood Urea Nitrogen 13.7 mg/dL (9.0-27.0); Calcium 8.7 mg/dL (8.7-10.3); Carbon Dioxide 22.7 mmol/L (21.6-31.8); Chloride 99 mmol/L (96-109); Glucose 110 mg/dL (70-110); Magnesium 2.1 mg/dL (1.5-2.4); Potassium 4.6 mmol/L (3.5-5.5); Sodium 132 mmol/L (135-145)
--- NOTE | 2024-03-05 11:24 | P.PN ---
Subjective Progress Note Date: 03/05/24 Patient is seen in follow-up for hyponatremia. Sodium level 126 today. Has Cabrera catheter for persistent urinary retention. Resting in bed. No new complaints. Vital signs are stable. General: No acute distress. HEENT: Head exam is unremarkable. LUNGS: No audible rhonchi or wheezes. HEART: Rate and Rhythm are regular. ABDOMEN: Nontender. EXTREMITITES: No edema. Objective - Vital Signs Vital signs: Vital Signs Temp 98.4 F 03/05/24 07:16 Pulse 77 03/05/24 07:16 Resp 15 03/05/24 07:16 BP 124/70 03/05/24 07:16 Pulse Ox 98 03/05/24 07:16 FiO2 Intake & Output 03/04/24 03/05/24 03/05/24 18:59 06:59 18:59 Intake Total 840 540 Output Total 1000 2100 Balance -160 -1560 Weight 60 kg Intake: Oral 840 540 Output: Urine 1000 2100 Other: Voiding Method Indwelling Catheter Indwelling Catheter # Bowel Movements 0 - Labs CBC & Chem 7: 02/20/24 04:20 03/05/24 04:31 Assessment and Plan Assessment: 1. Hyponatremia. Initially hypovolemic and improved with IV fluids. Now euvolemic. Component of urinary retention and SIADH from pain. Urine osmolality 505. Sodium level 132 today after Tolvaptan. 2. Major depressive disorder being followed by psychiatry. 3. Benign hypertension. 4. Hypokalemia from intracellular shifting from IV bicarb. Replaced. Better. 5. Hypomagnesemia from poor intake. Replaced. On oral magnesium oxide. 6. Urinary retention. Cabrera catheter reinserted. On Flomax. Urology following. Plan: On urea. Maintain 1500 cc fluid restriction. Encouraged protein intake. Given Tolvaptan 7.5mg yesterday
--- NOTE | 2024-03-05 11:58 | P.CN ---
Psychiatric Consult - . Consult date: 03/05/24 Consult:: 03/05/24 11:51 diagnosis: Major depression in remission/alcohol use disorder subjective: the patient says he has not felt suicidal since before he came into the hospital. the reason, he believes, that he felt suicidal than his that he w as drinking too much which left him irritable and negative and he ruminated on all his life problems. He had a relationship with a woman for over 20 years then eventually she had him move out and live in the house next door and then told him he had to leave there and they never worked that out and then recently she without them resolving any of the issues. He also is physically weak and is fallen and broken things the only exercise he gets is going down the stairs and back up to get his mail which is difficult for him. He does not go out on line he does watch TV and likes sports and racing. He says that he can quit drinking. He says he has never thought that he needed to and this is first time trying but that he is a disciplined honest person and he will be able to follow it through. He also has a lady that comes and helps clean and do things around his apartment and she will not tolerate him having any alcohol there. He thinks that without the alcohol he will not be depressed. He says his life is imperfect but is adequate and he has learned to accept reality and make the best of it.he denies now or in the past any psychosis any voices telling him that he should kill himself any indulging in planning his own demise. Objective first I talked to the nursing staff and they'll say that he is a really nice person. He has not been aggressive or irritable. No signs of p sychosis. He knew today was 03/05/2024 that he was in [employer] and that the current president was still Biden. He was able to abstract that cats and snakes bowls R predators and eat other animals. He couldn't subtract 7 from 93 and spell world backward when given the proverb the grass looks screen and outside offense he said that he wants us to realize that what we have is okay. Eye contact was good he is alert physical energy was low he was somewhat somatically preoccupied with weakness a broken wrist that they tell him they can't heel-to-toe they get his sodium balanced and other physical things. Deathly no signs of psychosis or otoniel. He did not seem depressed he was not tearful assessment: I believe that the patient is stableand not a danger to herself or others and that we can discontinue the one on one and he does not need to be transferred to the psychiatric unit once he is medically stable enough to go home.
--- NOTE | 2024-03-05 15:52 | P.PN ---
Subjective Progress Note Date: 03/05/24 Interval History: History of present illness; patient is a 68-year-old gentleman with past medical history significant for hyperlipidemia, depression who presented to the ER for suicidal attempt. Patient was brought to the ER after trying to kill himself by cutting himself in multiple places. Patient had cut himself on the neck wrist as well as abdomen. Patient also admitted to overdosing on his Zoloft medication with intent to kill himself. Patient denies any auditory or visual hallucinations. Denies any chest pain or shortness of breath. Because of this suicidal attempt, patient brought to the ER Initial lab work done in the ER showed WBC 15.5, hemoglobin 13.8, sodium 115, potassium 4.2, BUN 6, creatinine 0.48, glucose 128 Urine drug screen positive for opiates serum alcohol level 41. EKG done in the ER showed heart rate of 101, no ST segment elevation or depression seen, no T-wave inversions seen. Chest x-ray done in the ER showed no acute cardiopulmonary process X-ray pelvis done showed no acute osseous pathology CTA neck done showed no evidence of contrast extravasation to suggest active bleeding or vascular trauma. CT chest done showed no evidence of active bleeding or traumatic abnormality in the chest Patient admitted to internal medicine service 02/21/2024 Patient is in the ER. Lying in the bed comfortably. Denied any complaints of chest pain or shortness of breath. No cough or sputum production. Patient is able to tolerate oral diet. Psychiatry recommends inpatient psych unit transfer once medically stable. Otherwise laboratory data showed sodium 121 potassium 3.3 chloride 91 bicarb is 28 BUN 16 creatinine 0.41 and magnesium 1.6. Psychiatric and nephrology is on board. 02/22/2024 Patient is resting in the bed. Awake alert and oriented. Denied any complaints of chest pain or shortness of breath. Bedside sitter is present. Sodium level this morning was 121. Continued on free water restriction and sodium chloride tablets. Magnesium level 1.5. Repeat sodium level went up to 127. Nephrology and general surgery is on board. Psychiatry recommends inpatient psychiatric admission. 02/23/2024 Patient is resting in bed. Awake alert and oriented x 3. Able to tolerate oral diet. Sodium level improved to 133 today. No other acute overnight issues. 02/24/2024 Patient is lying in the bed. Awake alert. On room air. Bladder scan showed greater than 50 cc/h. Cabrera catheter was placed due to urinary retention. Otherwise sodium level 126 today. 02/25/2024 Patient is lying in the bed. Awake alert and oriented. Continued on Cabrera catheter. Denied any complaints of abdominal pain. Tolerating oral diet. Sodium level 124 today. Tolerating oral diet. No nausea vomiting or diarrhea. 02/26/2024 Patient is resting in the bed. Awake alert and oriented x 3. Complains of right chest pain today. Patient does have history of right wrist fracture, x- ray on 02/12/2024 showed intra-articular comminuted and displaced fractures of the distal right radius and ulna. Patient was seen by orthopedic surgery at that time and recommended to follow-up as an outpatient with continued pain management. Patient would like to see orthopedic surgery during this admission. He is also complaining of increasing pain. Otherwise patient is tolerating oral diet. Sodium level is at 124 today. Potassium 3.6 BUN 9 and creatinine 0.49 and magnesium 1.6. 02/27/2024 Patient is lying in the bed. Awake alert and oriented. Denies any complaints of chest pain or shortness of breath. Continued on Cabrera catheter due to urinary retention. Able to tolerate oral diet. Sodium level improved to 131. Continued on fluid restriction. Patient was given a dose of Samsca on 02/26/2024. Nephrology is on board. Laboratory data showed sodium 131 potassium 4.5 chloride 101 bicarb is 23 BUN 18 creatinine 0.54 and blood sugar 94. Magnesium 1.9. 02/27 Lying in bed comfortable, denies any specific complaint No chest pain or dyspnea. Denies laceration problem He has pain in his right wrist with some deformity with prominent bones on the lateral side. He states this happened after she fell about 2 weeks ago. His pain about 8/10 in severity, he has good handgrip. Other than that he has a Cabrera catheter in place and admission because of acute urinary retention, urologist recommended to discontinue Cabrera prior to discharge, I discussed with patient and he agrees to take it out and we will do every shift bladder scan, discussed with the staff 02/28 Patient awake alert, looks little tired Sitter at bedside His sodium improved today 132 status post Samsca x 1 yesterday Denies any other complaints He tolerates diet well Patient can be downgraded to general medical floor with telemetry for now patient still pending to be placed in psych geriatric unit 03/01 lying in bed comfortable no new complaint siter at bed side sodium 130 pending placement to psych geriatric unit 03/02 Patient is doing well overall No new complaint Sitter at bedside Pending placement to geriatric psych unit 03/03 Patient lying comfortably in bed No abdominal pain or tenderness, no vomiting no diarrhea Sodium today 125 and sodium tablets was stopped and placed on urea 03/04patient resting comfortably in bed. No issues overnight. Certification done. Vitals are stable, afebrile. BMP showed sodium 126, nephrology following, continue fluid restriction, urea tablets, Samsca 7.5 mg today. 03/05--patient was seen and examined today, no issues overnight, complains of nausea and vomiting, will consult general surgery to evaluate for EGD. Psychiatry evaluated patient, cleared, does not need inpatient psychiatric hospitalization, no suicidal or homicidal ideations. Vital stable, BMP stable. Sodium 132, urea tablets. Assessment and plan: Suicidal attempt Intentional cutting with lacerations on neck, wrist and abdomen Intentional overdose on Zoloft Dysphagia Alcohol abuse Hyponatremia. Hypoosmolar with decreased solute intake. Acute urinary retention likely due to BPH worsened by psychiatric condition. Status post Cabrera catheter placement. Hypomagnesemia Hypokalemia replaced Right wrist pain. History of right wrist intra-articular fractures of the distal right radius and ulna. Plan: Was initially monitored for suicide precautions Psychiatry consultedinitially recommended inpatient psychiatric hospitalization, later on patient's suicidal ideations, per psychiatry improved inpatient psychiatric hospitalization not indicated. Sodium level low, received Samsca, was on sodium tablets, now on urea tablets, fluid restriction, tolvaptan repeat today. Nephrology following Urology evaluate the patient for urine retention, on Flomax, status post Cabrera's catheter Orthopedic consulted--no surgical intervention General Surgery consulted for dysphagia Consults: Urology, psychiatry, orthopedic, nephrology. Prognosis is guarded DVT prophylaxis: Subcutaneous heparin Disposition: PT/OT consulted. Monitor vital signs and labs Labs and medication were reviewed. Continue same treatment. Further recommendations as per clinical course of the patient PHYSICAL EXAMINATION: GENERAL: The patient is A&O x3, NAD HEENT: EOMI, Sclerae anicteric, Moist Mucous membranes Neck: Supple, Non tender, No JVD PULMONARY: Equal breath souds B/L, No wheezing, No crackles. CARDIOVASCULAR: S1, S2 present. No murmurs, rubs, or gallops. ABDOMEN: Soft, nontender, nondistended, normoactive bowel sounds. No guarding or rebound tenderness. MUSCULOSKELETAL: No edema, No cyanosis. No clubbing. Normal ROM. Intact peripheral pulses. NEUROLOGICAL: CN 2-12 grossly intact. No FND Skin: No Rash REVIEW OF SYSTEMS: CONSTITUTIONAL: No fever or chills. CARDIOVASCULAR: No chest pain, palpitations or syncope. PULMONARY: No shortness of breath, no cough, sore throat. GASTROINTESTINAL: No nausea, vomiting, diarrhea, abdominal pain. : No Dysuria, urgency, frequency. Extremities: No edema. NEUROLOGICAL: No headaches, no weakness, or numbness Dictation was produced using [employer] dictation software. please excuse any grammatical, word or spelling errors. Objective - Vital Signs Vital signs: Vital Signs Temp 98.0 F 03/05/24 12:40 Pulse 80 03/05/24 12:40 Resp 16 03/05/24 12:40 BP 115/76 03/05/24 12:40 Pulse Ox 98 03/05/24 12:40 FiO2 Intake & Output 03/04/24 03/05/24 03/05/24 18:59 06:59 18:59 Intake Total 840 540 300 Output Total 1000 2100 Balance -160 -1560 300 Weight 60 kg Intake: Oral 840 540 300 Output: Urine 1000 2100 Other: Voiding Method Indwelling Catheter Indwelling Catheter Indwelling Catheter # Bowel Movements 0 - Labs CBC & Chem 7: 02/20/24 04:20 03/05/24 04:31 Labs: Abnormal Lab Results - Last 24 Hours (Table) 03/05/24 Range/Units 04:31 Sodium 132 L (135-145) mmol/L Creatinine 0.5 L (0.6-1.5) mg/dL BUN/Creatinine Ratio 27.40 H (12.00-20.00) Ratio
[2024-03-05] MEDS: SENNOSIDES 8.6 MG TAB PO PRN (16:20)
[2024-03-06 09:42] LABS: ALT 15 U/L (10-49); AST 16 U/L (14-35); Albumin 3.4 g/dL (3.8-4.9); Albumin/Globulin Ratio 1.55 Ratio (1.60-3.17); Alkaline Phosphatase 89 U/L (41-126); Blood Urea Nitrogen 13.5 mg/dL (9.0-27.0); Calcium 8.8 mg/dL (8.7-10.3); Carbon Dioxide 21.4 mmol/L (21.6-31.8); Chloride 99 mmol/L (96-109); Globulin 2.2 g/dL (1.6-3.3); Glucose 103 mg/dL (70-110); Potassium 4.7 mmol/L (3.5-5.5); Sodium 130 mmol/L (135-145); Total Bilirubin 0.2 mg/dL (0.3-1.2); Total Protein 5.6 g/dL (6.2-8.2)
--- NOTE | 2024-03-06 12:50 | P.PN ---
Subjective Progress Note Date: 03/06/24 Patient is seen in follow-up for hyponatremia. Sodium level 126 today. Resting in bed. No new complaints. Vital signs are stable. General: No acute distress. HEENT: Head exam is unremarkable. LUNGS: No audible rhonchi or wheezes. HEART: Rate and Rhythm are regular. ABDOMEN: Nontender. EXTREMITITES: No edema. Objective - Vital Signs Vital signs: Vital Signs Temp 98.4 F 03/06/24 07:24 Pulse 76 03/06/24 07:24 Resp 16 03/06/24 07:24 BP 124/72 03/06/24 07:24 Pulse Ox 99 03/06/24 07:24 FiO2 Intake & Output 03/05/24 03/06/24 03/06/24 18:59 06:59 18:59 Intake Total 500 540 Output Total 400 900 Balance 100 -360 Weight 60 kg Intake: Oral 500 540 Output: Urine 400 900 Other: Voiding Method Indwelling Catheter Indwelling Catheter - Labs CBC & Chem 7: 02/20/24 04:20 03/06/24 03:53 Labs: Abnormal Lab Results - Last 24 Hours (Table) 03/06/24 Range/Units 03:53 Sodium 130 L (135-145) mmol/L Carbon Dioxide 21.4 L (21.6-31.8) mmol/L Creatinine 0.5 L (0.6-1.5) mg/dL BUN/Creatinine Ratio 27.00 H (12.00-20.00) Ratio Total Bilirubin 0.2 L (0.3-1.2) mg/dL Total Protein 5.6 L (6.2-8.2) g/dL Albumin 3.4 L (3.8-4.9) g/dL Albumin/Globulin Ratio 1.55 L (1.60-3.17) Ratio Assessment and Plan Assessment: 1. Hyponatremia. Initially hypovolemic and improved with IV fluids. Now euvolemic. Component of urinary retention and SIADH from pain. Urine osmolality 505. Sodium level stable 130 today after Tolvaptan. 2. Major depressive disorder being followed by psychiatry. 3. Benign hypertension. 4. Hypokalemia from intracellular shifting from IV bicarb. Replaced. Better. 5. Hypomagnesemia from poor intake. Replaced. On oral magnesium oxide. 6. Urinary retention. Cabrera catheter reinserted. On Flomax. Urology following. Plan: On urea. Maintain 1500 cc fluid restriction. Encouraged protein intake. Given Tolvaptan 7.5mg 03/04 Clear for discharge
[2024-03-06 14:30] VITALS: BMI 18.9
--- NOTE | 2024-03-06 15:20 | P.PN ---
Subjective Interval History: History of present illness; patient is a 68-year-old gentleman with past medical history significant for hyperlipidemia, depression who presented to the ER for suicidal attempt. Patient was brought to the ER after trying to kill himself by cutting himself in multiple places. Patient had cut himself on the neck wrist as well as abdomen. Patient also admitted to overdosing on his Zoloft medication with intent to kill himself. Patient denies any auditory or visual hallucinations. Denies any chest pain or shortness of breath. Because of this suicidal attempt, patient brought to the ER Initial lab work done in the ER showed WBC 15.5, hemoglobin 13.8, sodium 115, potassium 4.2, BUN 6, creatinine 0.48, glucose 128 Urine drug screen positive for opiates serum alcohol level 41. EKG done in the ER showed heart rate of 101, no ST segment elevation or depression seen, no T-wave inversions seen. Chest x-ray done in the ER showed no acute cardiopulmonary process X-ray pelvis done showed no acute osseous pathology CTA neck done showed no evidence of contrast extravasation to suggest active bleeding or vascular trauma. CT chest done showed no evidence of active bleeding or traumatic abnormality in the chest Patient admitted to internal medicine service 02/21/2024 Patient is in the ER. Lying in the bed comfortably. Denied any complaints of chest pain or shortness of breath. No cough or sputum production. Patient is able to tolerate oral diet. Psychiatry recommends inpatient psych unit transfer once medically stable. Otherwise laboratory data showed sodium 121 potassium 3.3 chloride 91 bicarb is 28 BUN 16 creatinine 0.41 and magnesium 1.6. Psychiatric and nephrology is on board. 02/22/2024 Patient is resting in the bed. Awake alert and oriented. Denied any complaints of chest pain or shortness of breath. Bedside sitter is present. Sodium level this morning was 121. Continued on free water restriction and sodium chloride tablets. Magnesium level 1.5. Repeat sodium level went up to 127. Nephrology and general surgery is on board. Psychiatry recommends inpatient psychiatric admission. 02/23/2024 Patient is resting in bed. Awake alert and oriented x 3. Able to tolerate oral diet. Sodium level improved to 133 today. No other acute overnight issues. 02/24/2024 Patient is lying in the bed. Awake alert. On room air. Bladder scan showed greater than 50 cc/h. Cabrera catheter was placed due to urinary retention. Otherwise sodium level 126 today. 02/25/2024 Patient is lying in the bed. Awake alert and oriented. Continued on Cabrera catheter. Denied any complaints of abdominal pain. Tolerating oral diet. Sodium level 124 today. Tolerating oral diet. No nausea vomiting or diarrhea. 02/26/2024 Patient is resting in the bed. Awake alert and oriented x 3. Complains of right chest pain today. Patient does have history of right wrist fracture, x- ray on 02/12/2024 showed intra-articular comminuted and displaced fractures of the distal right radius and ulna. Patient was seen by orthopedic surgery at that time and recommended to follow-up as an outpatient with continued pain management. Patient would like to see orthopedic surgery during this admission. He is also complaining of increasing pain. Otherwise patient is tolerating oral diet. Sodium level is at 124 today. Potassium 3.6 BUN 9 and creatinine 0.49 and magnesium 1.6. 02/27/2024 Patient is lying in the bed. Awake alert and oriented. Denies any complaints of chest pain or shortness of breath. Continued on Cabrera catheter due to urinary retention. Able to tolerate oral diet. Sodium level improved to 131. Continued on fluid restriction. Patient was given a dose of Samsca on 02/26/2024. Nephrology is on board. Laboratory data showed sodium 131 potassium 4.5 chloride 101 bicarb is 23 BUN 18 creatinine 0.54 and blood sugar 94. Magnesium 1.9. 02/27 Lying in bed comfortable, denies any specific complaint No chest pain or dyspnea. Denies laceration problem He has pain in his right wrist with some deformity with prominent bones on the lateral side. He states this happened after she fell about 2 weeks ago. His pain about 8/10 in severity, he has good handgrip. Other than that he has a Cabrera catheter in place and admission because of acute urinary retention, urologist recommended to discontinue Cabrera prior to discharge, I discussed with patient and he agrees to take it out and we will do every shift bladder scan, discussed with the staff 02/28 Patient awake alert, looks little tired Sitter at bedside His sodium improved today 132 status post Samsca x 1 yesterday Denies any other complaints He tolerates diet well Patient can be downgraded to general medical floor with telemetry for now patient still pending to be placed in psych geriatric unit 03/01 lying in bed comfortable no new complaint siter at bed side sodium 130 pending placement to psych geriatric unit 03/02 Patient is doing well overall No new complaint Sitter at bedside Pending placement to geriatric psych unit 03/03 Patient lying comfortably in bed No abdominal pain or tenderness, no vomiting no diarrhea Sodium today 125 and sodium tablets was stopped and placed on urea 03/04patient resting comfortably in bed. No issues overnight. Certification done. Vitals are stable, afebrile. BMP showed sodium 126, nephrology following, continue fluid restriction, urea tablets, Samsca 7.5 mg today. 03/05--patient was seen and examined today, no issues overnight, complains of nausea and vomiting, will consult general surgery to evaluate for EGD. Psychiatry evaluated patient, cleared, does not need inpatient psychiatric hospitalization, no suicidal or homicidal ideations. Vital stable, BMP stable. Sodium 132, urea tablets. 03/06--Patient was seen and examined today, continues complain of nausea. Vitals stable. Sodium 130. Normal BUN/creatinine. General surgery planning for EGD today. Nephrology signed off. Assessment and plan: Suicidal attempt Intentional cutting with lacerations on neck, wrist and abdomen Intentional overdose on Zoloft Dysphagia Alcohol abuse Hyponatremia. Hypoosmolar with decreased solute intake. Acute urinary retention likely due to BPH worsened by psychiatric condition. Status post Cabrera catheter placement. Hypomagnesemia Hypokalemia replaced Right wrist pain. History of right wrist intra-articular fractures of the dist al right radius and ulna. Plan: Was initially monitored for suicide precautions Psychiatry consultedinitially recommended inpatient psychiatric hospitalization, later on patient's suicidal ideations, per psychiatry improved inpatient psychiatric hospitalization not indicated. Sodium level low, received Samsca, was on sodium tablets, now on urea tablets, fluid restriction, tolvaptan repeat today. Nephrology following Urology evaluate the patient for urine retention, on Flomax, status post Cabrera's catheter Orthopedic consulted--no surgical intervention General Surgery consulted --plan for EGD 03/06 Consults: Urology, psychiatry, orthopedic, nephrology. DVT prophylaxis: Subcutaneous heparin Disposition: PT/OT consulted. Monitor vital signs and labs Labs and medication were reviewed. Continue same treatment. Further recommendations as per clinical course of the patient PHYSICAL EXAMINATION: GENERAL: The patient is A&O x3, NAD HEENT: EOMI, Sclerae anicteric, Moist Mucous membranes Neck: Supple, Non tender, No JVD PULMONARY: Equal breath souds B/L, No wheezing, No crackles. CARDIOVASCULAR: S1, S2 present. No murmurs, rubs, or gallops. ABDOMEN: Soft, nontender, nondistended, normoactive bowel sounds. No guarding or rebound tenderness. MUSCULOSKELETAL: No edema, No cyanosis. No clubbing. Normal ROM. Intact peripheral pulses. NEUROLOGICAL: CN 2-12 grossly intact. No FND Skin: No Rash REVIEW OF SYSTEMS: CONSTITUTIONAL: No fever or chills. CARDIOVASCULAR: No chest pain, palpitations or syncope. PULMONARY: No shortness of breath, no cough, sore throat. GASTROINTESTINAL: No nausea, vomiting, diarrhea, abdominal pain. : No Dysuria, urgency, frequency. Extremities: No edema. NEUROLOGICAL: No headaches, no weakness, or numbness Dictation was produced using [employer] dictation software. please excuse any grammatical, word or spelling errors. Objective - Vital Signs Vital signs: Vital Signs Temp 98.0 F 03/06/24 13:28 Pulse 65 03/06/24 13:28 Resp 15 03/06/24 13:28 BP 119/74 03/06/24 13:28 Pulse Ox 100 03/06/24 13:28 FiO2 Intake & Output 03/05/24 03/06/24 03/06/24 18:59 06:59 18:59 Intake Total 500 540 Output Total 400 900 Balance 100 -360 Weight 60 kg 60 kg Intake: Oral 500 540 Output: Urine 400 900 Other: Voiding Method Indwelling Catheter Indwelling Catheter - Labs CBC & Chem 7: 02/20/24 04:20 03/06/24 03:53 Labs: Abnormal Lab Results - Last 24 Hours (Table) 03/06/24 Range/Units 03:53 Sodium 130 L (135-145) mmol/L Carbon Dioxide 21.4 L (21.6-31.8) mmol/L Creatinine 0.5 L (0.6-1.5) mg/dL BUN/Creatinine Ratio 27.00 H (12.00-20.00) Ratio Total Bilirubin 0.2 L (0.3-1.2) mg/dL Total Protein 5.6 L (6.2-8.2) g/dL Albumin 3.4 L (3.8-4.9) g/dL Albumin/Globulin Ratio 1.55 L (1.60-3.17) Ratio
[2024-03-06] MEDS ORDERED: PROPOFOL 10 MG/ML 20 ML VIAL IV ONE (16:40)
[2024-03-06] MEDS ORDERED: LIDOCAINE 1% INJ 10MG/ML (20 ML MDV) ONE (16:40)
[2024-03-06] MEDS: IV FLUID CONTINUATION 1,000 ML IV ONE (16:47)
--- NOTE | 2024-03-06 17:55 | P.CON ---
Consult Note - . Consult date: 03/06/24 Assessment/Plan:: 68-year-old male who presents to the emergency department after having cut himself in multiple places and attempt to kill himself. Patient has a multiple lacerations to his neck bilateral wrist and 1 on his abdomen. 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 Patient denies any difficulty breathing patient denies chest pain patient has abdominal pain patient has nausea vomiting diarrhea. Patient states he was recently in the hospital for suicidal attempt. He recently developed dysphagia. Review of Systems ROS Statement: Those systems with pertinent positive or pertinent negative responses have been documented in the HPI. ROS Other: All systems not noted in ROS Statement are negative. Past Medical History Past Medical History: Coronary Artery Disease (CAD), Chest Pain / Angina, COPD, Hypertension, Myocardial Infarction ([place]), Osteoarthritis (OA) Additional Past Medical History / Comment(s): suicidal Last Myocardial Infarction Date:: 12/2023? unconfirmed History of Any Multi-Drug Resistant Organisms: None Reported Past Surgical History: Back Surgery, Heart Catheterization With Stent, Orthopedic Surgery, Prostate Surgery Additional Past Surgical History / Comment(s): wrist and bilateral hip surgery. Past Anesthesia/Blood Transfusion Reactions: No Reported Reaction Date of Last Stent Placement:: 2017 Past Psychological History: No Psychological Hx Reported Smoking Status: Current every day smoker Past Alcohol Use History: Abuse, Daily, Heavy Past Drug Use History: None Reported General Exam - General Exam Comments Initial Comments: GENERAL: Patient is well-developed and well-nourished. Patient is nontoxic and well- hydrated and is in no acute distress. ENT: Neck is soft and supple. No significant lymphadenopathy is noted. Oropharynx is clear. Moist mucous membranes. Neck has full range of motion without eliciting any pain. EYES: The sclera were anicteric and conjunctiva were pink and moist. Extraocular movements were intact and pupils were equal round and reactive to light. Eyelids were unremarkable. PULMONARY: Unlabored respirations. Good breath sounds bilaterally. No audible rales rhonchi or wheezing was noted. CARDIOVASCULAR: There is a regular rate and rhythm without any murmurs gallops or rubs. ABDOMEN: Soft and nontender with normal bowel sounds. No palpable organomegaly was noted. There is no palpable pulsatile mass. SKIN: Patient has superficial laceration measuring about 3 cm on the left side of his neck threes superficial lacerations on the right side of his neck and 1 in the right posterior side of his neck. Patient also has superficial laceration to his abdomen measuring about 10 cm. Patient also has multiple superficial lace rations to both wrists. Patient also has a small puncture wound to the mid chest just above the sternum. NEUROLOGIC: Patient is alert and oriented x3. Cranial nerves II through XII are grossly intact. Motor and sensory are also intact. Normal speech, volume and content. Symmetrical smile. Cerebellar exam grossly intact. MUSCULOSKELETAL: Normal extremities with adequate strength and full range of motion. LYMPHATICS: No significant lymphadenopathy is noted PSYCHIATRIC: Normal psychiatric evaluation. 68 year old male with dysphagia -EGD performed which showed gastritis, no masses -Ok for regular diet -If dysphagia continues, patient may benefit from outpatient manometry Carmelo Spangler DO [facility] [phone]
--- NOTE | 2024-03-06 18:16 | P.OP ---
Date of Procedure: 03/06/24 Preoperative Diagnosis: Dysphagia Postoperative Diagnosis: Gastritis Procedure(s) Performed: EGD with Biopsy Anesthesia: BOLA Surgeon: Carmelo Spangler Pathology: other (Antral Biopsies) Condition: stable Disposition: PACU Description of Procedure: Informed consent was obtained. The procedure, its risks, benefits, and alternatives were discussed. The patient was placed in the left lateral decubitus position and given local anesthetic to the oropharynx. The patient was sedated. The endoscope was inserted into the oropharynx and guided under direct vision into the esophagus, stomach, and duodenum. The duodenal bulb and second portion were unremarkable. The scope was withdrawn to the stomach and retr oflexed. There was no increased fluid, food or secretions in the upper gastrointestinal tract. There was very minimal, nonspecific, patchy antral erythema. Biopsies were obtained for Helicobacter pylori. No erosions or ulcers. The scope was withdrawn to the esophagus. The Z-line and gastroesophageal junction were located at about 40 cm. No Barretts or esophagitis. The patient tolerated the procedure very well. The patient was then transferred to the recovery area in good condition. There were no apparent complications.
[2024-03-06] MEDS: polyethylene glycoL 3350 17 GM POWD.PACK PO PRN (20:17)
--- NOTE | 2024-03-07 07:46 | P.PN ---
Progress Note - Text Progress Note Date: 03/07/24 No acute events overnight. General appearance: alert, in distress Head exam: Present: atraumatic, normocephalic, normal inspection Eye exam: Present: normal appearance, PERRL, EOMI. Absent: scleral icterus, conjunctival injection, periorbital swelling ENT exam: Present: normal exam, mucous membranes moist Neck exam: Present: normal inspection. Absent: tenderness, meningismus, lymphadenopathy Respiratory exam: Present: normal lung sounds bilaterally. Absent: respiratory distress, wheezes, rales, rhonchi, stridor Cardiovascular Exam: Present: regular rate, normal rhythm, normal heart sounds. Absent: systolic murmur, diastolic murmur, rubs, gallop, clicks GI/Abdominal exam: Present: soft, tenderness (Mild diffuse tenderness without guarding or tympanic tenderness), hyperactive bowel sounds. Absent: distended, guarding, rebound, rigid Extremities exam: Present: normal inspection, full ROM, normal capillary refill, other (Bilateral posterior tibialis pulse +2). Absent: tenderness, pedal edema, joint swelling, calf tenderness Back exam: Present: normal inspection Neurological exam: Present: alert, oriented X3, CN II-XII intact Psychiatric exam: Present: normal affect, normal mood Skin exam: Present: warm, dry, intact, normal color. Absent: rash 68 year old male with Dysphagia -EGD performed which showed gastritis -Recommend PPI -Ok for Regular Diet -No acute surgical intervention Carmelo Spangler DO [facility] [phone]
[2024-03-07 08:50] LABS: BUN/Creat Ratio 21.33 Ratio (12.00-20.00); Blood Urea Nitrogen 12.8 mg/dL (9.0-27.0); Calcium 8.3 mg/dL (8.7-10.3); Carbon Dioxide 20.4 mmol/L (21.6-31.8); Chloride 97 mmol/L (96-109); Glucose 99 mg/dL (70-110); Potassium 4.3 mmol/L (3.5-5.5); Sodium 127 mmol/L (135-145)
[2024-03-07 09:05] LABS: Basophils # (A) 0.06 X 10*3/uL (0.00-0.10); Basophils % (A) 0.8 %; Eosinophils # (A) 0.39 X 10*3/uL (0.04-0.35); Eosinophils % (A) 5.1 %; HCT 27.9 % (39.6-50.0); HGB 9.3 g/dL (13.0-17.0); Lymphocytes # (A) 1.95 X 10*3/uL (0.90-5.00); Lymphocytes % (A) 25.4 %; MCH 34.3 pg (27.0-32.0); MCHC 33.3 g/dL (32.0-37.0); Mean Platelet Volume 9.2 FL (9.5-12.2); Monocytes # (A) 0.93 X 10*3/uL (0.20-1.00); Monocytes % (A) 12.1 %; NRBC Per 100 WBC 0 X 10*3/uL (0.00-0.01); Neutrophils # (A) 4.32 X 10*3/uL (1.80-7.70); Neutrophils % (A) 56.3 %; Platelet Count 344 X 10*3/uL (140-440); RBC 2.71 X 10*6/uL (4.40-5.60); RDW 15.2 % (11.5-14.5); WBC 7.67 X 10*3/uL (4.50-10.00)
[2024-03-07] MEDS: TOLVAPTAN 15 MG TABLET PO ONE (11:38)
--- NOTE | 2024-03-07 15:22 | P.PN ---
Subjective Interval History: History of present illness; patient is a 68-year-old gentleman with past medical history significant for hyperlipidemia, depression who presented to the ER for suicidal attempt. Patient was brought to the ER after trying to kill himself by cutting himself in multiple places. Patient had cut himself on the neck wrist as well as abdomen. Patient also admitted to overdosing on his Zoloft medication with intent to kill himself. Patient denies any auditory or visual hallucinations. Denies any chest pain or shortness of breath. Because of this suicidal attempt, patient brought to the ER Initial lab work done in the ER showed WBC 15.5, hemoglobin 13.8, sodium 115, potassium 4.2, BUN 6, creatinine 0.48, glucose 128 Urine drug screen positive for opiates serum alcohol level 41. EKG done in the ER showed heart rate of 101, no ST segment elevation or depression seen, no T-wave inversions seen. Chest x-ray done in the ER showed no acute cardiopulmonary process X-ray pelvis done showed no acute osseous pathology CTA neck done showed no evidence of contrast extravasation to suggest active bleeding or vascular trauma. CT chest done showed no evidence of active bleeding or traumatic abnormality in the chest Patient admitted to internal medicine service 02/21/2024 Patient is in the ER. Lying in the bed comfortably. Denied any complaints of chest pain or shortness of breath. No cough or sputum production. Patient is able to tolerate oral diet. Psychiatry recommends inpatient psych unit transfer once medically stable. Otherwise laboratory data showed sodium 121 potassium 3.3 chloride 91 bicarb is 28 BUN 16 creatinine 0.41 and magnesium 1.6. Psychiatric and nephrology is on board. 02/22/2024 Patient is resting in the bed. Awake alert and oriented. Denied any complaints of chest pain or shortness of breath. Bedside sitter is present. Sodium level this morning was 121. Continued on free water restriction and sodium chloride tablets. Magnesium level 1.5. Repeat sodium level went up to 127. Nephrology and general surgery is on board. Psychiatry recommends inpatient psychiatric admission. 02/23/2024 Patient is resting in bed. Awake alert and oriented x 3. Able to tolerate oral diet. Sodium level improved to 133 today. No other acute overnight issues. 02/24/2024 Patient is lying in the bed. Awake alert. On room air. Bladder scan showed greater than 50 cc/h. Cabrera catheter was placed due to urinary retention. Otherwise sodium level 126 today. 02/25/2024 Patient is lying in the bed. Awake alert and oriented. Continued on Cabrera catheter. Denied any complaints of abdominal pain. Tolerating oral diet. Sodium level 124 today. Tolerating oral diet. No nausea vomiting or diarrhea. 02/26/2024 Patient is resting in the bed. Awake alert and oriented x 3. Complains of right chest pain today. Patient does have history of right wrist fracture, x- ray on 02/12/2024 showed intra-articular comminuted and displaced fractures of the distal right radius and ulna. Patient was seen by orthopedic surgery at that time and recommended to follow-up as an outpatient with continued pain management. Patient would like to see orthopedic surgery during this admission. He is also complaining of increasing pain. Otherwise patient is tolerating oral diet. Sodium level is at 124 today. Potassium 3.6 BUN 9 and creatinine 0.49 and magnesium 1.6. 02/27/2024 Patient is lying in the bed. Awake alert and oriented. Denies any complaints of chest pain or shortness of breath. Continued on Cabrera catheter due to urinary retention. Able to tolerate oral diet. Sodium level improved to 131. Continued on fluid restriction. Patient was given a dose of Samsca on 02/26/2024. Nephrology is on board. Laboratory data showed sodium 131 potassium 4.5 chloride 101 bicarb is 23 BUN 18 creatinine 0.54 and blood sugar 94. Magnesium 1.9. 02/27 Lying in bed comfortable, denies any specific complaint No chest pain or dyspnea. Denies laceration problem He has pain in his right wrist with some deformity with prominent bones on the lateral side. He states this happened after she fell about 2 weeks ago. His pain about 8/10 in severity, he has good handgrip. Other than that he has a Cabrera catheter in place and admission because of acute urinary retention, urologist recommended to discontinue Cabrera prior to discharge, I discussed with patient and he agrees to take it out and we will do every shift bladder scan, discussed with the staff 02/28 Patient awake alert, looks little tired Sitter at bedside His sodium improved today 132 status post Samsca x 1 yesterday Denies any other complaints He tolerates diet well Patient can be downgraded to general medical floor with telemetry for now patient still pending to be placed in psych geriatric unit 03/01 lying in bed comfortable no new complaint siter at bed side sodium 130 pending placement to psych geriatric unit 03/02 Patient is doing well overall No new complaint Sitter at bedside Pending placement to geriatric psych unit 03/03 Patient lying comfortably in bed No abdominal pain or tenderness, no vomiting no diarrhea Sodium today 125 and sodium tablets was stopped and placed on urea 03/04patient resting comfortably in bed. No issues overnight. Certification done. Vitals are stable, afebrile. BMP showed sodium 126, nephrology following, continue fluid restriction, urea tablets, Samsca 7.5 mg today. 03/05--patient was seen and examined today, no issues overnight, complains of nausea and vomiting, will consult general surgery to evaluate for EGD. Psychiatry evaluated patient, cleared, does not need inpatient psychiatric hospitalization, no suicidal or homicidal ideations. Vital stable, BMP stable. Sodium 132, urea tablets. 03/06--Patient was seen and examined today, continues complain of nausea. Vitals stable. Sodium 130. Normal BUN/creatinine. Underwent EGD today which showed gastritis, started on Protonix 03/07/patient was examined today. Nausea and vomiting is better. Vital stable. WBCs 7.6, hemoglobin 9.3, platelet 344. Patient's sodium dropped to 127 today as compared to 130 yesterday, nephrology following, ordered 1 dose of tolvaptan today. PT/OT pending. Assessment and plan: Suicidal attempt Intentional cutting with lacerations on neck, wrist and abdomen Intentional overdose on Zoloft Dysphagia Alcohol abuse Hyponatremia. Hypoosmolar with decreased solute intake. Acute urinary retention likely due to BPH worsened by psychiatric condition. Status post Cabrera catheter placement. Hypomagnesemia Hypokalemia replaced Right wrist pain. History of right wrist intra-articular fractures of the distal right radius and ulna. Plan: Was initially monitored for suicide precautions Psychiatry consultedinitially recommended inpatient psychiatric hospitalization, later on patient's suicidal ideations, per psychiatry improved inpatient psychiatric hospitalization not indicated. Urology evaluate the patient for urine retention, on Flomax, status post Cabrera's catheter Orthopedic consulted--no surgical intervention General Surgery consulted --possible EGD on howed gastritis, recommended P rotonix. Consults: Urology, psychiatry, orthopedic, nephrology. Sodium level low, received Samsca, was on sodium tablets, now on urea tablets, fluid restriction, tolvaptan repeat today. Nephrology following DVT prophylaxis: Subcutaneous heparin Disposition: PT/OT consulted. Monitor vital signs and labs Labs and medication were reviewed. Continue same treatment. Further recommendations as per clinical course of the patient PHYSICAL EXAMINATION: GENERAL: The patient is A&O x3, NAD HEENT: EOMI, Sclerae anicteric, Moist Mucous membranes Neck: Supple, Non tender, No JVD PULMONARY: Equal breath souds B/L, No wheezing, No crackles. CARDIOVASCULAR: S1, S2 present. No murmurs, rubs, or gallops. ABDOMEN: Soft, nontender, nondistended, normoactive bowel sounds. No guarding or rebound tenderness. MUSCULOSKELETAL: No edema, No cyanosis. No clubbing. Normal ROM. Intact peripheral pulses. NEUROLOGICAL: CN 2-12 grossly intact. No FND Skin: No Rash REVIEW OF SYSTEMS: CONSTITUTIONAL: No fever or chills. CARDIOVASCULAR: No chest pain, palpitations or syncope. PULMONARY: No shortness of breath, no cough, sore throat. GASTROINTESTINAL: No nausea, vomiting, diarrhea, abdominal pain. : No Dysuria, urgency, frequency. Extremities: No edema. NEUROLOGICAL: No headaches, no weakness, or numbness Dictation was produced using [employer] dictation software. please excuse any grammatical, word or spelling errors. Objective - Vital Signs Vital signs: Vital Signs Temp 98.0 F 03/07/24 13:47 Pulse 71 03/07/24 13:47 Resp 20 03/07/24 13:47 BP 137/73 03/07/24 13:47 Pulse Ox 98 03/07/24 13:47 FiO2 Intake & Output 03/06/24 03/07/24 03/07/24 18:59 06:59 18:59 Intake Total 100 Output Total 550 700 420 Balance -450 -700 -420 Weight 60 kg 55.5 kg Intake: IV 100 Output: Urine 550 700 420 Other: Voiding Method Indwelling Catheter Indwelling Catheter # Bowel Movements 1 1 - Labs CBC & Chem 7: 03/07/24 03:01 03/07/24 03:01 Labs: Abnormal Lab Results - Last 24 Hours (Table) 12/31/24 12/31/24 Range/Units 03:01 03:01 RBC 2.71 L (4.40-5.60) X 10*6/uL Hgb 9.3 L (13.0-17.0) g/dL Hct 27.9 L (39.6-50.0) % MCV 103.0 H (80.0-97.0) FL MCH 34.3 H (27.0-32.0) pg RDW 15.2 H (11.5-14.5) % MPV 9.2 L (9.5-12.2) FL Eosinophils # 0.39 H (0.04-0.35) X 10*3/uL Sodium 127 L (135-145) mmol/L Carbon Dioxide 20.4 L (21.6-31.8) mmol/L BUN/Creatinine Ratio 21.33 H (12.00-20.00) Ratio Calcium 8.3 L (8.7-10.3) mg/dL
[2024-03-07] MEDS: PANTOPRAZOLE 40 MG TABLET PO SCH (17:03)
[2024-03-08 09:08] LABS: Basophils # (A) 0.06 X 10*3/uL (0.00-0.10); Basophils % (A) 0.8 %; Eosinophils # (A) 0.44 X 10*3/uL (0.04-0.35); Eosinophils % (A) 5.5 %; HCT 29.7 % (39.6-50.0); HGB 9.9 g/dL (13.0-17.0); Lymphocytes # (A) 2.34 X 10*3/uL (0.90-5.00); Lymphocytes % (A) 29.3 %; MCH 34.4 pg (27.0-32.0); MCHC 33.3 g/dL (32.0-37.0); MCV 103.1 FL (80.0-97.0); Monocytes # (A) 0.85 X 10*3/uL (0.20-1.00); Monocytes % (A) 10.7 %; NRBC Per 100 WBC 0 X 10*3/uL (0.00-0.01); Neutrophils # (A) 4.27 X 10*3/uL (1.80-7.70); Neutrophils % (A) 53.4 %; Platelet Count 361 X 10*3/uL (140-440); RBC 2.88 X 10*6/uL (4.40-5.60); RDW 15.5 % (11.5-14.5); WBC 7.98 X 10*3/uL (4.50-10.00)
[2024-03-08 09:34] LABS: BUN/Creat Ratio 22.33 Ratio (12.00-20.00); Blood Urea Nitrogen 13.4 mg/dL (9.0-27.0); Calcium 8.6 mg/dL (8.7-10.3); Carbon Dioxide 20.5 mmol/L (21.6-31.8); Chloride 102 mmol/L (96-109); Glucose 97 mg/dL (70-110); Potassium 4.6 mmol/L (3.5-5.5); Sodium 133 mmol/L (135-145)
--- NOTE | 2024-03-08 11:10 | P.PN ---
Subjective Patient is seen for f/u for hyponatremia. Sodium has dropped again today. Maintained on urea and has required tolvaptan a couple of times. No complaints today. Sodium was 127 today. Objective - Vital Signs Vital signs: Vital Signs Temp 97.5 F L 03/08/24 07:20 Pulse 70 03/08/24 07:20 Resp 17 03/08/24 07:20 BP 145/80 03/08/24 07:20 Pulse Ox 96 03/08/24 07:20 FiO2 Intake & Output 03/07/24 03/08/24 03/08/24 18:59 06:59 18:59 Intake Total 1080 Output Total 7350 391 8164 Balance -1020 480 -1300 Weight 55 kg Intake: Oral 1080 Output: Urine 8771 610 3655 Other: # Bowel Movements 1 - Exam Awake, comfortable, no distress Alert and oriented x3 Lungs are clear S1 and S2 heard Abdomen is soft nontender No edema noted. Moving all 4 extremities. - Labs CBC & Chem 7: 03/08/24 03:29 03/08/24 03:29 Labs: Abnormal Lab Results - Last 24 Hours (Table) 03/08/24 03/08/24 Range/Units 03:29 03:29 RBC 2.88 L (4.40-5.60) X 10*6/uL Hgb 9.9 L (13.0-17.0) g/dL Hct 29.7 L (39.6-50.0) % MCV 103.1 H (80.0-97.0) FL MCH 34.4 H (27.0-32.0) pg RDW 15.5 H (11.5-14.5) % MPV 9.0 L (9.5-12.2) FL Eosinophils # 0.44 H (0.04-0.35) X 10*3/uL Sodium 133 L (135-145) mmol/L Carbon Dioxide 20.5 L (21.6-31.8) mmol/L BUN/Creatinine Ratio 22.33 H (12.00-20.00) Ratio Calcium 8.6 L (8.7-10.3) mg/dL Assessment and Plan Assessment: . Hyponatremia. Initially hypovolemic and improved with IV fluids. Now euvolemic. Component of urinary retention and SIADH from pain. Urine osmolality 505. Sodium level dropped again to 127 today. 2. Major depressive disorder being followed by psychiatry. 3. Benign hypertension. 4. Hypokalemia from intracellular shifting from IV bicarb. Replaced. Better. 5. Hypomagnesemia from poor intake. Replaced. On oral magnesium oxide. 6. Urinary retention. Cabrera catheter reinserted. On Flomax. Urology following. Plan: Repeat Tolvaptan. Continue with Urea and fluid restriction. Patient will need tolvaptan 15 mg 2x/ week as outpatient.
--- NOTE | 2024-03-08 12:45 | P.PN ---
Subjective Patient is seen for f/u for hyponatremia. Patient received Samsca yesterday and sodium has improved to 133. There is concern that patient will not be able to afford Samsca or urea post discharge therefore we will likely discharge him on sodium chloride tabs. No significant complaints today. Objective - Vital Signs Vital signs: Vital Signs Temp 97.5 F L 03/08/24 07:20 Pulse 70 03/08/24 07:20 Resp 17 03/08/24 07:20 BP 145/80 03/08/24 07:20 Pulse Ox 96 03/08/24 07:20 FiO2 Intake & Output 03/07/24 03/08/24 03/08/24 18:59 06:59 18:59 Intake Total 1080 Output Total 5355 096 6836 Balance -1020 480 -1650 Weight 55 kg Intake: Oral 1080 Output: Urine 3382 671 2068 Uretheral (Cabrera) 350 Other: # Bowel Movements 1 1 - Exam Awake, comfortable, no distress Alert and oriented x3 Lungs are clear S1 and S2 heard Abdomen is soft nontender No edema noted. Moving all 4 extremities. - Labs CBC & Chem 7: 03/08/24 03:29 03/08/24 03:29 Labs: Abnormal Lab Results - Last 24 Hours (Table) 03/08/24 03/08/24 Range/Units 03:29 03:29 RBC 2.88 L (4.40-5.60) X 10*6/uL Hgb 9.9 L (13.0-17.0) g/dL Hct 29.7 L (39.6-50.0) % MCV 103.1 H (80.0-97.0) FL MCH 34.4 H (27.0-32.0) pg RDW 15.5 H (11.5-14.5) % MPV 9.0 L (9.5-12.2) FL Eosinophils # 0.44 H (0.04-0.35) X 10*3/uL Sodium 133 L (135-145) mmol/L Carbon Dioxide 20.5 L (21.6-31.8) mmol/L BUN/Creatinine Ratio 22.33 H (12.00-20.00) Ratio Calcium 8.6 L (8.7-10.3) mg/dL Assessment and Plan Assessment: . Hyponatremia. Initially hypovolemic and improved with IV fluids. Now euvolemic. Component of urinary retention and SIADH from pain. Urine osmolality 505. Sodium improved to 133 post Samsca yesterday. He remains on urea tablets as well. Patient is not able to afford Samsca or urea as outpatient therefore we will plan to discharge him on sodium chloride tabs with close monitoring of volume status and blood pressure. 2. Major depressive disorder being followed by psychiatry. 3. Benign hypertension. 4. Hypokalemia from intracellular shifting from IV bicarb. Replaced. Better. 5. Hypomagnesemia from poor intake. Replaced. On oral magnesium oxide. 6. Urinary retention. Cabrera catheter reinserted. On Flomax. Urology following. Plan: Continue with fluid restriction Continue with urea Sodium chloride tab 1 g daily to start later on today. Patient is not able to afford urea or Samsca as outpatient.
--- NOTE | 2024-03-08 15:52 | P.PN ---
Subjective Interval History: History of present illness; patient is a 68-year-old gentleman with past medical history significant for hyperlipidemia, depression who presented to the ER for suicidal attempt. Patient was brought to the ER after trying to kill himself by cutting himself in multiple places. Patient had cut himself on the neck wrist as well as abdomen. Patient also admitted to overdosing on his Zoloft medication with intent to kill himself. Patient denies any auditory or visual hallucinations. Denies any chest pain or shortness of breath. Because of this suicidal attempt, patient brought to the ER Initial lab work done in the ER showed WBC 15.5, hemoglobin 13.8, sodium 115, potassium 4.2, BUN 6, creatinine 0.48, glucose 128 Urine drug screen positive for opiates serum alcohol level 41. EKG done in the ER showed heart rate of 101, no ST segment elevation or depression seen, no T-wave inversions seen. Chest x-ray done in the ER showed no acute cardiopulmonary process X-ray pelvis done showed no acute osseous pathology CTA neck done showed no evidence of contrast extravasation to suggest active bleeding or vascular trauma. CT chest done showed no evidence of active bleeding or traumatic abnormality in the chest Patient admitted to internal medicine service 02/21/2024 Patient is in the ER. Lying in the bed comfortably. Denied any complaints of chest pain or shortness of breath. No cough or sputum production. Patient is able to tolerate oral diet. Psychiatry recommends inpatient psych unit transfer once medically stable. Otherwise laboratory data showed sodium 121 potassium 3.3 chloride 91 bicarb is 28 BUN 16 creatinine 0.41 and magnesium 1.6. Psychiatric and nephrology is on board. 02/22/2024 Patient is resting in the bed. Awake alert and oriented. Denied any complaints of chest pain or shortness of breath. Bedside sitter is present. Sodium level this morning was 121. Continued on free water restriction and sodium chloride tablets. Magnesium level 1.5. Repeat sodium level went up to 127. Nephrology and general surgery is on board. Psychiatry recommends inpatient psychiatric admission. 02/23/2024 Patient is resting in bed. Awake alert and oriented x 3. Able to tolerate oral diet. Sodium level improved to 133 today. No other acute overnight issues. 02/24/2024 Patient is lying in the bed. Awake alert. On room air. Bladder scan showed greater than 50 cc/h. Cabrera catheter was placed due to urinary retention. Otherwise sodium level 126 today. 02/25/2024 Patient is lying in the bed. Awake alert and oriented. Continued on Cabrera catheter. Denied any complaints of abdominal pain. Tolerating oral diet. Sodium level 124 today. Tolerating oral diet. No nausea vomiting or diarrhea. 02/26/2024 Patient is resting in the bed. Awake alert and oriented x 3. Complains of right chest pain today. Patient does have history of right wrist fracture, x- ray on 02/12/2024 showed intra-articular comminuted and displaced fractures of the distal right radius and ulna. Patient was seen by orthopedic surgery at that time and recommended to follow-up as an outpatient with continued pain management. Patient would like to see orthopedic surgery during this admission. He is also complaining of increasing pain. Otherwise patient is tolerating oral diet. Sodium level is at 124 today. Potassium 3.6 BUN 9 and creatinine 0.49 and magnesium 1.6. 02/27/2024 Patient is lying in the bed. Awake alert and oriented. Denies any complaints of chest pain or shortness of breath. Continued on Cabrera catheter due to urinary retention. Able to tolerate oral diet. Sodium level improved to 131. Continued on fluid restriction. Patient was given a dose of Samsca on 02/26/2024. Nephrology is on board. Laboratory data showed sodium 131 potassium 4.5 chloride 101 bicarb is 23 BUN 18 creatinine 0.54 and blood sugar 94. Magnesium 1.9. 02/27 Lying in bed comfortable, denies any specific complaint No chest pain or dyspnea. Denies laceration problem He has pain in his right wrist with some deformity with prominent bones on the lateral side. He states this happened after she fell about 2 weeks ago. His pain about 8/10 in severity, he has good handgrip. Other than that he has a Cabrera catheter in place and admission because of acute urinary retention, urologist recommended to discontinue Cabrera prior to discharge, I discussed with patient and he agrees to take it out and we will do every shift bladder scan, discussed with the staff 02/28 Patient awake alert, looks little tired Sitter at bedside His sodium improved today 132 status post Samsca x 1 yesterday Denies any other complaints He tolerates diet well Patient can be downgraded to general medical floor with telemetry for now patient still pending to be placed in psych geriatric unit 03/01 lying in bed comfortable no new complaint siter at bed side sodium 130 pending placement to psych geriatric unit 03/02 Patient is doing well overall No new complaint Sitter at bedside Pending placement to geriatric psych unit 03/03 Patient lying comfortably in bed No abdominal pain or tenderness, no vomiting no diarrhea Sodium today 125 and sodium tablets was stopped and placed on urea 03/04patient resting comfortably in bed. No issues overnight. Certification done. Vitals are stable, afebrile. BMP showed sodium 126, nephrology following, continue fluid restriction, urea tablets, Samsca 7.5 mg today. 03/05--patient was seen and examined today, no issues overnight, complains of nausea and vomiting, will consult general surgery to evaluate for EGD. Psychiatry evaluated patient, cleared, does not need inpatient psychiatric hospitalization, no suicidal or homicidal ideations. Vital stable, BMP stable. Sodium 132, urea tablets. 03/06--Patient was seen and examined today, continues complain of nausea. Vitals stable. Sodium 130. Normal BUN/creatinine. Underwent EGD today which showed gastritis, started on Protonix 03/07/patient was examined today. Nausea and vomiting is better. Vital stable. WBCs 7.6, hemoglobin 9.3, platelet 344. Patient's sodium dropped to 127 today as compared to 130 yesterday, nephrology following, ordered 1 dose of tolvaptan today. PT/OT pending. 03/08/24--patient was seen and examined today. No issues overnight. Patient received tolvaptan yesterday, sodium is 133 today improved from 127 today. Discussed with nephrology, patient unable to afford urea or tolvaptan as outpatient. Started on sodium chloride tablets and will monitor sodium. Will discontinue Cabrera's catheter and trial of voiding. Assessment and plan: Suicidal attempt Intentional cutting with lacerations on neck, wrist and abdomen Intentional overdose on Zoloft Dysphagia Alcohol abuse Hyponatremia. Hypoosmolar with decreased solute intake. Acute urinary retention likely due to BPH worsened by psychiatric condition. Status post Cabrera catheter placement. Hypomagnesemia Hypokalemia replaced Right wrist pain. History of right wrist intra-articular fractures of the distal right radius and ulna. Plan: Was initially monitored for suicide precautions Psychiatry consultedinitially recommended inpatient psychiatric hospitalization, later on patient's suicidal ideations, per psychiatry improved inpatient psychiatric hospitalization not indicated. Urology evaluate the patient for urine retention, on Flomax, status post Cabrera's catheter Orthopedic consulted--no surgical intervention General Surgery consulted --possible EGD on howed gastritis, recommended Protonix. Consults: Urology, psychiatry, orthopedic, nephrology. Sodium level low, received Samsca, was on sodium tablets, now on urea tablets, f luid restriction, tolvaptan repeat 03/07. Nephrology following--started sodium chloride tablets, pt unable to afford urea or tolvaptan. DVT prophylaxis: Subcutaneous heparin Disposition: PT/OT consulted. Anticipate home. Monitor vital signs and labs Labs and medication were reviewed. Continue same treatment. Further recommendations as per clinical course of the patient PHYSICAL EXAMINATION: GENERAL: The patient is A&O x3, NAD HEENT: EOMI, Sclerae anicteric, Moist Mucous membranes Neck: Supple, Non tender, No JVD PULMONARY: Equal breath souds B/L, No wheezing, No crackles. CARDIOVASCULAR: S1, S2 present. No murmurs, rubs, or gallops. ABDOMEN: Soft, nontender, nondistended, normoactive bowel sounds. No guarding or rebound tenderness. MUSCULOSKELETAL: No edema, No cyanosis. No clubbing. Normal ROM. Intact peripheral pulses. NEUROLOGICAL: CN 2-12 grossly intact. No FND Skin: No Rash REVIEW OF SYSTEMS: CONSTITUTIONAL: No fever or chills. CARDIOVASCULAR: No chest pain, palpitations or syncope. PULMONARY: No shortness of breath, no cough, sore throat. GASTROINTESTINAL: No nausea, vomiting, diarrhea, abdominal pain. : No Dysuria, urgency, frequency. Extremities: No edema. NEUROLOGICAL: No headaches, no weakness, or numbness Dictation was produced using [employer] dictation software. please excuse any grammatical, word or spelling errors. Objective - Vital Signs Vital signs: Vital Signs Temp 98.0 F 03/08/24 12:55 Pulse 77 03/08/24 12:55 Resp 17 03/08/24 12:55 BP 101/64 03/08/24 12:55 Pulse Ox 100 03/08/24 12:55 FiO2 Intake & Output 03/07/24 03/08/24 03/08/24 18:59 06:59 18:59 Intake Total 1080 Output Total 6422 101 6598 Balance -1020 480 -1650 Weight 55 kg Intake: Oral 1080 Output: Urine 2929 321 0631 Uretheral (Cabrera) 350 Other: # Bowel Movements 1 1 - Labs CBC & Chem 7: 03/08/24 03:29 03/08/24 03:29 Labs: Abnormal Lab Results - Last 24 Hours (Table) 03/08/24 03/08/24 Range/Units 03:29 03:29 RBC 2.88 L (4.40-5.60) X 10*6/uL Hgb 9.9 L (13.0-17.0) g/dL Hct 29.7 L (39.6-50.0) % MCV 103.1 H (80.0-97.0) FL MCH 34.4 H (27.0-32.0) pg RDW 15.5 H (11.5-14.5) % MPV 9.0 L (9.5-12.2) FL Eosinophils # 0.44 H (0.04-0.35) X 10*3/uL Sodium 133 L (135-145) mmol/L Carbon Dioxide 20.5 L (21.6-31.8) mmol/L BUN/Creatinine Ratio 22.33 H (12.00-20.00) Ratio Calcium 8.6 L (8.7-10.3) mg/dL
[2024-03-08] MEDS: SODIUM CHLORIDE TAB 1 GM TAB PO ONE (17:11)
--- NOTE | 2024-03-08 22:02 | P.PN ---
Subjective Patient seen and evaluated at bedside. Patient doing ok, still complains of difficulty with swallowing pills, denies difficulty with swallowing food. Objective - Vital Signs Vital signs: Vital Signs Temp 98.0 F 03/08/24 12:55 Pulse 77 03/08/24 12:55 Resp 17 03/08/24 12:55 BP 101/64 03/08/24 12:55 Pulse Ox 100 03/08/24 12:55 FiO2 Intake & Output 03/08/24 03/08/24 03/09/24 06:59 18:59 06:59 Intake Total 1080 850 Output Total 600 1850 Balance 480 -1000 Weight 55 kg Intake: Oral 1080 850 Output: Urine 600 1850 Uretheral (Cabrera) 350 Other: # Bowel Movements 1 - Exam general no acute distress alert and oriented 3 HEENT demonstrates bilateral superficial lacerations with no stigmata of active bleeding, or mucosa seen moist and no scarring visualized Cardiovascular regular rate and rhythm pulmonary nonlabored breathing Abdomen soft, nondistended, minimal tenderness to palpation in the periumbilical area no guarding or rebound tenderness right lower quadrant 12 centimeter laceration superficial with no stigmata of bleeding - Labs CBC & Chem 7: 03/08/24 03:29 03/08/24 03:29 Labs: Abnormal Lab Results - Last 24 Hours (Table) 03/08/24 03/08/24 Range/Units 03:29 03:29 RBC 2.88 L (4.40-5.60) X 10*6/uL Hgb 9.9 L (13.0-17.0) g/dL Hct 29.7 L (39.6-50.0) % MCV 103.1 H (80.0-97.0) FL MCH 34.4 H (27.0-32.0) pg RDW 15.5 H (11.5-14.5) % MPV 9.0 L (9.5-12.2) FL Eosinophils # 0.44 H (0.04-0.35) X 10*3/uL Sodium 133 L (135-145) mmol/L Carbon Dioxide 20.5 L (21.6-31.8) mmol/L BUN/Creatinine Ratio 22.33 H (12.00-20.00) Ratio Calcium 8.6 L (8.7-10.3) mg/dL Assessment and Plan Assessment: 68 year old male with Dysphagia -EGD performed which showed gastritis -Recommend PPI -Ok for Regular Diet -No acute surgical intervention Time with Patient: Less than 30
[2024-03-09 08:06] VITALS: BP 126/72; PULSE 63; RESP 18; TEMP 98.3
[2024-03-09 09:11] LABS: Blood Urea Nitrogen 14.3 mg/dL (9.0-27.0); Calcium 8.6 mg/dL (8.7-10.3); Carbon Dioxide 20.3 mmol/L (21.6-31.8); Chloride 102 mmol/L (96-109); Glucose 94 mg/dL (70-110); Potassium 4.4 mmol/L (3.5-5.5); Sodium 132 mmol/L (135-145)
[2024-03-09] MEDS: SODIUM CHLORIDE TAB 1 GM TAB PO SCH (09:23)
--- NOTE | 2024-03-09 12:07 | P.PN ---
Subjective Patient is seen for f/u for hyponatremia. Patient received Samsca yesterday and sodium has improved to 133. It is 132 today. There is concern that patient will not be able to afford Samsca or urea post discharge therefore we will discharge him on sodium chloride tabs. No significant complaints today. Status post sodium chloride 1 g yesterday Objective - Vital Signs Vital signs: Vital Signs Temp 98.3 F 03/09/24 06:59 Pulse 63 03/09/24 06:59 Resp 18 03/09/24 06:59 BP 126/72 03/09/24 06:59 Pulse Ox 99 03/09/24 06:59 FiO2 Intake & Output 03/08/24 03/09/24 03/09/24 18:59 06:59 18:59 Intake Total 850 236 Output Total 1850 950 Balance -1000 -950 236 Weight 55 kg Intake: Oral 850 236 Output: Urine 1850 950 Uretheral (Cabrera) 350 Other: Voiding Method Toilet # Voids 2 2 # Bowel Movements 1 1 - Exam Awake, comfortable, no distress Alert and oriented x3 Lungs are clear S1 and S2 heard Abdomen is soft nontender No edema noted. Moving all 4 extremities. - Labs CBC & Chem 7: 03/08/24 03:29 03/09/24 04:21 Labs: Abnormal Lab Results - Last 24 Hours (Table) 03/09/24 Range/Units 04:21 Sodium 132 L (135-145) mmol/L Carbon Dioxide 20.3 L (21.6-31.8) mmol/L Creatinine 0.5 L (0.6-1.5) mg/dL BUN/Creatinine Ratio 28.60 H (12.00-20.00) Ratio Calcium 8.6 L (8.7-10.3) mg/dL Assessment and Plan Assessment: . Hyponatremia. Initially hypovolemic and improved with IV fluids. Now euvolemic. Component of urinary retention and SIADH from pain. Urine osmolality 505. Sodium improved to 133 post Samsca yesterday. He remains on urea tablets as well. Patient is not able to afford Samsca or urea as outpatient therefore we will plan to discharge him on sodium chloride tabs with close monitoring of volume status and blood pressure. 2. Major depressive disorder being followed by psychiatry. 3. Benign hypertension. 4. Hypokalemia from intracellular shifting from IV bicarb. Replaced. Better. 5. Hypomagnesemia from poor intake. Replaced. On oral magnesium oxide. 6. Urinary retention. Cabrera catheter was removed yesterday and postvoid bladder scan will be rechecked today. Plan: Continue with fluid restriction Maintain sodium chloride tabs 1 g daily with repeat labs to be done in 2 to 3 days post discharge.
--- NOTE | 2024-03-09 13:19 | P.DS ---
Providers Date of admission: 02/19/24 16:26 Expected date of discharge: 03/09/24 Attending physician: Merary Gomez Consults: 02/19/24 16:26 Consult Physician Urgent Consulting Provider: Artemio Clarke Consult Reason/Comments: Suicidal ideations Do you want consulting provider notified?: Yes Consult Physician Urgent Consulting Provider: Sd Mchugh Consult Reason/Comments: Hyponatremia, medical management Do you want consulting provider notified?: Yes 02/20/24 07:01 Consult Physician Routine Consulting Provider: Berna Greene Consult Reason/Comments: sodium Do you want consulting provider notified?: Yes 02/20/24 12:00 Consult Physician Routine Consulting Provider: Berna Greene Consult Reason/Comments: Hyponatremia Do you want consulting provider notified?: Yes 02/24/24 10:50 Consult Physician Routine Consulting Provider: Onel Cooper Consult Reason/Comments: Urinary retention Do you want consulting provider notified?: Yes 03/04/24 14:34 Consult Physician Routine Consulting Provider: Artemio Clarke Consult Reason/Comments: Suicidal ideations Do you want consulting provider notified?: Already Contacted 03/05/24 15:52 Consult Physician Routine Consulting Provider: Carmelo Spangler Consult Reason/Comments: Dysphagia, eval for EGD Do you want consulting provider notified?: Yes Primary care physician: Stated None Hospital Course: Discharge diagnoses: Assessment and plan: Suicidal attempt Intentional cutting with lacerations on neck, wrist and abdomen Intentional overdose on Zoloft Dysphagia Alcohol abuse Hyponatremia. Hypoosmolar with decreased solute intake. Acute urinary retention likely due to BPH worsened by psychiatric condition. Status post Cabrera catheter placement. Hypomagnesemia Hypokalemia replaced Right wrist pain. History of right wrist intra-articular fractures of the distal right radius and ulna. Plan: Was initially monitored for suicide precautions Psychiatry consultedinitially recommended inpatient psychiatric hospitalization, later on patient's suicidal ideations, per psychiatry improved inpatient psychiatric hospitalization not indicated. Urology evaluate the patient for urine retention, on Flomax, status post Cabrera's catheter Orthopedic consulted--no surgical intervention General Surgery consulted -- EGD on howed gastritis, recommended Prot mukul. Continue Protonix twice daily. Consults: Urology, psychiatry, orthopedic, nephrology. Trial of voiding done, Cabrera's catheter taken out, continue Flomax, outpatient follow-up with urology. Sodium was low, and patient was previously on sodium tablets. Sodium tablets later on stopped and patient was started on urea tablets also received tolvaptan. Nephrology consulted, recommended fluid restriction. Patient unable to afford urea tablets and tolvaptan, restarted on sodium tablets, sodium 132 on discharge. Recommended to get sodium rechecked by family doctor in 2 to 3 days. Hospital course: Interval History: History of present illness; patient is a 68-year-old gentleman with past medical history significant for hyperlipidemia, depression who presented to the ER for suicidal attempt. Patient was brought to the ER after trying to kill himself by cutting himself in multiple places. Patient had cut himself on the neck wrist as well as abdomen. Patient also admitted to overdosing on his Zoloft medication with intent to kill himself. Patient denies any auditory or visual hallucinations. Denies any chest pain or shortness of breath. Because of this suicidal attempt, patient brought to the ER Initial lab work done in the ER showed WBC 15.5, hemoglobin 13.8, sodium 115, potassium 4.2, BUN 6, creatinine 0.48, glucose 128 Urine drug screen positive for opiates serum alcohol level 41. EKG done in the ER showed heart rate of 101, no ST segment elevation or depression seen, no T-wave inversions seen. Chest x-ray done in the ER showed no acute cardiopulmonary process X-ray pelvis done showed no acute osseous pathology CTA neck done showed no evidence of contrast extravasation to suggest active bleeding or vascular trauma. CT chest done showed no evidence of active bleeding or traumatic abnormality in the chest 02/21/2024 Patient is in the ER. Lying in the bed comfortably. Denied any complaints of chest pain or shortness of breath. No cough or sputum production. Patient is able to tolerate oral diet. Psychiatry recommends inpatient psych unit transfer once medically stable. Otherwise laboratory data showed sodium 121 potassium 3.3 chloride 91 bicarb is 28 BUN 16 creatinine 0.41 and magnesium 1.6. Psychiatric and nephrology is on board. 02/22/2024 Patient is resting in the bed. Awake alert and oriented. Denied any complaints of chest pain or shortness of breath. Bedside sitter is present. Sodium level this morning was 121. Continued on free water restriction and sodium chloride tablets. Magnesium level 1.5. Repeat sodium level went up to 127. Nephrology and general surgery is on board. Psychiatry recommends inpatient psychiatric admission. 02/23/2024 Patient is resting in bed. Awake alert and oriented x 3. Able to tolerate oral diet. Sodium level improved to 133 today. No other acute overnight issues. 02/24/2024 Patient is lying in the bed. Awake alert. On room air. Bladder scan showed greater than 50 cc/h. Cabrera catheter was placed due to urinary retention. Otherwise sodium level 126 today. 02/25/2024 Patient is lying in the bed. Awake alert and oriented. Continued on Cabrera catheter. Denied any complaints of abdominal pain. Tolerating oral diet. Sodium level 124 today. Tolerating oral diet. No nausea vomiting or diarrhea. 02/26/2024 Patient is resting in the bed. Awake alert and oriented x 3. Complains of right chest pain today. Patient does have history of right wrist fracture, x- ray on 02/12/2024 showed intra-articular comminuted and displaced fractures of the distal right radius and ulna. Patient was seen by orthopedic surgery at that time and recommended to follow-up as an outpatient with continued pain management. Patient would like to see orthopedic surgery during this admission. He is also complaining of increasing pain. Otherwise patient is tolerating oral diet. Sodium level is at 124 today. Potassium 3.6 BUN 9 and creatinine 0.49 and magnesium 1.6. 02/27/2024 Patient is lying in the bed. Awake alert and oriented. Denies any complaints of chest pain or shortness of breath. Continued on Cabrera catheter due to urinary retention. Able to tolerate oral diet. Sodium level improved to 131. Continued on fluid restriction. Patient was given a dose of Samsca on 02/26/2024. Nephrology is on board. Laboratory data showed sodium 131 potassium 4.5 chloride 101 bicarb is 23 BUN 18 creatinine 0.54 and blood sugar 94. Magnesium 1.9. 02/27 Lying in bed comfortable, denies any specific complaint No chest pain or dyspnea. Denies laceration problem He has pain in his right wrist with some deformity with prominent bones on the lateral side. He states this happened after she fell about 2 weeks ago. His pain about 8/10 in severity, he has good handgrip. Other than that he has a Cabrera catheter in place and admission because of acute urinary retention, urologist recommended to discontinue Cabrera prior to discharge, I discussed with patient and he agrees to take it out and we will do every shift bladder scan, discussed with the staff 02/28 Patient awake alert, looks little tired Sitter at bedside His sodium improved today 132 status post Samsca x 1 yesterday Denies any other complaints He tolerates diet well Patient can be downgraded to general medical floor with telemetry for now patient still pending to be placed in psych geriatric unit 03/01 lying in bed comfortable no new complaint siter at bed side sodium 130 pending placement to psych geriatric unit 03/02 Patient is doing well overall No new complaint Sitter at bedside Pending placement to geriatric psych unit 03/03 Patient lying comfortably in bed No abdominal pain or tenderness, no vomiting no diarrhea Sodium today 125 and sodium tablets was stopped and placed on urea 03/04patient resting comfortably in bed. No issues overnight. Certification done. Vitals are stable, afebrile. BMP showed sodium 126, nephrology following, continue fluid restriction, urea tablets, Samsca 7.5 mg today. 03/05--patient was seen and examined today, no issues overnight, complains of nausea and vomiting, will consult general surgery to evaluate for EGD. Psychiatry evaluated patient, cleared, does not need inpatient psychiatric hospitalization, no suicidal or homicidal ideations. Vital stable, BMP stable. Sodium 132, urea tablets. 03/06--Patient was seen and examined today, continues complain of nausea. Vitals stable. Sodium 130. Normal BUN/creatinine. Underwent EGD today which showed gastritis, started on Protonix 03/07/patient was examined today. Nausea and vomiting is better. Vital stable. WBCs 7.6, hemoglobin 9.3, platelet 344. Patient's sodium dropped to 127 today as compared to 130 yesterday, nephrology following, ordered 1 dose of tolvaptan today. 03/08/24--patient was seen and examined today. No issues overnight. Patient received tolvaptan yesterday, sodium is 133 today improved from 127 today. Discussed with nephrology, patient unable to afford urea or tolvaptan as outpatient. Started on sodium chloride tablets and will monitor sodium. Will discontinue Cabrera's catheter and trial of voiding. 03/09/24--patient seen and examined today. No issues overnight. Sodium 132 today. Trial of voiding successful. Cabrera's catheter out. Nephrology recommended to continue sodium tablets at discharge repeat BMP to be checked in 2 to 3 days. Patient unable to afford tolvaptan or urea tablets. Follow-up with PCP in 1 week Follow-up with nephrology as outpatient. Follow-up with orthopedic as outpatient. PHYSICAL EXAMINATION: GENERAL: The patient is A&O x3, NAD HEENT: EOMI, Sclerae anicteric, Moist Mucous membranes Neck: Supple, Non tender, No JVD PULMONARY: Equal breath souds B/L, No wheezing, No crackles. CARDIOVASCULAR: S1, S2 present. No murmurs, rubs, or gallops. ABDOMEN: Soft, nontender, nondistended, normoactive bowel sounds. No guarding or rebound tenderness. MUSCULOSKELETAL: No edema, No cyanosis. No clubbing. Normal ROM. Intact peripheral pulses. NEUROLOGICAL: CN 2-12 grossly intact. No FND SKIN: No rashes. Dictation was produced using App[employer]ion dictation software. please excuse any grammatical, word or spelling errors. Patient Condition at Discharge: Fair Plan - Discharge Summary Discharge Rx Participant: Yes New Discharge Prescriptions: New Tamsulosin [Flomax] 0.4 mg PO PC-SUPPER #30 cap Magnesium Oxide [Mag-Ox] 400 mg PO DAILY #15 tab Pantoprazole [Protonix] 40 mg PO AC-BID #60 tab Sodium Chloride Tab 1 gm PO DAILY #30 tab Continue Aspirin 81 mg PO DAILY tab Ipratropium-Albuterol Nebulize [Duoneb 0.5 mg-3 mg/3 ml Soln] 3 ml INHALATION RT-QID PRN each PRN Reason: Shortness Of Breath Or Wheezing Metoprolol Succinate (ER) [Toprol XL] 12.5 mg PO DAILY #30 tab traMADol HCl [Ultram] 50 mg PO Q6H PRN #12 tab PRN Reason: Moderate Pain (Scale 4 To 6) Thiamine [Vitamin B-1] 100 mg PO DAILY tab Multivitamins, Thera [Multivitamin (formulary)] 1 tab PO DAILY Sertraline [Zoloft] 50 mg PO DAILY 30 Days #30 tab Ranolazine [Ranexa] 1,000 mg PO BID Atorvastatin [Lipitor] 80 mg PO HS Folic Acid 1 mg PO DAILY tab Nicotine 21Mg/24Hr Patch [Habitrol] 1 patch TRANSDERM DAILY patch Sodium Chloride Tab 1 gm PO BID 30 Days #60 tab Discharge Medication List Ranolazine [Ranexa] 1,000 mg PO BID 12/23/23 [History] Atorvastatin [Lipitor] 80 mg PO HS 02/12/24 [History] Aspirin 81 mg PO DAILY tab 02/15/24 [Rx] Folic Acid 1 mg PO DAILY tab 02/15/24 [Rx] Ipratropium-Albuterol Nebulize [Duoneb 0.5 mg-3 mg/3 ml Soln] 3 ml INHALATION RT-QID PRN each 02/15/24 [Rx] Metoprolol Succinate (ER) [Toprol XL] 12.5 mg PO DAILY #30 tab 02/15/24 [Rx] Nicotine 21Mg/24Hr Patch [Habitrol] 1 patch TRANSDERM DAILY patch 02/15/24 [Rx] Thiamine [Vitamin B-1] 100 mg PO DAILY tab 02/15/24 [Rx] traMADol HCl [Ultram] 50 mg PO Q6H PRN #12 tab 02/15/24 [Rx] Multivitamins, Thera [Multivitamin (formulary)] 1 tab PO DAILY 02/17/24 [History] Sertraline [Zoloft] 50 mg PO DAILY 30 Days #30 tab 02/18/24 [Rx] Sodium Chloride Tab 1 gm PO BID 30 Days #60 tab 02/18/24 [Rx] Magnesium Oxide [Mag-Ox] 400 mg PO DAILY #15 tab 03/09/24 [Rx] Pantoprazole [Protonix] 40 mg PO AC-BID #60 tab 03/09/24 [Rx] Sodium Chloride Tab 1 gm PO DAILY #30 tab 03/09/24 [Rx] Tamsulosin [Flomax] 0.4 mg PO PC-SUPPER #30 cap 03/09/24 [Rx] Follow up Appointment(s)/Referral(s): [facility]Home Care [NON-STAFF] - As Needed None,Stated [Primary Care Provider] - 1-2 days Berna Greene MD [STAFF PHYSICIAN] - 1 Week Activity/Diet/Wound Care/Special Instructions: Follow-up with your family doctor within 1 week, get your labs sodium checked in 2 to 3 days by your family doctor. Discharge/Stand Alone Forms: AA Meetings [address] - [facility], AA Meetings [facility], [facility] Substance Abuse Facilities Discharge Disposition: HOME WITH HOME HEALTH SERVICES
--- NOTE | 2024-03-09 14:39 | P.PN ---
Subjective Progress Note Date: 03/09/24 SURGICAL PROGRESS NOTE CHIEF COMPLAINT: Suicidal with self-inflicted lacerations HISTORY OF PRESENT ILLNESS: Surgical service following in regards to dysphagia. Status post EGD revealing gastritis. Patient reports he is tolerating regular food. He occasionally has pills that stick. He feels ready for discharge. He denies any nausea or vomiting. Denies any abdominal pain. PHYSICAL EXAM: VITAL SIGNS: Reviewed. GENERAL: Well-developed in no acute distress. ABDOMEN: Soft. Nondistended. Nontender. Right lower quadrant 12 cm superficial laceration. Area is scabbed. No bleeding. No erythema ASSESSMENT: 1. Dysphagia status post EGD revealing gastritis PLAN: -Patient can be discharged from surgical standpoint -Continue PPI -Continue chopped diet Physician [employer] Tester note has been reviewed by physician. Signing provider agrees with the documented findings, assessment, and plan of care. Objective - Vital Signs Vital signs: Vital Signs Temp 98.3 F 03/09/24 06:59 Pulse 63 03/09/24 06:59 Resp 18 03/09/24 06:59 BP 126/72 03/09/24 06:59 Pulse Ox 99 03/09/24 06:59 FiO2 Intake & Output 03/08/24 03/09/24 03/09/24 18:59 06:59 18:59 Intake Total 850 236 Output Total 1850 950 Balance -1000 -950 236 Weight 55 kg Intake: Oral 850 236 Output: Urine 1850 950 Uretheral (Cabrera) 350 Other: Voiding Method Toilet # Voids 2 2 # Bowel Movements 1 1 - Labs CBC & Chem 7: 03/08/24 03:29 03/09/24 04:21 Labs: Abnormal Lab Results - Last 24 Hours (Table) 03/09/24 Range/Units 04:21 Sodium 132 L (135-145) mmol/L Carbon Dioxide 20.3 L (21.6-31.8) mmol/L Creatinine 0.5 L (0.6-1.5) mg/dL BUN/Creatinine Ratio 28.60 H (12.00-20.00) Ratio Calcium 8.6 L (8.7-10.3) mg/dL
== END 2024-03-09 16:09 | disposition home health service (06) | DRG 643 ==
LOC: EC 14:27 → 3SCARD 16:26 → 4SSUR 02-29 23:08
PROVIDERS: ADMIT Internal Medicine; ATTEND Internal Medicine
PROC: 0HQ4XZZ Repair Neck Skin, External Approach (ICD-10-PCS; principal; 2024-02-19)
PROC: 3E0234Z Introduction of Serum, Toxoid and Vaccine into Muscle, Percutaneous Approach (ICD-10-PCS; 2024-02-19)
PROC: 0DB78ZX Excision of Stomach, Pylorus, Via Natural or Artificial Opening Endoscopic, Diagnostic (ICD-10-PCS; 2024-03-06)
DX: E22.2 Syndrome of inappropriate secretion of antidiuretic hormone (principal); S72.111A Displaced fracture of greater trochanter of right femur, initial encounter for closed fracture; S72.112A Displaced fracture of greater trochanter of left femur, initial encounter for closed fracture; E87.20 Acidosis, unspecified; F33.2 Major depressive disorder, recurrent severe without psychotic features; S52.571A Other intraarticular fracture of lower end of right radius, initial encounter for closed fracture; S21.139A Puncture wound without foreign body of unspecified front wall of thorax without penetration into thoracic cavity, initial encounter; S52.601A Unspecified fracture of lower end of right ulna, initial encounter for closed fracture; E88.89 Other specified metabolic disorders; J44.9 Chronic obstructive pulmonary disease, unspecified; F10.129 Alcohol abuse with intoxication, unspecified; Z23 Encounter for immunization; T43.222A Poisoning by selective serotonin reuptake inhibitors, intentional self-harm, initial encounter; T65.892A Toxic effect of other specified substances, intentional self-harm, initial encounter; X78.1XXA Intentional self-harm by knife, initial encounter; S11.81XA Laceration without foreign body of other specified part of neck, initial encounter; R13.10 Dysphagia, unspecified; S31.113A Laceration without foreign body of abdominal wall, right lower quadrant without penetration into peritoneal cavity, initial encounter; I10 Essential (primary) hypertension; S61.512A Laceration without foreign body of left wrist, initial encounter; S61.511A Laceration without foreign body of right wrist, initial encounter; I25.10 Atherosclerotic heart disease of native coronary artery without angina pectoris; F17.210 Nicotine dependence, cigarettes, uncomplicated; E78.5 Hyperlipidemia, unspecified; K29.70 Gastritis, unspecified, without bleeding; E86.1 Hypovolemia; E87.6 Hypokalemia; T47.1X5A Adverse effect of other antacids and anti-gastric-secretion drugs, initial encounter; E83.42 Hypomagnesemia; N40.1 Benign prostatic hyperplasia with lower urinary tract symptoms; R33.8 Other retention of urine; Y90.2 Blood alcohol level of 40-59 mg/100 ml; Z60.8 Other problems related to social environment; Z95.5 Presence of coronary angioplasty implant and graft; Z79.82 Long term (current) use of aspirin; Z79.899 Other long term (current) drug therapy; I25.2 Old myocardial infarction; Z91.81 History of falling
CPT/HCPCS: 36415; 43239; 70498; 71045; 71260; 72170; 73521; 80048; 80051; 80053; 80306; 80320; 81003; 82533; 83519; 83605; 83735; 83930; 83935; 84295; 84443; 84484; 85025; 85610; 85730; 86850; 86900; 86901; 88305; 90471; 90715; 93005; 96361; 96365; 96366; 96367; 96375; 99291